=== PATIENT | male | born 1950 | race Caucasian/White ===

== ENCOUNTER 2016-12-04 15:22 | Inpatient (IN) ==
[2016-12-04] MEDS ORDERED: *HR* Dextrose 50 % in Water (Syg) 50 ML SYRINGE IVP PRN (17:53)
[2016-12-04] MEDS ORDERED: Dextrose Gel 15 GM PO PRN ×2 (17:53)
[2016-12-04] MEDS ORDERED: D5% in Water 1,000 ML IVC PRN (17:53)
[2016-12-04] MEDS ORDERED: *HR* Morphine 2 MG/ML SYRINGE IVP PRN (18:00)
[2016-12-04] MEDS ORDERED: Ondansetron 4 MG/2 ML VIAL IVP PRN (18:00)
[2016-12-04] MEDS ORDERED: Naloxone 0.4 MG/ML INJ IVP PRN ×2 (18:00→18:09)
--- NOTE | 2016-12-04 18:10 | Internal Med History&Physical ---
Date of Encounter: 12/04/16 Time of Encounter: 17:40 Assessment and Plan (1) Dysphagia Current visit: Yes Status: Acute Mr. Dillard was admitted to the [facility] with new findings of dysphagia, underwent speech evaluation determined to be nothing by mouth with NG tube placement. -Neurologic exam and CT of the brain without contrast did not demonstrate any acute findings or stroke. Plan: - Continue NG tube placement confirmed by KUB - Tube feedings per dietary - May need to be reassessed by speech. Qualifiers: Dysphagia type: unspecified Qualified Code(s): R13.10 - Dysphagia, unspecified (2) Acute on chronic kidney failure Current visit: Yes Status: Acute Mr. Dillard was transferred from the [facility] with a creatinine according to their documentation of 4.28 and GFR of 14.8 with a sodium of 147 and that BUN of 149. According to their records the patient was admitted with a creatinine of 2.0 and a GFR of 35.6 and according to lab results from 11/07/2016 he had a creatinine 2.43 and a GFR of 27. - Laboratory results demonstrate creatinine of 4.34 and GFR 14, BUN 137 - Clinical examination patient appears euvolemic, has dark brown urine in his Gomez bag Plan: - Dr. José with nephrology has been consult regarding this patient's arrival and would appreciate his involvements and treatment of his acute kidney injury. - Patient started on normal saline at 150 ML's per hour - Gomez catheter in place - Retroperitoneal ultrasound for renal evaluation - Avoid nephrotoxic medications and renally dose antibiotics - Repeat CMP in a.m. Qualifiers: Chronic kidney disease stage: stage 4 (severe) Qualified Code(s): N17.9 - Acute kidney failure, unspecified; N18.4 - Chronic kidney disease, stage 4 ( severe) (3) Type 2 diabetes mellitus Current visit: Yes Status: Acute Known type II diabetic with chronic kidney disease. Insulin-dependent, glucose upon admission was 102 Plan: -Before meals at bedtime glucose checks -Low-dose inpatient sliding scale Qualifiers: Qualified Code(s): E11.9 - Type 2 diabetes mellitus without complications (4) COPD (chronic obstructive pulmonary disease) Current visit: Yes Status: Acute Patient was treated for COPD exacerbation with admission at [facility] currently maintaining oxygen saturations greater than 90% on 3 L nasal cannula - Lungs clear to auscultation bilaterally - Continue to monitor and wean oxygen as tolerated - [place] when necessary - Albuterol nebulizer every 2 hours when necessary Qualifiers: Qualified Code(s): J44.9 - Chronic obstructive pulmonary disease, unspecified (5) Hyperkalemia Current visit: Yes Status: Acute Patient presents with hyperkalemia with a potassium 5.0 in the setting of acute on chronic kidney disease. Likely secondary to poor renal output and dehydration. - Nephrology has been consulted Plan: - Rehydration with normal saline - Kayexalate rectally - Repeat potassium at midnight - Notify nephrology of potassium continues to rise (6) Hypothyroidism Current visit: Yes Status: Acute TSH documented on 12/02/2016 at the [facility] of 20.20 TSH 10.38 - This is in the setting of acute illness if symptoms persist he may require levothyroxin. Patient with antipsychotic use. Plan: - Patient may require levothyroxin. Symptomatic after correction of underlying disease. Qualifiers: Hypothyroidism type: unspecified Qualified Code(s): E03.9 - Hypothyroidism , unspecified (7) Schizophrenia Current visit: Yes Status: Acute Patient has known history of schizophrenia and has documented Aripiprazole, benztropine haloperidol and trazodone for which he was not taking due to NG tube placement. At the [facility] he was evaluated by psychiatry for which he was on valproic acid and tapered to 250 mg a.m. and 750 mg p.m. for mood stabilization prior to DC - This was not provided on his list of medications for discharge. Qualifiers: Schizophrenia type: unspecified Qualified Code(s): F20.9 - Schizophrenia, unspecified (8) Anemia Current visit: Yes Status: Acute Patient has a history of chronic anemia with a hemoglobin of 10.4 in March of this year. When he was admitted to the [facility] he had a hemoglobin of 6.6 and received 2 units of PRBCs and has maintained a hemoglobin of around 9 since admission. This also may be concentrated as he is dehydrated and after rehydration may be requiring more PRBC transfusion. Plan: - Monitor with daily CBC - Transfuse PRBC if hemoglobin below 7.0 Qualifiers: Chronic kidney disease stage: stage 4 (severe) Qualified Code(s): N18.4 - Chronic kidney disease, stage 4 (severe); D63.1 - Anemia in chronic kidney disease (9) Encounter for nasogastric (NG) tube placement Current visit: Yes Status: Acute Patient transferred with an NG tube in place, KUB was performed to confirm placement demonstrating tip of the NG tube in the gastric cavity. The NG tube was placed due to dysphagia and speech evaluation was performed at the [facility] with recommendations for nothing by mouth. - Dietary consult placed patient will require NG tube feedings until further evaluation (10) Urinary tract infection Current visit: Yes Status: Acute 66-year-old male transferred from the [facility] with acute kidney injury on chronic kidney disease. Urinalysis demonstrates large leukocyte esterase, urinary blood and greater than 300 protein. This is associated with a WBC 15.9 Plan: - Patient has an allergy to penicillins, we will give 500 Levaquin every 48 hours Qualifiers: Qualified Code(s): N39.0 - Urinary tract infection, site not specified; R31.9 - Hematuria, unspecified (11) Right bundle branch block Current visit: Yes Status: Acute Repeat EKG upon admission demonstrates normal sinus rhythm and rate with left axis deviation and right bundle branch block which is consistent with EKGs sent over from the [facility]. - Prior rhythm and cardiac history unknown at this time. (12) DVT prophylaxis Current visit: Yes Status: Acute SCD, patient has a documented allergy to heparin [facility]. Unsure what this allergy is and will need further clarification. Internal Medicine - H&P: HPI Chief complaint: dayne History of present illness: Mr. Dillard is a 66 year old male with history of diabetes, chronic kidney disease COPD, anemia presented C the [facility] on 11/26/2016 with new findings of dysphagia. Mr. Dillard has an NG tube in place from the [facility] and does not respond to questions appropriately. However he is alert awake and interactive his responses are not appropriate. While at the [facility] he received 2 units of PRBCs for hemoglobin below 7 and was seen by speech pathology failing a swallow evaluation. Upon admission at the [facility] and his creatinine was 2.0 and GFR 35.6 the following days his renal function progressively worsened. According to hospital notes he received some IV fluids consisting of dextrose and water. During his inpatient stay he was found to be hyperkalemic which progressively worsened requiring Kayexalate. We will also documented that a psychiatry consultation was recommended given the patient's mental status change and increased tongue thrusting. Laboratory results of significance from the [facility]: Hemoglobin 9.4 hematocrit 3.0, platelet count of 59, sodium 147, potassium 4.9 after Kayexalate, chloride 110, CO2 25, glucose 92, B1 149, creatinine 4.2 weight, GFR 14.8, calcium 7.9. On December 02 patient had a TSH of 20.2 and a free T4 of 0.89. Mr. Dillard was transferred from the [facility] to our inpatient facility for worsening acute kidney injury, hyperkalemia not responding to therapy and nephrology evaluation. Upon evaluation Mr. Dillard he was laying comfortably in the hospital bed with an NG tube in place. Upon asking questions his answers are not appropriate and when asked if he is having any pain he pointed to his head. He was unable to answer any further questions appropriately. Patient was transferred with DNR CCA forms and legal guardian is Prery Taveras Past Med Surg Social Fam HX - Past Medical History Medical history: cancer, CHF, COPD, diabetes, hypertension, renal disease Psychiatric history: anxiety, depression, schizophrenia - Social History Smoking Status: Unknown if ever smoked Smokeless Tobacco Status: No Alcohol use: unknown Drug use: unknown Internal Medicine - H&P: Meds 3 Allergy/AdvReac Type Severity Reaction Status Date / Time Penicillins Allergy See Verified 03/21/16 08:24 Comments Sulfa (Sulfonamide Allergy See Verified 03/21/16 08:24 Antibiotics) Comments TB test Allergy See Uncoded 03/21/16 08:24 Comments ROS unobtainable: due to mental status All Systems PM: A 10-system review of systems was performed and is negative for pertinent findings except as documented above in the HPI. - Constitutional Vitals: Temp Pulse Resp BP Pulse Ox 98.3 F 85 20 119/61 92 12/04/16 17:06 12/04/16 17:06 12/04/16 17:06 12/04/16 17:06 12/04/16 17:06 Exam: General: Patient alert, awake, oriented to self, in no acute distress HEENT: Normocephalic, atraumatic, pupils are symmetric but pinpoint, nasal cavity patent and open septum median position with NG tube in place, oral mucosa moist, tongue thrusting present,, neck supple trachea midline no palpable lymphadenopathy, no thyromegaly. Chest: Symmetric bilateral correlating with respiratory effort, effort nonlabored. Cardiac: Regular rate and rhythm, positive S1 and S2. no bruits appreciated bilateral carotids, Radial pulses 2+ bilateral, posterior tibial and dorsal pedal pulses 2+ bilateral. Respiratory: Clear to auscultation all lung terrell Abdomen: Soft, nontender, positive bowel sounds, no palpable masses appreciated on examination Extremities: Symmetric bilateral, bilateral lower extremities trace edema without signs of erythema Neurologic: No focal deficits appreciated on examination. Face symmetric, muscle strength symmetric bilateral upper and lower extremities.
[2016-12-04 18:24] LABS: Bilirubin,Urine Negative (Negative); Blood,Urine Large (Negative); Clarity,Urine Cloudy (Clear); Color,Urine Dark Yellow (Yellow); Glucose,Urine (UA) Normal (Normal); Ketones,Urine Negative (Negative); Protein,Urine >=300 mg/dL (Neg-Trace); Specific Gravity,Urine 1.016 (1.010-1.025); Urobilinogen,Urine Normal (Normal)
[2016-12-04 18:25] LABS: Leukocyte Esterase,Urine Large (Negative); Nitrite,Urine Negative (Negative)
[2016-12-04 18:29] LABS: Magnesium 2.5 mg/dL (1.6-2.6); Phosphorous 6.9 mg/dL (2.3-4.7)
[2016-12-04 18:38] LABS: Albumin 2.6 g/dL (3.5-5.0); Albumin/Globulin Ratio 0.6 (1.1-2.2); Bilirubin,Total 0.6 mg/dL (0.2-1.2); Calcium 8.5 mg/dL (8.6-10.8); Globulin 4.3 g/dL (2.4-3.5); Total Protein 6.9 g/dL (6.0-8.3)
[2016-12-04 18:39] LABS: Basophils % 0.1 %; Eosinophils # 0.2 K/mcL (0.0-0.6); Eosinophils % 1.4 %; Hematocrit 29.9 % (37.5-50.1); Hemoglobin 9.1 g/dL (12.9-16.9); Immature Platelets 9.1 % (1.1-6.1); Lymphocytes # 0.7 K/mcL (0.6-4.6); Lymphocytes % 4.5 %; Mean Corpuscular HGB Conc 30.4 g/dL (31.6-35.5); Mean Corpuscular Hemoglobin 29.9 pg (28.0-33.3); Mean Corpuscular Volume 98.4 fL (83.0-100.0); Mean Platelet Volume 12.7 fL (9.4-12.4); Monocytes # 0.7 K/mcL (0.0-1.3); Monocytes % 4.2 %; Nucleated Red Blood Cells 0.3 /100 WBC (0); Red Blood Count 3.04 M/mcL (4.19-5.50); Segmented Neutrophils % 87.8 %
[2016-12-04] MEDS ORDERED: 0.9 % Sodium Chloride 1,000 ML IVC ONE (18:54)
[2016-12-04] MEDS ORDERED: Levofloxacin 500 MG/100 ML 500 MG/100 ML BAG IVPB SCH (19:00)
--- NOTE | 2016-12-04 19:06 | Event Note ---
Date of Encounter: 12/04/16 Time of Encounter: 19:00 I personally interviewed and examined this patient. I reviewed all labs and studies. I agree with the findings, assessment and plan of medical student Marino Carver. Patient will be seen by nephrology for acute worsening of chronic kidney disease. He does not need acute dialysis but will likely need this very soon. Patient is a very poor historian but does have a nonfocal exam. He does have dysphagia for which he has an NG tube. I am unclear why he has dysphasia and we will perform a CAT scan looking for evidence of stroke. We will continue NG feedings for now and also have a swallow evaluation as well as nutrition consult. Family is not available and we will continue to try to reach them to discuss her goals of care. Understanding is he is a DO NOT RESUSCITATE but they are interested in dialysis.
[2016-12-04 19:11] LABS: Platelet Count 56 K/mcL (140-400)
[2016-12-04 19:12] LABS: Anisocytosis 2+ (Not Present); Basophilic Stippling 1+ (Not Present); Macrocytosis Present (Not Present); Platelet Estimate Decreased (Normal); Polychromasia 1+ (Not Present)
[2016-12-04] MEDS: Pantoprazole 40 MG VIAL IVP SCH (19:20)
[2016-12-04] MEDS: Insulin LISPRO 300 UNITS/3 ML VIAL SQ SCH (19:20)
[2016-12-04] MEDS ORDERED: Albuterol 2.5 MG/3 ML NEBULIZER IH PRN (19:36)
[2016-12-04] MEDS: 0.9 % Sodium Chloride 1,000 ML IVC SCH (19:55)
[2016-12-04] MEDS: Ipratropium/Albuterol Neb 3 ML IH PRN (23:40)
[2016-12-05] MEDS: 0.9 % Sodium Chloride 1,000 ML IVC SCH ×2 (00:05→02:54)
[2016-12-05] MEDS: Insulin LISPRO 300 UNITS/3 ML VIAL SQ SCH ×5 (00:05→23:12)
[2016-12-05] MEDS: D5% in 0.9% NACL 1,000 ML IVC SCH ×4 (04:14→23:11)
[2016-12-05 04:48] LABS: Basophils % 0.1 %; Eosinophils # 0.2 K/mcL (0.0-0.6); Eosinophils % 1.6 %; Hematocrit 28.2 % (37.5-50.1); Hemoglobin 8.7 g/dL (12.9-16.9); Immature Granulocytes % 2.7 % (0-4); Immature Platelets 9.9 % (1.1-6.1); Lymphocytes # 0.9 K/mcL (0.6-4.6); Lymphocytes % 6.3 %; Mean Corpuscular HGB Conc 30.9 g/dL (31.6-35.5); Mean Corpuscular Hemoglobin 30.6 pg (28.0-33.3); Mean Corpuscular Volume 99.3 fL (83.0-100.0); Monocytes # 0.5 K/mcL (0.0-1.3); Monocytes % 3.5 %; Neutrophils # 11.6 K/mcL (1.6-8.9); Nucleated Red Blood Cells 0.1 /100 WBC (0); Red Blood Count 2.84 M/mcL (4.19-5.50); Segmented Neutrophils % 85.8 %
[2016-12-05 04:59] LABS: Albumin 2.3 g/dL (3.5-5.0); Albumin/Globulin Ratio 0.5 (1.1-2.2); Bilirubin,Total 0.7 mg/dL (0.2-1.2); Globulin 4.5 g/dL (2.4-3.5); Total Protein 6.8 g/dL (6.0-8.3)
[2016-12-05 05:02] LABS: Potassium 4.8 mEq/L (3.5-4.5)
[2016-12-05 05:19] LABS: Platelet Count 50 K/mcL (140-400)
[2016-12-05 05:20] LABS: Anisocytosis 2+ (Not Present); Basophilic Stippling 1+ (Not Present); Macrocytosis Present (Not Present); Platelet Estimate Decreased (Normal); Polychromasia 1+ (Not Present)
--- NOTE | 2016-12-05 07:21 | Internal Med Progress Note ---
<Marino Carver Mohit - Last Filed: 12/05/16 14:24> Date of Encounter: 12/05/16 Time of Encounter: 07:19 - Assessment and plan (1) Dysphagia Current Visit: Yes Status: Acute Assessment and plan: Mr. Dillard was admitted to the [facility] with new findings of dysphagia, underwent speech evaluation determined to be nothing by mouth with NG tube placement. -Neurologic exam and CT of the brain without contrast did not demonstrate any acute findings or stroke. -Patient pulled NG tube outline a evening, speech therapy was consulted and at this time recommend NG tube with tube feedings. Plan for dietary's input for NG tube feedings. Plan: - NG tube placement tomorrow - Tube feedings per dietary - We will need to contact power of litigation attorney associate to discuss current situation and possible PEG tube placement Qualifiers: Dysphagia type: unspecified Qualified Code(s): R13.10 - Dysphagia, unspecified (2) Acute on chronic kidney failure Current Visit: Yes Status: Acute Assessment and plan: Mr. Dillard was transferred from the [facility] with a creatinine according to their documentation of 4.28 and GFR of 14.8 with a sodium of 147 and that BUN of 149. According to their records the patient was admitted with a creatinine of 2.0 and a GFR of 35.6 and according to lab results from 11/07/2016 he had a creatinine 2.43 and a GFR of 27. - Laboratory results demonstrate creatinine of 4.34 and GFR 14, BUN 137 - Clinical examination patient appears euvolemic, has dark brown urine in his Gomez bag Plan: - Patient started on dextrose and normal saline at 150 ML's per hour - Gomez catheter in place - Retroperitoneal ultrasound for renal evaluation - Avoid nephrotoxic medications and renally dose antibiotics - Repeat CMP in a.m. Qualifiers: Chronic kidney disease stage: stage 4 (severe) Qualified Code(s): N17.9 - Acute kidney failure, unspecified; N18.4 - Chronic kidney disease, stage 4 ( severe) (3) Type 2 diabetes mellitus Current Visit: Yes Status: Acute Assessment and plan: Known type II diabetic with chronic kidney disease. Insulin-dependent, glucose upon admission was 102 Plan: -Before meals at bedtime glucose checks -Low-dose inpatient sliding scale Qualifiers: Qualified Code(s): E11.9 - Type 2 diabetes mellitus without complications (4) COPD (chronic obstructive pulmonary disease) Current Visit: Yes Status: Acute Assessment and plan: Patient was treated for COPD exacerbation with admission at [facility], currently maintaining oxygen saturations greater than 90% on 3 L nasal cannula - Lungs clear to auscultation bilaterally - Continue to monitor and wean oxygen as tolerated - DuoNeb when necessary - Albuterol nebulizer every 2 hours when necessary Qualifiers: Qualified Code(s): J44.9 - Chronic obstructive pulmonary disease, unspecified (5) Hyperkalemia Current Visit: Yes Status: Acute Assessment and plan: Patient presents with hyperkalemia with a potassium 5.0 in the setting of acute on chronic kidney disease. Likely secondary to poor renal output and dehydration. - Received rectal Kayexalate last evening with slight improvement in his potassium to 4.8 Plan: - Rehydration with normal saline - Kayexalate rectally - Repeat potassium with a.m. labs (6) Hypothyroidism Current Visit: Yes Status: Acute Assessment and plan: TSH documented on 12/02/2016 at the [facility] of 20.20 TSH 10.38 - This is in the setting of acute illness if symptoms persist he may require levothyroxin. Patient with antipsychotic use. Plan: - Patient may require levothyroxin. Symptomatic after correction of underlying disease. Qualifiers: Hypothyroidism type: unspecified Qualified Code(s): E03.9 - Hypothyroidism , unspecified (7) Schizophrenia Current Visit: Yes Status: Acute Assessment and plan: Patient has known history of schizophrenia and has documented Aripiprazole, benztropine haloperidol and trazodone for which he was not taking due to NG tube placement. At the [facility] he was evaluated by psychiatry for which he was on valproic acid and tapered to 250 mg a.m. and 750 mg p.m. for mood stabilization prior to DC - This was not provided on his list of medications for discharge. Qualifiers: Schizophrenia type: unspecified Qualified Code(s): F20.9 - Schizophrenia, unspecified (8) Anemia Current Visit: Yes Status: Acute Assessment and plan: Patient has a history of chronic anemia with a hemoglobin of 10.4 in March of this year. When he was admitted to the [facility] he had a hemoglobin of 6.6 and received 2 units of PRBCs and has maintained a hemoglobin of around 9 since admission. This also may be concentrated as he is dehydrated and after rehydration may be requiring more PRBC transfusion. Plan: - Monitor with daily CBC - Transfuse PRBC if hemoglobin below 7.0 Qualifiers: Chronic kidney disease stage: stage 4 (severe) Qualified Code(s): N18.4 - Chronic kidney disease, stage 4 (severe); D63.1 - Anemia in chronic kidney disease (9) Encounter for nasogastric (NG) tube placement Current Visit: Yes Status: Acute Assessment and plan: Patient transferred with an NG tube in place, KUB was performed to confirm placement demonstrating tip of the NG tube in the gastric cavity. The NG tube was placed due to dysphagia and speech evaluation was performed at the [facility] with recommendations for nothing by mouth. - We will require replacement of NG tube tomorrow as patient has pulled it out. - Dietary consult placed patient will require NG tube feedings until further evaluation (10) Urinary tract infection Current Visit: Yes Status: Acute Assessment and plan: 66-year-old male transferred from the [facility] with acute kidney injury on chronic kidney disease. Urinalysis demonstrates large leukocyte esterase, urinary blood and greater than 300 protein. This is associated with a WBC 15.9 12/05: Urine culture demonstrating 2 separate organisms both gram negatives rods , WBC 13.5 down from 15.9 yesterday - Continue IV Levaquin Qualifiers: Qualified Code(s): N39.0 - Urinary tract infection, site not specified; R31.9 - Hematuria, unspecified (11) Right bundle branch block Current Visit: Yes Status: Acute Assessment and plan: Repeat EKG upon admission demonstrates normal sinus rhythm and rate with left axis deviation and right bundle branch block which is consistent [facility] - Prior rhythm and cardiac history unknown at this time. (12) DVT prophylaxis Current Visit: Yes Status: Acute Assessment and plan: SCD, patient has a documented allergy to heparin [facility]. Unsure what this allergy is and will need further clarification. - Subjective Interval history: Mr. Dillard 66-year-old male pulled his NG tube out last evening, continues to be incoherent with speech. No significant changes overnight. - Constitutional Vitals: Temp Pulse Resp BP Pulse Ox 97.4 F L 90 20 124/62 94 12/05/16 04:00 12/05/16 06:00 12/05/16 06:00 12/05/16 06:00 12/05/16 06:00 Exam: General: Patient alert, awake, oriented to self, in no acute distress HEENT: Normocephalic, atraumatic, pupils are symmetric but pinpoint, nasal cavity patent and open septum median position, oral mucosa moist, tongue thrusting present,, neck supple trachea midline no palpable lymphadenopathy, no thyromegaly. Chest: Symmetric bilateral correlating with respiratory effort, effort nonlabored. Cardiac: Regular rate and rhythm, positive S1 and S2. no bruits appreciated bilateral carotids, Radial pulses 2+ bilateral, posterior tibial and dorsal pedal pulses 2+ bilateral. Respiratory: Clear to auscultation all lung terrell Abdomen: Soft, nontender, positive bowel sounds, no palpable masses appreciated on examination Extremities: Symmetric bilateral, bilateral lower extremities trace edema without signs of erythema Neurologic: No focal deficits appreciated on examination. Face symmetric, muscle strength symmetric bilateral upper and lower extremities. Internal Medicine: Result - Labs CBC & Chem 7: 12/05/16 04:15 12/05/16 04:15 Labs: Short CBC 12/04/16 12/05/16 Range/Units 18:30 04:15 WBC 15.9 H 13.5 H (4.3-11.1) K/mcL Hgb 9.1 L 8.7 L (12.9-16.9) g/dL Hct 29.9 L 28.2 L (37.5-50.1) % Plt Count 56 L 50 L (140-400) K/mcL Neutrophils # 14.0 H 11.6 H (1.6-8.9) K/mcL BMP 12/04/16 12/05/16 12/05/16 18:08 00:16 04:15 Sodium 143 146 H Potassium 5.0 H 5.0 H 4.8 H Chloride 110 H 114 H Carbon Dioxide 23 21 BUN 137 H 129 H Creatinine 4.34 H 4.14 H Glucose 95 65 L Calcium 8.5 L 8.0 L Liver Function 12/04/16 12/05/16 Range/Units 18:08 04:15 Total Bilirubin 0.6 0.7 (0.2-1.2) mg/dL AST 12 15 (5-34) Units/L ALT 20 19 (0-55) Units/L Alkaline Phosphatase 250 H 228 H (38-126) Units/L Albumin 2.6 L 2.3 L (3.5-5.0) g/dL Urine 12/04/16 Range/Units 18:05 Urine Color Dark Yellow (Yellow) Urine Clarity Cloudy A (Clear) Urine pH 6.0 (5.0-8.0) pH Units Ur Specific [place] 1.016 (1.010-1.025) Urine Protein >=300 H (Neg-Trace) mg/dL Urine Glucose (UA) Normal (Normal) mg/dL - Impressions Impressions Head CT 12/04/16 17:54 IMPRESSION: No acute intracranial abnormality. D/ / Sloan Sinha MD / Sloan Sinha MD Interpreting Provider: Sloan Sinha MD X-Ray 12/04/16 18:11 IMPRESSION: 1. Enteric tube projects over the gastric body. 2. Small to moderate right pleural effusion. Right basilar airspace opacity, compatible with pneumonia versus atelectasis. 3. Left basilar airspace opacity, favored to represent atelectasis. 4. Pulmonary vascular congestion. Follow-up short-term chest radiography is recommended to evaluate these findings. D/ / 12/04/2016 18:44:11 Tahir Roberson MD / laura Interpreting Provider: Tahir Roberson MD Consult Discharge Plan - Plan [facility]errals: [facility] [Primary Care Provider[facility] - <Perry Dixon - Last Filed: 12/05/16 18:39> Date of Encounter: 12/05/16 - Constitutional Vitals: Temp Pulse Resp BP Pulse Ox 97.8 F 70 20 126/60 93 12/05/16 15:37 12/05/16 18:00 12/05/16 18:00 12/05/16 18:00 12/05/16 18:00 Internal Medicine: Result - Labs CBC & Chem 7: 12/05/16 04:15 12/05/16 04:15 Labs: Short CBC 12/04/16 12/05/16 Range/Units 18:30 04:15 WBC 15.9 H 13.5 H (4.3-11.1) K/mcL Hgb 9.1 L 8.7 L (12.9-16.9) g/dL Hct 29.9 L 28.2 L (37.5-50.1) % Plt Count 56 L 50 L (140-400) K/mcL Neutrophils # 14.0 H 11.6 H (1.6-8.9) K/mcL BMP 12/04/16 12/05/16 12/05/16 18:08 00:16 04:15 Sodium 143 146 H Potassium 5.0 H 5.0 H 4.8 H Chloride 110 H 114 H Carbon Dioxide 23 21 BUN 137 H 129 H Creatinine 4.34 H 4.14 H Glucose 95 65 L Calcium 8.5 L 8.0 L Liver Function 12/04/16 12/05/16 Range/Units 18:08 04:15 Total Bilirubin 0.6 0.7 (0.2-1.2) mg/dL AST 12 15 (5-34) Units/L ALT 20 19 (0-55) Units/L Alkaline Phosphatase 250 H 228 H (38-126) Units/L Albumin 2.6 L 2.3 L (3.5-5.0) g/dL - Impressions Impressions Head CT 12/04/16 17:54 IMPRESSION: No acute intracranial abnormality. D/ / Sloan Sinha MD / Sloan Sinha MD Interpreting Provider: Sloan Sinha MD X-Ray 12/04/16 18:11 IMPRESSION: 1. Enteric tube projects over the gastric body. 2. Small to moderate right pleural effusion. Right basilar airspace opacity, compatible with pneumonia versus atelectasis. 3. Left basilar airspace opacity, favored to represent atelectasis. 4. Pulmonary vascular congestion. Follow-up short-term chest radiography is recommended to evaluate these findings. D/ / 12/04/2016 18:44:11 Tahir Roberson MD / laura Interpreting Provider: Tahir Roberson MD - Attending Attestation See my event note. <Randy Bright - Last Filed: 12/05/16 19:56> Date of Encounter: 12/05/16 - Assessment and plan (1) Acute on chronic kidney failure Current Visit: Yes Status: Acute Qualifiers: Acute renal failure type: with acute tubular necrosis Chronic kidney disease stage: stage 4 (severe) Qualified Code(s): N17.0 - Acute kidney failure with tubular necrosis; N18.4 - Chronic kidney disease, stage 4 (severe) (2) COPD (chronic obstructive pulmonary disease) Current Visit: Yes Status: Acute Qualifiers: Qualified Code(s): J44.9 - Chronic obstructive pulmonary disease, unspecified (3) Anemia Current Visit: Yes Status: Acute Qualifiers: Anemia type: due to chronic kidney disease Chronic kidney disease stage: stage 4 (severe) Qualified Code(s): N18.4 - Chronic kidney disease, stage 4 ( severe); D63.1 - Anemia in chronic kidney disease (4) Dysphagia Current Visit: Yes Status: Acute Qualifiers: Dysphagia type: unspecified Qualified Code(s): R13.10 - Dysphagia, unspecified (5) Hypothyroidism Current Visit: Yes Status: Acute Qualifiers: Hypothyroidism type: unspecified Qualified Code(s): E03.9 - Hypothyroidism , unspecified - Constitutional Vitals: Temp Pulse Resp BP Pulse Ox 97.8 F 70 20 126/60 93 12/05/16 15:37 12/05/16 18:00 12/05/16 18:00 12/05/16 18:00 12/05/16 18:00 Internal Medicine: Result - Labs CBC & Chem 7: 12/05/16 04:15 12/05/16 04:15 Labs: Short CBC 12/05/16 Range/Units 04:15 WBC 13.5 H (4.3-11.1) K/mcL Hgb 8.7 L (12.9-16.9) g/dL Hct 28.2 L (37.5-50.1) % Plt Count 50 L (140-400) K/mcL Neutrophils # 11.6 H (1.6-8.9) K/mcL BMP 12/05/16 12/05/16 00:16 04:15 Sodium 146 H Potassium 5.0 H 4.8 H Chloride 114 H Carbon Dioxide 21 BUN 129 H Creatinine 4.14 H Glucose 65 L Calcium 8.0 L Liver Function 12/05/16 Range/Units 04:15 Total Bilirubin 0.7 (0.2-1.2) mg/dL AST 15 (5-34) Units/L ALT 19 (0-55) Units/L Alkaline Phosphatase 228 H (38-126) Units/L Albumin 2.3 L (3.5-5.0) g/dL - Attending Attestation I examined this patient and my medical decision-making was reviewed with the Resident Physician on 12/05/16. I agree with the documented findings, disposition and treatment plan as described except to the extent set forth below. Mr. Dillard is currently admitted for acute renal failure and dysphagia. He remains moderate to high risk due to potential for worsening respiratory and renal status. Mr. Dillard is alert but confused. No fever. Maintaining oxygen. Exam Alert. Comfortable Heart reg Scant end exp wheeze Abd soft I/P 1. Hypoxia 2. Dysphagia Further diagnoses and plan as above.
[2016-12-05] MEDS: Ipratropium/Albuterol Neb 3 ML IH PRN ×2 (07:57→20:18)
[2016-12-05] MEDS: Pantoprazole 40 MG VIAL IVP SCH (08:05)
--- NOTE | 2016-12-05 12:35 | Nephrology Consult Note ---
Date of Encounter: 12/05/16 Time of Encounter: 12:31 Assessment and Plan (1) Acute on chronic kidney failure Current Visit: Yes Status: Acute The patient has acute on chronic kidney injury of unclear etiology. But clinically it is likely prerenal azotemia. Patient is borderline oliguric, but his creatinine seems to be trending towards baseline. We will order workup for both acute kidney injury along with chronic kidney disease. Await results of renal ultrasound. I suspect his chronic kidney disease secondary to diabetes. Avoid nephrotoxic agents. Adjust medications for renal function. No acute need for renal replacement therapy. We will follow with you. Qualifiers: Chronic kidney disease stage: stage 4 (severe) Qualified Code(s): N17.9 - Acute kidney failure, unspecified; N18.4 - Chronic kidney disease, stage 4 ( severe) (2) Anemia Current Visit: Yes Status: Acute We will order iron saturation, vitamin B12, and folate. Monitor for bleeding. The patient may require EPO. Qualifiers: Chronic kidney disease stage: stage 4 (severe) Qualified Code(s): N18.4 - Chronic kidney disease, stage 4 (severe); D63.1 - Anemia in chronic kidney disease (3) Hyperkalemia Current Visit: Yes Status: Acute Medical management. (4) Hypothyroidism Current Visit: Yes Status: Acute Per primary team. Qualifiers: Hypothyroidism type: unspecified Qualified Code(s): E03.9 - Hypothyroidism , unspecified (5) Schizophrenia Current Visit: Yes Status: Acute Per primary team. Patient may have underlying dementia as well. Qualifiers: Schizophrenia type: unspecified Qualified Code(s): F20.9 - Schizophrenia, unspecified (6) Type 2 diabetes mellitus Current Visit: Yes Status: Acute Goal hemoglobin A1c is less than 7.0. Management per primary team. Qualifiers: Qualified Code(s): E11.9 - Type 2 diabetes mellitus without complications (7) Urinary tract infection Current Visit: Yes Status: Acute Await culture data. Qualifiers: Qualified Code(s): N39.0 - Urinary tract infection, site not specified; R31.9 - Hematuria, unspecified History of Present Illness - Reason for Consult Consult date: 12/05/16 Acute Kidney Injury, Chronic Kidney Disease - Chief Complaint BEBETO/CKD - History of Present Illness Mr. Dillard is a 66 yo man with a history of diabetes and CKD who presents with BEBETO and concern for dysphagia. History is from review of the medical record, conversation with the admitting physician and covering nurse. The patient is a poor historian with a history of schizophrenia and possibly dementia and is unable to provide an accurate history. Past Med Surg Social Fam HX - Past Medical History Medical history: cancer, CHF, COPD, diabetes, hypertension, renal disease Psychiatric history: anxiety, depression, schizophrenia - Social History Smoking Status: Unknown if ever smoked Smokeless Tobacco Status: No Alcohol use: unknown Drug use: unknown Medications and Allergies Acetaminophen [Tylenol] 650 mg PO Q6HR PRN 12/05/16 [History] Aripiprazole [Abilify Maintena] 400 mg IM QMONTH 12/05/16 [History] Benztropine [Cogentin] 0.5 mg PO HS 12/05/16 [History] Chlorhexidine Gluconate [Hibiclens] 15 ml PO DAILY 12/05/16 [History] Clotrimazole [Itch Relief] 1 appl TP BID PRN 12/05/16 [History] Epoetin Dandy [Procrit] 5,000 unit SQ MOWEFR 12/05/16 [History] Haloperidol 2 mg PO HS 12/05/16 [History] Insulin Regular Human [HumuLIN R] 3 - 8 unit SQ ACHS 12/05/16 [History] Ipratropium/Albuterol Neb [Duoneb] 3 ml IH Q6HR PRN 12/05/16 [History] Levothyroxine [Synthroid] 25 mcg PO DAILY 12/05/16 [History] Lidocaine 4% CRM (LMX) [Lmx 4] 1 appl TP TID PRN 12/05/16 [History] Magnesium Oxide [Magnesium] 400 mg PO BID 12/05/16 [History] Melatonin/Pyridoxine HCl (B6) [Melatonin 3 mg Tablet] 6 mg PO HS PRN 12/05/16 [ History] Nitroglycerin [Nitrostat] 0.4 mg SL AD PRN 12/05/16 [History] Ondansetron [Zofran] 4 mg PO TID PRN 12/05/16 [History] Xenaderm 1 appl TP Q4H PRN 12/05/16 [History] traZODone [TraZODone] 50 mg PO HS 12/05/16 [History] 3 Allergy/AdvReac Type Severity Reaction Status Date / Time heparin Allergy Unknown Rash Verified 12/04/16 21:55 Penicillins Allergy See Verified 03/21/16 08:24 Comments Sulfa (Sulfonamide Allergy See Verified 03/21/16 08:24 Antibiotics) Comments TB test Allergy See Uncoded 12/04/16 21:55 Comments Review of Systems ROS unobtainable: due to mental status Exam - Vital Signs Vital signs: Initial Vital Signs Temp Pulse Resp BP Pulse Ox 98.3 F 85 20 119/61 92 12/04/16 17:06 12/04/16 17:06 12/04/16 17:06 12/04/16 17:06 12/04/16 17:06 Vital Signs - Last 8 Hours Temp Pulse Resp BP Pulse Ox 12/05/16 11:56 96 12/05/16 11:06 89 15 120/68 94 12/05/16 10:00 94 18 123/67 95 12/05/16 09:00 97 17 123/67 96 12/05/16 08:34 98.1 F 12/05/16 08:08 104 14 128/66 92 12/05/16 07:57 18 128/66 93 12/05/16 07:15 92 13 119/65 93 12/05/16 06:00 90 20 124/62 94 12/05/16 05:00 87 20 125/63 95 Intake and Output 12/04/16 12/05/16 12/05/16 23:59 07:59 15:59 Intake Total 1100 / 1100 1000 / 1000 1000 / 1000 Output Total 400 / 400 Balance 700 / 700 1000 / 1000 1000 / 1000 Intake: IV Fluids 1100 / 1100 1000 / 1000 1000 / 1000 0.9 % Sodium Chloride 1, 1000 / 1000 1000 / 1000 000 ML @ 150 mls/hr IVC . Q6H40M [facility] Rx#:[id number] D5% And 0.9% Nacl 1000 Ml 1000 / 1000 1,000 ML @ 150 mls/hr IVC .Q6H40M RACHNA Rx#: [id number] Levaquin Premix 500mg/ 100 / 100 100mL 500 mg In 100 ml @ 100 mls/hr IVPB Q48H [facility] Rx#:[id number] Oral 0 / 0 Output: Catheter 400 / 400 Other: Stool Size Moderate Large Smear Stool Consistency liquid loose Stool Characteristics Normal for Patient Stool Color Brown Brown Brown Yellow Yellow # Bowel Movements 2 1 Weight 81.5 kg Blood Glucose* 102 100 106 - General Appearance General appearance: well-developed, well-nourished, chronically ill EENT: ATNC Neck: supple Respiratory: clear Cardiology: no edema, regular rate, regular rhythm Gastrointestinal: no tenderness Integumentary: warm and dry Additional Comments: Alert, but not oriented. Musculoskeletal: no cyanosis Psychiatric: mood/affect appropriate, cooperative Results - Lab Results 12/05/16 04:15 12/05/16 04:15 Most recent lab results Calcium 8.0 mg/dL (8.6-10.8) L 12/05/16 04:15 Phosphorus 6.9 mg/dL (2.3-4.7) H 12/04/16 08:08 Magnesium 2.5 mg/dL (1.6-2.6) 12/04/16 08:08 Consult Discharge Plan - Plan [facility]errals: [facility] [Primary Care Provider[facility] -
[2016-12-06] MEDS: Ipratropium/Albuterol Neb 3 ML IH PRN ×3 (04:10→16:31)
[2016-12-06 05:32] LABS: Bilirubin,Urine Negative (Negative); Blood,Urine Large (Negative); Clarity,Urine Turbid (Clear); Color,Urine Yellow (Yellow); Glucose,Urine (UA) Normal (Normal); Ketones,Urine Negative (Negative); Leukocyte Esterase,Urine Large (Negative); Nitrite,Urine Negative (Negative); PH,Urine 6.5 pH Units (5.0-8.0); Protein,Urine >=300 mg/dL (Neg-Trace); Specific Gravity,Urine 1.012 (1.010-1.025); Urobilinogen,Urine Normal (Normal)
[2016-12-06 05:34] LABS: Bacteria,Urine Moderate per hpf (None-Few); Squamous Epithelial Cell,Urine Many per lpf (None-Few); WBC,Urine TNTC per hpf (0-3)
[2016-12-06 05:36] LABS: Basophils % 0.1 %; Eosinophils # 0.2 K/mcL (0.0-0.6); Eosinophils % 2.6 %; Hematocrit 27.4 % (37.5-50.1); Hemoglobin 8.2 g/dL (12.9-16.9); Immature Granulocytes % 4.7 % (0-4); Lymphocytes # 0.7 K/mcL (0.6-4.6); Lymphocytes % 8.2 %; Mean Corpuscular HGB Conc 29.9 g/dL (31.6-35.5); Mean Corpuscular Hemoglobin 30.3 pg (28.0-33.3); Mean Corpuscular Volume 101.1 fL (83.0-100.0); Mean Platelet Volume 12.8 fL (9.4-12.4); Monocytes # 0.5 K/mcL (0.0-1.3); Monocytes % 6.8 %; Neutrophils # 6.2 K/mcL (1.6-8.9); Nucleated Red Blood Cells 0.4 /100 WBC (0); Red Blood Count 2.71 M/mcL (4.19-5.50); Red Cell Distribution Width 20.5 % (11.5-14.5); Segmented Neutrophils % 77.6 %
[2016-12-06 05:37] LABS: Platelet Count 57 K/mcL (140-400)
[2016-12-06 05:43] LABS: RBC,Urine TNTC per hpf (0-3)
[2016-12-06 05:47] LABS: Albumin 2.2 g/dL (3.5-5.0); Albumin/Globulin Ratio 0.5 (1.1-2.2); Bilirubin,Total 0.5 mg/dL (0.2-1.2); Globulin 4.2 g/dL (2.4-3.5); Phosphorous 6.5 mg/dL (2.3-4.7); Potassium 4.6 mEq/L (3.5-4.5); Total Protein 6.4 g/dL (6.0-8.3); Uric Acid 8.8 mg/dL (3.5-7.2)
[2016-12-06 05:50] LABS: Rheumatoid Factor < 15 IU/mL (0-29)
[2016-12-06] MEDS: D5% in 0.9% NACL 1,000 ML IVC SCH (06:01)
[2016-12-06] MEDS: Insulin LISPRO 300 UNITS/3 ML VIAL SQ SCH ×3 (06:06→17:46)
[2016-12-06 06:18] LABS: Vitamin B12 1517 pg/mL (213-816)
[2016-12-06 06:55] LABS: Protein/Creatinine Ratio,Urine 3.84 mg/mg (0-0.20)
[2016-12-06] MEDS: Pantoprazole 40 MG VIAL IVP SCH (09:22)
--- NOTE | 2016-12-06 10:02 | Nephrology Progress Note ---
Date of Encounter: 12/06/16 Time of Encounter: 09:51 - Assessment and Plan (1) Acute on chronic kidney failure Current Visit: Yes Status: Acute Urine output is increasing, but unfortunately so is his creatinine. Will continue with intravenous hydration, but will have to change from D5 0.9 to D5 secondary to the hypernatremia. Etiology of the BEBETO still is not clear. There is the possibility of prerenal azotemia/ATN vs. an underlying intrinsic cause especially given the P/C ratio of 3. Awaiting the remainder of his BEBETO work-up. No immediate need for dialysis, but if his renal function does not improve in the next 1-2 days he may need to start dialysis. Qualifiers: Acute renal failure type: with acute tubular necrosis Chronic kidney disease stage: stage 4 (severe) Qualified Code(s): N17.0 - Acute kidney failure with tubular necrosis; N18.4 - Chronic kidney disease, stage 4 (severe) (2) Anemia Current Visit: Yes Status: Acute Oral iron started for iron deficiency. Qualifiers: Anemia type: due to chronic kidney disease Chronic kidney disease stage: stage 4 (severe) Qualified Code(s): N18.4 - Chronic kidney disease, stage 4 ( severe); D63.1 - Anemia in chronic kidney disease (3) Hyperkalemia Current Visit: Yes Status: Acute Medical management. Improving. (4) Hypothyroidism Current Visit: Yes Status: Acute Per primary team. Qualifiers: Hypothyroidism type: unspecified Qualified Code(s): E03.9 - Hypothyroidism , unspecified (5) Schizophrenia Current Visit: Yes Status: Acute Per primary team. Qualifiers: Schizophrenia type: unspecified Qualified Code(s): F20.9 - Schizophrenia, unspecified (6) Type 2 diabetes mellitus Current Visit: Yes Status: Acute Check Hgb A1C. Qualifiers: Qualified Code(s): E11.9 - Type 2 diabetes mellitus without complications (7) Urinary tract infection Current Visit: Yes Status: Acute Per primary team. On levofloxacin. Qualifiers: Qualified Code(s): N39.0 - Urinary tract infection, site not specified; R31.9 - Hematuria, unspecified (8) Hypernatremia Current Visit: Yes Status: Acute Unclear etiology. Change MIV to hypotonic solution and monitor sodium. Change MIV to 0.45 when sodium level normal. (9) Hyperparathyroidism Current Visit: Yes Status: Acute Await vitamin d level. (10) Hyperphosphatemia Current Visit: Yes Status: Acute phosphorus binder started. Subjective Principal diagnosis: BEBETO/CKD Interval history: Patient seen and evaluated. ROS unobtainable secondary to underlying psychological/mental condition. Objective - Vital Signs Vital signs: Vital Signs Temp Pulse Resp BP Pulse Ox 12/06/16 07:48 16 97 12/06/16 07:36 98.0 F 12/06/16 06:00 80 18 133/67 90 12/06/16 04:13 20 97 12/06/16 04:00 98.0 F 84 16 129/63 97 12/06/16 02:00 80 14 128/75 97 12/06/16 00:00 97.4 F L 75 14 135/70 98 12/05/16 22:00 79 20 122/64 96 12/05/16 20:20 16 97 12/05/16 20:00 94.5 F L 91 18 139/88 96 12/05/16 18:00 70 20 126/60 93 12/05/16 17:27 79 18 135/77 92 12/05/16 15:37 97.8 F 82 20 126/70 12/05/16 14:00 86 18 131/67 96 12/05/16 13:00 94 20 126/68 92 12/05/16 12:31 97.6 F 12/05/16 12:00 92 18 130/67 95 12/05/16 11:56 96 12/05/16 11:06 89 15 120/68 94 12/05/16 10:00 94 18 123/67 95 Intake and Output 12/05/16 12/06/16 12/06/16 23:59 07:59 15:59 Intake Total 1999 1000 / 1000 Output Total 200 / 200 550 / 550 Balance 1800 / 1800 450 / 450 Intake: IV Fluids 1999 / 1999 1000 / 1000 D5% And 0.9% Nacl 1000 Ml 1999 1000 / 1000 1,000 ML @ 150 mls/hr IVC .Q6H40M [facility] Rx#: [id number] Output: Catheter 200 / 200 550 / 550 Other: Weight 84.3 kg Blood Glucose* 146 98 Patient Weight 12/06/16 23:59 Weight 84.3 kg - General Appearance General appearance: Present: well-developed, well-nourished, chronically ill EENT: Present: ATNC Neck: Present: supple Respiratory: Present: course breath sounds Cardiology: Present: edema (trace edema. ), regular rate, regular rhythm Gastrointestinal: Present: no tenderness Integumentary: Present: warm and dry Additional Comments: Alert. Not oriented. - Lab 12/06/16 05:14 12/06/16 05:14 Most recent lab results Calcium 8.0 mg/dL (8.6-10.8) L 12/06/16 05:14 Phosphorus 6.5 mg/dL (2.3-4.7) H 12/06/16 05:14 Magnesium 2.5 mg/dL (1.6-2.6) 12/04/16 08:08 Urine Creatinine 62 mg/dL 12/06/16 06:15 Urine Sodium 37.0 mEq/L 12/06/16 06:15 Urine Total Protein 238 mg/dL (1-14) H 12/06/16 06:15 Consult Discharge Plan - Plan [facility]: [facility] [Primary Care Provider[facility] -
[2016-12-06] MEDS: D5% in Water 1,000 ML IVC SCH ×2 (11:17→21:38)
[2016-12-06] MEDS: Calcium Acetate 667 MG CAPSULE PO SCH ×2 (11:57→17:07)
--- NOTE | 2016-12-06 15:25 | Internal Med Progress Note ---
<Marino Carver Mohit - Last Filed: 12/06/16 15:20> Date of Encounter: 12/06/16 Time of Encounter: 10:00 - Assessment and plan (1) Dysphagia Current Visit: Yes Status: Acute Assessment and plan: Mr. Dillard was admitted to the [place] with new findings of dysphagia, underwent speech evaluation determined to be nothing by mouth with NG tube placement. -Neurologic exam and CT of the brain without contrast did not demonstrate any acute findings or stroke. -Patient pulled NG tube, speech therapy was consulted and at this time recommend NG tube with tube feedings. Plan for dietary's input for NG tube feedings. Plan: - NG tube placement - Tube feedings per dietary - Spoke with power of traffic law attorney, will need further discussions regarding PEG tube Qualifiers: Dysphagia type: unspecified Qualified Code(s): R13.10 - Dysphagia, unspecified (2) Acute on chronic kidney failure Current Visit: Yes Status: Acute Assessment and plan: Mr. Dillard was transferred from the [place] [facility] with a creatinine according to their documentation of 4.28 and GFR of 14.8 with a sodium of 147 and that BUN of 149. According to their records the patient was admitted with a creatinine of 2.0 and a GFR of 35.6 and according to lab results from 11/07/2016 he had a creatinine 2.43 and a GFR of 27. - Laboratory results demonstrate creatinine of 4.34 and GFR 14, BUN 137 - Clinical examination patient appears euvolemic, has dark brown urine in his Gomez bag 12/06: - Renal function and electrolyte status worsening despite IV fluids, nephrology adjusting fluids. - May require dialysis in the next 1-2 days Plan: - Patient started on dextrose and normal saline at 150 ML's per hour - Gomez catheter in place - Retroperitoneal ultrasound for renal evaluation - Avoid nephrotoxic medications and renally dose antibiotics - Repeat CMP in a.m. Qualifiers: Acute renal failure type: with acute tubular necrosis Chronic kidney disease stage: stage 4 (severe) Qualified Code(s): N17.0 - Acute kidney failure with tubular necrosis; N18.4 - Chronic kidney disease, stage 4 (severe) (3) Type 2 diabetes mellitus Current Visit: Yes Status: Acute Assessment and plan: Known type II diabetic with chronic kidney disease. Insulin-dependent, glucose upon admission was 102 - Glucose remains appropriate continue current plan Plan: -Before meals at bedtime glucose checks -Low-dose inpatient sliding scale Qualifiers: Qualified Code(s): E11.9 - Type 2 diabetes mellitus without complications (4) COPD (chronic obstructive pulmonary disease) Current Visit: Yes Status: Acute Assessment and plan: Patient was treated for COPD exacerbation with admission at [facility], currently maintaining oxygen saturations greater than 90% on 3 L nasal cannula - Lungs clear to auscultation bilaterally - Continue to monitor and wean oxygen as tolerated - DuoNeb when necessary - Albuterol nebulizer every 2 hours when necessary Qualifiers: Qualified Code(s): J44.9 - Chronic obstructive pulmonary disease, unspecified (5) Hyperkalemia Current Visit: Yes Status: Acute Assessment and plan: Patient presents with hyperkalemia with a potassium 5.0 in the setting of acute on chronic kidney disease. Likely secondary to poor renal output and dehydration. - Received rectal Kayexalate last evening with slight improvement in his potassium to 4.8 12/06: Patient remains hyperkalemic in the setting of stage V kidney disease likely secondary to acute on chronic. Patient should receive Kayexalate if potassium is greater than 5.0. Plan: - Rehydration with normal saline - Kayexalate rectally with potassium greater than 5.0 - Repeat potassium with a.m. labs (6) Hypothyroidism Current Visit: Yes Status: Acute Assessment and plan: TSH documented on 12/02/2016 at the [facility] of 20.20 TSH 10.38 - This is in the setting of acute illness if symptoms persist he may require levothyroxin. Patient with antipsychotic use. Plan: - Patient may require levothyroxin. Symptomatic after correction of underlying disease. Qualifiers: Hypothyroidism type: unspecified Qualified Code(s): E03.9 - Hypothyroidism , unspecified (7) Schizophrenia Current Visit: Yes Status: Acute Assessment and plan: Patient has known history of schizophrenia and has documented Aripiprazole, benztropine haloperidol and trazodone for which he was not taking due to NG tube placement. At the [facility] he was evaluated by psychiatry for which he was on valproic acid and tapered to 250 mg a.m. and 750 mg p.m. for mood stabilization prior to DC - This was not provided on his list of medications for discharge. Qualifiers: Schizophrenia type: unspecified Qualified Code(s): F20.9 - Schizophrenia, unspecified (8) Anemia Current Visit: Yes Status: Acute Assessment and plan: Patient has a history of chronic anemia with a hemoglobin of 10.4 in March of this year. When he was admitted to the [place] [facility] he had a hemoglobin of 6.6 and received 2 units of PRBCs and has maintained a hemoglobin of around 9 since admission. This also may be concentrated as he is dehydrated and after rehydration may be requiring more PRBC transfusion. 12/06: Hemoglobin 8.2 likely secondary to dilutional effect. Patient likely has chronic macrocytic anemia the setting of end-stage renal disease. Plan: - Monitor with daily CBC - Transfuse PRBC if hemoglobin below 7.0 Qualifiers: Anemia type: due to chronic kidney disease Chronic kidney disease stage: stage 4 (severe) Qualified Code(s): N18.4 - Chronic kidney disease, stage 4 ( severe); D63.1 - Anemia in chronic kidney disease (9) Encounter for nasogastric (NG) tube placement Current Visit: Yes Status: Acute Assessment and plan: Patient transferred with an NG tube in place, KUB was performed to confirm placement demonstrating tip of the NG tube in the gastric cavity. The NG tube was placed due to dysphagia and speech evaluation was performed at the [place] [facility] with recommendations for nothing by mouth. - Speech therapy has evaluated the patient recommending NG tube placement and nothing by mouth - We will require NG tube replacement and tube feedings. (10) Urinary tract infection Current Visit: Yes Status: Acute Assessment and plan: 66-year-old male transferred from the [place] with acute kidney injury on chronic kidney disease. Urinalysis demonstrates large leukocyte esterase, urinary blood and greater than 300 protein. This is associated with a WBC 15.9 12/05: Urine culture demonstrating 2 separate organisms both gram negatives rods , WBC 13.5 down from 15.9 yesterday 12/06: Urinalysis with susceptibility is resulted, switch antibiotics to cefepime given her allergy list. Discontinue levofloxacin Qualifiers: Qualified Code(s): N39.0 - Urinary tract infection, site not specified; R31.9 - Hematuria, unspecified (11) Right bundle branch block Current Visit: Yes Status: Acute Assessment and plan: Repeat EKG upon admission demonstrates normal sinus rhythm and rate with left axis deviation and right bundle branch block which is consistent [facility] - Prior rhythm and cardiac history unknown at this time. (12) DVT prophylaxis Current Visit: Yes Status: Acute Assessment and plan: SCD, patient has a documented allergy to heparin [facility]. Unsure what this allergy is and will need further clarification. - Subjective Interval history: Mr. Dillard 66-year-old male seen and evaluated patient bedside this morning. He has awake alert but not responding appropriately. He knows the month is November, responded that the president is Roberson, and he is unsure of his location. He denies any pain or any other concerns. He does not respond appropriately to the rest of questioning. Though when asked if he was okay with placing an NG tube he repetitively said no, he also said no to dialysis. I spoke with his legal guardian is Perry Taveras and discussed his current situation and recent interactions. He informed me that Mr. Dillard had a stents of inpatient stay at [facility] for greater than 90 days at which time he had an NG tube in place and at that time they are recommending PEG tube placement. The patient was transferred to a long-term facility with the NG tube in place and may have graduated from the NG tube. [facility] tube after evaluation from speech for his dysphagia. At this time Mr. Taveras said that if he needed dialysis we should go ahead and do it when deemed medically necessary, and if he needs an NG tube he would want that placed. Mr. Taveras would like to comment and speak with the patient himself before making any other further decisions. - Constitutional Vitals: Temp Pulse Resp BP Pulse Ox 98.5 F 94 22 130/66 93 12/06/16 11:46 12/06/16 14:00 12/06/16 14:00 12/06/16 14:00 12/06/16 14:00 Exam: General: Patient alert, awake, oriented to self, in no acute distress HEENT: Normocephalic, atraumatic, pupils are symmetric but pinpoint, nasal cavity patent and open septum median position, oral mucosa moist, tongue thrusting present,, neck supple trachea midline no palpable lymphadenopathy, no thyromegaly. Chest: Symmetric bilateral correlating with respiratory effort, effort nonlabored. Cardiac: Regular rate and rhythm, positive S1 and S2. no bruits appreciated bilateral carotids, Radial pulses 2+ bilateral, posterior tibial and dorsal pedal pulses 2+ bilateral. Respiratory: Clear to auscultation all lung terrell Abdomen: Soft, nontender, positive bowel sounds, no palpable masses appreciated on examination Extremities: Symmetric bilateral, bilateral lower extremities trace edema without signs of erythema Neurologic: No focal deficits appreciated on examination. Face symmetric, muscle strength symmetric bilateral upper and lower extremities. Internal Medicine: Result - Labs CBC & Chem 7: 12/06/16 05:14 12/06/16 09:32 Labs: Short CBC 12/06/16 Range/Units 05:14 WBC 8.0 (4.3-11.1) K/mcL Hgb 8.2 L (12.9-16.9) g/dL Hct 27.4 L (37.5-50.1) % Plt Count 57 L (140-400) K/mcL Neutrophils # 6.2 (1.6-8.9) K/mcL BMP 12/06/16 12/06/16 05:14 09:32 Sodium 150 H 151 H Potassium 4.6 H Chloride 121 H Carbon Dioxide 19 BUN 121 H Creatinine 4.46 H Glucose 91 Calcium 8.0 L Liver Function 12/06/16 Range/Units 05:14 Total Bilirubin 0.5 (0.2-1.2) mg/dL AST 8 (5-34) Units/L ALT 14 (0-55) Units/L Alkaline Phosphatase 207 H (38-126) Units/L Albumin 2.2 L (3.5-5.0) g/dL Urine 12/06/16 Range/Units 04:52 Urine Color Yellow (Yellow) Urine Clarity Turbid A (Clear) Urine pH 6.5 (5.0-8.0) pH Units Ur Specific [place] 1.012 (1.010-1.025) Urine Protein >=300 H (Neg-Trace) mg/dL Urine Glucose (UA) Normal (Normal) mg/dL Consult Discharge Plan - Plan [facility]errals: [facility] [Primary Care Provider] - <Randy Bright - Last Filed: 12/06/16 20:00> Date of Encounter: 12/06/16 - Assessment and plan (1) Acute on chronic kidney failure Current Visit: Yes Status: Acute Qualifiers: Acute renal failure type: with acute tubular necrosis Chronic kidney disease stage: stage 4 (severe) Qualified Code(s): N17.0 - Acute kidney failure with tubular necrosis; N18.4 - Chronic kidney disease, stage 4 (severe) (2) COPD (chronic obstructive pulmonary disease) Current Visit: Yes Status: Acute Qualifiers: Qualified Code(s): J44.9 - Chronic obstructive pulmonary disease, unspecified (3) Anemia Current Visit: Yes Status: Acute Qualifiers: Anemia type: due to chronic kidney disease Chronic kidney disease stage: stage 4 (severe) Qualified Code(s): N18.4 - Chronic kidney disease, stage 4 ( severe); D63.1 - Anemia in chronic kidney disease (4) Dysphagia Current Visit: Yes Status: Acute Qualifiers: Dysphagia type: unspecified Qualified Code(s): R13.10 - Dysphagia, unspecified (5) Hypothyroidism Current Visit: Yes Status: Acute Qualifiers: Hypothyroidism type: unspecified Qualified Code(s): E03.9 - Hypothyroidism , unspecified (6) Hypernatremia Current Visit: Yes Status: Acute (7) Schizophrenia Current Visit: Yes Status: Acute Qualifiers: Schizophrenia type: unspecified Qualified Code(s): F20.9 - Schizophrenia, unspecified - Constitutional Vitals: Temp Pulse Resp BP Pulse Ox 98.1 F 95 16 137/65 90 12/06/16 16:05 12/06/16 16:00 12/06/16 16:32 12/06/16 16:00 12/06/16 16:32 Internal Medicine: Result - Labs CBC & Chem 7: 12/06/16 05:14 12/06/16 17:41 Labs: Short CBC 12/06/16 Range/Units 05:14 WBC 8.0 (4.3-11.1) K/mcL Hgb 8.2 L (12.9-16.9) g/dL Hct 27.4 L (37.5-50.1) % Plt Count 57 L (140-400) K/mcL Neutrophils # 6.2 (1.6-8.9) K/mcL BMP 12/06/16 12/06/16 12/06/16 05:14 09:32 17:41 Sodium 150 H 151 H 150 H Potassium 4.6 H Chloride 121 H Carbon Dioxide 19 BUN 121 H Creatinine 4.46 H Glucose 91 Calcium 8.0 L Liver Function 12/06/16 Range/Units 05:14 Total Bilirubin 0.5 (0.2-1.2) mg/dL AST 8 (5-34) Units/L ALT 14 (0-55) Units/L Alkaline Phosphatase 207 H (38-126) Units/L Albumin 2.2 L (3.5-5.0) g/dL Urine 12/06/16 Range/Units 04:52 Urine Color Yellow (Yellow) Urine Clarity Turbid A (Clear) Urine pH 6.5 (5.0-8.0) pH Units Ur Specific [place] 1.012 (1.010-1.025) Urine Protein >=300 H (Neg-Trace) mg/dL Urine Glucose (UA) Normal (Normal) mg/dL - Impressions Impressions Retroperitoneum Ultrasound 12/06/16 18:00 IMPRESSION: Markedly suboptimal study and evaluation of left kidney due to difficulty in patient positioning. There is no evidence of significant hydronephrosis in either kidney. D/ / 12/06/2016 18:47:09 Tahir Roberson MD / [facility] Interpreting Provider: Tahir Roberson MD - Attending Attestation I examined this patient and my medical decision-making was reviewed with the Resident Physician on 12/06/16. I agree with the documented findings, disposition and treatment plan as described except to the extent set forth below. Mr Dillard is currently admitted for BEBETO and hypernatremia related to poor PO intake due to dysphagia. He remains moderate to high risk due to aspiration risk and potential for worsening renal and respiratory status. Mr. Dillard is intermittently alert. Denies pain. Said he does not want NG. Multiple discussions with guardian today. Exam Alert. Comfortable Heart reg Scattered rhonchi. Abd soft I/P 1. BEBETO 2. Dysphagia. Further diagnoses and plan as above.
[2016-12-06] MEDS: Cefepime HCl 1,000 MG in D5% in Water (Mini-Bag+) 100 ML IVPB SCH (17:45)
--- NOTE | 2016-12-06 21:49 | Electrocardiograph Report ---
[address] [address] Test Date: 2016-12-04 Pat Name: Hipolito Dillard Department: 109 Room: [facility] Gender: M [employer]: CURTIS : 1950 Requested By: Marino Carver Order Number: [id number] Reading MD: Suleman Bai MD Measurements Intervals Welch Rate: 80 P: 60 MO: 230 QRS: -73 QRSD: 164 T: 59 QT: 411 QTc: 447 Interpretive Statements SINUS RHYTHM WITH FIRST DEGREE AV BLOCK RIGHT BUNDLE BRANCH BLOCK LEFT ANTERIOR FASCICULAR BLOCK Poor R wave progression Electronically Signed On 12-06-2016 21:47:35 EDT by Suleman Bai MD
[2016-12-06 22:10] LABS: ABG Base Excess -4.3 mEq/L (-2.0 to 3.0); ABG HCO3 23 mEq/L (21-27); ABG Oxygen Saturation 94 % (95-98); ABG PCO2 49 mmHg (35-45); ABG PH 7.27 pH Units (7.32-7.45); ABG PO2 82 mmHg (85-104)
[2016-12-06 22:13] LABS: Blood Gas FiO2 32 %; Blood Gas Modality NC
[2016-12-06] MEDS: Ipratropium/Albuterol Neb 3 ML IH SCH (22:51)
[2016-12-07] MEDS: Ipratropium/Albuterol Neb 3 ML IH SCH ×4 (04:08→22:35)
[2016-12-07 05:03] LABS: Eosinophils # 0.2 K/mcL (0.0-0.6); Eosinophils % 2.8 %; Hematocrit 28.2 % (37.5-50.1); Hemoglobin 8.3 g/dL (12.9-16.9); Immature Granulocytes % 3.1 % (0-4); Lymphocytes # 0.9 K/mcL (0.6-4.6); Lymphocytes % 15.1 %; Mean Corpuscular HGB Conc 29.4 g/dL (31.6-35.5); Mean Corpuscular Hemoglobin 30.3 pg (28.0-33.3); Mean Corpuscular Volume 102.9 fL (83.0-100.0); Mean Platelet Volume 11.8 fL (9.4-12.4); Monocytes # 0.5 K/mcL (0.0-1.3); Monocytes % 8.5 %; Neutrophils # 4.1 K/mcL (1.6-8.9); Red Blood Count 2.74 M/mcL (4.19-5.50); Segmented Neutrophils % 70.5 %
[2016-12-07 05:06] LABS: Platelet Count 63 K/mcL (140-400)
[2016-12-07 05:14] LABS: Hemoglobin A1C 5.4 %
[2016-12-07 05:15] LABS: Albumin 2.3 g/dL (3.5-5.0); Albumin/Globulin Ratio 0.5 (1.1-2.2); Bilirubin,Total 0.5 mg/dL (0.2-1.2); Calcium 8.3 mg/dL (8.6-10.8); Globulin 4.2 g/dL (2.4-3.5); Phosphorous 6.2 mg/dL (2.3-4.7); Potassium 4.2 mEq/L (3.5-4.5); Total Protein 6.5 g/dL (6.0-8.3)
[2016-12-07] MEDS: D5% in Water 1,000 ML IVC SCH ×2 (07:49→19:28)
[2016-12-07] MEDS: Cefepime HCl 1,000 MG in D5% in Water (Mini-Bag+) 100 ML IVPB SCH ×2 (07:51→18:11)
--- NOTE | 2016-12-07 08:52 | Internal Med Progress Note ---
Date of Encounter: 12/07/16 Time of Encounter: 08:51 - Assessment and plan (1) Dysphagia Current Visit: Yes Status: Acute Assessment and plan: Mr. Dillard was [facility] to the [facility] with new findings of dysphagia, underwent speech evaluation determined to be nothing by mouth with NG tube placement. -Neurologic exam and CT of the brain without contrast did not demonstrate any acute findings or stroke. -Patient pulled NG tube, speech therapy was consulted and at this time recommend NG tube with tube feedings. Plan for dietary's input for NG tube feedings. Plan: - NG tube placement - Tube feedings per dietary - Spoke with power of admitted attorneys, will need further discussions regarding PEG tube Qualifiers: Dysphagia type: unspecified Qualified Code(s): R13.10 - Dysphagia, unspecified (2) Acute on chronic kidney failure Current Visit: Yes Status: Acute Assessment and plan: Mr[facility] with a creatinine according to their documentation of 4.28 and GFR of 14.8 with a sodium of 147 and that BUN of 149. According to their records the patient was admitted with a creatinine of 2.0 and a GFR of 35.6 and according to lab results from 11/07/2016 he had a creatinine 2.43 and a GFR of 27. - Laboratory results demonstrate creatinine of 4.34 and GFR 14, BUN 137 - Clinical examination patient appears euvolemic, has dark brown urine in his Gomez bag 12/06: - Renal function and electrolyte status worsening despite IV fluids, nephrology adjusting fluids. - May require dialysis in the next 1-2 days Plan: - Patient started on dextrose and normal saline at 150 ML's per hour - Gomez catheter in place - Retroperitoneal ultrasound for renal evaluation - Avoid nephrotoxic medications and renally dose antibiotics - Repeat CMP in a.m. Qualifiers: Acute renal failure type: with acute tubular necrosis Chronic kidney disease stage: stage 4 (severe) Qualified Code(s): N17.0 - Acute kidney failure with tubular necrosis; N18.4 - Chronic kidney disease, stage 4 (severe) (3) Type 2 diabetes mellitus Current Visit: Yes Status: Acute Assessment and plan: Known type II diabetic with chronic kidney disease. Insulin-dependent, glucose upon admission was 102 - Glucose remains appropriate continue current plan Plan: -Before meals at bedtime glucose checks -Low-dose inpatient sliding scale Qualifiers: Qualified Code(s): E11.9 - Type 2 diabetes mellitus without complications (4) COPD (chronic obstructive pulmonary disease) Current Visit: Yes Status: Acute Assessment and plan: Patient was treated for COPD exacerbation with admission at [facility], currently maintaining oxygen saturations greater than 90% on 3 L nasal cannula - Lungs clear to auscultation bilaterally - Continue to monitor and wean oxygen as tolerated - DuoNeb when necessary - Albuterol nebulizer every 2 hours when necessary Qualifiers: Qualified Code(s): J44.9 - Chronic obstructive pulmonary disease, unspecified (5) Hyperkalemia Current Visit: Yes Status: Acute Assessment and plan: Patient presents with hyperkalemia with a potassium 5.0 in the setting of acute on chronic kidney disease. Likely secondary to poor renal output and dehydration. - Received rectal Kayexalate last evening with slight improvement in his potassium to 4.8 12/06: Patient remains hyperkalemic in the setting of stage V kidney disease likely secondary to acute on chronic. Patient should receive Kayexalate if potassium is greater than 5.0. Plan: - Rehydration with normal saline - Kayexalate rectally with potassium greater than 5.0 - Repeat potassium with a.m. labs (6) Hypothyroidism Current Visit: Yes Status: Acute Assessment and plan: TSH documented on 12/02/2016 at the [facility] of 20.20 TSH 10.38 - This is in the setting of acute illness if symptoms persist he may require levothyroxin. Patient with antipsychotic use. Plan: - Patient may require levothyroxin. Symptomatic after correction of underlying disease. Qualifiers: Hypothyroidism type: unspecified Qualified Code(s): E03.9 - Hypothyroidism , unspecified (7) Schizophrenia Current Visit: Yes Status: Acute Assessment and plan: Patient has known history of schizophrenia and has documented Aripiprazole, benztropine haloperidol and trazodone for which he was not taking due to NG tube placement. At the [facility] he was evaluated by psychiatry for which he was on valproic acid and tapered to 250 mg a.m. and 750 mg p.m. for mood stabilization prior to DC - This was not provided on his list of medications for discharge. Qualifiers: Schizophrenia type: unspecified Qualified Code(s): F20.9 - Schizophrenia, unspecified (8) Anemia Current Visit: Yes Status: Acute Assessment and plan: Patient has a history of chronic anemia with a hemoglobin of 10.4 in March of this year. When [facility] he had a hemoglobin of 6.6 and received 2 units of PRBCs and has maintained a hemoglobin of around 9 since admission. This also may be concentrated as he is dehydrated and after rehydration may be requiring more PRBC transfusion. 12/06: Hemoglobin 8.2 likely secondary to dilutional effect. Patient likely has chronic macrocytic anemia the setting of end-stage renal disease. Plan: - Monitor with daily CBC - Transfuse PRBC if hemoglobin below 7.0 Qualifiers: Anemia type: due to chronic kidney disease Chronic kidney disease stage: stage 4 (severe) Qualified Code(s): N18.4 - Chronic kidney disease, stage 4 ( severe); D63.1 - Anemia in chronic kidney disease (9) Encounter for nasogastric (NG) tube placement Current Visit: Yes Status: Acute Assessment and plan: Patient transferred with an NG tube in place, KUB was performed to confirm placement demonstrating tip of the NG tube in the gastric cavity. The NG tube was placed due to dysphagia and speech evaluation was performed [facility] with recommendations for nothing by mouth. - Speech therapy has evaluated the patient recommending NG tube placement and nothing by mouth - We will require NG tube replacement and tube feedings. (10) Urinary tract infection Current Visit: Yes Status: Acute Assessment and plan: 66-year-old male transferred from the [facility] with acute kidney injury on chronic kidney disease. Urinalysis demonstrates large leukocyte esterase, urinary blood and greater than 300 protein. This is associated with a WBC 15.9 12/05: Urine culture demonstrating 2 separate organisms both gram negatives rods , WBC 13.5 down from 15.9 yesterday 12/06: Urinalysis with susceptibility is resulted, switch antibiotics to cefepime given her allergy list. Discontinue levofloxacin Qualifiers: Qualified Code(s): N39.0 - Urinary tract infection, site not specified; R31.9 - Hematuria, unspecified (11) Right bundle branch block Current Visit: Yes Status: Acute Assessment and plan: Repeat EKG upon admission demonstrates normal sinus rhythm and rate with left axis deviation and right bundle branch block which is consistent [facility] - Prior rhythm and cardiac history unknown at this time. (12) DVT prophylaxis Current Visit: Yes Status: Acute Assessment and plan: SCD, patient has a documented allergy to heparin [facility]. Unsure what this allergy is and will need further clarification. - Subjective Interval history: Mr. Dillard 66-year-old male seen and evaluated patient bedside this morning. He has awake alert but not responding appropriately. He knows the month is November, responded that the president is Roberson, and he is unsure of his location. He denies any pain or any other concerns. He does not respond appropriately to the rest of questioning. Though when asked if he was okay with placing an NG tube he repetitively said no, he also said no to dialysis. I spoke with his legal guardian is Perry Taveras and discussed his current situation and recent interactions. He informed me that Mr. Dillard had a stents of inpatient stay at [facility] for greater than 90 days at which time he had an NG tube in place and at that time they are recommending PEG tube placement. The patient was transferred to a long-term facility with the NG tube in place and may have graduated from the NG tube. [facility] tube after evaluation from speech for his dysphagia. At this time Mr. Taveras said that if he needed dialysis we should go ahead and do it when deemed medically necessary, and if he needs an NG tube he would want that placed. Mr. Taveras would like to comment and speak with the patient himself before making any other further decisions. - Constitutional Vitals: Temp Pulse Resp BP Pulse Ox 96.4 F L 69 19 124/66 95 12/07/16 08:00 12/07/16 08:00 12/07/16 08:00 12/07/16 08:00 12/07/16 08:00 Internal Medicine: Result - Labs CBC & Chem 7: 12/07/16 04:45 12/07/16 04:45 Labs: Short CBC 12/07/16 Range/Units 04:45 WBC 5.8 (4.3-11.1) K/mcL Hgb 8.3 L (12.9-16.9) g/dL Hct 28.2 L (37.5-50.1) % Plt Count 63 L (140-400) K/mcL Neutrophils # 4.1 (1.6-8.9) K/mcL BMP 12/06/16 12/06/16 12/07/16 09:32 17:41 04:45 Sodium 151 H 150 H 148 H Potassium 4.2 Chloride 119 H Carbon Dioxide 19 BUN 116 H Creatinine 5.26 H Glucose 126 H Calcium 8.3 L Liver Function 12/07/16 Range/Units 04:45 Total Bilirubin 0.5 (0.2-1.2) mg/dL AST 8 (5-34) Units/L ALT 12 (0-55) Units/L Alkaline Phosphatase 210 H (38-126) Units/L Albumin 2.3 L (3.5-5.0) g/dL - ABG Interpretation ABG results: ABG ABG pH 7.27 pH Units (7.32-7.45) L 12/06/16 21:55 ABG pCO2 49 mmHg (35-45) H 12/06/16 21:55 ABG pO2 82 mmHg (85-104) L 12/06/16 21:55 ABG O2 Saturation 94 % (95-98) L 12/06/16 21:55 - Impressions Impressions Retroperitoneum Ultrasound 12/06/16 18:00 IMPRESSION: Markedly suboptimal study and evaluation of left kidney due to difficulty in patient positioning. There is no evidence of significant hydronephrosis in either kidney. D/ / 12/06/2016 18:47:09 Tahir Roberson MD / [facility] Interpreting Provider: Tahir Roberson MD Chest X-Ray 12/06/16 20:09 IMPRESSION: Pleural and parenchymal changes at the right lung base compatible with a large pleural effusion and associated dependent opacity. Recommend continued follow-up D/ / 12/06/2016 21:24:03 Blaise Wells MD / [facility] Interpreting Provider: Blaise Wells MD Head CT 12/06/16 21:22 IMPRESSION: No acute intracranial abnormality. D/ / Jose Manuel Acosta MD / Jose Manuel Acosta MD Interpreting Provider: Jose Manuel Acosta MD Consult Discharge Plan - Plan [facility]errals: [facility] [Primary Care Provider] -
--- NOTE | 2016-12-07 10:20 | Nephrology Progress Note ---
Date of Encounter: 12/07/16 Time of Encounter: 10:18 - Assessment and Plan (1) Acute on chronic kidney failure Current Visit: Yes Status: Acute Urine output is increasing, but unfortunately so is his creatinine. Will continue with intravenous hydration, but will have to change from D5 0.9 to D5 secondary to the hypernatremia. Etiology of the BEBETO still is not clear. There is the possibility of prerenal azotemia/ATN vs. an underlying intrinsic cause especially given the P/C ratio of 3. Awaiting the remainder of his BEBETO work-up. At this time the patient is refusing dialysis. The primary team will check with his POA. No immediate need for dialysis, but if his renal function does not improve in the next 1-2 days he may need to start dialysis. Qualifiers: Acute renal failure type: with acute tubular necrosis Chronic kidney disease stage: stage 4 (severe) Qualified Code(s): N17.0 - Acute kidney failure with tubular necrosis; N18.4 - Chronic kidney disease, stage 4 (severe) (2) Anemia Current Visit: Yes Status: Acute Oral iron started for iron deficiency. Qualifiers: Anemia type: due to chronic kidney disease Chronic kidney disease stage: stage 4 (severe) Qualified Code(s): N18.4 - Chronic kidney disease, stage 4 ( severe); D63.1 - Anemia in chronic kidney disease (3) Hyperkalemia Current Visit: Yes Status: Acute Medical management. Improving. (4) Hypothyroidism Current Visit: Yes Status: Acute Per primary team. Qualifiers: Hypothyroidism type: unspecified Qualified Code(s): E03.9 - Hypothyroidism , unspecified (5) Schizophrenia Current Visit: Yes Status: Acute Per primary team. Patient much more appropriate today. It is possible that he had mind altering medications (opiate, benzos, etc.) that is clearing. Qualifiers: Schizophrenia type: unspecified Qualified Code(s): F20.9 - Schizophrenia, unspecified (6) Type 2 diabetes mellitus Current Visit: Yes Status: Acute Hgb A1C 5.4. Qualifiers: Qualified Code(s): E11.9 - Type 2 diabetes mellitus without complications (7) Urinary tract infection Current Visit: Yes Status: Acute Per primary team. On levofloxacin. Qualifiers: Qualified Code(s): N39.0 - Urinary tract infection, site not specified; R31.9 - Hematuria, unspecified (8) Hypernatremia Current Visit: Yes Status: Acute Unclear etiology. Change MIV to hypotonic solution and monitor sodium. Change MIV to 0.45 when sodium level normal. (9) Hyperparathyroidism Current Visit: Yes Status: Acute Added calcitriol 12/07/16. (10) Hyperphosphatemia Current Visit: Yes Status: Acute phosphorus binder started. Subjective Principal diagnosis: BEBETO/CKD Interval history: Patient seen and evaluated. Patient seems more alert this morning. He denies pain. Objective - Vital Signs Vital signs: Vital Signs Temp Pulse Resp BP Pulse Ox 12/07/16 08:00 96.4 F L 69 19 124/66 95 12/07/16 06:00 60 18 113/87 93 12/07/16 04:08 18 130/68 98 12/07/16 04:00 97.6 F 83 16 130/68 99 12/07/16 02:00 82 20 120/64 98 12/07/16 00:36 98 F 12/07/16 00:00 80 24 137/69 90 12/06/16 22:51 18 114/58 94 12/06/16 22:00 85 18 114/58 91 12/06/16 20:27 98.9 F 12/06/16 20:16 20 96 12/06/16 20:00 83 20 130/88 96 12/06/16 16:32 16 90 12/06/16 16:05 98.1 F 12/06/16 16:00 95 22 137/65 90 12/06/16 14:00 94 22 130/66 93 12/06/16 12:00 82 16 123/75 97 12/06/16 11:46 98.5 F Intake and Output 12/06/16 12/07/16 12/07/16 23:59 07:59 15:59 Intake Total 1100 / 1100 1000 / 1000 Output Total 400 / 400 200 / 200 200 / 200 Balance 700 / 700 800 / 800 -200 / -200 Intake: IV Fluids 1100 / 1100 1000 / 1000 Dextrose 5% 1,000 ML @ 1000 / 1000 1000 / 1000 100 mls/hr IVC .Q10H RACHNA Rx#:[id number] Maxipime 1,000 MG In 100 / 100 Dextrose 5% (Minibag+) 100 ML 100 ML @ 200 mls/ hr IVPB Q12HR RACHNA Rx#: [id number] Oral 0 / 0 Output: Catheter 400 / 400 200 / 200 200 / 200 Other: Weight 85.7 kg Blood Glucose* 101 117 Patient Weight 12/07/16 23:59 Weight 85.7 kg - General Appearance General appearance: Present: well-developed, well-nourished EENT: Present: ATNC Neck: Present: supple Respiratory: Present: course breath sounds Cardiology: Present: edema, regular rate, regular rhythm Gastrointestinal: Present: no tenderness Integumentary: Present: warm and dry Additional Comments: Alert. More appropriate when compared to yesterday's mental status. Musculoskeletal: Present: no cyanosis - Lab 12/07/16 04:45 12/07/16 09:59 Most recent lab results ABG pH 7.27 pH Units (7.32-7.45) L 12/06/16 21:55 ABG pCO2 49 mmHg (35-45) H 12/06/16 21:55 ABG pO2 82 mmHg (85-104) L 12/06/16 21:55 ABG HCO3 23 mEq/L (21-27) 12/06/16 21:55 ABG O2 Saturation 94 % (95-98) L 12/06/16 21:55 Calcium 8.3 mg/dL (8.6-10.8) L 12/07/16 04:45 Phosphorus 6.2 mg/dL (2.3-4.7) H 12/07/16 04:45 Magnesium 2.0 mg/dL (1.6-2.6) 12/07/16 04:45 Urine Creatinine 62 mg/dL 12/06/16 06:15 Urine Sodium 37.0 mEq/L 12/06/16 06:15 Urine Total Protein 238 mg/dL (1-14) H 12/06/16 06:15 Consult Discharge Plan - Plan [facility]errals: [facility] [Primary Care Provider] -
[2016-12-07] MEDS: Calcium Acetate 667 MG CAPSULE PO SCH ×3 (10:38→16:49)
[2016-12-07] MEDS: Pantoprazole 40 MG VIAL IVP SCH (10:43)
[2016-12-07] MEDS: Insulin LISPRO 300 UNITS/3 ML VIAL SQ SCH ×4 (10:44→18:16)
--- NOTE | 2016-12-07 12:38 | Consult Note ---
Date of Encounter: 12/07/16 Time of Encounter: 11:30 Assessment & Recommendation (1) Schizophrenia Current visit: Yes Status: Acute Qualifiers: Schizophrenia type: unspecified Qualified Code(s): F20.9 - Schizophrenia, unspecified (2) Cognitive change Current visit: Yes Status: Acute History of Present Illness Requesting Physician: Shin Mendez MD Reason for consult: schizophrenia,off meds,ams and decision making. History of present illness: Mr. Dillard is a 66 year old male consulted today ,patient has h/o Schizophrenia. patient is admitted to ICU transferred from [place] secondary to BEBETO. He was consulted as he has been off meds as was on NG tube and refusing dialysis and is unable to make decision. Mr. Dillard is unable to give any history , he has speech which is rambling at times and unable to understand. he is alert but not oriented , thinks its january , unable to give date and day , he was unable to give hid only year and with prompting month. he kept saying state said i am crazy. he does not know why he is here and when asked about his medical illness he mumbled but not able to give answer . He is not agitated , denies any hallucinations, he denied refusing treatment, he is poor historian and is confused , distracted, unable to assess memory and unable to get any info. from the patient . at present patient is not able to make his medical decision as he is unaware of it and does not understand it. a/p h/o schizophrenia BEBETO , speech disorder and multiple other medical illness 1. Need to get info/collateral from power of patent attorney , if he has or family member. At present patient is not able to make decision for himself and his treatment. will continue low dose of haldol 2mg po pm he is also on injectable abilify and will wait for his medical condition improve to give him , due date as per chart is 01/04/17. Thank you for the consult. CC: Shin Mendez MD Past Med Surg Social Fam HX - Past Medical History Medical history: cancer, CHF, COPD, diabetes, hypertension, renal disease - Past Psychiatric History Psychiatric history: Reports: schizophrenia Family psychiatric history: Unknown Family History of Suicide: Unknown - Social History Smoking Status: Unknown if ever smoked Smokeless Tobacco Status: No Alcohol use: unknown Drug use: unknown Medications & Allergies Acetaminophen [Tylenol] 650 mg PO Q6HR PRN 12/05/16 [History] Aripiprazole [Abilify Maintena] 400 mg IM QMONTH 12/05/16 [History] Benztropine [Cogentin] 0.5 mg PO HS 12/05/16 [History] Chlorhexidine Gluconate [Hibiclens] 15 ml PO DAILY 12/05/16 [History] Clotrimazole [Itch Relief] 1 appl TP BID PRN 12/05/16 [History] Epoetin Dandy [Procrit] 5,000 unit SQ MOWEFR 12/05/16 [History] Haloperidol 2 mg PO HS 12/05/16 [History] Insulin Regular Human [HumuLIN R] 3 - 8 unit SQ ACHS 12/05/16 [History] Ipratropium/Albuterol Neb [Duoneb] 3 ml IH Q6HR PRN 12/05/16 [History] Levothyroxine [Synthroid] 25 mcg PO DAILY 12/05/16 [History] Lidocaine 4% CRM (LMX) [Lmx 4] 1 appl TP TID PRN 12/05/16 [History] Magnesium Oxide [Magnesium] 400 mg PO BID 12/05/16 [History] Melatonin/Pyridoxine HCl (B6) [Melatonin 3 mg Tablet] 6 mg PO HS PRN 12/05/16 [ History] Nitroglycerin [Nitrostat] 0.4 mg SL AD PRN 12/05/16 [History] Ondansetron [Zofran] 4 mg PO TID PRN 12/05/16 [History] Xenaderm 1 appl TP Q4H PRN 12/05/16 [History] traZODone [TraZODone] 50 mg PO HS 12/05/16 [History] 3 Allergy/AdvReac Type Severity Reaction Status Date / Time heparin Allergy Unknown Rash Verified 12/04/16 21:55 Penicillins Allergy See Verified 03/21/16 08:24 Comments Sulfa (Sulfonamide Allergy See Verified 03/21/16 08:24 Antibiotics) Comments TB test Allergy See Uncoded 12/04/16 21:55 Comments Review of Systems Psychiatric: Reports: difficulty concentrating Results - Vital Signs Vital signs: Temp Pulse Resp BP Pulse Ox 96.4 F L 69 19 124/66 95 12/07/16 08:00 12/07/16 08:00 12/07/16 11:05 12/07/16 08:00 12/07/16 11:05 - Labs Labs: Laboratory Last Values WBC 5.8 K/mcL (4.3-11.1) 12/07/16 04:45 RBC 2.74 M/mcL (4.19-5.50) L 12/07/16 04:45 Hgb 8.3 g/dL (12.9-16.9) L 12/07/16 04:45 Hct 28.2 % (37.5-50.1) L 12/07/16 04:45 MCV 102.9 fL (83.0-100.0) H 12/07/16 04:45 MCH 30.3 pg (28.0-33.3) 12/07/16 04:45 MCHC 29.4 g/dL (31.6-35.5) L 12/07/16 04:45 RDW 21.0 % (11.5-14.5) H 12/07/16 04:45 Plt Count 63 K/mcL (140-400) L 12/07/16 04:45 MPV 11.8 fL (9.4-12.4) 12/07/16 04:45 Immature Gran % 3.1 % (0-4) 12/07/16 04:45 Seg Neutrophils % 70.5 % 12/07/16 04:45 Lymphocytes % 15.1 % 12/07/16 04:45 Monocytes % 8.5 % 12/07/16 04:45 Eosinophils % 2.8 % 12/07/16 04:45 Basophils % 0.0 % 12/07/16 04:45 Neutrophils # 4.1 K/mcL (1.6-8.9) 12/07/16 04:45 Lymphocytes # 0.9 K/mcL (0.6-4.6) 12/07/16 04:45 Monocytes # 0.5 K/mcL (0.0-1.3) 12/07/16 04:45 Eosinophils # 0.2 K/mcL (0.0-0.6) 12/07/16 04:45 Basophils # 0.0 K/mcL (0.0-0.2) 12/07/16 04:45 Nucleated RBCs/100 WBC 0.4 /100 WBC (0) H 12/06/16 05:14 Platelet Estimate Decreased (Normal) L 12/05/16 04:15 Immature Plt Fraction 5.0 % (1.1-6.1) 12/07/16 04:45 Polychromasia 1+ (Not Present) A 12/05/16 04:15 Basophilic Stippling 1+ (Not Present) A 12/05/16 04:15 Anisocytosis 2+ (Not Present) A 12/05/16 04:15 Macrocytosis Present (Not Present) A 12/05/16 04:15 ABG pH 7.27 pH Units (7.32-7.45) L 12/06/16 21:55 ABG pCO2 49 mmHg (35-45) H 12/06/16 21:55 ABG pO2 82 mmHg (85-104) L 12/06/16 21:55 ABG HCO3 23 mEq/L (21-27) 12/06/16 21:55 ABG Total CO2 24.0 mEq/L (20-26) 12/06/16 21:55 ABG O2 Saturation 94 % (95-98) L 12/06/16 21:55 ABG Base Excess -4.3 mEq/L (-2.0 to 3.0) L 12/06/16 21:55 Blood Gas Modality NC 12/06/16 21:55 Inspired O2 32 % 12/06/16 21:55 Sodium 146 mEq/L (136-145) H 12/07/16 09:59 Potassium 4.2 mEq/L (3.5-4.5) 12/07/16 04:45 Chloride 119 mEq/L (98-109) H 12/07/16 04:45 Carbon Dioxide 19 mEq/L (19-29) 12/07/16 04:45 BUN 116 mg/dL (8-26) H 12/07/16 04:45 Creatinine 5.26 mg/dL (0.72-1.25) H 12/07/16 04:45 Est GFR ( Amer) 13 (> 60) L 12/07/16 04:45 Est GFR (Non-Af Amer) 11 (> 60) L 12/07/16 04:45 BUN/Creatinine Ratio 22 (6-26) 12/07/16 04:45 Glucose 126 mg/dL (70-99) H 12/07/16 04:45 POC Glucose 129 (58-89) H 12/07/16 11:28 Est Mean Plasma Glucose 108 mg/dl 12/07/16 04:45 Hemoglobin A1c 5.4 % (-5.6) 12/07/16 04:45 Calculated Osmolality 344 (280-300) H 12/07/16 04:45 Uric Acid 8.8 mg/dL (3.5-7.2) H 12/06/16 05:14 Calcium 8.3 mg/dL (8.6-10.8) L 12/07/16 04:45 Phosphorus 6.2 mg/dL (2.3-4.7) H 12/07/16 04:45 Magnesium 2.0 mg/dL (1.6-2.6) 12/07/16 04:45 Iron 28 mcg/dL (65-175) L 12/06/16 05:14 % Saturation 14 % (20-55) L 12/06/16 05:14 Transferrin 144 mg/dL (174-364) L 12/06/16 05:14 Ferritin 417 ng/ml (22-275) H 12/06/16 05:14 Total Bilirubin 0.5 mg/dL (0.2-1.2) 12/07/16 04:45 AST 8 Units/L (5-34) 12/07/16 04:45 ALT 12 Units/L (0-55) 12/07/16 04:45 Alkaline Phosphatase 210 Units/L (38-126) H 12/07/16 04:45 B-Natriuretic Peptide 162 pg/mL (0-100) H 12/04/16 08:08 Serum Total Protein 6.5 g/dL (6.0-8.3) 12/07/16 04:45 Albumin 2.3 g/dL (3.5-5.0) L 12/07/16 04:45 Globulin 4.2 g/dL (2.4-3.5) H 12/07/16 04:45 Albumin/Globulin Ratio 0.5 (1.1-2.2) L 12/07/16 04:45 Vitamin B12 1517 pg/mL (213-816) H 12/06/16 05:14 25-OH Vitamin D Total 42 ng/mL (30-80) 12/06/16 05:14 Folate 15.0 ng/mL (7.0-31.4) 12/06/16 05:14 TSH 10.384 mcIU/mL (0.350-4.840) H 12/04/16 18:30 PTH Intact 148.0 pg/ml (8.5-72.5) H 12/06/16 05:14 Ur Specimen Adequacy See below A 12/04/16 18:05 Urine Color Yellow (Yellow) 12/06/16 04:52 Urine Clarity Turbid (Clear) A 12/06/16 04:52 Urine pH 6.5 pH Units (5.0-8.0) 12/06/16 04:52 Ur Specific [place] 1.012 (1.010-1.025) 12/06/16 04:52 Urine Protein >=300 mg/dL (Neg-Trace) H 12/06/16 04:52 Urine Glucose (UA) Normal mg/dL (Normal) 12/06/16 04:52 Urine Ketones Negative mg/dL (Negative) 12/06/16 04:52 Urine Blood Large (Negative) H 12/06/16 04:52 Urine Nitrite Negative (Negative) 12/06/16 04:52 Urine Bilirubin Negative (Negative) 12/06/16 04:52 Urine Urobilinogen Normal mg/dL (Normal) 12/06/16 04:52 Ur Leukocyte Esterase Large (Negative) H 12/06/16 04:52 Urine Microscopic RBC TNTC per hpf (0-3) H 12/06/16 04:52 Urine Microscopic WBC TNTC per hpf (0-3) H 12/06/16 04:52 Ur Squamous Epith Cells Many per lpf (None-Few) H 12/06/16 04:52 Urine Bacteria Moderate per hpf (None-Few) H 12/06/16 04:52 Ur Culture Indicated? YES (NO) A 12/06/16 04:52 Urine Creatinine 62 mg/dL 12/06/16 06:15 Protein/Creatinin Ratio 3.84 mg/mg (0-0.20) H 12/06/16 06:15 Urine Sodium 37.0 mEq/L 12/06/16 06:15 Urine Total Protein 238 mg/dL (1-14) H 12/06/16 06:15 Rheumatoid Factor < 15 IU/mL (0-29) 12/06/16 05:14 Specimen Rejected MCV Delta 12/04/16 18:08 - Impressions Impressions Retroperitoneum Ultrasound 12/06/16 18:00 IMPRESSION: Markedly suboptimal study and evaluation of left kidney due to difficulty in patient positioning. There is no evidence of significant hydronephrosis in either kidney. D/ / 12/06/2016 18:47:09 Tahir Roberson MD / [facility] Interpreting Provider: Tahir Roberson MD Chest X-Ray 12/06/16 20:09 IMPRESSION: Pleural and parenchymal changes at the right lung base compatible with a large pleural effusion and associated dependent opacity. Recommend continued follow-up D/ / 12/06/2016 21:24:03 Blaise Wells MD / [facility] Interpreting Provider: Blaise Wells MD Head CT 12/06/16 21:22 IMPRESSION: No acute intracranial abnormality. D/ / Jose Manuel Acosta MD / Jose Manuel Acosta MD Interpreting Provider: Jose Manuel Acosta MD Consult Discharge Plan - Plan [facility]errals: [facility] [Primary Care Provider] -
--- NOTE | 2016-12-07 15:29 | Internal Med Progress Note ---
<Marino Carver Mohit - Last Filed: 12/07/16 15:25> Date of Encounter: 12/07/16 Time of Encounter: 15:25 - Assessment and plan (1) Dysphagia Current Visit: Yes Status: Acute Assessment and plan: Mr. Dillard was admitted to [facility] with new findings of dysphagia, underwent speech evaluation determined to be nothing by mouth with NG tube placement. -Neurologic exam and CT of the brain without contrast did not demonstrate any acute findings or stroke. -Patient pulled NG tube, speech therapy was consulted and at this time recommend NG tube with tube feedings. Plan for dietary's input for NG tube feedings. 12/07: Patient passed swallow evaluation with recommendations for puree and thickened liquids. Patient tolerated lunch without difficulty. No NG tube placement at this time. Plan: - Continue dietary's recommendations. Qualifiers: Dysphagia type: unspecified Qualified Code(s): R13.10 - Dysphagia, unspecified (2) Acute on chronic kidney failure Current Visit: Yes Status: Acute Assessment and plan: Mr. Dillard was transferred from the [facility] with a creatinine according to their documentation of 4.28 and GFR of 14.8 with a sodium of 147 and that BUN of 149. According to their records the patient was admitted with a creatinine of 2.0 and a GFR of 35.6 and according to lab results from 11/07/2016 he had a creatinine 2.43 and a GFR of 27. - Laboratory results demonstrate creatinine of 4.34 and GFR 14, BUN 137 - Clinical examination patient appears euvolemic, has dark brown urine in his Gomez bag 12/06: - Renal function and electrolyte status worsening despite IV fluids, nephrology adjusting fluids. - May require dialysis in the next 1-2 days 12/07: Renal function is worse today despite IV fluid rehydration. Nephrology recommending dialysis. I have obtained consent for hemodialysis catheter placement and hemodialysis for temporary hemodialysis measures from the patient' s legal guardian Mr. Taveras. Consult to interventional radiology for hemodialysis catheter placement placed. Nephrology informed. -Retroperitoneal ultrasound was found to be markedly suboptimal study and outpatient left kidney due to difficulty and patient position there is no evidence of significant hydronephrosis in either kidney. Plan: - Patient started on dextrose and normal saline at 150 ML's per hour - Gomez catheter in place - Avoid nephrotoxic medications and renally dose antibiotics - Repeat CMP in a.m. Qualifiers: Acute renal failure type: with acute tubular necrosis Chronic kidney disease stage: stage 4 (severe) Qualified Code(s): N17.0 - Acute kidney failure with tubular necrosis; N18.4 - Chronic kidney disease, stage 4 (severe) (3) Type 2 diabetes mellitus Current Visit: Yes Status: Acute Assessment and plan: Known type II diabetic with chronic kidney disease. Insulin-dependent, glucose upon admission was 102 - Glucose remains appropriate continue current plan Plan: -Before meals at bedtime glucose checks -Low-dose inpatient sliding scale Qualifiers: Qualified Code(s): E11.9 - Type 2 diabetes mellitus without complications (4) COPD (chronic obstructive pulmonary disease) Current Visit: Yes Status: Acute Assessment and plan: Patient was treated for COPD exacerbation with admission at [facility], currently maintaining oxygen saturations greater than 90% on 3 L nasal cannula - Lungs clear to auscultation bilaterally - Continue to monitor and wean oxygen as tolerated - DuoNeb when necessary - Albuterol nebulizer every 2 hours when necessary Qualifiers: Qualified Code(s): J44.9 - Chronic obstructive pulmonary disease, unspecified (5) Hyperkalemia Current Visit: Yes Status: Acute Assessment and plan: Patient presents with hyperkalemia with a potassium 5.0 in the setting of acute on chronic kidney disease. Likely secondary to poor renal output and dehydration. - Received rectal Kayexalate last evening with slight improvement in his potassium to 4.8 12/06: Patient remains hyperkalemic in the setting of stage V kidney disease likely secondary to acute on chronic. Patient should receive Kayexalate if potassium is greater than 5.0. 0919: Potassium 4.2, renal function worsening we will continue to monitor. Patient will likely need dialysis. Plan: - Continue rehydration - Kayexalate rectally with potassium greater than 5.0 - Repeat potassium with a.m. labs (6) Hypothyroidism Current Visit: Yes Status: Acute Assessment and plan: TSH documented on 12/02/2016 at the [facility] of 20.20 TSH 10.38 - This is in the setting of acute illness if symptoms persist he may require levothyroxin. Patient with antipsychotic use. Plan: - Patient may require levothyroxin. Symptomatic after correction of underlying disease. Qualifiers: Hypothyroidism type: unspecified Qualified Code(s): E03.9 - Hypothyroidism , unspecified (7) Schizophrenia Current Visit: Yes Status: Acute Assessment and plan: Patient has known history of schizophrenia and has documented Aripiprazole, benztropine haloperidol and trazodone for which he was not taking due to NG tube placement. At the [facility] he was evaluated by psychiatry for which he was on valproic acid and tapered to 250 mg a.m. and 750 mg p.m. for mood stabilization prior to DC - This was not provided on his list of medications for discharge. appreciate recommendations per psychiatry. Qualifiers: Schizophrenia type: unspecified Qualified Code(s): F20.9 - Schizophrenia, unspecified (8) Anemia Current Visit: Yes Status: Acute Assessment and plan: Patient has a history of chronic anemia with a hemoglobin of 10.4 in March of this year. When he was admitted to the [facility] he had a hemoglobin of 6.6 and received 2 units of PRBCs and has maintained a hemoglobin of around 9 since admission. This also may be concentrated as he is dehydrated and after rehydration may be requiring more PRBC transfusion. 12/06: Hemoglobin 8.2 likely secondary to dilutional effect. Patient likely has chronic macrocytic anemia the setting of end-stage renal disease. Plan: - Monitor with daily CBC - Transfuse PRBC if hemoglobin below 7.0 Qualifiers: Anemia type: due to chronic kidney disease Chronic kidney disease stage: stage 4 (severe) Qualified Code(s): N18.4 - Chronic kidney disease, stage 4 ( severe); D63.1 - Anemia in chronic kidney disease (9) Encounter for nasogastric (NG) tube placement Current Visit: Yes Status: Acute Assessment and plan: Patient transferred with an NG tube in place, KUB was performed to confirm placement demonstrating tip of the NG tube in the gastric cavity. The NG tube was placed due to dysphagia and speech evaluation was performed at the [facility] with recommendations for nothing by mouth. - Speech therapy has evaluated the patient recommending NG tube placement and nothing by mouth - We will require NG tube replacement and tube feedings. 12/07: Patient passed swallow test for puree and think and liquids, tolerating with lunch. (10) Urinary tract infection Current Visit: Yes Status: Acute Assessment and plan: 66-year-old male transferred from the [facility] with acute kidney injury on chronic kidney disease. Urinalysis demonstrates large leukocyte esterase, urinary blood and greater than 300 protein. This is associated with a WBC 15.9 12/05: Urine culture demonstrating 2 separate organisms both gram negatives rods , WBC 13.5 down from 15.9 yesterday 12/06: Urinalysis with susceptibility is resulted, switch antibiotics to cefepime given her allergy list. Discontinue levofloxacin 12/07: continue with current antibiotics Qualifiers: Qualified Code(s): N39.0 - Urinary tract infection, site not specified; R31.9 - Hematuria, unspecified (11) Right bundle branch block Current Visit: Yes Status: Acute Assessment and plan: Repeat EKG upon admission demonstrates normal sinus rhythm and rate with left axis deviation and right bundle branch block which is consistent [facility] - Prior rhythm and cardiac history unknown at this time. (12) DVT prophylaxis Current Visit: Yes Status: Acute Assessment and plan: SCD, patient has a documented allergy to [facility]. Unsure what this allergy is and will need further clarification. - Subjective Interval history: Mr. Dillard 66-year-old male seen and evaluated patient bedside this morning. He has awake alert but not responding appropriately. When asked about hemodialysis he continually says no he does not want at, he even denies wanting dialysis even for temporary measures. He denies any pain, discomforts or any other concerns. I spoke with his legal guardian Mr. Taveras over the phone and he came in to see Mr. Dillard at bedside. After discussion with Mr. Dillard and Mr. Taveras regarding his current state of health, the use of temporary dialysis and the possibility that this means long-term dialysis was agreed to at least do temporary dialysis. The risks and benefits of these procedures were discussed and Mr. Taveras signed consent forms for hemodialysis catheter placement and hemodialysis. At this time we will move forward with temporary dialysis with further recommendations from nephrology. - Constitutional Vitals: Temp Pulse Resp BP Pulse Ox 94.4 F L 68 20 141/81 98 12/07/16 12:12/07/16 12:12/07/16 12:12/07/16 12:12/07/16 12:00 Exam: General: Patient alert, awake, oriented to self, in no acute distress HEENT: Normocephalic, atraumatic, pupils are symmetric but pinpoint, nasal cavity patent and open septum median position, oral mucosa moist, tongue thrusting present,, neck supple trachea midline no palpable lymphadenopathy, no thyromegaly. Chest: Symmetric bilateral correlating with respiratory effort, effort nonlabored. Cardiac: Regular rate and rhythm, positive S1 and S2. no bruits appreciated bilateral carotids, Radial pulses 2+ bilateral, posterior tibial and dorsal pedal pulses 2+ bilateral. Respiratory: Clear to auscultation all lung terrell Abdomen: Soft, nontender, positive bowel sounds, no palpable masses appreciated on examination Extremities: Symmetric bilateral, bilateral lower extremities trace edema without signs of erythema Neurologic: No focal deficits appreciated on examination. Face symmetric, muscle strength symmetric bilateral upper and lower extremities. Internal Medicine: Result - Labs CBC & Chem 7: 12/07/16 04:45 12/07/16 09:59 Labs: Short CBC 12/07/16 Range/Units 04:45 WBC 5.8 (4.3-11.1) K/mcL Hgb 8.3 L (12.9-16.9) g/dL Hct 28.2 L (37.5-50.1) % Plt Count 63 L (140-400) K/mcL Neutrophils # 4.1 (1.6-8.9) K/mcL BMP 12/06/16 12/07/16 12/07/16 17:41 04:45 09:59 Sodium 150 H 148 H 146 H Potassium 4.2 Chloride 119 H Carbon Dioxide 19 BUN 116 H Creatinine 5.26 H Glucose 126 H Calcium 8.3 L Liver Function 12/07/16 Range/Units 04:45 Total Bilirubin 0.5 (0.2-1.2) mg/dL AST 8 (5-34) Units/L ALT 12 (0-55) Units/L Alkaline Phosphatase 210 H (38-126) Units/L Albumin 2.3 L (3.5-5.0) g/dL - ABG Interpretation ABG results: ABG ABG pH 7.27 pH Units (7.32-7.45) L 12/06/16 21:55 ABG pCO2 49 mmHg (35-45) H 12/06/16 21:55 ABG pO2 82 mmHg (85-104) L 12/06/16 21:55 ABG O2 Saturation 94 % (95-98) L 12/06/16 21:55 - Impressions Impressions Retroperitoneum Ultrasound 12/06/16 18:00 IMPRESSION: Markedly suboptimal study and evaluation of left kidney due to difficulty in patient positioning. There is no evidence of significant hydronephrosis in either kidney. D/ / 12/06/2016 18:47:09 Tahir Roberson MD / dev Interpreting Provider: Tahir Roberson MD Chest X-Ray 12/06/16 20:09 IMPRESSION: Pleural and parenchymal changes at the right lung base compatible with a large pleural effusion and associated dependent opacity. Recommend continued follow-up D/ / 12/06/2016 21:24:03 Blaise Wells MD / [facility] Interpreting Provider: Blaise Wells MD Head CT 12/06/16 21:22 IMPRESSION: No acute intracranial abnormality. D/ / Jose Manuel Acosta MD / Jose Manuel Acosta MD Interpreting Provider: Jose Manuel Acosta MD Consult Discharge Plan - Plan [facility]errals: [facility] [Primary Care Provider[facility] - <Shin Mendez - Last Filed: 12/07/16 19:44> Date of Encounter: 12/07/16 - Constitutional Vitals: Temp Pulse Resp BP Pulse Ox 97.0 F L 85 18 136/87 97 12/07/16 16:00 12/07/16 16:00 12/07/16 16:00 12/07/16 16:00 12/07/16 16:00 Internal Medicine: Result - Labs CBC & Chem 7: 12/07/16 04:45 12/07/16 09:59 Labs: Short CBC 12/07/16 Range/Units 04:45 WBC 5.8 (4.3-11.1) K/mcL Hgb 8.3 L (12.9-16.9) g/dL Hct 28.2 L (37.5-50.1) % Plt Count 63 L (140-400) K/mcL Neutrophils # 4.1 (1.6-8.9) K/mcL BMP 12/07/16 12/07/16 04:45 09:59 Sodium 148 H 146 H Potassium 4.2 Chloride 119 H Carbon Dioxide 19 BUN 116 H Creatinine 5.26 H Glucose 126 H Calcium 8.3 L Liver Function 12/07/16 Range/Units 04:45 Total Bilirubin 0.5 (0.2-1.2) mg/dL AST 8 (5-34) Units/L ALT 12 (0-55) Units/L Alkaline Phosphatase 210 H (38-126) Units/L Albumin 2.3 L (3.5-5.0) g/dL - ABG Interpretation ABG results: ABG ABG pH 7.27 pH Units (7.32-7.45) L 12/06/16 21:55 ABG pCO2 49 mmHg (35-45) H 12/06/16 21:55 ABG pO2 82 mmHg (85-104) L 12/06/16 21:55 ABG O2 Saturation 94 % (95-98) L 12/06/16 21:55 - Impressions Impressions Chest X-Ray 12/06/16 20:09 IMPRESSION: Pleural and parenchymal changes at the right lung base compatible with a large pleural effusion and associated dependent opacity. Recommend continued follow-up D/ / 12/06/2016 21:24:03 Blaise Wells MD / [facility] Interpreting Provider: Blaise Wells MD Head CT 12/06/16 21:22 IMPRESSION: No acute intracranial abnormality. D/ / Jose Manuel Acosta MD / Jose Manuel Acosta MD Interpreting Provider: Jose Manuel Acosta MD - Attending Attestation I examined this patient and my medical decision-making was reviewed with the Resident Physician. I agree with the documented findings, disposition and treatment plan as described except to the extent set forth below. Patient is AAO 1. He cannot provide reliable history. Plan: Hemodialysis catheter tomorrow. Follow-up BUN and creatinine. Likely he will have hemodialysis initiated tomorrow. It is my first day taking care of this patient. All problems are new to me today.
[2016-12-07] MEDS ORDERED: 0.9 % Sodium Chloride 1,000 ML IVC SCH (16:30)
[2016-12-07] MEDS: Albuterol 2.5 MG/3 ML NEBULIZER IH PRN (18:30)
[2016-12-07 19:35] LABS: Hepatitis B Surface Antigen Nonreactive (Nonreactive)
[2016-12-08] MEDS: Insulin LISPRO 300 UNITS/3 ML VIAL SQ SCH ×4 (01:13→16:52)
[2016-12-08] MEDS: Ipratropium/Albuterol Neb 3 ML IH SCH ×4 (04:20→22:22)
[2016-12-08] MEDS: D5% in Water 1,000 ML IVC SCH ×4 (06:26→18:58)
[2016-12-08] MEDS ORDERED: *HR* Heparin 10,000 UNIT/10 ML VIAL IV PRN (08:09)
[2016-12-08] MEDS ORDERED: 0.9 % Sodium Chloride 250 ML IVC PRN (08:09)
[2016-12-08 08:12] LABS: Complement Component 4 30 mg/dL (10-40)
[2016-12-08 08:13] LABS: Complement Component 3 97 mg/dL (88-201)
[2016-12-08] MEDS ORDERED: 0.9 % Sodium Chloride 1,000 ML PRIME SCH (08:15)
[2016-12-08 08:17] LABS: Myeloperoxidase Ab 0 AU/mL (0-19); Serine Protease-3 Antibody 0 AU/mL (0-19)
[2016-12-08 08:25] LABS: Albumin 2.3 g/dL (3.5-5.0); Albumin/Globulin Ratio 0.6 (1.1-2.2); Bilirubin,Total 0.5 mg/dL (0.2-1.2); Calcium 8.5 mg/dL (8.6-10.8); Globulin 4.1 g/dL (2.4-3.5); Magnesium 1.9 mg/dL (1.6-2.6); Potassium 4.4 mEq/L (3.5-4.5); Total Protein 6.4 g/dL (6.0-8.3)
[2016-12-08] MEDS: Calcium Acetate 667 MG CAPSULE PO SCH ×3 (08:54→18:12)
[2016-12-08] MEDS ORDERED: 0.9 % Sodium Chloride 2,000 ML ONE (08:55)
[2016-12-08] MEDS: Pantoprazole 40 MG VIAL IVP SCH (08:57)
[2016-12-08 09:18] LABS: Basophils % 0.1 %; Eosinophils # 0.2 K/mcL (0.0-0.6); Hematocrit 27.3 % (37.5-50.1); Immature Granulocytes % 1.9 % (0-4); Immature Platelets 5.7 % (1.1-6.1); Lymphocytes # 0.9 K/mcL (0.6-4.6); Lymphocytes % 12.7 %; Mean Corpuscular HGB Conc 29.3 g/dL (31.6-35.5); Mean Corpuscular Volume 102.2 fL (83.0-100.0); Mean Platelet Volume 11.7 fL (9.4-12.4); Monocytes # 0.5 K/mcL (0.0-1.3); Monocytes % 7.3 %; Red Blood Count 2.67 M/mcL (4.19-5.50); Red Cell Distribution Width 20.3 % (11.5-14.5)
[2016-12-08 09:35] LABS: Platelet Count 79 K/mcL (140-400)
[2016-12-08 11:17] LABS: Hepatitis B Surface Antibody 0.49 mIU/mL
--- NOTE | 2016-12-08 14:38 | IR Procedure Note ---
Date of procedure: 12/08/16 Consent Obtained: Verbal consent Timeout: Correct patient and procedure verified, Correct site verified, Time out performed, Skin prep completed Indications: renal failure Procedure Performed: temp HDC Site/Technique: rt IJ Results/Findings: adequate placement Estimated blood loss (cc): 0 Complications: None; Tolerated procedure well Post Procedure Treatment Plan: CXR
--- NOTE | 2016-12-08 16:37 | Nephrology Progress Note ---
Date of Encounter: 12/08/16 Time of Encounter: 16:35 - Assessment and Plan (1) Acute on chronic kidney failure Current Visit: Yes Status: Acute Patient is non-oliguric, but his creatinine continues to rise. Will continue with intravenous hydration, but will have to change from D5 0.9 to D5 secondary to the hypernatremia. Etiology of the BEBETO still is not clear. There is the possibility of prerenal azotemia/ATN vs. an underlying intrinsic cause especially given the P/C ratio of 3. Awaiting the remainder of his BEBETO work-up. Patient unable to make decisions for himself. POA consented to dialysis. Patient's may need outpatient dialysis. Qualifiers: Acute renal failure type: with acute tubular necrosis Chronic kidney disease stage: stage 4 (severe) Qualified Code(s): N17.0 - Acute kidney failure with tubular necrosis; N18.4 - Chronic kidney disease, stage 4 (severe) (2) Anemia Current Visit: Yes Status: Acute Oral iron started for iron deficiency. Qualifiers: Anemia type: due to chronic kidney disease Chronic kidney disease stage: stage 4 (severe) Qualified Code(s): N18.4 - Chronic kidney disease, stage 4 ( severe); D63.1 - Anemia in chronic kidney disease (3) Hyperkalemia Current Visit: Yes Status: Acute Medical management. Improving. (4) Hypothyroidism Current Visit: Yes Status: Acute Per primary team. Qualifiers: Hypothyroidism type: unspecified Qualified Code(s): E03.9 - Hypothyroidism , unspecified (5) Schizophrenia Current Visit: Yes Status: Acute Per primary team. Psychiatry evaluated. Qualifiers: Schizophrenia type: unspecified Qualified Code(s): F20.9 - Schizophrenia, unspecified (6) Type 2 diabetes mellitus Current Visit: Yes Status: Acute Hgb A1C 5.4. Qualifiers: Qualified Code(s): E11.9 - Type 2 diabetes mellitus without complications (7) Urinary tract infection Current Visit: Yes Status: Acute Per primary team. On levofloxacin. Qualifiers: Qualified Code(s): N39.0 - Urinary tract infection, site not specified; R31.9 - Hematuria, unspecified (8) Hypernatremia Current Visit: Yes Status: Acute Unclear etiology. Changed MIV to hypotonic solution. Change MIV to 0.45 when sodium level normal. (9) Hyperparathyroidism Current Visit: Yes Status: Acute Added calcitriol 12/07/16. (10) Hyperphosphatemia Current Visit: Yes Status: Acute phosphorus binder started. Subjective Principal diagnosis: BEBETO/CKD Interval history: Patient seen and evaluated on dialysis. Guardian gave permission for dialysis per primary team. Patient without new complaint, but review of systems is unreliable. Objective - Vital Signs Vital signs: Vital Signs Temp Pulse Resp BP Pulse Ox 12/08/16 16:34 97.3 F L 12/08/16 15:23 82 20 130/71 98 12/08/16 14:23 97.4 F L 12/08/16 12:35 94.9 F L 12/08/16 11:47 74 20 120/65 99 12/08/16 11:08 18 96 12/08/16 09:00 96 12/08/16 07:44 97.5 F L 80 18 127/70 96 12/08/16 04:24 18 92 12/07/16 23:19 99.2 F 107 20 147/67 90 12/07/16 22:35 20 98 12/07/16 20:29 98.1 F 92 20 124/62 91 12/07/16 19:30 97.9 F 97 24 132/65 96 Intake and Output 12/08/16 12/08/16 12/08/16 07:59 15:59 23:59 Intake Total 1999 0 / 0 Output Total 0 / 0 Balance 1999 0 / 0 Intake: IV Fluids 1999 Dextrose 5% 1,000 ML @ 100 mls/ 1999 hr IVC .Q10H RACHNA Rx#:[id number] Oral 0 / 0 Output: Urine 0 / 0 Other: Meal Lunch Percent of Meal Consumed 0% Blood Glucose* 113 106 - General Appearance General appearance: Present: well-developed, well-nourished EENT: Present: ATNC Neck: Present: supple Respiratory: Present: course breath sounds Cardiology: Present: edema, regular rate Integumentary: Present: warm and dry Additional Comments: Alert - Lab 12/08/16 07:59 12/08/16 07:59 Most recent lab results ABG pH 7.27 pH Units (7.32-7.45) L 12/06/16 21:55 ABG pCO2 49 mmHg (35-45) H 12/06/16 21:55 ABG pO2 82 mmHg (85-104) L 12/06/16 21:55 ABG HCO3 23 mEq/L (21-27) 12/06/16 21:55 ABG O2 Saturation 94 % (95-98) L 12/06/16 21:55 Calcium 8.5 mg/dL (8.6-10.8) L 12/08/16 07:59 Phosphorus 6.2 mg/dL (2.3-4.7) H 12/07/16 04:45 Magnesium 1.9 mg/dL (1.6-2.6) 12/08/16 07:59 Urine Creatinine 62 mg/dL 12/06/16 06:15 Urine Sodium 37.0 mEq/L 12/06/16 06:15 Urine Total Protein 238 mg/dL (1-14) H 12/06/16 06:15 - VTE Documentation of Mechanical Device: Intermittent pneumatic compression device Consult Discharge Plan - Plan [facility]: [facility] [Primary Care Provider] -
--- NOTE | 2016-12-08 17:44 | Internal Med Progress Note ---
Date of Encounter: 12/08/16 Time of Encounter: 14:00 - Assessment and plan (1) Acute on chronic kidney failure Current Visit: Yes Status: Acute Assessment and plan: Start hemodialysis today per nephrology. Qualifiers: Acute renal failure type: with acute tubular necrosis Chronic kidney disease stage: stage 4 (severe) Qualified Code(s): N17.0 - Acute kidney failure with tubular necrosis; N18.4 - Chronic kidney disease, stage 4 (severe) (2) Type 2 diabetes mellitus Current Visit: Yes Status: Acute Assessment and plan: Continue with insulin sliding scale. Diabetic diet. Qualifiers: Diabetes mellitus complication status: without complication Diabetes mellitus buttermaker insulin use: with buttermaker use Qualified Code(s): E11.9 - Type 2 diabetes mellitus without complications; Z79.4 - prison (current) use of insulin (3) COPD (chronic obstructive pulmonary disease) Current Visit: Yes Status: Acute Assessment and plan: No evidence of exacerbation. We will continue with inhaled bronchodilators. Qualifiers: COPD type: chronic bronchitis Chronic bronchitis type: simple Qualified Code(s): J41.0 - Simple chronic bronchitis (4) Metabolic encephalopathy Current Visit: Yes Status: Acute Assessment and plan: Patient lacks decision capacity and consent for temporary hemodialysis was given by his POA and civil attorney. We will monitor for improvement in mental status correction of uremia. - Subjective Interval history: Patient cannot provide history due to altered mental status secondary to encephalopathy, schizophrenia and dementia. - Constitutional Vitals: Temp Pulse Resp BP Pulse Ox 97.3 F L 82 18 114/53 98 12/08/16 16:34 12/08/16 15:23 12/08/16 15:30 12/08/16 17:15 12/08/16 15:23 General appearance: Present: A&O X 0, no acute distress - Eye Eye exam: Present: PERRL, conjuntiva pink, sclera anicteric Pupils: Present: PERRL - Respiratory Respiratory exam: Present: CTAB. Absent: accessory muscle use, rales, rhonchi, wheezes - Cardiovascular Cardiovascular exam: Present: RRR, +S1, +S2. Absent: diastolic murmur, gallop, rubs, systolic murmur - GI/Abdominal GI/Abdominal exam: Present: normal bowel sounds, soft, no peritoneal signs. Absent: distended, tenderness - Skin Skin exam: Present: dry, intact Internal Medicine: Result - Labs CBC & Chem 7: 12/08/16 07:59 12/08/16 07:59 Labs: Short CBC 12/08/16 Range/Units 07:59 WBC 6.7 (4.3-11.1) K/mcL Hgb 8.0 L (12.9-16.9) g/dL Hct 27.3 L (37.5-50.1) % Plt Count 79 L (140-400) K/mcL Neutrophils # 5.0 (1.6-8.9) K/mcL BMP 12/08/16 07:59 Sodium 146 H Potassium 4.4 Chloride 116 H Carbon Dioxide 19 BUN 107 H Creatinine 5.41 H Glucose 114 H Calcium 8.5 L Liver Function 12/08/16 Range/Units 07:59 Total Bilirubin 0.5 (0.2-1.2) mg/dL AST 7 (5-34) Units/L ALT 14 (0-55) Units/L Alkaline Phosphatase 213 H (38-126) Units/L Albumin 2.3 L (3.5-5.0) g/dL - ABG Interpretation ABG results: ABG ABG pH 7.27 pH Units (7.32-7.45) L 12/06/16 21:55 ABG pCO2 49 mmHg (35-45) H 12/06/16 21:55 ABG pO2 82 mmHg (85-104) L 12/06/16 21:55 ABG O2 Saturation 94 % (95-98) L 12/06/16 21:55 - Impressions Impressions Retroperitoneum Ultrasound 12/06/16 18:00 IMPRESSION: Markedly suboptimal study and evaluation of left kidney due to difficulty in patient positioning. There is no evidence of significant hydronephrosis in either kidney. D/ / 12/06/2016 18:47:09 Tahir Roberson MD / [facility] Interpreting Provider: Tahir Roberson MD Guidance Needle Placement Ultrasound 12/08/16 00:00 IMPRESSION: Successful ultrasound guided non-tunneled temporary hemodialysis catheter placement. D/ / 12/08/2016 15:35:33 Yana Garcia MD / [facility] Interpreting Provider: Yana Garcia MD Insertion Non-Tunneled Catheter 12/08/16 00:00 IMPRESSION: Successful ultrasound guided non-tunneled temporary hemodialysis catheter placement. D/ / 12/08/2016 15:35:33 Yana Garcia MD / [facility] Interpreting Provider: Yana Garcia MD Videofluoroscopic Swallow 12/08/16 08:18 IMPRESSION: Swallowing mechanism grossly within normal limits without evidence of aspiration. Please see separate speech pathology report for full discussion of findings and recommendations. D/ / 12/08/2016 10:47:27 Danny Glover MD / [facility] Interpreting Provider: Danny Glover MD Chest X-Ray 12/08/16 13:53 IMPRESSION: Right IJ dialysis catheter tip in the SVC with no pneumothorax. Stable perihilar congestive changes with right basilar volume loss and effusion. D/ / Victor M Jacobson MD / Victor M Jacobson MD Interpreting Provider: Victor M Jacobson MD - VTE Documentation of Mechanical Device: Intermittent pneumatic compression device Consult Discharge Plan - Plan [facility]errals: [facility] [Primary Care Provider] -
[2016-12-08] MEDS: Cefepime HCl 1,000 MG in D5% in Water (Mini-Bag+) 100 ML IVPB SCH (18:11)
[2016-12-08] MEDS ORDERED: Ipratropium/Albuterol Neb 3 ML IH ONE (20:11)
[2016-12-08 21:23] LABS: ABG Base Excess -3.6 mEq/L (-2.0 to 3.0); ABG HCO3 26 mEq/L (21-27); ABG Oxygen Saturation 89 % (95-98); ABG PCO2 69 mmHg (35-45); ABG PO2 71 mmHg (85-104); ABG TCO2 27.9 mEq/L (20-26); Blood Gas Modality NC
[2016-12-08 21:24] LABS: Blood Gas FiO2 32 %
[2016-12-08 21:25] LABS: ABG PH 7.18 pH Units (7.32-7.45)
[2016-12-08] MEDS ORDERED: Furosemide 40 MG/4 ML VIAL IVP ONE (22:04)
--- NOTE | 2016-12-08 22:09 | Event Note ---
Date of Encounter: 12/08/16 Time of Encounter: 08:00 I was patient patient room earlier this evening due to our concerns of patient follow-up with tachycardia and increased work of breathing. I evaluated the patient shortly thereafter he had an elevated heart rate, appeared to be tachypneic and using accessory muscles for respiration. I initially stopped his supplemental fluids and gave him a breathing treatment. I reevaluated him about 45 minutes later and found there has not been no significant change in his heart rate or breathing status. At this point I obtained an ABG and chest x-ray. The ABG showed patient was acidotic at 7.18 which appeared primarily respiratory driven given that his bicarbonate has remained the same from his ABG 2 days prior but he had an increase of his PCO2. Chest x-ray also revealed continuation of his right-sided pleural effusion with some, likely positional, changes in the fluid level. Patient appears to have acute on chronic respiratory failure BiPAP was ordered Single dose of 40 mg IV Lasix We will recheck ABG following placement of BiPAP
[2016-12-08 23:05] LABS: ABG Base Excess -2.6 mEq/L (-2.0 to 3.0); ABG HCO3 26 mEq/L (21-27); ABG Oxygen Saturation 92 % (95-98); ABG PCO2 69 mmHg (35-45); ABG PO2 78 mmHg (85-104); ABG TCO2 28.5 mEq/L (20-26); Blood Gas FiO2 35 %; Blood Gas Modality BIPAP
[2016-12-08 23:06] LABS: ABG PH 7.19 pH Units (7.32-7.45)
[2016-12-09] MEDS ORDERED: Lacri-Lube 3.5 GM TUBE BOTH EYES PRN (00:02)
[2016-12-09 00:09] LABS: Alpha 2 Globulin (PEP) 0.73 g/dL (0.48-1.05); Beta Globulin (PEP) 0.85 g/dL (0.48-1.10)
--- NOTE | 2016-12-09 00:12 | Event Note ---
Date of Encounter: 12/09/16 Time of Encounter: 00:05 Patient is a 66/o male with PMH of DM, CKD, COPD, anemia who is admitted for acute on chronic renal failure and metabolic encephalopathy. Patient has been followed by nephrology and was started on hemodialysis on 12/08/16. Overnight patient's mental status worsened along with worsening respiratory status. On repeat CXR, patient is noted to have worsening pulmonary edema. Patient's clinical status worsened despite bipap support. Decision to intubate the patient was made given acute respiratory failure secondary to volume overload and depressed mental status. Patient is transferred to ICU shortly after intubation. Patient is oliguric and will need BLOCK PAVER in am for volume overload Given current CXR findings, patient will benefit from thoracentesis Patient noted to have Vtach prior to intubation which converted to sinus tach shortly after intubation. Will continue mechanical ventilation support. BLOCK PAVER as per nephro Closely monitor him in the ICU
[2016-12-09] MEDS: Insulin LISPRO 300 UNITS/3 ML VIAL SQ SCH ×4 (00:54→18:15)
[2016-12-09 01:17] LABS: ABG Base Excess -2.3 mEq/L (-2.0 to 3.0); ABG HCO3 25 mEq/L (21-27); ABG Oxygen Saturation 81 % (95-98); ABG PCO2 51 mmHg (35-45); ABG PH 7.29 pH Units (7.32-7.45); ABG PO2 51 mmHg (85-104); ABG TCO2 26.1 mEq/L (20-26)
[2016-12-09 01:18] LABS: Blood Gas FiO2 35 %; Blood Gas Modality VC
[2016-12-09] MEDS: FentaNYL (PF) 1,000 MCG in 0.9 % Sodium Chloride 80 ML IVC SCH ×2 (02:26→21:33)
[2016-12-09] MEDS: Ipratropium/Albuterol Neb 3 ML IH SCH ×4 (03:55→22:45)
[2016-12-09 05:05] LABS: ABG Base Excess -0.8 mEq/L (-2.0 to 3.0); ABG HCO3 23 mEq/L (21-27); ABG Oxygen Saturation 92 % (95-98); ABG PCO2 34 mmHg (35-45); ABG PH 7.44 pH Units (7.32-7.45); ABG PO2 61 mmHg (85-104); ABG TCO2 24.1 mEq/L (20-26); Blood Gas FiO2 35 %; Blood Gas Modality VC
[2016-12-09] MEDS: Lacri-Lube 3.5 GM TUBE BOTH EYES SCH ×5 (06:00→21:29)
[2016-12-09 06:46] LABS: Hemoglobin 8.2 g/dL (12.9-16.9); Immature Platelets 4.9 % (1.1-6.1); Mean Corpuscular HGB Conc 30.4 g/dL (31.6-35.5); Mean Corpuscular Hemoglobin 30.1 pg (28.0-33.3); Mean Corpuscular Volume 99.3 fL (83.0-100.0); Mean Platelet Volume 10.8 fL (9.4-12.4); Red Blood Count 2.72 M/mcL (4.19-5.50); Red Cell Distribution Width 20.1 % (11.5-14.5)
[2016-12-09 06:52] LABS: Platelet Count 92 K/mcL (140-400)
[2016-12-09 06:57] LABS: Calcium 8.7 mg/dL (8.6-10.8); Potassium 4.4 mEq/L (3.5-4.5)
[2016-12-09] MEDS ORDERED: Calcium Gluconate 1,000 MG in D5% in Water 100 ML IVPB PRN (07:27)
[2016-12-09] MEDS ORDERED: Potassium Phosphate 44 MEQ in 0.9 % Sodium Chloride 250 ML IVPB PRN (07:27)
[2016-12-09 07:37] LABS: ANA IgG by ELISA DETECTED (None Detected)
[2016-12-09 07:43] LABS: IFE Reflexed NOT DONE
[2016-12-09 07:44] LABS: ANA IgG IFA Titer 1:40 (<1:40)
[2016-12-09 07:54] LABS: Basophils % 0.1 %; Eosinophils % 0.2 %; Immature Granulocytes % 0.5 % (0-4); Lymphocytes # 0.4 K/mcL (0.6-4.6); Lymphocytes % 2.4 %; Monocytes # 0.4 K/mcL (0.0-1.3); Monocytes % 2.7 %; Neutrophils # 13.8 K/mcL (1.6-8.9); Segmented Neutrophils % 94.1 %
--- NOTE | 2016-12-09 07:58 | Pulmonology Consult Note ---
<Karlie Noel - Last Filed: 12/09/16 11:22> Date of Encounter: 12/09/16 Time of Encounter: 08:00 Assessment and Plan (1) Acute respiratory failure with hypoxia and hypercapnia Current Visit: Yes Status: Acute Patient became acutely acidotic and hypercapnic last night. Decision was made to intubate the patient. Patient currently on vent with settings of respiratory rate 18, tidal volume 550, PEEP of 5 and FiO2 of 40%. Most recent ABG shows pH of 7.29, PCO2 of 51, PO2 of 51. FiO2 was increased on the ventilator with these results. Respiratory failure secondary most likely due to pulmonary edema and possible aspiration pneumonia. We are treating with antibiotics at this time and will perform ultrafiltration dialysis today to try to remove some of the excess fluid. (2) Metabolic encephalopathy Current Visit: Yes Status: Acute (3) Sepsis Current Visit: Yes Status: Acute Most likely due to aspiration pneumonia. Currently being treated with Flagyl, vanc, aztreonam. Patient's white blood cell count significantly increased from 6.7 to 14.8. Sputum and blood cultures are currently pending. Urine culture completed is sensitive to aztreonam. Lactic level 1.1. We will continue antibiotic treatment until cultures come back and sensitivities are resulted. Qualifiers: Sepsis type: sepsis due to unspecified organism Qualified Code(s): A41.9 - Sepsis, unspecified organism (4) Aspiration pneumonia Current Visit: Yes Status: Acute Patient with a history of dysphagia. Started soft. Diet yesterday. After diet was started patient had a significant change in baseline including an increased in White blood cell count to 14.8 from 6.7. Chest x-ray completed shows diffuse pulmonary edema. The at this time is not possible to rule in or out aspiration pneumonia. Clinically seems likely. Started Flagyl and vancomycin. Change cefepime 2 to aztreonam. We will continue to trend white blood cell count. We will complete dialysis today with ultrafiltration per nephrology to try to remove some of the fluid causing the pulmonary edema. Qualifiers: Aspiration pneumonia type: unspecified Laterality: unspecified laterality Lung location: unspecified part of lung Qualified Code(s): J69.0 - Pneumonitis due to inhalation of food and vomit (5) Thrombocytopenia Current Visit: Yes Status: Acute Platelets 92 today. Significantly increased since original admission. [facility], patient has been thrombocytopenic her at least one week. No other history can be obtained at this time. We will continue to trend and treat symptomatically at this time. (6) Anemia Current Visit: Yes Status: Acute Chronic condition. Hemoglobin of 8.2 today. Iron was given per nephrology. Consult to nephrology. Qualifiers: Anemia type: due to chronic kidney disease Chronic kidney disease stage: stage 4 (severe) Qualified Code(s): N18.4 - Chronic kidney disease, stage 4 ( severe); D63.1 - Anemia in chronic kidney disease (7) DVT prophylaxis Current Visit: Yes Status: Acute SCDs at this time due to allergy to heparin History of Present Illness Consult date: 12/09/16 Reason for consult: other (Ventilator Support and Cre) Chief complaint: Acute Respiratory Failure History of present illness: 66-year-old male with past medical history of diabetes, chronic kidney disease, COPD, anemia presenting to the ICU from the floor after having acute respiratory failure overnight and needing to be intubated. Patient was originally admitted as a transfer from the [place] for worsening acute kidney injury , hyperkalemia and nitroglycerin evaluation. Patient has a history of dysphagia with an NG tube that he has pulled out himself 2 times. Upon presentation he was altered and was not able to give any history. Majority of the history obtained by the inpatient hospitalist and myself have been through charts. During his stay at [place], patient was given fluid resuscitation due to the acute kidney injury and worsening creatinine and BUN. While on the floor, patient became acutely hypoxic with an ABG pH showing 7.19. Chest x-ray showed right pleural effusion. Patient was intubated and sent to the ICU for further management. Patient also has long-standing history of dysphagia and was nothing by mouth until approximately 2 days ago. Patient started on a soft pureed diet yesterday. Concern for aspiration at this time. This time patient is sedated and intubated. [facility] Unable to obtain any further records at this time. We will speak with the POEhsan who is a court appointed terrestrial ecologist. Past Med Surg Social Fam HX - Past Medical History Medical history: cancer, CHF, COPD, diabetes, hypertension, renal disease Psychiatric history: schizophrenia - Social History Smoking Status: Unknown if ever smoked Smokeless Tobacco Status: No Alcohol use: unknown Drug use: unknown Medications and Allergies Acetaminophen [Tylenol] 650 mg PO Q6HR PRN 12/05/16 [History] Aripiprazole [Abilify Maintena] 400 mg IM QMONTH 12/05/16 [History] Benztropine [Cogentin] 0.5 mg PO HS 12/05/16 [History] Chlorhexidine Gluconate [Hibiclens] 15 ml PO DAILY 12/05/16 [History] Clotrimazole [Itch Relief] 1 appl TP BID PRN 12/05/16 [History] Epoetin Dandy [Procrit] 5,000 unit SQ MOWEFR 12/05/16 [History] Haloperidol 2 mg PO HS 12/05/16 [History] Insulin Regular Human [HumuLIN R] 3 - 8 unit SQ ACHS 12/05/16 [History] Ipratropium/Albuterol Neb [Duoneb] 3 ml IH Q6HR PRN 12/05/16 [History] Levothyroxine [Synthroid] 25 mcg PO DAILY 12/05/16 [History] Lidocaine 4% CRM (LMX) [Lmx 4] 1 appl TP TID PRN 12/05/16 [History] Magnesium Oxide [Magnesium] 400 mg PO BID 12/05/16 [History] Melatonin/Pyridoxine HCl (B6) [Melatonin 3 mg Tablet] 6 mg PO HS PRN 12/05/16 [ History] Nitroglycerin [Nitrostat] 0.4 mg SL AD PRN 12/05/16 [History] Ondansetron [Zofran] 4 mg PO TID PRN 12/05/16 [History] Xenaderm 1 appl TP Q4H PRN 12/05/16 [History] traZODone [TraZODone] 50 mg PO HS 12/05/16 [History] 3 Allergy/AdvReac Type Severity Reaction Status Date / Time heparin Allergy Unknown Rash Verified 12/04/16 21:55 Penicillins Allergy See Verified 03/21/16 08:24 Comments Sulfa (Sulfonamide Allergy See Verified 03/21/16 08:24 Antibiotics) Comments TB test Allergy See Uncoded 12/04/16 21:55 Comments ROS unobtainable: due to endotracheal tube All Systems: A 10-system review of systems was performed and is negative for pertinent findings except as documented above in the HPI. Physical Examination Vital Signs: Vital Signs, Last 4 Hours Temp Pulse Resp BP Pulse Ox 12/09/16 07:52 18 98 12/09/16 07:33 97.9 F 12/09/16 06:26 18 120/63 97 12/09/16 06:00 80 18 120/63 100 12/09/16 05:00 96.3 F L 80 18 112/63 97 12/09/16 04:00 97.1 F L 82 18 96/59 96 General appearance: comatose Eyes: nonicteric ENT: oropharynx moist Neck: supple Effort: normal Inspection: normal Auscultation: bilateral: diminished breath sounds, rhonchi Cardiovascular: regular rate and rhythm Gastrointestinal: normoactive bowel sounds, soft, non-distended Integumentary: normal Extremities: no cyanosis, edema Musculoskeletal: no deformities unable to assess due to mental status Ventilator Settings Ventilator Settings: Ventilator Settings, Last 8 Hours Ventilator Mode VC+ Ventilator Mode VC+ Ventilator Mode VC+ Ventilator Mode A/C Ventilator Mode VC+ Ventilator Mode VC+ Ventilator Mode VC+ Ventilator Mode VC+ Ventilator Mode A/C Ventilator Tidal Volume 550 Setting Ventilator Tidal Volume 550 Setting Ventilator Tidal Volume 550 Setting Ventilator Tidal Volume 550 Setting Ventilator Tidal Volume 550 Setting Ventilator Tidal Volume 550 Setting Ventilator Tidal Volume 550 Setting Ventilator Tidal Volume 550 Setting Ventilator Tidal Volume 550 Setting Ventilator Respiratory Rate 18 Setting Ventilator Respiratory Rate 18 Setting Ventilator Respiratory Rate 18 Setting Ventilator Respiratory Rate 18 Setting Ventilator Respiratory Rate 18 Setting Ventilator Respiratory Rate 18 Setting Ventilator Respiratory Rate 18 Setting Ventilator Respiratory Rate 18 Setting Ventilator Respiratory Rate 18 Setting Actual Respiratory Rate 18 Actual Respiratory Rate 18 Actual Respiratory Rate 18 Actual Respiratory Rate 18 Actual Respiratory Rate 18 Actual Respiratory Rate 18 Actual Respiratory Rate 18 Positive End Expiratory 5 Pressure Positive End Expiratory 5 Pressure Positive End Expiratory 5 Pressure Positive End Expiratory 5 Pressure Positive End Expiratory 5 Pressure Positive End Expiratory 5 Pressure Positive End Expiratory 5 Pressure Positive End Expiratory 5 Pressure Positive End Expiratory 5 Pressure Peak Inspiratory Airway 47 Pressure Peak Inspiratory Airway 37 Pressure Peak Inspiratory Airway 33 Pressure Peak Inspiratory Airway 39 Pressure Peak Inspiratory Airway 42 Pressure Peak Inspiratory Airway 41 Pressure Peak Inspiratory Airway 41 Pressure Results - Laboratory Findings CBC and BMP: 12/09/16 06:38 12/09/16 06:38 ABG ABG pH 7.44 pH Units (7.32-7.45) D 12/09/16 04:55 ABG pCO2 34 mmHg (35-45) L 12/09/16 04:55 ABG pO2 61 mmHg (85-104) L 12/09/16 04:55 ABG O2 Saturation 92 % (95-98) L 12/09/16 04:55 Abnormal lab findings: Abnormal lab results WBC 14.8 K/mcL (4.3-11.1) H D 12/09/16 06:38 RBC 2.72 M/mcL (4.19-5.50) L 12/09/16 06:38 Hgb 8.2 g/dL (12.9-16.9) L 12/09/16 06:38 Hct 27.0 % (37.5-50.1) L 12/09/16 06:38 MCHC 30.4 g/dL (31.6-35.5) L 12/09/16 06:38 RDW 20.1 % (11.5-14.5) H 12/09/16 06:38 Plt Count 92 K/mcL (140-400) L 12/09/16 06:38 Nucleated RBCs/100 WBC 0.4 /100 WBC (0) H 12/06/16 05:14 Platelet Estimate Decreased (Normal) L 12/05/16 04:15 Polychromasia 1+ (Not Present) A 12/05/16 04:15 Basophilic Stippling 1+ (Not Present) A 12/05/16 04:15 Anisocytosis 2+ (Not Present) A 12/05/16 04:15 Macrocytosis Present (Not Present) A 12/05/16 04:15 ABG pCO2 34 mmHg (35-45) L 12/09/16 04:55 ABG pO2 61 mmHg (85-104) L 12/09/16 04:55 ABG O2 Saturation 92 % (95-98) L 12/09/16 04:55 BUN 74 mg/dL (8-26) H D 12/09/16 06:38 Creatinine 4.36 mg/dL (0.72-1.25) H 12/09/16 06:38 Est GFR ( Amer) 17 (> 60) L 12/09/16 06:38 Est GFR (Non-Af Amer) 14 (> 60) L 12/09/16 06:38 Serum Osmolality 332 mOsm/kg (280-300) H 12/08/16 07:59 Calculated Osmolality 314 (280-300) H 12/09/16 06:38 Uric Acid 8.8 mg/dL (3.5-7.2) H 12/06/16 05:14 Phosphorus 6.2 mg/dL (2.3-4.7) H 12/07/16 04:45 Iron 28 mcg/dL (65-175) L 12/06/16 05:14 % Saturation 14 % (20-55) L 12/06/16 05:14 Transferrin 144 mg/dL (174-364) L 12/06/16 05:14 Ferritin 417 ng/ml (22-275) H 12/06/16 05:14 Alkaline Phosphatase 213 Units/L (38-126) H 12/08/16 07:59 B-Natriuretic Peptide 162 pg/mL (0-100) H 12/04/16 08:08 Albumin 2.3 g/dL (3.5-5.0) L 12/08/16 07:59 Albumin (PEP) 2.75 g/dL (3.75-5.01) L 12/06/16 05:14 Globulin 4.1 g/dL (2.4-3.5) H 12/08/16 07:59 Albumin/Globulin Ratio 0.6 (1.1-2.2) L 12/08/16 07:59 Gamma Globulins 1.56 g/dL (0.62-1.51) H 12/06/16 05:14 Vitamin B12 1517 pg/mL (213-816) H 12/06/16 05:14 TSH 10.384 mcIU/mL (0.350-4.840) H 12/04/16 18:30 PTH Intact 148.0 pg/ml (8.5-72.5) H 12/06/16 05:14 Ur Specimen Adequacy See below A 12/04/16 18:05 Urine Clarity Turbid (Clear) A 12/06/16 04:52 Urine Protein >=300 mg/dL (Neg-Trace) H 12/06/16 04:52 Urine Blood Large (Negative) H 12/06/16 04:52 Ur Leukocyte Esterase Large (Negative) H 12/06/16 04:52 Urine Microscopic RBC TNTC per hpf (0-3) H 12/06/16 04:52 Urine Microscopic WBC TNTC per hpf (0-3) H 12/06/16 04:52 Ur Squamous Epith Cells Many per lpf (None-Few) H 12/06/16 04:52 Urine Bacteria Moderate per hpf (None-Few) H 12/06/16 04:52 Ur Culture Indicated? YES (NO) A 12/06/16 04:52 Protein/Creatinin Ratio 3.84 mg/mg (0-0.20) H 12/06/16 06:15 Urine Total Protein 238 mg/dL (1-14) H 12/06/16 06:15 ALINA Screen DETECTED (None Detected) A 12/06/16 05:14 ALINA Titer 1:40 (<1:40) H 12/06/16 05:14 - Microbiology Findings Microbiology Findings: Microbiology, Last 48 Hours 12/06/16 04:52 Urine Culture - Final Urine,Clean Catch Proteus mirabilis - Diagnostic Findings Chest x-ray: report reviewed, image reviewed - Clinical Findings Intake & Output: Intake & Output 12/08/16 12/08/16 12/09/16 15:59 23:59 07:59 Intake Total 600 / 600 1000 / 1000 74 / 74 Output Total 0 / 0 1600 / 1600 490 / 490 Balance 600 / 600 -600 / -600 -416 / -416 Weight 87.9 kg Consult Discharge Plan - Plan [facility] Provider[facility] - <Deep Gutierrez - Last Filed: 12/09/16 13:37> Date of Encounter: 12/09/16 All Systems: A 10-system review of systems was performed and is negative for pertinent findings except as documented above in the HPI. Physical Examination Vital Signs: Vital Signs, Last 4 Hours Temp Pulse Resp BP Pulse Ox 12/09/16 07:52 18 98 12/09/16 07:33 97.9 F 12/09/16 06:26 18 120/63 97 12/09/16 06:00 80 18 120/63 100 12/09/16 05:00 96.3 F L 80 18 112/63 97 Ventilator Settings Ventilator Settings: Ventilator Settings, Last 8 Hours Ventilator Mode VC+ Ventilator Mode VC+ Ventilator Mode VC+ Ventilator Mode A/C Ventilator Mode VC+ Ventilator Mode VC+ Ventilator Mode VC+ Ventilator Tidal Volume 550 Setting Ventilator Tidal Volume 550 Setting Ventilator Tidal Volume 550 Setting Ventilator Tidal Volume 550 Setting Ventilator Tidal Volume 550 Setting Ventilator Tidal Volume 550 Setting Ventilator Tidal Volume 550 Setting Ventilator Respiratory Rate 18 Setting Ventilator Respiratory Rate 18 Setting Ventilator Respiratory Rate 18 Setting Ventilator Respiratory Rate 18 Setting Ventilator Respiratory Rate 18 Setting Ventilator Respiratory Rate 18 Setting Ventilator Respiratory Rate 18 Setting Actual Respiratory Rate 18 Actual Respiratory Rate 18 Actual Respiratory Rate 18 Actual Respiratory Rate 18 Actual Respiratory Rate 18 Positive End Expiratory 5 Pressure Positive End Expiratory 5 Pressure Positive End Expiratory 5 Pressure Positive End Expiratory 5 Pressure Positive End Expiratory 5 Pressure Positive End Expiratory 5 Pressure Positive End Expiratory 5 Pressure Peak Inspiratory Airway 47 Pressure Peak Inspiratory Airway 37 Pressure Peak Inspiratory Airway 33 Pressure Peak Inspiratory Airway 39 Pressure Peak Inspiratory Airway 42 Pressure Results - Laboratory Findings CBC and BMP: 12/09/16 06:38 12/09/16 06:38 ABG ABG pH 7.44 pH Units (7.32-7.45) D 12/09/16 04:55 ABG pCO2 34 mmHg (35-45) L 12/09/16 04:55 ABG pO2 61 mmHg (85-104) L 12/09/16 04:55 ABG O2 Saturation 92 % (95-98) L 12/09/16 04:55 Abnormal lab findings: Abnormal lab results WBC 14.8 K/mcL (4.3-11.1) H D 12/09/16 06:38 RBC 2.72 M/mcL (4.19-5.50) L 12/09/16 06:38 Hgb 8.2 g/dL (12.9-16.9) L 12/09/16 06:38 Hct 27.0 % (37.5-50.1) L 12/09/16 06:38 MCHC 30.4 g/dL (31.6-35.5) L 12/09/16 06:38 RDW 20.1 % (11.5-14.5) H 12/09/16 06:38 Plt Count 92 K/mcL (140-400) L 12/09/16 06:38 Neutrophils # 13.8 K/mcL (1.6-8.9) H 12/09/16 06:38 Lymphocytes # 0.4 K/mcL (0.6-4.6) L 12/09/16 06:38 Nucleated RBCs/100 WBC 0.4 /100 WBC (0) H 12/06/16 05:14 Platelet Estimate Decreased (Normal) L 12/05/16 04:15 Polychromasia 1+ (Not Present) A 12/05/16 04:15 Basophilic Stippling 1+ (Not Present) A 12/05/16 04:15 Anisocytosis 2+ (Not Present) A 12/05/16 04:15 Macrocytosis Present (Not Present) A 12/05/16 04:15 ABG pCO2 34 mmHg (35-45) L 12/09/16 04:55 ABG pO2 61 mmHg (85-104) L 12/09/16 04:55 ABG O2 Saturation 92 % (95-98) L 12/09/16 04:55 BUN 74 mg/dL (8-26) H D 12/09/16 06:38 Creatinine 4.36 mg/dL (0.72-1.25) H 12/09/16 06:38 Est GFR ( Amer) 17 (> 60) L 12/09/16 06:38 Est GFR (Non-Af Amer) 14 (> 60) L 12/09/16 06:38 Serum Osmolality 332 mOsm/kg (280-300) H 12/08/16 07:59 Calculated Osmolality 314 (280-300) H 12/09/16 06:38 Uric Acid 8.8 mg/dL (3.5-7.2) H 12/06/16 05:14 Phosphorus 6.2 mg/dL (2.3-4.7) H 12/07/16 04:45 Iron 28 mcg/dL (65-175) L 12/06/16 05:14 % Saturation 14 % (20-55) L 12/06/16 05:14 Transferrin 144 mg/dL (174-364) L 12/06/16 05:14 Ferritin 417 ng/ml (22-275) H 12/06/16 05:14 Alkaline Phosphatase 213 Units/L (38-126) H 12/08/16 07:59 Troponin I 0.06 ng/mL (0-0.03) H* 12/09/16 06:38 B-Natriuretic Peptide 162 pg/mL (0-100) H 12/04/16 08:08 Albumin 2.3 g/dL (3.5-5.0) L 12/08/16 07:59 Albumin (PEP) 2.75 g/dL (3.75-5.01) L 12/06/16 05:14 Globulin 4.1 g/dL (2.4-3.5) H 12/08/16 07:59 Albumin/Globulin Ratio 0.6 (1.1-2.2) L 12/08/16 07:59 Gamma Globulins 1.56 g/dL (0.62-1.51) H 12/06/16 05:14 Vitamin B12 1517 pg/mL (213-816) H 12/06/16 05:14 TSH 10.384 mcIU/mL (0.350-4.840) H 12/04/16 18:30 PTH Intact 148.0 pg/ml (8.5-72.5) H 12/06/16 05:14 Ur Specimen Adequacy See below A 12/04/16 18:05 Urine Clarity Turbid (Clear) A 12/06/16 04:52 Urine Protein >=300 mg/dL (Neg-Trace) H 12/06/16 04:52 Urine Blood Large (Negative) H 12/06/16 04:52 Ur Leukocyte Esterase Large (Negative) H 12/06/16 04:52 Urine Microscopic RBC TNTC per hpf (0-3) H 12/06/16 04:52 Urine Microscopic WBC TNTC per hpf (0-3) H 12/06/16 04:52 Ur Squamous Epith Cells Many per lpf (None-Few) H 12/06/16 04:52 Urine Bacteria Moderate per hpf (None-Few) H 12/06/16 04:52 Ur Culture Indicated? YES (NO) A 12/06/16 04:52 Protein/Creatinin Ratio 3.84 mg/mg (0-0.20) H 12/06/16 06:15 Urine Total Protein 238 mg/dL (1-14) H 12/06/16 06:15 ALINA Screen DETECTED (None Detected) A 12/06/16 05:14 ALINA Titer 1:40 (<1:40) H 12/06/16 05:14 - Microbiology Findings Microbiology Findings: Microbiology, Last 48 Hours 12/06/16 04:52 Urine Culture - Final Urine,Clean Catch Proteus mirabilis - Clinical Findings Intake & Output: Intake & Output 12/08/16 12/09/16 12/09/16 23:59 07:59 15:59 Intake Total 1000 / 1000 74 / 74 Output Total 1600 / 1600 490 / 490 Balance -600 / -600 -416 / -416 Weight 87.9 kg - Attending Attestation I examined this patient and my medical decision-making was reviewed with the Resident Physician. I agree with the documented findings, disposition and treatment plan as described except to the extent set forth below. We independently had [id number] contact with the patient I spent 35min of Critical Care time with this patient. It involved decision making of high complexity to assess, manipulate, and support vital organ system failure and/or to prevent further life threatening deterioration of the patient' s condition. The time involved in the performance of separately reportable procedures was not counted toward critical care time. Patient seen and examined at bedside Labs, radiology, chart personally reviewed. Management was reviewed during multidisciplinary critical care rounds. Neuropsych: Acute encephalopathy which is likely multifactorial including metabolic derangements sepsis and acidosis. Patient noted to have seizure-like activity head CT was performed without acute process EEG has been requested neurology consult if evidence of epileptiform activity. He will receive low- dose sedation with fentanyl and could add benzodiazepines or loaded with antiepileptic medication such as Keppra if seizure activity continues Pulm: Acute on chronic hypoxic hypercarbic respiratory failure I suspect patient aspirated and this prompted his clinical deterioration last night. In addition to this he is clearly volume overloaded with significant pulmonary edema including right-sided pleural effusion encouragingly he is not requiring significant ventilator support and respiratory component of acidosis has generally improved with mechanical ventilation leading to acceptable oxygenation and ventilation. He is not currently a candidate for a spontaneous breathing trial although we will attempt this daily as clinically indicated Cards: Was noted to have ventricular arrhythmia last night around the time of intubation is unclear to me this was actual ventricular arrhythmia versus SVT with aberrancy I favor the latter has been sinus rhythm since his bed in the ICU. Troponin is slightly elevated as morning although ECG without evidence of STEMI and looks essentially unchanged from prior ECGs. I think this is more factor of his renal dysfunction and possible demand ischemia as opposed to true ACS. We will trend troponins and if continues to rise we will obtain an echocardiogram and consult cardiology FEN-GI: We will start trophic enteral nutrition and provide him with PPI prophylaxis Renal: Chronic kidney failure has progressed need for dialysis plan to perform dialysis today with volume removal replace electrolytes per protocol nephrology following ID: Elevated white count overnight with witnessed vomiting by nursing staff yesterday I suspect aspiration pneumonia we have broadened his antimicrobials to cover for this along to cover for Proteus UTI Heme/Onc: Chronic thrombocytopenia stable hemoglobin shows stable chronic anemia were providing the patient with SCDs for DVT prophylaxis given his heparin allergy while we determine what the true nature of this allergy is Endo: Glucose Monitored Integ/MSK: Skin Care per routine ICU Nursing Protocol to prevent ulcers. Lines: All lines examined without evidence of infection Dispo: Remain in ICU for critical care needs CODE: DNAR patient has a legal guardian who we will update..
[2016-12-09] MEDS ORDERED: Vancomycin 1,250 MG in D5% in Water 250 ML IVPB SCH (09:00)
[2016-12-09] MEDS: Calcium Acetate 667 MG CAPSULE PO SCH ×3 (09:10→17:03)
[2016-12-09] MEDS: Chlorhexidine Rinse 15 ML MOUTHWASH MM SCH ×2 (09:24→21:30)
[2016-12-09] MEDS: Pantoprazole 40 MG VIAL IVP SCH (09:24)
[2016-12-09] MEDS ORDERED: 0.9 % Sodium Chloride 250 ML IVC PRN (09:50)
--- NOTE | 2016-12-09 09:59 | Nephrology Progress Note ---
Date of Encounter: 12/09/16 Time of Encounter: 09:57 - Assessment and Plan (1) Acute on chronic kidney failure Current Visit: Yes Status: Acute Patient is non-oliguric. He tolerated dialysis well yesterday. Etiology of the BEBETO still is not clear. There is the possibility of prerenal azotemia/ATN vs. an underlying intrinsic cause especially given the P/C ratio of 3. Awaiting the remainder of his BEBETO work-up. ALINA mildly positive - consider repeating. Patient unable to make decisions for himself. POA consented to dialysis. Plan for second dialysis session today. Qualifiers: Acute renal failure type: with acute tubular necrosis Chronic kidney disease stage: stage 4 (severe) Qualified Code(s): N17.0 - Acute kidney failure with tubular necrosis; N18.4 - Chronic kidney disease, stage 4 (severe) (2) Anemia Current Visit: Yes Status: Acute Oral iron started for iron deficiency. Monitor hemoglobin. Transfuse as needed. Qualifiers: Anemia type: due to chronic kidney disease Chronic kidney disease stage: stage 4 (severe) Qualified Code(s): N18.4 - Chronic kidney disease, stage 4 ( severe); D63.1 - Anemia in chronic kidney disease (3) Hyperkalemia Current Visit: Yes Status: Acute Resolved. (4) Hypothyroidism Current Visit: Yes Status: Acute Per primary team. Qualifiers: Hypothyroidism type: unspecified Qualified Code(s): E03.9 - Hypothyroidism , unspecified (5) Schizophrenia Current Visit: Yes Status: Acute Per primary team. Psychiatry evaluated. Qualifiers: Schizophrenia type: unspecified Qualified Code(s): F20.9 - Schizophrenia, unspecified (6) Type 2 diabetes mellitus Current Visit: Yes Status: Acute Hgb A1C 5.4. Qualifiers: Diabetes mellitus complication status: without complication Diabetes mellitus medical terminologist insulin use: with usp use Qualified Code(s): E11.9 - Type 2 diabetes mellitus without complications; Z79.4 - watermelon inspector (current) use of insulin (7) Hypernatremia Current Visit: Yes Status: Acute Resolved. (8) Hyperparathyroidism Current Visit: Yes Status: Acute Added calcitriol 12/07/16. (9) Hyperphosphatemia Current Visit: Yes Status: Acute phosphorus binder started. Subjective Principal diagnosis: BEBETO/CKD Interval history: Patient seen and evaluated. Overnight events noted. Patient intubated and sedated. Review of systems is unobtainable. Objective - Vital Signs Vital signs: Vital Signs Temp Pulse Resp BP Pulse Ox 12/09/16 07:52 18 98 12/09/16 07:33 97.9 F 12/09/16 06:26 18 120/63 97 12/09/16 06:00 80 18 120/63 100 12/09/16 05:00 96.3 F L 80 18 112/63 97 12/09/16 04:00 97.1 F L 82 18 96/59 96 12/09/16 03:56 18 71/48 92 12/09/16 03:00 88 18 84/54 95 12/09/16 02:34 18 95/63 95 12/09/16 02:00 90 18 95/61 95 12/09/16 01:00 101 18 74/49 93 12/09/16 00:30 103 12/09/16 00:25 196 26 90 12/09/16 00:21 18 97/58 100 12/09/16 00:13 97.7 F 116 18 97/58 92 12/08/16 23:18 25 97 12/08/16 23:03 97.6 F 117 26 132/66 95 12/08/16 22:22 23 94 12/08/16 21:35 23 98 12/08/16 20:40 98 12/08/16 20:29 18 97 12/08/16 19:05 97.3 F L 120 20 148/70 98 12/08/16 17:50 97.3 F L 20 130/64 12/08/16 17:30 113/55 12/08/16 17:15 114/53 12/08/16 17:00 120/58 12/08/16 16:45 116/60 12/08/16 16:34 97.3 F L 12/08/16 16:30 115/56 12/08/16 16:15 128/53 12/08/16 16:00 126/65 12/08/16 15:45 135/67 12/08/16 15:30 96.2 F L 18 133/70 12/08/16 15:23 82 20 130/71 98 12/08/16 14:23 97.4 F L 12/08/16 12:35 94.9 F L 12/08/16 11:47 74 20 120/65 99 12/08/16 11:08 18 96 Intake and Output 12/08/16 12/09/16 12/09/16 23:59 07:59 15:59 Intake Total 1000 / 1000 74 / 74 0 / 0 Output Total 1600 / 1600 490 / 490 100 / 100 Balance -600 / -600 -416 / -416 -100 / -100 Intake: IV Fluids 1000 / 1000 74 / 74 0 / 0 Dextrose 5% 1,000 ML @ 100 mls/ 1000 / 1000 0 / 0 hr IVC .Q10H RACHNA Rx#:[id number] FentaNYL (PF) 1,000 MCG In 0.9 0 / 0 % Sodium Chloride 80 ML @ 50 MCG/HR 5 mls/hr IVC CONT RACHNA Rx #:[id number] Versed 50 MG In 0.9 % Sodium 54 / 54 Chloride 90 ML @ 2 MG/HR 4 mls/ hr IVC CONT RACHNA Rx#:[id number] Diprivan 1,000 mg In 100 ml @ 5 20 / 20 MCG/KG/MIN 2.571 mls/hr IVC . Q24H RACHNA Rx#:[id number] Oral 0 / 0 0 / 0 Output: Urine 0 / 0 Total Dialysis (HD) Output 1600 / 1600 Catheter 300 / 300 Gastric Drainage 190 / 190 100 / 100 Other: Meal Dinner Percent of Meal Consumed 0% Stool Size Smear Stool Consistency loose Stool Characteristics Normal for Patient Stool Color Yellow Green Weight 87.9 kg Blood Glucose* 122 87 Hemodialysis Net Fluid Removed 1000 (mL) Patient Weight 12/09/16 23:59 Weight 87.9 kg - General Appearance General appearance: Present: well-developed, well-nourished, sedated on ventilator, intubated EENT: Present: ATNC Respiratory: Present: course breath sounds, rhonchi Cardiology: Present: edema, regular rate Dialysis Vascular Access: Venous Catheter Gastrointestinal: Present: no tenderness Integumentary: Present: warm and dry Additional Comments: Sedated. Musculoskeletal: Present: no cyanosis - Lab 12/09/16 06:38 12/09/16 06:38 Most recent lab results ABG pH 7.44 pH Units (7.32-7.45) D 12/09/16 04:55 ABG pCO2 34 mmHg (35-45) L 12/09/16 04:55 ABG pO2 61 mmHg (85-104) L 12/09/16 04:55 ABG HCO3 23 mEq/L (21-27) 12/09/16 04:55 ABG O2 Saturation 92 % (95-98) L 12/09/16 04:55 Calcium 8.7 mg/dL (8.6-10.8) 12/09/16 06:38 Phosphorus 6.2 mg/dL (2.3-4.7) H 12/07/16 04:45 Magnesium 1.6 mg/dL (1.6-2.6) 12/09/16 09:15 Urine Creatinine 62 mg/dL 12/06/16 06:15 Urine Sodium 37.0 mEq/L 12/06/16 06:15 Urine Total Protein 238 mg/dL (1-14) H 12/06/16 06:15 - VTE Documentation of Mechanical Device: Intermittent pneumatic compression device Consult Discharge Plan - Plan [facility]: [facility] [Primary Care Provider[facility] -
[2016-12-09] MEDS ORDERED: Vancomycin 1,500 MG in D5% in Water 250 ML IVPB ONE (10:00)
[2016-12-09] MEDS ORDERED: Sennosides 8.6 MG TABLET PO PRN (10:35)
[2016-12-09] MEDS: Aztreonam 500 MG in D5% in Water 100 ML IVPB SCH ×3 (10:56→21:29)
[2016-12-09] MEDS: MetroNIDAZOLE 500 MG/100 ML 500 MG/100 ML BAG IVPB SCH ×2 (12:19→17:30)
[2016-12-09 13:58] LABS: INR 1.2; Prothrombin Time 13.5 Seconds (9.4-12.1)
--- NOTE | 2016-12-09 13:58 | EEG/EMG/Oth Biometrics Report ---
EEG Procedure Report Date of procedure: 12/09/16 EEG Procedure: Routine EEG Procedure Note: Patient unresponsive, was taken off of sedation at beginning of the EEG. TECHNICAL DESCRIPTION: This is a 21 channel digital EEG performed utilizing 10/20 electrode placement system on a patient who is unresponsive, Background rhythm shows poorly organized, low voltage slow delta activity in the anterior regions. No [id number] discharges or any lateralizing abnormalities are seen. photic stimulation did not produce any abnormalities. Stage II sleep was not observed. During this study done a few sharp spikes noted predominantly in the right temporal leads off and on dating to [facility] but seems to be artifactual as there were without any background slowing or any other associated findings. IMPRESSION: Abnormal study, there is a generalized slowing noted throughout the study which is a nonspecific pattern mostly seen in patient with metabolic toxic encephalopathy consistent with diffuse cerebral dysfunction , no clear paroxysmal activities or epileptiform discharges were seen. clinical correlation is suggested
[2016-12-09 15:45] LABS: ABG Base Excess 0.7 mEq/L (-2.0 to 3.0); ABG HCO3 25 mEq/L (21-27); ABG Oxygen Saturation 93 % (95-98); ABG PCO2 40 mmHg (35-45); ABG PH 7.41 pH Units (7.32-7.45); ABG PO2 66 mmHg (85-104); ABG TCO2 27 mEq/L (20-26)
[2016-12-09 15:46] LABS: Blood Gas FiO2 40 %; Blood Gas Modality VCT
[2016-12-09] MEDS ORDERED: 0.9 % Sodium Chloride 2,000 ML ONE (16:30)
[2016-12-09] MEDS: D5% in Water 1,000 ML IVC SCH ×2 (16:59→18:16)
[2016-12-09] MEDS: Magnesium Sulfate 2 GM in D5% in Water 100 ML IVPB PRN (18:12)
[2016-12-09] MEDS ORDERED: Vancomycin 500 MG in D5% in Water (Mini-Bag+) 100 ML IVPB ONE (20:00)
[2016-12-10] MEDS: Insulin LISPRO 300 UNITS/3 ML VIAL SQ SCH ×4 (00:41→18:44)
[2016-12-10] MEDS: MetroNIDAZOLE 500 MG/100 ML 500 MG/100 ML BAG IVPB SCH ×5 (00:49→21:49)
[2016-12-10] MEDS: Lacri-Lube 3.5 GM TUBE BOTH EYES SCH ×6 (00:53→21:49)
[2016-12-10 03:47] LABS: ABG Base Excess -2.2 mEq/L (-2.0 to 3.0); ABG HCO3 24 mEq/L (21-27); ABG Oxygen Saturation 99 % (95-98); ABG PCO2 45 mmHg (35-45); ABG PH 7.33 pH Units (7.32-7.45); ABG PO2 133 mmHg (85-104); ABG TCO2 25 mEq/L (20-26)
[2016-12-10 03:50] LABS: Blood Gas FiO2 40 %; Blood Gas Modality VC
[2016-12-10] MEDS: Ipratropium/Albuterol Neb 3 ML IH SCH ×4 (04:04→21:44)
[2016-12-10 04:48] LABS: Basophils % 0.1 %; Hemoglobin 7.1 g/dL (12.9-16.9)
[2016-12-10 04:50] LABS: Eosinophils # 0.1 K/mcL (0.0-0.6); Eosinophils % 1.3 %; Hematocrit 23.3 % (37.5-50.1); Immature Granulocytes % 0.6 % (0-4); Immature Platelets 4.9 % (1.1-6.1); Lymphocytes # 0.5 K/mcL (0.6-4.6); Mean Corpuscular HGB Conc 30.5 g/dL (31.6-35.5); Mean Corpuscular Hemoglobin 29.8 pg (28.0-33.3); Mean Corpuscular Volume 97.9 fL (83.0-100.0); Mean Platelet Volume 11.7 fL (9.4-12.4); Monocytes # 0.3 K/mcL (0.0-1.3); Monocytes % 2.9 %; Red Blood Count 2.38 M/mcL (4.19-5.50); Red Cell Distribution Width 19.7 % (11.5-14.5); Segmented Neutrophils % 90.1 %
[2016-12-10 04:51] LABS: Neutrophils # 9.6 K/mcL (1.6-8.9); Platelet Count 89 K/mcL (140-400)
[2016-12-10 04:55] LABS: Ionized Calcium 1.16 mmol/L (1.15-1.35)
[2016-12-10 05:02] LABS: Calcium 8.3 mg/dL (8.6-10.8); Potassium 4.3 mEq/L (3.5-4.5)
[2016-12-10] MEDS: Aztreonam 500 MG in D5% in Water 100 ML IVPB SCH ×4 (05:20→21:49)
[2016-12-10 05:22] LABS: Phosphorous 5.4 mg/dL (2.3-4.7)
--- NOTE | 2016-12-10 07:22 | Pulmonology Progress Note ---
<Karlie Noel - Last Filed: 12/10/16 12:49> Date of Encounter: 12/10/16 Time of Encounter: 08:00 Assessment and Plan (1) Acute respiratory failure with hypoxia and hypercapnia Current Visit: Yes Status: Acute Patient became acutely acidotic and hypercapnic while on the floor. Decision was made to intubate the patient. Patient currently on vent. Most recent ABG shows pH of 7.33, PCO2 of 45, PO2 of 133. Respiratory failure secondary most likely due to pulmonary edema and aspiration pneumonia. We are treating with antibiotics at this time and will perform ultrafiltration dialysis today to try to remove some of the excess fluid. (2) Metabolic encephalopathy Current Visit: Yes Status: Acute Patient has been acutely altered since admission. Now sedated and intubated. When sedation was lifted to complete neurological exam patient showed some seizure-like activity. An EEG was completed which showed an abnormal study. Generalized slowing noted throughout the study which is a nonspecific pattern mostly seen in patient with metabolic toxic encephalopathy consistent with diffuse cerebral dysfunction , no clear paroxysmal activities or epileptiform discharges were seen. After dialysis is completed we will consult neurology further if the seizure-like activity continues. (3) Sepsis Current Visit: Yes Status: Acute Most likely due to aspiration pneumonia. Currently being treated with Flagyl, vanc, aztreonam. Patient's white blood cell count significantly increased from 6.7 to 14.8. Now 10.6 Sputum and blood cultures are currently pending. Urine culture completed is sensitive to aztreonam. Lactic level 1.1. We will continue antibiotic treatment until cultures come back and sensitivities are resulted. Qualifiers: Sepsis type: sepsis due to unspecified organism Qualified Code(s): A41.9 - Sepsis, unspecified organism (4) Aspiration pneumonia Current Visit: Yes Status: Acute Patient with a history of dysphagia. Started soft diet on the floor. After diet was started patient had a significant change in baseline including an increased in White blood cell count to 14.8 from 6.7. Chest x-ray completed shows diffuse pulmonary edema. The at this time is not possible to rule in or out aspiration pneumonia. Clinically seems likely. Repeat chest x-ray today showed possible left lower lobe pneumonia. Still diffuse pulmonary edema. Started Flagyl and vancomycin. Change cefepime to aztreonam. We will continue to trend white blood cell count. We will complete dialysis today with ultrafiltration per nephrology to try to remove some of the fluid causing the pulmonary edema. Qualifiers: Aspiration pneumonia type: unspecified Laterality: unspecified laterality Lung location: unspecified part of lung Qualified Code(s): J69.0 - Pneumonitis due to inhalation of food and vomit (5) Thrombocytopenia Current Visit: Yes Status: Acute Platelets 89 today. Significantly increased since original admission. Per [facility] records, patient has been thrombocytopenic her at least one week. No other history can be obtained at this time. We will continue to trend and treat symptomatically at this time. (6) Anemia Current Visit: Yes Status: Acute Chronic condition. Hemoglobin of 7.1 today. Iron was given per nephrology. Consult to nephrology. We will provide the patient with 500 of 5% albumin. A repeat hemoglobin will be completed this afternoon. If hemoglobin is less than 7 we will plan to transfuse packed red blood cells Qualifiers: Anemia type: due to chronic kidney disease Chronic kidney disease stage: stage 4 (severe) Qualified Code(s): N18.4 - Chronic kidney disease, stage 4 ( severe); D63.1 - Anemia in chronic kidney disease (7) DVT prophylaxis Current Visit: Yes Status: Acute Patient has a documented allergy to heparin therefore SCDs are placed on the patient Subjective Principal diagnosis: BEBETO/CKD Interval history: No acute events overnight. Repeat chest x-ray this morning showed left lower lobe pneumonia. Awaiting sputum culture. Continue Flagyl, vanc, aztreonam. Plan for dialysis today. Patient remained intubated and sedated. Objective PUL Vital signs: Last Vital Signs Temp 96.5 F L 12/10/16 04:52 Pulse 91 12/10/16 06:00 Resp 18 12/10/16 06:00 BP 95/48 12/10/16 06:00 Pulse Ox 92 12/10/16 06:00 General appearance: comatose Eyes: nonicteric ENT: oropharynx moist Neck: supple, no JVD Effort: normal Auscultation: bilateral: diminished breath sounds Cardiovascular: regular rate and rhythm Gastrointestinal: hypoactive bowel sounds, soft, non-distended Integumentary: normal Extremities: no cyanosis, edema Musculoskeletal: no deformities unable to assess due to mental status Ventilator Settings Ventilator Settings: Ventilator Settings, Last 8 Hours Ventilator Mode VC+ Ventilator Mode VC+ Ventilator Mode A/C Ventilator Mode VC+ Ventilator Mode VC+ Ventilator Mode VC+ Ventilator Tidal Volume 480 Setting Ventilator Tidal Volume 480 Setting Ventilator Tidal Volume 480 Setting Ventilator Tidal Volume 480 Setting Ventilator Tidal Volume 480 Setting Ventilator Tidal Volume 480 Setting Ventilator Respiratory Rate 18 Setting Ventilator Respiratory Rate 18 Setting Ventilator Respiratory Rate 18 Setting Ventilator Respiratory Rate 18 Setting Ventilator Respiratory Rate 18 Setting Ventilator Respiratory Rate 18 Setting Actual Respiratory Rate 18 Actual Respiratory Rate 18 Actual Respiratory Rate 18 Actual Respiratory Rate 18 Actual Respiratory Rate 18 Positive End Expiratory 8 Pressure Positive End Expiratory 8 Pressure Positive End Expiratory 5 Pressure Positive End Expiratory 8 Pressure Positive End Expiratory 8 Pressure Positive End Expiratory 8 Pressure Peak Inspiratory Airway 28 Pressure Peak Inspiratory Airway 32 Pressure Peak Inspiratory Airway 28 Pressure Peak Inspiratory Airway 30 Pressure Peak Inspiratory Airway 30 Pressure Results - Laboratory Findings CBC and BMP: 12/10/16 04:40 12/10/16 04:40 ABG ABG pH 7.33 pH Units (7.32-7.45) 12/10/16 03:40 ABG pCO2 45 mmHg (35-45) 12/10/16 03:40 ABG pO2 133 mmHg (85-104) H 12/10/16 03:40 ABG O2 Saturation 99 % (95-98) H 12/10/16 03:40 PT/INR, D-dimer PT 13.5 Seconds (9.4-12.1) H 12/09/16 13:35 Abnormal lab findings: Abnormal lab results RBC 2.38 M/mcL (4.19-5.50) L 12/10/16 04:40 Hgb 7.1 g/dL (12.9-16.9) L 12/10/16 04:40 Hct 23.3 % (37.5-50.1) L 12/10/16 04:40 MCHC 30.5 g/dL (31.6-35.5) L 12/10/16 04:40 RDW 19.7 % (11.5-14.5) H 12/10/16 04:40 Plt Count 89 K/mcL (140-400) L 12/10/16 04:40 Neutrophils # 9.6 K/mcL (1.6-8.9) H 12/10/16 04:40 Lymphocytes # 0.5 K/mcL (0.6-4.6) L 12/10/16 04:40 Nucleated RBCs/100 WBC 0.4 /100 WBC (0) H 12/06/16 05:14 Platelet Estimate Decreased (Normal) L 12/05/16 04:15 Polychromasia 1+ (Not Present) A 12/05/16 04:15 Basophilic Stippling 1+ (Not Present) A 12/05/16 04:15 Anisocytosis 2+ (Not Present) A 12/05/16 04:15 Macrocytosis Present (Not Present) A 12/05/16 04:15 PT 13.5 Seconds (9.4-12.1) H 12/09/16 13:35 ABG pO2 133 mmHg (85-104) H 12/10/16 03:40 ABG O2 Saturation 99 % (95-98) H 12/10/16 03:40 ABG Base Excess -2.2 mEq/L (-2.0 to 3.0) L 12/10/16 03:40 BUN 78 mg/dL (8-26) H 12/10/16 04:40 Creatinine 5.05 mg/dL (0.72-1.25) H 12/10/16 04:40 Est GFR ( Amer) 14 (> 60) L 12/10/16 04:40 Est GFR (Non-Af Amer) 12 (> 60) L 12/10/16 04:40 Glucose 134 mg/dL (70-99) H 12/10/16 04:40 POC Glucose 132 (58-89) H 12/10/16 04:38 Serum Osmolality 332 mOsm/kg (280-300) H 12/08/16 07:59 Calculated Osmolality 315 (280-300) H 12/10/16 04:40 Uric Acid 8.8 mg/dL (3.5-7.2) H 12/06/16 05:14 Calcium 8.3 mg/dL (8.6-10.8) L 12/10/16 04:40 Phosphorus 5.4 mg/dL (2.3-4.7) H 12/10/16 04:40 Iron 28 mcg/dL (65-175) L 12/06/16 05:14 % Saturation 14 % (20-55) L 12/06/16 05:14 Transferrin 144 mg/dL (174-364) L 12/06/16 05:14 Ferritin 417 ng/ml (22-275) H 12/06/16 05:14 Alkaline Phosphatase 213 Units/L (38-126) H 12/08/16 07:59 Troponin I 0.04 ng/mL (0-0.03) H* 12/09/16 23:45 B-Natriuretic Peptide 162 pg/mL (0-100) H 12/04/16 08:08 Albumin 2.3 g/dL (3.5-5.0) L 12/08/16 07:59 Albumin (PEP) 2.75 g/dL (3.75-5.01) L 12/06/16 05:14 Globulin 4.1 g/dL (2.4-3.5) H 12/08/16 07:59 Albumin/Globulin Ratio 0.6 (1.1-2.2) L 12/08/16 07:59 Gamma Globulins 1.56 g/dL (0.62-1.51) H 12/06/16 05:14 Vitamin B12 1517 pg/mL (213-816) H 12/06/16 05:14 TSH 10.384 mcIU/mL (0.350-4.840) H 12/04/16 18:30 PTH Intact 148.0 pg/ml (8.5-72.5) H 12/06/16 05:14 Ur Specimen Adequacy See below A 12/04/16 18:05 Urine Clarity Turbid (Clear) A 12/06/16 04:52 Urine Protein >=300 mg/dL (Neg-Trace) H 12/06/16 04:52 Urine Blood Large (Negative) H 12/06/16 04:52 Ur Leukocyte Esterase Large (Negative) H 12/06/16 04:52 Urine Microscopic RBC TNTC per hpf (0-3) H 12/06/16 04:52 Urine Microscopic WBC TNTC per hpf (0-3) H 12/06/16 04:52 Ur Squamous Epith Cells Many per lpf (None-Few) H 12/06/16 04:52 Urine Bacteria Moderate per hpf (None-Few) H 12/06/16 04:52 Ur Culture Indicated? YES (NO) A 12/06/16 04:52 Protein/Creatinin Ratio 3.84 mg/mg (0-0.20) H 12/06/16 06:15 Urine Total Protein 238 mg/dL (1-14) H 12/06/16 06:15 ALINA Screen DETECTED (None Detected) A 12/06/16 05:14 ALINA Titer 1:40 (<1:40) H 12/06/16 05:14 - Microbiology Findings Microbiology Findings: Microbiology, Last 48 Hours 12/09/16 14:00 Sputum Culture - Preliminary Sputum 12/06/16 04:52 Urine Culture - Final Urine,Clean Catch Proteus mirabilis - Diagnostic Findings Chest x-ray: report reviewed, image reviewed - Clinical Findings Intake & Output: Intake & Output 12/09/16 12/09/16 12/10/16 15:59 23:59 07:59 Intake Total 450 / 450 921 / 921 399 / 399 Output Total 350 / 350 240 / 240 75 / 75 Balance 100 / 100 681 / 681 324 / 324 - VTE Documentation of Mechanical Device: Graduated compression elastic hosiery Consult Discharge Plan - Plan Referrals: [facility] [Primary Care Provider] - <Deep Gutierrez - Last Filed: 12/10/16 14:33> Date of Encounter: 12/10/16 Objective PUL Vital signs: Last Vital Signs Temp 99.9 F H 12/10/16 13:09 Pulse 101 12/10/16 11:00 Resp 18 12/10/16 12:11 BP 99/43 12/10/16 12:11 Pulse Ox 90 12/10/16 12:11 Ventilator Settings Ventilator Settings: Ventilator Settings, Last 8 Hours Ventilator Mode VC+ Ventilator Mode VC+ Ventilator Mode VC+ Ventilator Mode VC+ Ventilator Mode VC+ Ventilator Mode VC+ Ventilator Mode VC+ Ventilator Mode VC+ Ventilator Tidal Volume 480 Setting Ventilator Tidal Volume 480 Setting Ventilator Tidal Volume 480 Setting Ventilator Tidal Volume 480 Setting Ventilator Tidal Volume 480 Setting Ventilator Tidal Volume 480 Setting Ventilator Tidal Volume 480 Setting Ventilator Tidal Volume 480 Setting Ventilator Respiratory Rate 18 Setting Ventilator Respiratory Rate 18 Setting Ventilator Respiratory Rate 18 Setting Ventilator Respiratory Rate 18 Setting Ventilator Respiratory Rate 18 Setting Ventilator Respiratory Rate 18 Setting Ventilator Respiratory Rate 18 Setting Ventilator Respiratory Rate 18 Setting Actual Respiratory Rate 18 Actual Respiratory Rate 19 Actual Respiratory Rate 18 Actual Respiratory Rate 18 Actual Respiratory Rate 18 Actual Respiratory Rate 18 Actual Respiratory Rate 18 Actual Respiratory Rate 18 Positive End Expiratory 8 Pressure Positive End Expiratory 8 Pressure Positive End Expiratory 8 Pressure Positive End Expiratory 8 Pressure Positive End Expiratory 8 Pressure Positive End Expiratory 8 Pressure Positive End Expiratory 8 Pressure Positive End Expiratory 8 Pressure Peak Inspiratory Airway 31 Pressure Peak Inspiratory Airway 30 Pressure Peak Inspiratory Airway 28 Pressure Peak Inspiratory Airway 31 Pressure Peak Inspiratory Airway 31 Pressure Peak Inspiratory Airway 31 Pressure Peak Inspiratory Airway 30 Pressure Peak Inspiratory Airway 29 Pressure Results - Laboratory Findings CBC and BMP: 12/10/16 04:40 12/10/16 04:40 ABG ABG pH 7.33 pH Units (7.32-7.45) 12/10/16 03:40 ABG pCO2 45 mmHg (35-45) 12/10/16 03:40 ABG pO2 133 mmHg (85-104) H 12/10/16 03:40 ABG O2 Saturation 99 % (95-98) H 12/10/16 03:40 PT/INR, D-dimer PT 13.5 Seconds (9.4-12.1) H 12/09/16 13:35 Abnormal lab findings: Abnormal lab results RBC 2.38 M/mcL (4.19-5.50) L 12/10/16 04:40 Hgb 7.1 g/dL (12.9-16.9) L 12/10/16 04:40 Hct 23.3 % (37.5-50.1) L 12/10/16 04:40 MCHC 30.5 g/dL (31.6-35.5) L 12/10/16 04:40 RDW 19.7 % (11.5-14.5) H 12/10/16 04:40 Plt Count 89 K/mcL (140-400) L 12/10/16 04:40 Neutrophils # 9.6 K/mcL (1.6-8.9) H 12/10/16 04:40 Lymphocytes # 0.5 K/mcL (0.6-4.6) L 12/10/16 04:40 Nucleated RBCs/100 WBC 0.4 /100 WBC (0) H 12/06/16 05:14 Platelet Estimate Decreased (Normal) L 12/05/16 04:15 Polychromasia 1+ (Not Present) A 12/05/16 04:15 Basophilic Stippling 1+ (Not Present) A 12/05/16 04:15 Anisocytosis 2+ (Not Present) A 12/05/16 04:15 Macrocytosis Present (Not Present) A 12/05/16 04:15 PT 13.5 Seconds (9.4-12.1) H 12/09/16 13:35 ABG pO2 133 mmHg (85-104) H 12/10/16 03:40 ABG O2 Saturation 99 % (95-98) H 12/10/16 03:40 ABG Base Excess -2.2 mEq/L (-2.0 to 3.0) L 12/10/16 03:40 BUN 78 mg/dL (8-26) H 12/10/16 04:40 Creatinine 5.05 mg/dL (0.72-1.25) H 12/10/16 04:40 Est GFR ( Amer) 14 (> 60) L 12/10/16 04:40 Est GFR (Non-Af Amer) 12 (> 60) L 12/10/16 04:40 Glucose 134 mg/dL (70-99) H 12/10/16 04:40 POC Glucose 96 (58-89) H 12/10/16 12:45 Serum Osmolality 332 mOsm/kg (280-300) H 12/08/16 07:59 Calculated Osmolality 315 (280-300) H 12/10/16 04:40 Uric Acid 8.8 mg/dL (3.5-7.2) H 12/06/16 05:14 Calcium 8.3 mg/dL (8.6-10.8) L 12/10/16 04:40 Phosphorus 5.4 mg/dL (2.3-4.7) H 12/10/16 04:40 Iron 28 mcg/dL (65-175) L 12/06/16 05:14 % Saturation 14 % (20-55) L 12/06/16 05:14 Transferrin 144 mg/dL (174-364) L 12/06/16 05:14 Ferritin 417 ng/ml (22-275) H 12/06/16 05:14 Alkaline Phosphatase 213 Units/L (38-126) H 12/08/16 07:59 Troponin I 0.04 ng/mL (0-0.03) H* 12/09/16 23:45 B-Natriuretic Peptide 162 pg/mL (0-100) H 12/04/16 08:08 Albumin 2.3 g/dL (3.5-5.0) L 12/08/16 07:59 Albumin (PEP) 2.75 g/dL (3.75-5.01) L 12/06/16 05:14 Globulin 4.1 g/dL (2.4-3.5) H 12/08/16 07:59 Albumin/Globulin Ratio 0.6 (1.1-2.2) L 12/08/16 07:59 Gamma Globulins 1.56 g/dL (0.62-1.51) H 12/06/16 05:14 Vitamin B12 1517 pg/mL (213-816) H 12/06/16 05:14 TSH 10.384 mcIU/mL (0.350-4.840) H 12/04/16 18:30 PTH Intact 148.0 pg/ml (8.5-72.5) H 12/06/16 05:14 Ur Specimen Adequacy See below A 12/04/16 18:05 Urine Clarity Turbid (Clear) A 12/06/16 04:52 Urine Protein >=300 mg/dL (Neg-Trace) H 12/06/16 04:52 Urine Blood Large (Negative) H 12/06/16 04:52 Ur Leukocyte Esterase Large (Negative) H 12/06/16 04:52 Urine Microscopic RBC TNTC per hpf (0-3) H 12/06/16 04:52 Urine Microscopic WBC TNTC per hpf (0-3) H 12/06/16 04:52 Ur Squamous Epith Cells Many per lpf (None-Few) H 12/06/16 04:52 Urine Bacteria Moderate per hpf (None-Few) H 12/06/16 04:52 Ur Culture Indicated? YES (NO) A 12/06/16 04:52 Protein/Creatinin Ratio 3.84 mg/mg (0-0.20) H 12/06/16 06:15 Urine Total Protein 238 mg/dL (1-14) H 12/06/16 06:15 ALINA Screen DETECTED (None Detected) A 12/06/16 05:14 ALINA Titer 1:40 (<1:40) H 12/06/16 05:14 - Microbiology Findings Microbiology Findings: Microbiology, Last 48 Hours 12/09/16 14:00 Sputum Culture - Preliminary Sputum - Clinical Findings Intake & Output: Intake & Output 12/09/16 12/10/16 12/10/16 23:59 07:59 15:59 Intake Total 921 / 921 441 / 441 513 / 513 Output Total 240 / 240 75 / 75 125 / 125 Balance 681 / 681 366 / 366 388 / 388 - Attending Attestation I examined this patient and my medical decision-making was reviewed with the Resident Physician. I agree with the documented findings, disposition and treatment plan as described except to the extent set forth below. We independently had [id number] contact with the patient Patient seen and examined at bedside Labs, radiology, chart personally reviewed. Management was reviewed during multidisciplinary critical care rounds. Neuropsych: Acute encephalopathy coupled with unintentional tremors which are more consistent with myoclonic jerks likely related to metabolic derangement from kidney which is likely multifactorial including metabolic derangements sepsis and acidosis. Head CT within normal limits ECG without evidence of epileptiform activity. May need a neurological consult unintentional tremors continue. Continue daily sedation holiday Pulm: Acute on chronic hypoxic hypercarbic respiratory failure this is a combination of aspiration pneumonia and pulmonary edema. We are employing a low tidal volume ventilatory strategy was acceptable oxygenation and ventilation. He is currently not a candidate for spontaneous breathing trial. Cards: Borderline hypotension lactate within normal limits urine output on the low side which I suspect is related to decreased intravascular volume although total body volume is overloaded. I will trial bolus of 1 L of 5% albumin and continue to monitor urine output. FEN-GI: Advance enteral nutrition per dietary's appreciated recommendations and continue PPI prophylaxis along with scheduled bowel regimen while on narcotic infusion Renal: Chronic kidney failure has progressed need for dialysis plan to perform dialysis today with volume removal replace electrolytes per protocol nephrology following plan for CVVH today and his electrolytes will be replaced per protocol ID: Continued leukocytosis which is likely related to aspiration pneumonia we are going to cover with appropriate antimicrobials were healthcare associated organisms along with aspiration organisms and known Proteus UTI repeat cultures are thus far pending including sputum Heme/Onc: Chronic thrombocytopenia stable hemoglobin notable for slightly decreased hemoglobin in the last 24 hours although no overt signs of hemorrhage repeat CBC if hemoglobin below 7 and transfused monitor for signs hemorrhage. Continue SCDs for DVT prophylaxis given his heparin allergy Endo: Glucose Monitored and acceptable control Integ/MSK: Skin Care per routine ICU Nursing Protocol to prevent ulcers. Lines: All lines examined without evidence of infection Dispo: Remain in ICU for critical care needs CODE: DNAR..
[2016-12-10] MEDS: D5% in Water 1,000 ML IVC SCH (07:49)
[2016-12-10] MEDS: Chlorhexidine Rinse 15 ML MOUTHWASH MM SCH ×2 (08:02→21:49)
[2016-12-10] MEDS: Pantoprazole 40 MG VIAL IVP SCH (08:02)
[2016-12-10] MEDS: Calcium Acetate 667 MG CAPSULE PO SCH ×3 (08:02→17:29)
[2016-12-10] MEDS ORDERED: Vancomycin 1 EACH in EMPTY BAG 1 EACH IVPB SCH (09:00)
--- NOTE | 2016-12-10 14:30 | Nephrology Progress Note ---
Date of Encounter: 12/10/16 Time of Encounter: 10:15 - Assessment and Plan (1) Acute on chronic kidney failure Current Visit: Yes Status: Acute Will initiate CVVDHF today Goals for clearance and ultimately UF if hemodynamics tolerates UOP not impressive at 640cc in the past 24hrs Avoid nephrotoxins if possible Critical care time spent approx. 40mins in the coordination of care Qualifiers: Acute renal failure type: with acute tubular necrosis Chronic kidney disease stage: stage 4 (severe) Qualified Code(s): N17.0 - Acute kidney failure with tubular necrosis; N18.4 - Chronic kidney disease, stage 4 (severe) (2) Acute respiratory failure with hypoxia and hypercapnia Current Visit: Yes Status: Acute vent settings and taper per primary team (3) Anemia Current Visit: Yes Status: Acute Hgb noted t low at 7.1 transfusion parameters per primary team Qualifiers: Anemia type: due to chronic kidney disease Chronic kidney disease stage: stage 4 (severe) Qualified Code(s): N18.4 - Chronic kidney disease, stage 4 ( severe); D63.1 - Anemia in chronic kidney disease (4) Sepsis Current Visit: Yes Status: Acute Abx per primary team Vanco by level if needed Qualifiers: Sepsis type: sepsis due to unspecified organism Qualified Code(s): A41.9 - Sepsis, unspecified organism Subjective Principal diagnosis: BEBETO/CKD Interval history: Interim events noted s/p HD 2 days ago but became unstable with respiratory failure now intubated and sedated and on albumin with unstable hemodynamics Objective - Vital Signs Vital signs: Vital Signs Temp Pulse Resp BP Pulse Ox 12/10/16 13:09 99.9 F H 12/10/16 12:11 18 99/43 90 12/10/16 11:00 101 19 103/49 90 12/10/16 10:00 95 18 99/50 94 12/10/16 09:44 18 93/48 92 12/10/16 09:00 90 18 92/51 93 12/10/16 08:00 98.8 F 96 18 103/55 93 12/10/16 07:27 18 83/46 92 12/10/16 07:00 87 18 83/46 93 12/10/16 06:00 91 18 95/48 92 12/10/16 05:51 18 117/68 93 12/10/16 05:00 87 18 85/54 94 12/10/16 04:52 96.5 F L 12/10/16 04:04 18 84/53 95 12/10/16 04:00 87 18 84/53 95 12/10/16 03:00 81 18 86/47 94 12/10/16 02:17 18 88/51 94 12/10/16 02:00 82 18 88/51 94 12/10/16 01:00 86 18 88/53 95 12/10/16 00:35 82 12/10/16 00:06 18 87/49 95 12/10/16 00:00 98.4 F 82 18 87/49 96 12/09/16 23:00 83 18 80/49 95 12/09/16 22:45 18 79/46 94 12/09/16 22:00 82 18 85/48 93 12/09/16 21:00 89 18 89/52 95 12/09/16 20:58 80 12/09/16 20:00 98.2 F 88 18 94/52 95 12/09/16 19:44 18 89/51 95 12/09/16 19:00 88 18 91/49 97 12/09/16 18:00 90 18 92/53 97 12/09/16 17:47 18 98 12/09/16 17:00 90 18 93/53 96 12/09/16 16:00 97.1 F L 82 18 94/52 97 12/09/16 15:42 22 96 12/09/16 15:00 84 22 98/51 100 Intake and Output 12/09/16 12/10/16 12/10/16 23:59 07:59 15:59 Intake Total 921 / 921 441 / 441 513 / 513 Output Total 240 / 240 75 / 75 125 / 125 Balance 681 / 681 366 / 366 388 / 388 Intake: IV Fluids 800 / 800 342 / 342 450 / 450 ALBURX 5% 12.5 gm In 250 ml @ 250 / 250 60 mls/hr IVC .Q4H10M [facility] Rx#: [id number] FentaNYL (PF) 1,000 MCG In 0.9 100 / 100 42 / 42 % Sodium Chloride 80 ML @ 50 MCG/HR 5 mls/hr IVC [facility] Rx #:[id number] Versed 50 MG In 0.9 % Sodium 46 / 46 Chloride 90 ML @ 2 MG/HR 4 mls/ hr IVC [facility] Rx#:[id number] ALBURX 5% 12.5 gm In 250 ml @ 250 / 250 60 mls/hr IVPB ONCE ONE Rx#: [id number] Azactam 500 MG In Dextrose 5% 200 / 200 100 / 100 100 / 100 100 ML @ 200 mls/hr IVPB Q6H [facility] Rx#:[id number] Magnesium Sulfate 2 GM In 104 / 104 Dextrose 5% 100 ML @ 50 mls/hr IVPB Q6H [facility] Rx#:[id number] Flagyl Premix 500 MG/100 ML 500 100 / 100 200 / 200 100 / 100 mg In 100 ml @ 100 mls/hr IVPB Q6H [facility] Rx#:[id number] Tube Feeding 121 / 121 99 / 99 63 / 63 Output: Urine 50 / 50 Urethral (Gomez) 50 / 50 Catheter 240 / 240 75 / 75 75 / 75 Other: Blood Glucose* 116 132 96 - General Appearance General appearance: Present: sedated on ventilator, intubated EENT: Present: ATNC, mucous membranes moist Neck: Present: no JVD, supple Respiratory: Present: course breath sounds Cardiology: Present: edema (LE bilat), normal S1, normal S2 Dialysis Vascular Access: Venous Catheter Gastrointestinal: Present: no tenderness, no guarding Integumentary: Present: no rash, warm and dry Additional Comments: sedated but opens eyes to verbal stimuli and tries to move UE as well Musculoskeletal: Present: no deformities Additional Comments: sedated - Lab 12/10/16 04:40 12/10/16 04:40 Most recent lab results ABG pH 7.33 pH Units (7.32-7.45) 12/10/16 03:40 ABG pCO2 45 mmHg (35-45) 12/10/16 03:40 ABG pO2 133 mmHg (85-104) H 12/10/16 03:40 ABG HCO3 24 mEq/L (21-27) 12/10/16 03:40 ABG O2 Saturation 99 % (95-98) H 12/10/16 03:40 Calcium 8.3 mg/dL (8.6-10.8) L 12/10/16 04:40 Phosphorus 5.4 mg/dL (2.3-4.7) H 12/10/16 04:40 Magnesium 2.0 mg/dL (1.6-2.6) 12/10/16 04:40 Urine Creatinine 62 mg/dL 12/06/16 06:15 Urine Sodium 37.0 mEq/L 12/06/16 06:15 Urine Total Protein 238 mg/dL (1-14) H 12/06/16 06:15 - VTE Documentation of Mechanical Device: Graduated compression elastic hosiery Consult Discharge Plan - Plan Referrals: [facility] [Primary Care Provider] -
[2016-12-10] MEDS ORDERED: *HR* Alteplase (Cathflo) 2 MG VIAL IVP PRN (14:33)
[2016-12-10] MEDS ORDERED: *HR* Heparin 5,000 UNIT/ML VIAL IV PRN (14:33)
[2016-12-10] MEDS ORDERED: Calcium Gluconate 2,000 MG in D5% in Water 100 ML IVPB PRN (14:33)
[2016-12-10] MEDS ORDERED: Calcium Gluconate 1,000 MG in D5% in Water 100 ML IVPB PRN (14:33)
[2016-12-10] MEDS: 0.9 % Sodium Chloride 1,000 ML PRIME SCH ×2 (16:20→18:47)
[2016-12-10 16:45] LABS: Ionized Calcium 1.15 mmol/L (1.15-1.35)
[2016-12-10 16:46] LABS: INR 1.4; Prothrombin Time 15.5 Seconds (9.4-12.1)
[2016-12-10 16:49] LABS: Calcium 8.7 mg/dL (8.6-10.8)
[2016-12-10] MEDS ORDERED: 0.9 % Sodium Chloride 250 ML ONE (16:51)
[2016-12-10] MEDS: PrismaSATE BGK 4/2.5 5,000 ML CRRT SCH ×3 (16:58→17:01)
[2016-12-10] MEDS ORDERED: Vancomycin 500 MG in D5% in Water (Mini-Bag+) 100 ML IVPB ONE (17:00)
[2016-12-10] MEDS: Calcium Chloride 4,000 MG in 0.9 % Sodium Chloride 1,000 ML CRRT SCH (18:45)
[2016-12-11] MEDS: Insulin LISPRO 300 UNITS/3 ML VIAL SQ SCH ×5 (01:42→23:36)
[2016-12-11] MEDS: Lacri-Lube 3.5 GM TUBE BOTH EYES SCH ×7 (01:43→23:36)
[2016-12-11] MEDS ORDERED: *HR* Atropine Sulfate 1 MG/10 ML SYRINGE ONE (02:46)
[2016-12-11] MEDS ORDERED: *HR* Atropine Sulfate 1 MG/10 ML SYRINGE IVP ONE (02:50)
[2016-12-11] MEDS: Aztreonam 500 MG in D5% in Water 100 ML IVPB SCH ×4 (03:21→21:25)
[2016-12-11] MEDS: Ipratropium/Albuterol Neb 3 ML IH SCH ×4 (03:54→21:39)
[2016-12-11] MEDS: MetroNIDAZOLE 500 MG/100 ML 500 MG/100 ML BAG IVPB SCH ×4 (04:03→22:13)
[2016-12-11 04:21] LABS: Hemoglobin 7.9 g/dL (12.9-16.9); Mean Corpuscular Volume 95.4 fL (83.0-100.0)
[2016-12-11 04:22] LABS: Eosinophils # 0.2 K/mcL (0.0-0.6); Eosinophils % 3.7 %; Hematocrit 24.9 % (37.5-50.1); Immature Granulocytes % 0.9 % (0-4); Immature Platelets 5.5 % (1.1-6.1); Lymphocytes # 0.6 K/mcL (0.6-4.6); Mean Corpuscular HGB Conc 31.7 g/dL (31.6-35.5); Mean Corpuscular Hemoglobin 30.3 pg (28.0-33.3); Mean Platelet Volume 11.6 fL (9.4-12.4); Monocytes # 0.2 K/mcL (0.0-1.3); Monocytes % 4.8 %; Neutrophils # 3.4 K/mcL (1.6-8.9); Red Blood Count 2.61 M/mcL (4.19-5.50); Red Cell Distribution Width 18.4 % (11.5-14.5); Segmented Neutrophils % 77.6 %
[2016-12-11 04:32] LABS: Calcium 8.8 mg/dL (8.6-10.8); Potassium 3.8 mEq/L (3.5-4.5)
[2016-12-11 04:35] LABS: Albumin/Globulin Ratio 0.6 (1.1-2.2); Bilirubin,Direct 0.5 mg/dL (0.0-0.5); Bilirubin,Indirect 0.3 mg/dL (0.0-1.2); Bilirubin,Total 0.8 mg/dL (0.2-1.2); Calcium 8.8 mg/dL (8.6-10.8); Globulin 3.5 g/dL (2.4-3.5); Magnesium 1.8 mg/dL (1.6-2.6); Phosphorous 2.8 mg/dL (2.3-4.7); Potassium 3.8 mEq/L (3.5-4.5); Total Protein 5.5 g/dL (6.0-8.3)
[2016-12-11] MEDS: PrismaSATE BGK 4/2.5 5,000 ML CRRT SCH ×9 (04:41→21:00)
[2016-12-11 04:58] LABS: Platelet Count 72 K/mcL (140-400)
[2016-12-11] MEDS ORDERED: Vancomycin 1,000 MG in D5% in Water 250 ML IVPB ONE (05:00)
[2016-12-11 05:02] LABS: Anisocytosis 2+ (Not Present); Platelet Estimate Decreased (Normal)
--- NOTE | 2016-12-11 06:56 | Pulmonology Progress Note ---
<Deep Gutierrez W - Last Filed: 12/11/16 10:24> Date of Encounter: 12/11/16 Objective PUL Vital signs: Last Vital Signs Temp 91.2 F L 12/11/16 08:15 Pulse 43 12/11/16 10:06 Resp 18 12/11/16 10:06 BP 117/108 12/11/16 10:06 Pulse Ox 98 12/11/16 10:06 Ventilator Settings Ventilator Settings: Ventilator Settings, Last 8 Hours Ventilator Mode VC+ Ventilator Mode VC+ Ventilator Mode VC+ Ventilator Mode VC+ Ventilator Mode VC+ Ventilator Mode VC+ Ventilator Mode VC+ Ventilator Mode VC+ Ventilator Mode VC+ Ventilator Mode VC+ Ventilator Mode VC+ Ventilator Mode VC+ Ventilator Mode VC+ Ventilator Tidal Volume 480 Setting Ventilator Tidal Volume 480 Setting Ventilator Tidal Volume 480 Setting Ventilator Tidal Volume 480 Setting Ventilator Tidal Volume 480 Setting Ventilator Tidal Volume 480 Setting Ventilator Tidal Volume 480 Setting Ventilator Tidal Volume 480 Setting Ventilator Tidal Volume 480 Setting Ventilator Tidal Volume 480 Setting Ventilator Tidal Volume 480 Setting Ventilator Tidal Volume 480 Setting Ventilator Tidal Volume 480 Setting Ventilator Respiratory Rate 18 Setting Ventilator Respiratory Rate 18 Setting Ventilator Respiratory Rate 18 Setting Ventilator Respiratory Rate 18 Setting Ventilator Respiratory Rate 18 Setting Ventilator Respiratory Rate 18 Setting Ventilator Respiratory Rate 18 Setting Ventilator Respiratory Rate 18 Setting Ventilator Respiratory Rate 18 Setting Ventilator Respiratory Rate 18 Setting Ventilator Respiratory Rate 18 Setting Ventilator Respiratory Rate 18 Setting Ventilator Respiratory Rate 18 Setting Actual Respiratory Rate 18 Actual Respiratory Rate 18 Actual Respiratory Rate 18 Actual Respiratory Rate 18 Actual Respiratory Rate 19 Actual Respiratory Rate 18 Actual Respiratory Rate 18 Actual Respiratory Rate 18 Actual Respiratory Rate 18 Actual Respiratory Rate 18 Actual Respiratory Rate 18 Actual Respiratory Rate 18 Positive End Expiratory 8 Pressure Positive End Expiratory 8 Pressure Positive End Expiratory 8 Pressure Positive End Expiratory 8 Pressure Positive End Expiratory 8 Pressure Positive End Expiratory 8 Pressure Positive End Expiratory 8 Pressure Positive End Expiratory 8 Pressure Positive End Expiratory 8 Pressure Positive End Expiratory 8 Pressure Positive End Expiratory 8 Pressure Positive End Expiratory 8 Pressure Positive End Expiratory 8 Pressure Peak Inspiratory Airway 29 Pressure Peak Inspiratory Airway 36 Pressure Peak Inspiratory Airway 28 Pressure Peak Inspiratory Airway 30 Pressure Peak Inspiratory Airway 28 Pressure Peak Inspiratory Airway 28 Pressure Peak Inspiratory Airway 30 Pressure Peak Inspiratory Airway 37 Pressure Peak Inspiratory Airway 38 Pressure Peak Inspiratory Airway 47 Pressure Peak Inspiratory Airway 36 Pressure Peak Inspiratory Airway 31 Pressure Results - Laboratory Findings CBC and BMP: 12/11/16 04:10 12/11/16 04:10 ABG ABG pH 7.42 pH Units (7.32-7.45) 12/11/16 08:00 ABG pCO2 43 mmHg (35-45) 12/11/16 08:00 ABG pO2 225 mmHg (85-104) H 12/11/16 08:00 ABG O2 Saturation 100 % (95-98) H 12/11/16 08:00 PT/INR, D-dimer PT 15.5 Seconds (9.4-12.1) H 12/10/16 16:10 Abnormal lab findings: Abnormal lab results RBC 2.61 M/mcL (4.19-5.50) L 12/11/16 04:10 Hgb 7.9 g/dL (12.9-16.9) L 12/11/16 04:10 Hct 24.9 % (37.5-50.1) L 12/11/16 04:10 RDW 18.4 % (11.5-14.5) H 12/11/16 04:10 Plt Count 72 K/mcL (140-400) L 12/11/16 04:10 Nucleated RBCs/100 WBC 0.4 /100 WBC (0) H 12/06/16 05:14 Platelet Estimate Decreased (Normal) L 12/11/16 04:10 Polychromasia 1+ (Not Present) A 12/05/16 04:15 Basophilic Stippling 1+ (Not Present) A 12/05/16 04:15 Anisocytosis 2+ (Not Present) A 12/11/16 04:10 Macrocytosis Present (Not Present) A 12/05/16 04:15 PT 15.5 Seconds (9.4-12.1) H 12/10/16 16:10 ABG pO2 225 mmHg (85-104) H 12/11/16 08:00 ABG HCO3 28 mEq/L (21-27) H 12/11/16 08:00 ABG Total CO2 29 mEq/L (20-26) H 12/11/16 08:00 ABG O2 Saturation 100 % (95-98) H 12/11/16 08:00 ABG Base Excess 3.1 mEq/L (-2.0 to 3.0) H 12/11/16 08:00 BUN 45 mg/dL (8-26) H 12/11/16 04:10 Creatinine 2.83 mg/dL (0.72-1.25) H 12/11/16 04:10 Est GFR ( Amer) 27 (> 60) L 12/11/16 04:10 Est GFR (Non-Af Amer) 22 (> 60) L 12/11/16 04:10 Glucose 173 mg/dL (70-99) H 12/11/16 04:10 POC Glucose 166 (58-89) H 12/11/16 05:06 Serum Osmolality 332 mOsm/kg (280-300) H 12/08/16 07:59 Calculated Osmolality 306 (280-300) H 12/11/16 04:10 Uric Acid 8.8 mg/dL (3.5-7.2) H 12/06/16 05:14 Ionized Calcium 1.01 mmol/L (1.15-1.35) L 12/11/16 08:20 Iron 28 mcg/dL (65-175) L 12/06/16 05:14 % Saturation 14 % (20-55) L 12/06/16 05:14 Transferrin 144 mg/dL (174-364) L 12/06/16 05:14 Ferritin 417 ng/ml (22-275) H 12/06/16 05:14 AST 4 Units/L (5-34) L 12/11/16 04:10 Alkaline Phosphatase 155 Units/L (38-126) H 12/11/16 04:10 Troponin I 0.04 ng/mL (0-0.03) H* 12/09/16 23:45 B-Natriuretic Peptide 162 pg/mL (0-100) H 12/04/16 08:08 Serum Total Protein 5.5 g/dL (6.0-8.3) L 12/11/16 04:10 Albumin 2.0 g/dL (3.5-5.0) L 12/11/16 04:10 Albumin (PEP) 2.75 g/dL (3.75-5.01) L 12/06/16 05:14 Albumin/Globulin Ratio 0.6 (1.1-2.2) L 12/11/16 04:10 Gamma Globulins 1.56 g/dL (0.62-1.51) H 12/06/16 05:14 Vitamin B12 1517 pg/mL (213-816) H 12/06/16 05:14 TSH 6.855 mcIU/mL (0.350-4.840) H 12/11/16 08:10 PTH Intact 148.0 pg/ml (8.5-72.5) H 12/06/16 05:14 Ur Specimen Adequacy See below A 12/04/16 18:05 Urine Clarity Turbid (Clear) A 12/06/16 04:52 Urine Protein >=300 mg/dL (Neg-Trace) H 12/06/16 04:52 Urine Blood Large (Negative) H 12/06/16 04:52 Ur Leukocyte Esterase Large (Negative) H 12/06/16 04:52 Urine Microscopic RBC TNTC per hpf (0-3) H 12/06/16 04:52 Urine Microscopic WBC TNTC per hpf (0-3) H 12/06/16 04:52 Ur Squamous Epith Cells Many per lpf (None-Few) H 12/06/16 04:52 Urine Bacteria Moderate per hpf (None-Few) H 12/06/16 04:52 Ur Culture Indicated? YES (NO) A 12/06/16 04:52 Protein/Creatinin Ratio 3.84 mg/mg (0-0.20) H 12/06/16 06:15 Urine Total Protein 238 mg/dL (1-14) H 12/06/16 06:15 ALINA Screen DETECTED (None Detected) A 12/06/16 05:14 ALINA Titer 1:40 (<1:40) H 12/06/16 05:14 - Microbiology Findings Microbiology Findings: Microbiology, Last 48 Hours 12/09/16 10:05 Blood Culture - Preliminary Peripheral Venipuncture No growth. 12/09/16 10:00 Blood Culture - Preliminary Peripheral Venipuncture No growth. 12/09/16 14:00 Sputum Culture - Preliminary Sputum - Clinical Findings Intake & Output: Intake & Output 12/10/16 12/11/16 12/11/16 23:59 07:59 15:59 Intake Total 955 / 955 1367 / 1367 642.5 / 642.5 Output Total 286 / 286 1587 / 1587 647 / 647 Balance 669 / 669 -220 / -220 -4.5 / -4.5 Weight 85.91 kg Consult Discharge Plan - Plan [facility]: [facility]Primary Care Provider[facility] - - Attending Attestation I examined this patient and my medical decision-making was reviewed with the Resident Physician. I agree with the documented findings, disposition and treatment plan as described except to the extent set forth below. We independently had [id number] contact with the patient Patient seen and examined at bedside Labs, radiology, chart personally reviewed. Management was reviewed during multidisciplinary critical care rounds. Neuropsych: Acute encephalopathy which is improving he is awake and alert today off sedation do not see any further episodes of involuntary jerking this may be related to metabolic derangements. Pulm: Acute on chronic hypoxic hypercarbic respiratory failure improving with antimicrobial therapy for pneumonia as well as volume removal via dialysis spontaneous breathing trial today. Cards: Hypotension has improved his chronic underlying heart failure which is stable. Sinus bradycardia which is likely related to his temperature but has not impacted blood pressure. We will continue to monitor this on telemetry FEN-GI: Continue enteral nutrition to goal. Continue PPI prophylaxis Renal: CKD with progression to need for [employer]. He is currently receiving continuous renal replacement therapy which can likely be transitioned to conventional dialysis. We are monitoring his electrolytes we will replace per protocol ID: Continued leukocytosis which is likely related to aspiration pneumonia we are going to cover with appropriate antimicrobials for healthcare associated organisms along with aspiration organisms and known Proteus UTI repeat cultures are thus far pending including sputum. Plan to de-escalate tomorrow if microbiological data remains negative Heme/Onc: Chronic thrombocytopenia stable hemoglobin Continue SCDs for DVT prophylaxis given his heparin allergy. Platelet count stable Endo: Glucose Monitored and acceptable control. He is hypothermic this may be in part due to hypothyroidism I am restarting his levothyroxine. Of also check cortisol which is low for critically ill patient I will perform cosyntropin test today to evaluate for adrenal insufficiency may need stress dose steroids. Continue active rewarming with warming blanket. Integ/MSK: Skin Care per routine ICU Nursing Protocol to prevent ulcers. Lines: All lines examined without evidence of infection Dispo: Remain in ICU for critical care needs CODE: [id number]. <Karlie Noel - Last Filed: 12/11/16 10:37> Date of Encounter: 12/11/16 Time of Encounter: 08:00 Assessment and Plan (1) Acute respiratory failure with hypoxia and hypercapnia Current Visit: Yes Status: Acute Patient became acutely acidotic and hypercapnic while on the floor. Decision was made to intubate the patient. Patient currently on vent. Most recent ABG shows pH of 7.42, PCO2 of 43 and PaO2 of 225. Respiratory failure secondary most likely due to pulmonary edema and aspiration pneumonia. We are treating with antibiotics at this time and performed syeda yesterday to remove some of the excess fluid. (2) Sepsis Current Visit: Yes Status: Acute Most likely due to aspiration pneumonia. Currently being treated with Flagyl, vanc, aztreonam. Patient's white blood cell count significantly increased from 6.7 to 14.8. Now 4.4 Sputum and blood cultures are currently pending. Urine culture completed is sensitive to aztreonam. Lactic level 1.1. We will continue antibiotic treatment until cultures come back and sensitivities are resulted. Qualifiers: Sepsis type: sepsis due to unspecified organism Qualified Code(s): A41.9 - Sepsis, unspecified organism (3) Metabolic encephalopathy Current Visit: Yes Status: Acute Patient has been acutely altered since admission. Now sedated and intubated. When sedation was lifted to complete neurological exam patient showed some seizure-like activity. An EEG was completed which showed an abnormal study. Generalized slowing noted throughout the study which is a nonspecific pattern mostly seen in patient with metabolic toxic encephalopathy consistent with diffuse cerebral dysfunction , no clear paroxysmal activities or epileptiform discharges were seen. Once sedation was lifted today patient was able to follow basic commands. Baseline neurological exam seems to be improving at this time. (4) Aspiration pneumonia Current Visit: Yes Status: Acute Patient with a history of dysphagia. Started soft diet on the floor. After diet was started patient had a significant change in baseline including an increased in White blood cell count to 14.8 from 6.7. Chest x-ray completed showed diffuse pulmonary edema. Repeat chest x-ray today showed possible left lower lobe pneumonia. Still diffuse pulmonary edema. Started Flagyl and vancomycin. Change cefepime to aztreonam. We will continue to trend white blood cell count. Qualifiers: Aspiration pneumonia type: unspecified Laterality: unspecified laterality Lung location: unspecified part of lung Qualified Code(s): J69.0 - Pneumonitis due to inhalation of food and vomit (5) Thrombocytopenia Current Visit: Yes Status: Acute Platelets 72 today. Increased since original admission. [facility], patient has been thrombocytopenic her at least one week. No other history can be obtained at this time. We will continue to trend and treat symptomatically at this time. (6) Anemia Current Visit: Yes Status: Acute Chronic condition. Hemoglobin of 7.9 today. Iron was given per nephrology. Consult to nephrology. Hemoglobin dropped to 6.7 yesterday there for 2 units of packed red blood cells were transfused. We will continue to closely trend Qualifiers: Anemia type: due to chronic kidney disease Chronic kidney disease stage: stage 4 (severe) Qualified Code(s): N18.4 - Chronic kidney disease, stage 4 ( severe); D63.1 - Anemia in chronic kidney disease (7) DVT prophylaxis Current Visit: Yes Status: Acute Patient has a documented allergy to heparin therefore SCDs are placed on the patient Subjective Principal diagnosis: BEBETO/CKD Interval history: Patient became bradycardic with a heart rate in the 30s overnight. A dose of atropine was given. Patient has also been very hypothermic. Blood pressure has not changed throughout these episodes. EKG completed showed no significant changes from previous EKG on admission. Patient otherwise doing well. Remains intubated and sedated. Once sedation was lifted this morning he was able to follow basic commands. We will continue to CPAP trials. Syeda was completed yesterday and 1500 mL were taken off. Cultures and sensitivities still pending at this time. We will continue aztreonam, Flagyl, vancomycin. Objective PUL Vital signs: Last Vital Signs Temp 93 F L 12/11/16 03:57 Pulse 49 12/11/16 06:00 Resp 18 12/11/16 06:00 BP 122/68 12/11/16 06:00 Pulse Ox 96 12/11/16 06:00 General appearance: comatose Eyes: nonicteric ENT: oropharynx moist Neck: supple, no JVD Effort: normal Auscultation: bilateral: clear Cardiovascular: other (Sinus bradycardia) Gastrointestinal: hypoactive bowel sounds, non-distended Integumentary: normal Extremities: no cyanosis, edema Musculoskeletal: no deformities unable to assess due to mental status Ventilator Settings Ventilator Settings: Ventilator Settings, Last 8 Hours Ventilator Mode VC+ Ventilator Mode VC+ Ventilator Mode VC+ Ventilator Mode VC+ Ventilator Mode VC+ Ventilator Mode VC+ Ventilator Mode VC+ Ventilator Mode VC+ Ventilator Mode VC+ Ventilator Mode VC+ Ventilator Mode VC+ Ventilator Mode VC+ Ventilator Tidal Volume 480 Setting Ventilator Tidal Volume 480 Setting Ventilator Tidal Volume 480 Setting Ventilator Tidal Volume 480 Setting Ventilator Tidal Volume 480 Setting Ventilator Tidal Volume 480 Setting Ventilator Tidal Volume 480 Setting Ventilator Tidal Volume 480 Setting Ventilator Tidal Volume 480 Setting Ventilator Tidal Volume 480 Setting Ventilator Tidal Volume 480 Setting Ventilator Tidal Volume 480 Setting Ventilator Respiratory Rate 18 Setting Ventilator Respiratory Rate 18 Setting Ventilator Respiratory Rate 18 Setting Ventilator Respiratory Rate 18 Setting Ventilator Respiratory Rate 18 Setting Ventilator Respiratory Rate 18 Setting Ventilator Respiratory Rate 18 Setting Ventilator Respiratory Rate 18 Setting Ventilator Respiratory Rate 18 Setting Ventilator Respiratory Rate 18 Setting Ventilator Respiratory Rate 18 Setting Ventilator Respiratory Rate 18 Setting Actual Respiratory Rate 18 Actual Respiratory Rate 18 Actual Respiratory Rate 18 Actual Respiratory Rate 18 Actual Respiratory Rate 18 Actual Respiratory Rate 18 Actual Respiratory Rate 18 Actual Respiratory Rate 18 Actual Respiratory Rate 18 Actual Respiratory Rate 18 Actual Respiratory Rate 18 Actual Respiratory Rate 18 Positive End Expiratory 8 Pressure Positive End Expiratory 8 Pressure Positive End Expiratory 8 Pressure Positive End Expiratory 8 Pressure Positive End Expiratory 8 Pressure Positive End Expiratory 8 Pressure Positive End Expiratory 8 Pressure Positive End Expiratory 8 Pressure Positive End Expiratory 8 Pressure Positive End Expiratory 8 Pressure Positive End Expiratory 8 Pressure Positive End Expiratory 8 Pressure Peak Inspiratory Airway 30 Pressure Peak Inspiratory Airway 37 Pressure Peak Inspiratory Airway 38 Pressure Peak Inspiratory Airway 47 Pressure Peak Inspiratory Airway 36 Pressure Peak Inspiratory Airway 31 Pressure Peak Inspiratory Airway 29 Pressure Peak Inspiratory Airway 29 Pressure Peak Inspiratory Airway 29 Pressure Peak Inspiratory Airway 32 Pressure Peak Inspiratory Airway 32 Pressure Peak Inspiratory Airway 32 Pressure Results - Laboratory Findings CBC and BMP: 12/11/16 04:10 12/11/16 04:10 ABG ABG pH 7.33 pH Units (7.32-7.45) 12/10/16 03:40 ABG pCO2 45 mmHg (35-45) 12/10/16 03:40 ABG pO2 133 mmHg (85-104) H 12/10/16 03:40 ABG O2 Saturation 99 % (95-98) H 12/10/16 03:40 PT/INR, D-dimer PT 15.5 Seconds (9.4-12.1) H 12/10/16 16:10 Abnormal lab findings: Abnormal lab results RBC 2.61 M/mcL (4.19-5.50) L 12/11/16 04:10 Hgb 7.9 g/dL (12.9-16.9) L 12/11/16 04:10 Hct 24.9 % (37.5-50.1) L 12/11/16 04:10 RDW 18.4 % (11.5-14.5) H 12/11/16 04:10 Plt Count 72 K/mcL (140-400) L 12/11/16 04:10 Nucleated RBCs/100 WBC 0.4 /100 WBC (0) H 12/06/16 05:14 Platelet Estimate Decreased (Normal) L 12/11/16 04:10 Polychromasia 1+ (Not Present) A 12/05/16 04:15 Basophilic Stippling 1+ (Not Present) A 12/05/16 04:15 Anisocytosis 2+ (Not Present) A 12/11/16 04:10 Macrocytosis Present (Not Present) A 12/05/16 04:15 PT 15.5 Seconds (9.4-12.1) H 12/10/16 16:10 ABG pO2 133 mmHg (85-104) H 12/10/16 03:40 ABG O2 Saturation 99 % (95-98) H 12/10/16 03:40 ABG Base Excess -2.2 mEq/L (-2.0 to 3.0) L 12/10/16 03:40 BUN 45 mg/dL (8-26) H 12/11/16 04:10 Creatinine 2.83 mg/dL (0.72-1.25) H 12/11/16 04:10 Est GFR ( Amer) 27 (> 60) L 12/11/16 04:10 Est GFR (Non-Af Amer) 22 (> 60) L 12/11/16 04:10 Glucose 173 mg/dL (70-99) H 12/11/16 04:10 POC Glucose 166 (58-89) H 12/11/16 05:06 Serum Osmolality 332 mOsm/kg (280-300) H 12/08/16 07:59 Calculated Osmolality 306 (280-300) H 12/11/16 04:10 Uric Acid 8.8 mg/dL (3.5-7.2) H 12/06/16 05:14 Ionized Calcium 1.03 mmol/L (1.15-1.35) L 12/11/16 05:30 Iron 28 mcg/dL (65-175) L 12/06/16 05:14 % Saturation 14 % (20-55) L 12/06/16 05:14 Transferrin 144 mg/dL (174-364) L 12/06/16 05:14 Ferritin 417 ng/ml (22-275) H 12/06/16 05:14 AST 4 Units/L (5-34) L 12/11/16 04:10 Alkaline Phosphatase 155 Units/L (38-126) H 12/11/16 04:10 Troponin I 0.04 ng/mL (0-0.03) H* 12/09/16 23:45 B-Natriuretic Peptide 162 pg/mL (0-100) H 12/04/16 08:08 Serum Total Protein 5.5 g/dL (6.0-8.3) L 12/11/16 04:10 Albumin 2.0 g/dL (3.5-5.0) L 12/11/16 04:10 Albumin (PEP) 2.75 g/dL (3.75-5.01) L 12/06/16 05:14 Albumin/Globulin Ratio 0.6 (1.1-2.2) L 12/11/16 04:10 Gamma Globulins 1.56 g/dL (0.62-1.51) H 12/06/16 05:14 Vitamin B12 1517 pg/mL (213-816) H 12/06/16 05:14 TSH 10.384 mcIU/mL (0.350-4.840) H 12/04/16 18:30 PTH Intact 148.0 pg/ml (8.5-72.5) H 12/06/16 05:14 Ur Specimen Adequacy See below A 12/04/16 18:05 Urine Clarity Turbid (Clear) A 12/06/16 04:52 Urine Protein >=300 mg/dL (Neg-Trace) H 12/06/16 04:52 Urine Blood Large (Negative) H 12/06/16 04:52 Ur Leukocyte Esterase Large (Negative) H 12/06/16 04:52 Urine Microscopic RBC TNTC per hpf (0-3) H 12/06/16 04:52 Urine Microscopic WBC TNTC per hpf (0-3) H 12/06/16 04:52 Ur Squamous Epith Cells Many per lpf (None-Few) H 12/06/16 04:52 Urine Bacteria Moderate per hpf (None-Few) H 12/06/16 04:52 Ur Culture Indicated? YES (NO) A 12/06/16 04:52 Protein/Creatinin Ratio 3.84 mg/mg (0-0.20) H 12/06/16 06:15 Urine Total Protein 238 mg/dL (1-14) H 12/06/16 06:15 ALINA Screen DETECTED (None Detected) A 12/06/16 05:14 ALINA Titer 1:40 (<1:40) H 12/06/16 05:14 - Microbiology Findings Microbiology Findings: Microbiology, Last 48 Hours 12/09/16 14:00 Sputum Culture - Preliminary Sputum - Diagnostic Findings Chest x-ray: report reviewed, image reviewed - Clinical Findings Intake & Output: Intake & Output 12/10/16 12/10/16 12/11/16 15:59 23:59 07:59 Intake Total 513 / 513 955 / 955 1367 / 1367 Output Total 125 / 125 286 / 286 1409 / 1409 Balance 388 / 388 669 / 669 -42 / -42 Weight 85.91 kg - VTE Documentation of Mechanical Device: Intermittent pneumatic compression device
[2016-12-11] MEDS: 0.9 % Sodium Chloride 1,000 ML PRIME SCH ×3 (07:37→07:39)
[2016-12-11] MEDS: Chlorhexidine Rinse 15 ML MOUTHWASH MM SCH ×2 (08:07→21:06)
[2016-12-11] MEDS: Sennosides 8.6 MG TABLET PO SCH (08:07)
[2016-12-11] MEDS: Calcium Acetate 667 MG CAPSULE PO SCH ×3 (08:07→16:28)
[2016-12-11] MEDS: Pantoprazole 40 MG VIAL IVP SCH (08:07)
[2016-12-11 08:10] LABS: ABG Base Excess 3.1 mEq/L (-2.0 to 3.0); ABG HCO3 28 mEq/L (21-27); ABG Oxygen Saturation 100 % (95-98); ABG PCO2 43 mmHg (35-45); ABG PH 7.42 pH Units (7.32-7.45); ABG PO2 225 mmHg (85-104); ABG TCO2 29 mEq/L (20-26); Blood Gas FiO2 50 %; Blood Gas Modality VENT
[2016-12-11 08:59] LABS: Thyroid Stimulating Hormone 6.855 mcIU/mL (0.350-4.840)
[2016-12-11] MEDS ORDERED: Cosyntropin 250 MCG/2 ML VIAL IVP ONE (09:09)
[2016-12-11] MEDS: Levothyroxine 25 MCG TABLET PO SCH (09:36)
[2016-12-11 11:25] LABS: Ionized Calcium 1.06 mmol/L (1.15-1.35)
[2016-12-11] MEDS: FentaNYL (PF) 1,000 MCG in 0.9 % Sodium Chloride 80 ML IVC SCH (11:53)
--- NOTE | 2016-12-11 12:46 | Nephrology Progress Note ---
Date of Encounter: 12/11/16 Time of Encounter: 10:30 - Assessment and Plan (1) Acute on chronic kidney failure Current Visit: Yes Status: Acute Will continue CVVHDF for at least 24hrs for clearnace of toxins including infectious milieu and some UF with his volume overload. will transition to intermittent if hemodynamics stabilizes UOP actually diminished in the past 24hrs at 345cc Avoid nephrotoxins if possible Critical care time spent approx. 35mins in the coordination of care Qualifiers: Acute renal failure type: with acute tubular necrosis Chronic kidney disease stage: stage 4 (severe) Qualified Code(s): N17.0 - Acute kidney failure with tubular necrosis; N18.4 - Chronic kidney disease, stage 4 (severe) (2) Acute respiratory failure with hypoxia and hypercapnia Current Visit: Yes Status: Acute vent settings and taper per primary team (3) Anemia Current Visit: Yes Status: Acute Hgb noted slightly better at 7.9, will monitor transfusion parameters per primary team Qualifiers: Anemia type: due to chronic kidney disease Chronic kidney disease stage: stage 4 (severe) Qualified Code(s): N18.4 - Chronic kidney disease, stage 4 ( severe); D63.1 - Anemia in chronic kidney disease (4) Sepsis Current Visit: Yes Status: Acute Abx per primary team Vanco by level if needed Qualifiers: Sepsis type: sepsis due to unspecified organism Qualified Code(s): A41.9 - Sepsis, unspecified organism Subjective Principal diagnosis: BEBETO/CKD Interval history: Pt seen and examined tolerating CVVHDF very well and now with some UF currently at 100cc/hr. BP readings still concerningly low, noted down to 80s systolic at the time of this exam. Pt still inbubated and minimally sedated, awakening and somewhat restless. Nurse at bedside. Objective - Vital Signs Vital signs: Vital Signs Temp Pulse Resp BP Pulse Ox 12/11/16 12:00 49 18 102/56 98 12/11/16 11:15 91.1 F L 50 18 140/86 97 12/11/16 11:01 18 98 12/11/16 10:06 43 18 117/108 98 12/11/16 09:22 18 97 12/11/16 09:00 48 18 106/59 97 12/11/16 08:15 91.2 F L 47 18 126/63 96 12/11/16 07:42 18 96 09/23/17 07:29 43 12/11/16 07:00 46 18 132/68 97 12/11/16 06:00 49 18 122/68 96 12/11/16 05:43 18 134/72 96 12/11/16 05:00 52 18 134/72 99 12/11/16 04:00 49 18 128/71 100 12/11/16 03:57 93 F L 18 123/67 100 12/11/16 03:54 18 123/67 100 12/11/16 03:00 93 F L 51 18 121/68 100 12/11/16 02:00 93 F L 42 18 114/56 100 12/11/16 01:47 93 F L 18 90/59 12/11/16 01:36 93.3 F L 18 98/49 12/11/16 01:22 18 93/51 100 12/11/16 01:00 46 18 98/49 100 12/11/16 00:00 93.3 F L 54 18 100/63 100 12/10/16 23:45 18 102/55 98 12/10/16 23:35 93.3 F L 18 102/55 12/10/16 23:30 53 12/10/16 23:23 93.3 F L 18 111/61 12/10/16 23:00 54 18 111/61 99 12/10/16 22:00 64 18 109/60 100 12/10/16 21:45 18 109/80 100 12/10/16 21:00 64 18 100/60 100 12/10/16 20:00 60 18 108/87 100 12/10/16 19:52 18 103/85 99 12/10/16 19:00 80 18 93/57 100 12/10/16 18:00 97 18 110/72 95 12/10/16 17:22 18 108/56 98 12/10/16 17:00 98.6 F 80 18 108/56 97 12/10/16 16:00 91 18 108/59 98 12/10/16 15:53 18 114/54 97 12/10/16 15:00 101 18 117/5 96 12/10/16 14:00 101 18 109/51 95 12/10/16 13:09 99.9 F H 12/10/16 13:00 94 18 101/50 91 Intake and Output 12/10/16 12/11/16 12/11/16 23:59 07:59 15:59 Intake Total 955 / 955 1367 / 1367 994.6 / 994.6 Output Total 286 / 286 1587 / 1587 1177 / 1177 Balance 669 / 669 -220 / -220 -182.4 / -182.4 Intake: IV Fluids 783 / 783 609 / 609 889.6 / 889.6 Calcium Chloride 4,000 MG In 0. 83 / 83 263 / 263 328.3 / 328.3 9 % Sodium Chloride 1,000 ML @ 40 mls/hr CRRT [facility] Rx#: [id number] PrismaSATE BGK 4/2.5 5,000 ML @ 0 / 0 1500 mls/hr CRRT [facility] Rx#: [id number] ALBURX 5% 12.5 gm In 250 ml @ 250 / 250 60 mls/hr IVC .Q4H10M [facility] Rx#: [id number] FentaNYL (PF) 1,000 MCG In 0.9 15 / 15 26 / 26 18 / 18 % Sodium Chloride 80 ML @ 50 MCG/HR 5 mls/hr IVC [facility] Rx #:[id number] Versed 50 MG In 0.9 % Sodium 35 / 35 9.0 / 9.0 Chloride 90 ML @ 2 MG/HR 4 mls/ hr IVC [facility] Rx#:[id number] Azactam 500 MG In Dextrose 5% 200 / 200 100 / 100 100 / 100 100 ML @ 200 mls/hr IVPB Q6H [facility] Rx#:[id number] Calcium Gluconate 1,000 MG In 220 / 220 10 / 10 Dextrose 5% 100 ML @ 220 mls/hr IVPB ONCE PRN Rx#:[id number] Flagyl Premix 500 MG/100 ML 500 200 / 200 174.3 / 174.3 mg In 100 ml @ 100 mls/hr IVPB Q6H [facility] Rx#:[id number] Vancocin 1,000 MG In Dextrose 5 250 / 250 % 250 ML @ 166.667 mls/hr IVPB ONCE ONE Rx#:[id number] Oral 0 / 0 0 / 0 Tube Feeding 172 / 172 108 / 108 55 / 55 Blood Product 0 / 0 650 / 650 Rbcs Leuko Poor As-3 2nd Unit 0 / 0 325 / 325 [id number] Rbcs Leuko Poor As-3 Ph Unit 325 / 325 [id number] Free Water 50 / 50 Output: Urine 0 / 0 44 / 44 Gwen 141 / 141 1507 / 1507 1133 / 1133 Catheter 145 / 145 55 / 55 Gastric Drainage 25 / 25 Other: Weight 85.91 kg Blood Glucose* 123 166 74 Patient Weight 12/11/16 23:59 Weight 85.91 kg - General Appearance General appearance: Present: sedated on ventilator, intubated EENT: Present: ATNC, mucous membranes moist Neck: Present: no JVD, supple Additional Comments: improved areation ant bilat Cardiology: Present: edema (diffuse), normal S1, normal S2 Dialysis Vascular Access: Venous Catheter Gastrointestinal: Present: no tenderness, no guarding Integumentary: Present: warm and dry Additional Comments: awake, moving extremities Psychiatric: Present: agitated (somewhat) - Lab 12/11/16 04:10 12/11/16 04:10 Most recent lab results ABG pH 7.42 pH Units (7.32-7.45) 12/11/16 08:00 ABG pCO2 43 mmHg (35-45) 12/11/16 08:00 ABG pO2 225 mmHg (85-104) H 12/11/16 08:00 ABG HCO3 28 mEq/L (21-27) H 12/11/16 08:00 ABG O2 Saturation 100 % (95-98) H 12/11/16 08:00 Calcium 8.8 mg/dL (8.6-10.8) 12/11/16 04:10 Phosphorus 2.8 mg/dL (2.3-4.7) 12/11/16 04:10 Magnesium 1.8 mg/dL (1.6-2.6) 12/11/16 04:10 Urine Creatinine 62 mg/dL 12/06/16 06:15 Urine Sodium 37.0 mEq/L 12/06/16 06:15 Urine Total Protein 238 mg/dL (1-14) H 12/06/16 06:15 - VTE Documentation of Mechanical Device: Intermittent pneumatic compression device Consult Discharge Plan - Plan [facility]errals: [facility] [Primary Care Provider[facility] -
[2016-12-11] MEDS: Calcium Chloride 4,000 MG in 0.9 % Sodium Chloride 1,000 ML CRRT SCH (14:53)
[2016-12-11] MEDS: Hydrocortisone Sodium Succ 100 MG/2 ML VIAL IVP SCH ×2 (16:27→22:57)
[2016-12-12] MEDS: PrismaSATE BGK 4/2.5 5,000 ML CRRT SCH ×10 (00:10→22:57)
[2016-12-12] MEDS: FentaNYL (PF) 1,000 MCG in 0.9 % Sodium Chloride 80 ML IVC SCH (00:57)
[2016-12-12] MEDS: Calcium Chloride 4,000 MG in 0.9 % Sodium Chloride 1,000 ML CRRT SCH ×3 (01:56→22:10)
[2016-12-12] MEDS: Ipratropium/Albuterol Neb 3 ML IH SCH ×4 (03:32→21:45)
[2016-12-12 03:37] LABS: Eosinophils % 0.2 %; Red Cell Distribution Width 18.8 % (11.5-14.5)
[2016-12-12 03:39] LABS: Hematocrit 26.9 % (37.5-50.1); Hemoglobin 8.6 g/dL (12.9-16.9); Immature Granulocytes % 0.8 % (0-4); Immature Platelets 8.3 % (1.1-6.1); Lymphocytes # 0.2 K/mcL (0.6-4.6); Lymphocytes % 3.7 %; Mean Corpuscular Hemoglobin 30.2 pg (28.0-33.3); Mean Corpuscular Volume 94.4 fL (83.0-100.0); Mean Platelet Volume 12.3 fL (9.4-12.4); Monocytes # 0.1 K/mcL (0.0-1.3); Monocytes % 1.4 %; Neutrophils # 4.5 K/mcL (1.6-8.9); Red Blood Count 2.85 M/mcL (4.19-5.50); Segmented Neutrophils % 93.9 %
[2016-12-12] MEDS: Lacri-Lube 3.5 GM TUBE BOTH EYES SCH ×6 (03:40→23:29)
[2016-12-12 03:42] LABS: Platelet Count 98 K/mcL (140-400)
[2016-12-12 03:50] LABS: BUN/Creatinine Ratio 16 (6-26); Calcium 9.6 mg/dL (8.6-10.8); Carbon Dioxide 28 mEq/L (19-29); Chloride 104 mEq/L (98-109); Glucose 191 mg/dL (70-99); Magnesium 1.6 mg/dL (1.6-2.6); Osmolality,Calculated 298 (280-300); Potassium 4.3 mEq/L (3.5-4.5); Sodium 140 mEq/L (136-145); eGFR For African Americans > 60 (> 60); eGFR For Non-African Americans 54 (> 60)
[2016-12-12 03:51] LABS: Blood Urea Nitrogen 21 mg/dL (8-26)
[2016-12-12] MEDS: Aztreonam 500 MG in D5% in Water 100 ML IVPB SCH ×4 (04:03→20:35)
[2016-12-12] MEDS: MetroNIDAZOLE 500 MG/100 ML 500 MG/100 ML BAG IVPB SCH ×4 (04:38→23:17)
[2016-12-12] MEDS: Levothyroxine 25 MCG TABLET PO SCH (05:39)
[2016-12-12] MEDS: Insulin LISPRO 300 UNITS/3 ML VIAL SQ SCH ×4 (05:41→23:29)
[2016-12-12] MEDS ORDERED: Vancomycin 1,000 MG in D5% in Water 250 ML IVPB ONE (06:00)
--- NOTE | 2016-12-12 07:18 | Pulmonology Progress Note ---
<Karlie Noel - Last Filed: 12/12/16 09:19> Date of Encounter: 12/12/16 Time of Encounter: 08:00 Assessment and Plan (1) Acute respiratory failure with hypoxia and hypercapnia Current Visit: Yes Status: Acute Patient became acutely acidotic and hypercapnic while on the floor. Decision was made to intubate the patient. Patient currently on vent. Most recent ABG shows pH of 7.42, PCO2 of 43 and P O2 of 225. Respiratory failure secondary most likely due to pulmonary edema and aspiration pneumonia. We are treating with antibiotics at this time and performed syeda yesterday to remove some of the excess fluid. CPAP trial to be completed today with possible extubation (2) Sepsis Current Visit: Yes Status: Acute Most likely due to aspiration pneumonia. Currently being treated with Flagyl, vanc, aztreonam. Patient's white blood cell count significantly increased from 6.7 to 14.8. Now 4.8 Sputum and blood cultures preliminary negative. Urine culture completed is sensitive to aztreonam. Lactic level 1.1. We will continue antibiotic treatment until cultures come back and sensitivities are resulted. Qualifiers: Sepsis type: sepsis due to unspecified organism Qualified Code(s): A41.9 - Sepsis, unspecified organism (3) Metabolic encephalopathy Current Visit: Yes Status: Acute Patient has been acutely altered since admission. Now sedated and intubated. When sedation was lifted to complete neurological exam patient able to follow basic commands. Baseline neurological exam seems to be improving at this time. (4) Aspiration pneumonia Current Visit: Yes Status: Acute Patient with a history of dysphagia. Started soft diet on the floor. After diet was started patient had a significant change in baseline including an increased in White blood cell count to 14.8 from 6.7. Chest x-ray completed showed diffuse pulmonary edema. Repeat chest x-ray showed possible left lower lobe pneumonia. Still diffuse pulmonary edema. Started Flagyl and vancomycin. Change cefepime to aztreonam. We will continue to trend white blood cell count. Qualifiers: Aspiration pneumonia type: unspecified Laterality: unspecified laterality Lung location: unspecified part of lung Qualified Code(s): J69.0 - Pneumonitis due to inhalation of food and vomit (5) Thrombocytopenia Current Visit: Yes Status: Acute Platelets 98 today. Increased since original admission. Per [facility] records, patient has been thrombocytopenic her at least one week. No other history can be obtained at this time. We will continue to trend and treat symptomatically at this time. (6) Anemia Current Visit: Yes Status: Acute Chronic condition. Hemoglobin of 8.6 today. Iron was given per nephrology. Consult to nephrology. 2 units of packed red blood cells were transfused 2 days ago. We will continue to closely trend Qualifiers: Anemia type: due to chronic kidney disease Chronic kidney disease stage: stage 4 (severe) Qualified Code(s): N18.4 - Chronic kidney disease, stage 4 ( severe); D63.1 - Anemia in chronic kidney disease (7) DVT prophylaxis Current Visit: Yes Status: Acute Patient has a documented allergy to heparin therefore SCDs are placed on the patient Subjective Principal diagnosis: BEBETO/CKD Interval history: No acute events overnight. Patient remained bradycardic. We will attempt CPAP trial today. If successful and patient is stable we will attempt to extubate. Patient currently receiving Syeda. Creatinine significantly improved at 1.33 with BUN at 21. Objective PUL Vital signs: Last Vital Signs Temp 96.6 F L 12/12/16 04:00 Pulse 55 12/12/16 06:00 Resp 18 12/12/16 06:27 BP 103/55 12/12/16 06:27 Pulse Ox 96 12/12/16 06:27 General appearance: no acute distress (When sedation is lifted patient is able to follow commands) Eyes: nonicteric ENT: oropharynx moist Neck: supple Effort: normal Auscultation: bilateral: diminished breath sounds Cardiovascular: other (Sinus bradycardia) Gastrointestinal: hypoactive bowel sounds, non-distended Integumentary: normal Extremities: no cyanosis, edema Musculoskeletal: no deformities unable to assess due to mental status Ventilator Settings Ventilator Settings: Ventilator Settings, Last 8 Hours Ventilator Mode VC+ Ventilator Mode VC+ Ventilator Mode VC+ Ventilator Mode VC+ Ventilator Mode VC+ Ventilator Mode VC+ Ventilator Mode VC+ Ventilator Mode VC+ Ventilator Mode VC+ Ventilator Mode VC+ Ventilator Mode VC+ Ventilator Tidal Volume 480 Setting Ventilator Tidal Volume 480 Setting Ventilator Tidal Volume 480 Setting Ventilator Tidal Volume 480 Setting Ventilator Tidal Volume 480 Setting Ventilator Tidal Volume 480 Setting Ventilator Tidal Volume 480 Setting Ventilator Tidal Volume 480 Setting Ventilator Tidal Volume 480 Setting Ventilator Tidal Volume 480 Setting Ventilator Tidal Volume 480 Setting Ventilator Respiratory Rate 18 Setting Ventilator Respiratory Rate 18 Setting Ventilator Respiratory Rate 18 Setting Ventilator Respiratory Rate 18 Setting Ventilator Respiratory Rate 18 Setting Ventilator Respiratory Rate 18 Setting Ventilator Respiratory Rate 18 Setting Ventilator Respiratory Rate 18 Setting Ventilator Respiratory Rate 18 Setting Ventilator Respiratory Rate 18 Setting Ventilator Respiratory Rate 18 Setting Actual Respiratory Rate 18 Actual Respiratory Rate 18 Actual Respiratory Rate 18 Actual Respiratory Rate 18 Actual Respiratory Rate 18 Actual Respiratory Rate 18 Actual Respiratory Rate 18 Actual Respiratory Rate 18 Actual Respiratory Rate 18 Actual Respiratory Rate 18 Actual Respiratory Rate 18 Positive End Expiratory 8 Pressure Positive End Expiratory 8 Pressure Positive End Expiratory 8 Pressure Positive End Expiratory 8 Pressure Positive End Expiratory 8 Pressure Positive End Expiratory 8 Pressure Positive End Expiratory 8 Pressure Positive End Expiratory 8 Pressure Positive End Expiratory 8 Pressure Positive End Expiratory 8 Pressure Positive End Expiratory 8 Pressure Peak Inspiratory Airway 28 Pressure Peak Inspiratory Airway 28 Pressure Peak Inspiratory Airway 28 Pressure Peak Inspiratory Airway 29 Pressure Peak Inspiratory Airway 27 Pressure Peak Inspiratory Airway 34 Pressure Peak Inspiratory Airway 29 Pressure Peak Inspiratory Airway 28 Pressure Peak Inspiratory Airway 30 Pressure Peak Inspiratory Airway 27 Pressure Peak Inspiratory Airway 34 Pressure Results - Laboratory Findings CBC and BMP: 12/12/16 03:30 12/12/16 03:30 ABG ABG pH 7.42 pH Units (7.32-7.45) 12/11/16 08:00 ABG pCO2 43 mmHg (35-45) 12/11/16 08:00 ABG pO2 225 mmHg (85-104) H 12/11/16 08:00 ABG O2 Saturation 100 % (95-98) H 12/11/16 08:00 PT/INR, D-dimer PT 15.5 Seconds (9.4-12.1) H 12/10/16 16:10 Abnormal lab findings: Abnormal lab results RBC 2.85 M/mcL (4.19-5.50) L 12/12/16 03:30 Hgb 8.6 g/dL (12.9-16.9) L 12/12/16 03:30 Hct 26.9 % (37.5-50.1) L 12/12/16 03:30 RDW 18.8 % (11.5-14.5) H 12/12/16 03:30 Plt Count 98 K/mcL (140-400) L 12/12/16 03:30 Lymphocytes # 0.2 K/mcL (0.6-4.6) L 12/12/16 03:30 Nucleated RBCs/100 WBC 0.4 /100 WBC (0) H 12/06/16 05:14 Platelet Estimate Decreased (Normal) L 12/11/16 04:10 Immature Plt Fraction 8.3 % (1.1-6.1) H 12/12/16 03:30 Polychromasia 1+ (Not Present) A 12/05/16 04:15 Basophilic Stippling 1+ (Not Present) A 12/05/16 04:15 Anisocytosis 2+ (Not Present) A 12/11/16 04:10 Macrocytosis Present (Not Present) A 12/05/16 04:15 PT 15.5 Seconds (9.4-12.1) H 12/10/16 16:10 ABG pO2 225 mmHg (85-104) H 12/11/16 08:00 ABG HCO3 28 mEq/L (21-27) H 12/11/16 08:00 ABG Total CO2 29 mEq/L (20-26) H 12/11/16 08:00 ABG O2 Saturation 100 % (95-98) H 12/11/16 08:00 ABG Base Excess 3.1 mEq/L (-2.0 to 3.0) H 12/11/16 08:00 Creatinine 1.33 mg/dL (0.72-1.25) H D 12/12/16 03:30 Est GFR (Non-Af Amer) 54 (> 60) L 12/12/16 03:30 Glucose 191 mg/dL (70-99) H 12/12/16 03:30 POC Glucose 250 (58-89) H 12/12/16 05:41 Serum Osmolality 332 mOsm/kg (280-300) H 12/08/16 07:59 Uric Acid 8.8 mg/dL (3.5-7.2) H 12/06/16 05:14 Ionized Calcium 1.13 mmol/L (1.15-1.35) L 12/12/16 06:50 Iron 28 mcg/dL (65-175) L 12/06/16 05:14 % Saturation 14 % (20-55) L 12/06/16 05:14 Transferrin 144 mg/dL (174-364) L 12/06/16 05:14 Ferritin 417 ng/ml (22-275) H 12/06/16 05:14 AST 4 Units/L (5-34) L 12/11/16 04:10 Alkaline Phosphatase 155 Units/L (38-126) H 12/11/16 04:10 Troponin I 0.04 ng/mL (0-0.03) H* 12/09/16 23:45 B-Natriuretic Peptide 162 pg/mL (0-100) H 12/04/16 08:08 Serum Total Protein 5.5 g/dL (6.0-8.3) L 12/11/16 04:10 Albumin 2.0 g/dL (3.5-5.0) L 12/11/16 04:10 Albumin (PEP) 2.75 g/dL (3.75-5.01) L 12/06/16 05:14 Albumin/Globulin Ratio 0.6 (1.1-2.2) L 12/11/16 04:10 Gamma Globulins 1.56 g/dL (0.62-1.51) H 12/06/16 05:14 Vitamin B12 1517 pg/mL (213-816) H 12/06/16 05:14 TSH 6.855 mcIU/mL (0.350-4.840) H 12/11/16 08:10 PTH Intact 148.0 pg/ml (8.5-72.5) H 12/06/16 05:14 Ur Specimen Adequacy See below A 12/04/16 18:05 Urine Clarity Turbid (Clear) A 12/06/16 04:52 Urine Protein >=300 mg/dL (Neg-Trace) H 12/06/16 04:52 Urine Blood Large (Negative) H 12/06/16 04:52 Ur Leukocyte Esterase Large (Negative) H 12/06/16 04:52 Urine Microscopic RBC TNTC per hpf (0-3) H 12/06/16 04:52 Urine Microscopic WBC TNTC per hpf (0-3) H 12/06/16 04:52 Ur Squamous Epith Cells Many per lpf (None-Few) H 12/06/16 04:52 Urine Bacteria Moderate per hpf (None-Few) H 12/06/16 04:52 Ur Culture Indicated? YES (NO) A 12/06/16 04:52 Protein/Creatinin Ratio 3.84 mg/mg (0-0.20) H 12/06/16 06:15 Urine Total Protein 238 mg/dL (1-14) H 12/06/16 06:15 ALINA Screen DETECTED (None Detected) A 12/06/16 05:14 ALINA Titer 1:40 (<1:40) H 12/06/16 05:14 - Microbiology Findings Microbiology Findings: Microbiology, Last 48 Hours 12/09/16 14:00 Sputum Culture - Final Sputum 12/09/16 10:05 Blood Culture - Preliminary Peripheral Venipuncture No growth. 12/09/16 10:00 Blood Culture - Preliminary Peripheral Venipuncture No growth. - Clinical Findings Intake & Output: Intake & Output 12/11/16 12/11/16 12/12/16 15:59 23:59 07:59 Intake Total 1309.0 / 1309.0 1071.3 / 1071.3 1290 / 1290 Output Total 1893 / 1893 1836 / 1836 1676 / 1676 Balance -584.0 / -584.0 -764.7 / -764.7 -386 / -386 Weight 86.4 kg - VTE Documentation of Mechanical Device: Intermittent pneumatic compression device Consult Discharge Plan - Plan [facility]errals: [facility] [Primary Care Provider] - <Deep Gutierrez - Last Filed: 12/12/16 09:45> Date of Encounter: 12/12/16 Objective PUL Vital signs: Last Vital Signs Temp 96 F L 12/12/16 08:00 Pulse 65 12/12/16 09:00 Resp 8 12/12/16 09:00 BP 113/61 12/12/16 09:00 Pulse Ox 93 12/12/16 09:00 Ventilator Settings Ventilator Settings: Ventilator Settings, Last 8 Hours Ventilator Mode CPAP Ventilator Mode CPAP Ventilator Mode CPAP Ventilator Mode VC+ Ventilator Mode VC+ Ventilator Mode VC+ Ventilator Mode VC+ Ventilator Mode VC+ Ventilator Mode VC+ Ventilator Mode VC+ Ventilator Mode VC+ Ventilator Tidal Volume 480 Setting Ventilator Tidal Volume 480 Setting Ventilator Tidal Volume 480 Setting Ventilator Tidal Volume 480 Setting Ventilator Tidal Volume 480 Setting Ventilator Tidal Volume 480 Setting Ventilator Tidal Volume 480 Setting Ventilator Tidal Volume 480 Setting Ventilator Respiratory Rate 18 Setting Ventilator Respiratory Rate 18 Setting Ventilator Respiratory Rate 18 Setting Ventilator Respiratory Rate 18 Setting Ventilator Respiratory Rate 18 Setting Ventilator Respiratory Rate 18 Setting Ventilator Respiratory Rate 18 Setting Ventilator Respiratory Rate 18 Setting Actual Respiratory Rate 8 Actual Respiratory Rate 8 Actual Respiratory Rate 9 Actual Respiratory Rate 18 Actual Respiratory Rate 18 Actual Respiratory Rate 18 Actual Respiratory Rate 18 Actual Respiratory Rate 18 Actual Respiratory Rate 18 Actual Respiratory Rate 18 Actual Respiratory Rate 18 Positive End Expiratory 5 Pressure Positive End Expiratory 5 Pressure Positive End Expiratory 5 Pressure Positive End Expiratory 8 Pressure Positive End Expiratory 8 Pressure Positive End Expiratory 8 Pressure Positive End Expiratory 8 Pressure Positive End Expiratory 8 Pressure Positive End Expiratory 8 Pressure Positive End Expiratory 8 Pressure Positive End Expiratory 8 Pressure Peak Inspiratory Airway 18 Pressure Peak Inspiratory Airway 18 Pressure Peak Inspiratory Airway 18 Pressure Peak Inspiratory Airway 32 Pressure Peak Inspiratory Airway 28 Pressure Peak Inspiratory Airway 28 Pressure Peak Inspiratory Airway 28 Pressure Peak Inspiratory Airway 29 Pressure Peak Inspiratory Airway 27 Pressure Peak Inspiratory Airway 34 Pressure Peak Inspiratory Airway 29 Pressure Results - Laboratory Findings CBC and BMP: 12/12/16 03:30 12/12/16 03:30 ABG ABG pH 7.42 pH Units (7.32-7.45) 12/11/16 08:00 ABG pCO2 43 mmHg (35-45) 12/11/16 08:00 ABG pO2 225 mmHg (85-104) H 12/11/16 08:00 ABG O2 Saturation 100 % (95-98) H 12/11/16 08:00 PT/INR, D-dimer PT 15.5 Seconds (9.4-12.1) H 12/10/16 16:10 Abnormal lab findings: Abnormal lab results RBC 2.85 M/mcL (4.19-5.50) L 12/12/16 03:30 Hgb 8.6 g/dL (12.9-16.9) L 12/12/16 03:30 Hct 26.9 % (37.5-50.1) L 12/12/16 03:30 RDW 18.8 % (11.5-14.5) H 12/12/16 03:30 Plt Count 98 K/mcL (140-400) L 12/12/16 03:30 Lymphocytes # 0.2 K/mcL (0.6-4.6) L 12/12/16 03:30 Nucleated RBCs/100 WBC 0.4 /100 WBC (0) H 12/06/16 05:14 Platelet Estimate Decreased (Normal) L 12/11/16 04:10 Immature Plt Fraction 8.3 % (1.1-6.1) H 12/12/16 03:30 Polychromasia 1+ (Not Present) A 12/05/16 04:15 Basophilic Stippling 1+ (Not Present) A 12/05/16 04:15 Anisocytosis 2+ (Not Present) A 12/11/16 04:10 Macrocytosis Present (Not Present) A 12/05/16 04:15 PT 15.5 Seconds (9.4-12.1) H 12/10/16 16:10 ABG pO2 225 mmHg (85-104) H 12/11/16 08:00 ABG HCO3 28 mEq/L (21-27) H 12/11/16 08:00 ABG Total CO2 29 mEq/L (20-26) H 12/11/16 08:00 ABG O2 Saturation 100 % (95-98) H 12/11/16 08:00 ABG Base Excess 3.1 mEq/L (-2.0 to 3.0) H 12/11/16 08:00 Creatinine 1.33 mg/dL (0.72-1.25) H D 12/12/16 03:30 Est GFR (Non-Af Amer) 54 (> 60) L 12/12/16 03:30 Glucose 191 mg/dL (70-99) H 12/12/16 03:30 POC Glucose 250 (58-89) H 12/12/16 05:41 Serum Osmolality 332 mOsm/kg (280-300) H 12/08/16 07:59 Uric Acid 8.8 mg/dL (3.5-7.2) H 12/06/16 05:14 Ionized Calcium 1.13 mmol/L (1.15-1.35) L 12/12/16 06:50 Iron 28 mcg/dL (65-175) L 12/06/16 05:14 % Saturation 14 % (20-55) L 12/06/16 05:14 Transferrin 144 mg/dL (174-364) L 12/06/16 05:14 Ferritin 417 ng/ml (22-275) H 12/06/16 05:14 AST 4 Units/L (5-34) L 12/11/16 04:10 Alkaline Phosphatase 155 Units/L (38-126) H 12/11/16 04:10 Troponin I 0.04 ng/mL (0-0.03) H* 12/09/16 23:45 B-Natriuretic Peptide 162 pg/mL (0-100) H 12/04/16 08:08 Serum Total Protein 5.5 g/dL (6.0-8.3) L 12/11/16 04:10 Albumin 2.0 g/dL (3.5-5.0) L 12/11/16 04:10 Albumin (PEP) 2.75 g/dL (3.75-5.01) L 12/06/16 05:14 Albumin/Globulin Ratio 0.6 (1.1-2.2) L 12/11/16 04:10 Gamma Globulins 1.56 g/dL (0.62-1.51) H 12/06/16 05:14 Vitamin B12 1517 pg/mL (213-816) H 12/06/16 05:14 TSH 6.855 mcIU/mL (0.350-4.840) H 12/11/16 08:10 PTH Intact 148.0 pg/ml (8.5-72.5) H 12/06/16 05:14 Ur Specimen Adequacy See below A 12/04/16 18:05 Urine Clarity Turbid (Clear) A 12/06/16 04:52 Urine Protein >=300 mg/dL (Neg-Trace) H 12/06/16 04:52 Urine Blood Large (Negative) H 12/06/16 04:52 Ur Leukocyte Esterase Large (Negative) H 12/06/16 04:52 Urine Microscopic RBC TNTC per hpf (0-3) H 12/06/16 04:52 Urine Microscopic WBC TNTC per hpf (0-3) H 12/06/16 04:52 Ur Squamous Epith Cells Many per lpf (None-Few) H 12/06/16 04:52 Urine Bacteria Moderate per hpf (None-Few) H 12/06/16 04:52 Ur Culture Indicated? YES (NO) A 12/06/16 04:52 Protein/Creatinin Ratio 3.84 mg/mg (0-0.20) H 12/06/16 06:15 Urine Total Protein 238 mg/dL (1-14) H 12/06/16 06:15 ALINA Screen DETECTED (None Detected) A 12/06/16 05:14 ALINA Titer 1:40 (<1:40) H 12/06/16 05:14 - Microbiology Findings Microbiology Findings: Microbiology, Last 48 Hours 12/09/16 14:00 Sputum Culture - Final Sputum 12/09/16 10:05 Blood Culture - Preliminary Peripheral Venipuncture No growth. 12/09/16 10:00 Blood Culture - Preliminary Peripheral Venipuncture No growth. - Clinical Findings Intake & Output: Intake & Output 12/11/16 12/12/16 12/12/16 23:59 07:59 15:59 Intake Total 1071.3 / 1071.3 1339 / 1339 Output Total 1836 / 1836 2002 638 / 638 Balance -764.7 / -764.7 -664 / -664 -615 / -615 Weight 86.4 kg - Attending Attestation I examined this patient and my medical decision-making was reviewed with the Resident Physician. I agree with the documented findings, disposition and treatment plan as described except to the extent set forth below. We independently had [id number] contact with the patient Patient seen and examined at bedside Labs, radiology, chart personally reviewed. Management was reviewed during multidisciplinary critical care rounds. Neuropsych: Acute encephalopathy which is improving he is following commands today. Stop narcotic infusion in preparation for extubation Pulm: Acute on chronic hypoxic hypercarbic respiratory failure this is a combination of aspiration pneumonia and pulmonary edema. Acceptable oxygenation and ventilation spontaneous breathing trial today if passes okay to extubate to BiPAP. Cards: Hypotension has resolved. He remains bradycardic but able to increase heart rate to meet demand. This appears sinus per 8 ECG done yesterday possibly related to endocrine dysfunction or medication effect. Continue to monitor FEN-GI: Advance enteral nutrition per dietary's appreciated recommendations and continue PPI prophylaxis along with scheduled bowel regimen while on narcotic infusion Renal: Chronic kidney failure has progressed need for dialysis plan to perform dialysis today with volume removal replace electrolytes per protocol nephrology following plan for CVVH today and his electrolytes will be replaced per protocol ID: Continued leukocytosis which is likely related to aspiration pneumonia we are going to cover with appropriate antimicrobials continue aztreonam and Flagyl stop vancomycin. Heme/Onc: Chronic thrombocytopenia and stable chronic anemia. Continue SCDs for DVT prophylaxis given his heparin allergy Endo: Glucose Monitored and acceptable control. Continue levothyroxine for hypothyroidism and hydrocortisone for mild adrenal insufficiency I have titrated down dose of steroid. Integ/MSK: Skin Care per routine ICU Nursing Protocol to prevent ulcers. Lines: All lines examined without evidence of infection Dispo: Remain in ICU for ongoing ventilator requirement CODE: DNAR
[2016-12-12] MEDS: Magnesium Sulfate 2 GM in D5% in Water 100 ML IVPB PRN (07:44)
[2016-12-12] MEDS: Chlorhexidine Rinse 15 ML MOUTHWASH MM SCH ×2 (08:15→20:35)
[2016-12-12] MEDS: Sennosides 8.6 MG TABLET PO SCH (08:15)
[2016-12-12] MEDS: Calcium Acetate 667 MG CAPSULE PO SCH ×3 (08:15→15:25)
[2016-12-12] MEDS: Pantoprazole 40 MG VIAL IVP SCH (08:15)
[2016-12-12] MEDS: Hydrocortisone Sodium Succ 100 MG/2 ML VIAL IVP SCH ×3 (08:15→23:16)
--- NOTE | 2016-12-12 12:40 | Nephrology Progress Note ---
Date of Encounter: 12/12/16 Time of Encounter: 10:45 - Assessment and Plan (1) Acute on chronic kidney failure Current Visit: Yes Status: Acute Will continue CVVHDF and discontinue whne the set clots off. will transition to intermittent if hemodynamics remains stable in the am UOP remains diminished in the past 24hrs at 75cc Avoid nephrotoxins if possible Critical care time spent approx. 35mins in the coordination of care Qualifiers: Acute renal failure type: with acute tubular necrosis Chronic kidney disease stage: stage 4 (severe) Qualified Code(s): N17.0 - Acute kidney failure with tubular necrosis; N18.4 - Chronic kidney disease, stage 4 (severe) (2) Acute respiratory failure with hypoxia and hypercapnia Current Visit: Yes Status: Acute vent settings and taper per primary team (3) Anemia Current Visit: Yes Status: Acute Hgb improved at 8.6, will monitor transfusion parameters per primary team Qualifiers: Anemia type: due to chronic kidney disease Chronic kidney disease stage: stage 4 (severe) Qualified Code(s): N18.4 - Chronic kidney disease, stage 4 ( severe); D63.1 - Anemia in chronic kidney disease (4) Sepsis Current Visit: Yes Status: Acute Abx per primary team Vanco by level if needed Qualifiers: Sepsis type: sepsis due to unspecified organism Qualified Code(s): A41.9 - Sepsis, unspecified organism Subjective Principal diagnosis: BEBETO/CKD Interval history: Pt seen and examined tolerating CVVHDF very well and UF stil at 100cc/hr. Per nurse, currently on cPAP trial and has had bradycardia. BP readings improved at 100s systolic. Pt remains inbubated and minimally sedated. Objective - Vital Signs Vital signs: Vital Signs Temp Pulse Resp BP Pulse Ox 12/12/16 11:07 10 95 12/12/16 11:00 50 9 100/54 95 12/12/16 10:00 60 8 93/51 93 12/12/16 09:02 11 96 12/12/16 09:00 65 8 113/61 93 12/12/16 08:00 96 F L 61 8 109/55 95 12/12/16 07:54 61 12/12/16 07:44 9 112/64 94 12/12/16 07:00 96 F L 44 9 112/64 94 09/24/17 06:27 18 103/55 96 09/24/17 06:00 55 18 103/55 96 12/12/16 05:00 62 18 99/47 99 12/12/16 04:00 96.6 F L 77 18 101/55 98 12/12/16 03:32 18 97/54 94 12/12/16 03:00 74 18 123/80 97 12/12/16 02:00 56 18 98/53 99 12/12/16 01:35 18 114/58 95 12/12/16 01:00 57 18 114/58 95 12/12/16 00:00 62 18 97/58 94 12/11/16 23:40 18 110/49 95 12/11/16 23:00 96.9 F L 64 18 110/49 95 12/11/16 22:00 51 18 111/78 96 12/11/16 21:39 18 110/56 97 12/11/16 21:00 52 18 110/56 96 12/11/16 20:00 96.2 F L 49 20 122/87 95 12/11/16 19:54 18 83/67 97 12/11/16 19:04 66 18 112/62 100 12/11/16 18:26 18 97 12/11/16 18:18 57 18 132/78 98 12/11/16 17:13 55 18 130/73 97 12/11/16 16:41 18 95 12/11/16 16:07 43 18 96/48 97 12/11/16 15:10 96.0 F L 47 18 98/66 97 12/11/16 14:07 18 98 12/11/16 14:04 45 18 107/63 98 12/11/16 13:05 44 18 90/60 98 Intake and Output 12/11/16 12/12/16 12/12/16 23:59 07:59 15:59 Intake Total 1071.3 / 1071.3 1339 / 1339 5327 / 2257 Output Total 1836 / 1836 2002 / 2002 1312 / 1312 Balance -764.7 / -764.7 -664 / -664 4015 / 4015 Intake: IV Fluids 951.3 / 951.3 1106 / 1106 5304 / 5304 Calcium Chloride 4,000 MG In 0. 521.3 / 521.3 779 / 779 9 % Sodium Chloride 1,000 ML @ 40 mls/hr CRRT CONT RACNHA Rx#: [id number] PrismaSATE BGK 4/2.5 5,000 ML @ 0 / 0 1 / 1 5000 / 5000 1500 mls/hr CRRT CONT RACHNA Rx#: [id number] FentaNYL (PF) 1,000 MCG In 0.9 / 30 126 / 126 % Sodium Chloride 80 ML @ 50 MCG/HR 5 mls/hr IVC CONT RACHNA Rx #:[id number] Azactam 500 MG In Dextrose 5% 200 / 200 100 / 100 100 / 100 100 ML @ 200 mls/hr IVPB Q6H [facility] Rx#:[id number] Magnesium Sulfate 2 GM In 104 / 104 Dextrose 5% 100 ML @ 50 mls/hr IVPB Q6H PRN Rx#:[id number] Flagyl Premix 500 MG/100 ML 500 200 / 200 100 / 100 100 / 100 mg In 100 ml @ 100 mls/hr IVPB Q6H [facility] Rx#:[id number] Tube Feeding 120 / 120 233 / 233 Output: Urine 2 / 2 Gwen 1808 / 1808 1977 / 1977 1310 / 1310 Catheter 20 / 25 / 0 / 0 Other: Weight 86.4 kg Blood Glucose* 185 - General Appearance General appearance: Present: sedated on ventilator, intubated EENT: Present: ATNC, PERRL Neck: Present: no JVD, supple Additional Comments: good areation ant bilat Cardiology: Present: edema (diffuse), normal S1, normal S2 Dialysis Vascular Access: Venous Catheter Gastrointestinal: Present: no tenderness, no guarding Integumentary: Present: warm and dry Additional Comments: sedated Musculoskeletal: Present: no deformities Additional Comments: sedated - Lab 12/12/16 03:30 12/12/16 03:30 Most recent lab results ABG pH 7.42 pH Units (7.32-7.45) 12/11/16 08:00 ABG pCO2 43 mmHg (35-45) 12/11/16 08:00 ABG pO2 225 mmHg (85-104) H 12/11/16 08:00 ABG HCO3 28 mEq/L (21-27) H 12/11/16 08:00 ABG O2 Saturation 100 % (95-98) H 12/11/16 08:00 Calcium 9.6 mg/dL (8.6-10.8) 12/12/16 03:30 Phosphorus 2.8 mg/dL (2.3-4.7) 12/11/16 04:10 Magnesium 1.6 mg/dL (1.6-2.6) 12/12/16 03:30 Urine Creatinine 62 mg/dL 12/06/16 06:15 Urine Sodium 37.0 mEq/L 12/06/16 06:15 Urine Total Protein 238 mg/dL (1-14) H 12/06/16 06:15 - VTE Documentation of Mechanical Device: Intermittent pneumatic compression device Consult Discharge Plan - Plan [facility]errals: [facility] [Primary Care Provider] -
[2016-12-12] MEDS ORDERED: Aminoglycoside Consult 1 EACH MC ONE (13:04)
[2016-12-12 13:06] LABS: Ionized Calcium 1.17 mmol/L (1.15-1.35)
[2016-12-12 13:13] LABS: Magnesium 2.1 mg/dL (1.6-2.6); Phosphorous 2.4 mg/dL (2.3-4.7)
[2016-12-12] MEDS ORDERED: *HR* Atropine Sulfate 1 MG/10 ML SYRINGE ONE (18:07)
[2016-12-12] MEDS ORDERED: *HR* Atropine Sulfate 1 MG/10 ML SYRINGE IVP STA (18:10)
[2016-12-12 18:37] LABS: Albumin 2.1 g/dL (3.5-5.0); BUN/Creatinine Ratio 15 (6-26); Blood Urea Nitrogen 16 mg/dL (8-26); Calcium 10.8 mg/dL (8.6-10.8); Carbon Dioxide 30 mEq/L (19-29); Chloride 104 mEq/L (98-109); Glucose 192 mg/dL (70-99); Osmolality,Calculated 298 (280-300); Phosphorous 1.9 mg/dL (2.3-4.7); Potassium 4.4 mEq/L (3.5-4.5); Sodium 141 mEq/L (136-145); eGFR For African Americans > 60 (> 60); eGFR For Non-African Americans > 60 (> 60)
[2016-12-13] MEDS: PrismaSATE BGK 4/2.5 5,000 ML CRRT SCH ×3 (01:32→09:34)
[2016-12-13] MEDS: Ipratropium/Albuterol Neb 3 ML IH SCH ×4 (03:49→21:32)
[2016-12-13] MEDS: Aztreonam 500 MG in D5% in Water 100 ML IVPB SCH ×4 (03:51→21:49)
[2016-12-13 04:09] LABS: Eosinophils % 0.2 %; Immature Granulocytes % 0.8 % (0-4); Lymphocytes % 7.6 %
[2016-12-13 04:11] LABS: Hematocrit 26.8 % (37.5-50.1); Hemoglobin 8.4 g/dL (12.9-16.9); Immature Platelets 9.5 % (1.1-6.1); Lymphocytes # 0.4 K/mcL (0.6-4.6); Mean Corpuscular HGB Conc 31.3 g/dL (31.6-35.5); Mean Corpuscular Hemoglobin 29.7 pg (28.0-33.3); Mean Corpuscular Volume 94.7 fL (83.0-100.0); Mean Platelet Volume 11.5 fL (9.4-12.4); Monocytes # 0.1 K/mcL (0.0-1.3); Monocytes % 2.3 %; Neutrophils # 4.2 K/mcL (1.6-8.9); Red Blood Count 2.83 M/mcL (4.19-5.50); Red Cell Distribution Width 18.5 % (11.5-14.5); Segmented Neutrophils % 89.1 %
[2016-12-13 04:13] LABS: Platelet Count 97 K/mcL (140-400)
[2016-12-13 04:14] LABS: BUN/Creatinine Ratio 14 (6-26); Blood Urea Nitrogen 13 mg/dL (8-26); Calcium 10.9 mg/dL (8.6-10.8); Carbon Dioxide 28 mEq/L (19-29); Chloride 105 mEq/L (98-109); Glucose 241 mg/dL (70-99); Magnesium 1.8 mg/dL (1.6-2.6); Osmolality,Calculated 298 (280-300); Potassium 3.7 mEq/L (3.5-4.5); Sodium 140 mEq/L (136-145); eGFR For African Americans > 60 (> 60); eGFR For Non-African Americans > 60 (> 60)
[2016-12-13] MEDS: Lacri-Lube 3.5 GM TUBE BOTH EYES SCH ×6 (04:26→23:53)
[2016-12-13] MEDS: MetroNIDAZOLE 500 MG/100 ML 500 MG/100 ML BAG IVPB SCH ×4 (04:26→22:28)
[2016-12-13] MEDS: Insulin LISPRO 300 UNITS/3 ML VIAL SQ SCH ×4 (05:13→23:54)
[2016-12-13] MEDS: Levothyroxine 25 MCG TABLET PO SCH (05:24)
[2016-12-13] MEDS: FentaNYL (PF) 1,000 MCG in 0.9 % Sodium Chloride 80 ML IVC SCH ×2 (06:14→22:41)
[2016-12-13] MEDS: Hydrocortisone Sodium Succ 100 MG/2 ML VIAL IVP SCH ×2 (07:51→17:31)
[2016-12-13] MEDS: Sennosides 8.6 MG TABLET PO SCH (07:51)
[2016-12-13] MEDS: Pantoprazole 40 MG VIAL IVP SCH (07:51)
[2016-12-13] MEDS: Chlorhexidine Rinse 15 ML MOUTHWASH MM SCH ×2 (07:51→20:13)
[2016-12-13] MEDS: Calcium Acetate 667 MG CAPSULE PO SCH ×3 (07:52→16:20)
[2016-12-13] MEDS: Magnesium Sulfate 2 GM in D5% in Water 100 ML IVPB PRN (07:53)
[2016-12-13] MEDS: Calcium Chloride 4,000 MG in 0.9 % Sodium Chloride 1,000 ML CRRT SCH (08:15)
--- NOTE | 2016-12-13 08:35 | Electrocardiograph Report ---
[place] [id number] Test Date: 2016-12-09 Pat Name: Hipolito Dillard Department: 109 Room: [facility] Gender: M Director Of Global Marketing: DANIELA : 1950 Requested By: Karlie Noel Order Number: [id number] Reading MD: Patrick Huggins DO Measurements Intervals [place] Rate: 83 P: 64 UT: 204 QRS: -64 QRSD: 151 T: 18 QT: 378 QTc: 417 Interpretive Statements SINUS RHYTHM RIGHT BUNDLE BRANCH BLOCK LEFT ANTERIOR FASCICULAR BLOCK Electronically Signed On 12-12-2016 9:35:27 EDT by Patrick Huggins DO
--- NOTE | 2016-12-13 08:49 | Electrocardiograph Report ---
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
--- NOTE | 2016-12-13 09:49 | Electrocardiograph Report ---
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
--- NOTE | 2016-12-13 10:53 | Pulmonology Progress Note ---
<Tal Atkinson - Last Filed: 12/13/16 16:40> Date of Encounter: 12/13/16 Time of Encounter: 10:50 Assessment and Plan (1) Acute respiratory failure with hypoxia and hypercapnia Current Visit: Yes Status: Acute Secondary to pulmonary edema and aspiration pneumonia On Vent, rate 14 Trial of CPAP (2) Sepsis Current Visit: Yes Status: Acute Secondary to aspiration pneumonia On dopamine Cultures have not shown growth thus far On day 5 of aztreoam, flagyl Vanco discontinued WBC 4.7 Weaning hydrocortisone, 50 q8h to 50 q12h, for adrenal insufficiency Qualifiers: Sepsis type: sepsis due to unspecified organism Qualified Code(s): A41.9 - Sepsis, unspecified organism (3) Metabolic encephalopathy Current Visit: Yes Status: Acute Started seroquel 50 mg BID for acute agitation (4) Aspiration pneumonia Current Visit: Yes Status: Acute Day 5 of aztreonam and flagyl Vanco discontinued Sputum specimen showed bacteria but no growth on culture Qualifiers: Aspiration pneumonia type: unspecified Laterality: unspecified laterality Lung location: unspecified part of lung Qualified Code(s): J69.0 - Pneumonitis due to inhalation of food and vomit (5) Acute on chronic kidney failure Current Visit: Yes Status: Acute Likely end stage disease Patient expressed wish to not have terminal 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 dialysis POA allowed short term dialysis for acute issue We will have to revisit if GFR does not improve with clinical condition Qualifiers: Acute renal failure type: with acute tubular necrosis Chronic kidney disease stage: stage 4 (severe) Qualified Code(s): N17.0 - Acute kidney failure with tubular necrosis; N18.4 - Chronic kidney disease, stage 4 (severe) (6) Anemia Current Visit: Yes Status: Chronic Chronic Hgb 8.4 today, stable Continue iron Monitor Qualifiers: Anemia type: due to chronic kidney disease Chronic kidney disease stage: stage 4 (severe) Qualified Code(s): N18.4 - Chronic kidney disease, stage 4 ( severe); D63.1 - Anemia in chronic kidney disease (7) Thrombocytopenia Current Visit: Yes Status: Chronic Chronic problem Plts 97 today stable trend and treat symptomatically (8) Schizophrenia Current Visit: Yes Status: Chronic Chronic condition, acutely agitated Starting seroquel 50 ml BID Qualifiers: Schizophrenia type: unspecified Qualified Code(s): F20.9 - Schizophrenia, unspecified (9) DVT prophylaxis Current Visit: Yes Status: Acute Allergy to heparin continue SCDs Subjective Principal diagnosis: BEBETO/CKD Interval history: Patient continues to be agitated and attempts to pull out tube. Objective PUL Vital signs: Last Vital Signs Temp 95.9 F L 12/13/16 08:18 Pulse 50 12/13/16 10:07 Resp 15 12/13/16 10:32 BP 69/40 12/13/16 10:07 Pulse Ox 98 12/13/16 10:32 General appearance: no acute distress, lethargic Eyes: nonicteric Effort: normal Auscultation: bilateral: diminished breath sounds Cardiovascular: other (sinus bradycardia) Gastrointestinal: hypoactive bowel sounds, non-tender, non-distended Integumentary: normal Extremities: no cyanosis, edema Musculoskeletal: no deformities unable to assess due to mental status Ventilator Settings Ventilator Settings: Ventilator Settings, Last 8 Hours Ventilator Mode VC+ Ventilator Mode VC+ Ventilator Mode VC+ Ventilator Mode VC+ Ventilator Mode VC+ Ventilator Mode VC+ Ventilator Mode VC+ Ventilator Mode VC+ Ventilator Mode VC+ Ventilator Mode VC+ Ventilator Mode VC+ Ventilator Mode VC+ Ventilator Tidal Volume 480 Setting Ventilator Tidal Volume 480 Setting Ventilator Tidal Volume 480 Setting Ventilator Tidal Volume 480 Setting Ventilator Tidal Volume 480 Setting Ventilator Tidal Volume 480 Setting Ventilator Tidal Volume 480 Setting Ventilator Tidal Volume 480 Setting Ventilator Tidal Volume 480 Setting Ventilator Tidal Volume 480 Setting Ventilator Tidal Volume 480 Setting Ventilator Tidal Volume 480 Setting Ventilator Respiratory Rate 18 Setting Ventilator Respiratory Rate 18 Setting Ventilator Respiratory Rate 18 Setting Ventilator Respiratory Rate 18 Setting Ventilator Respiratory Rate 18 Setting Ventilator Respiratory Rate 18 Setting Ventilator Respiratory Rate 18 Setting Ventilator Respiratory Rate 18 Setting Ventilator Respiratory Rate 18 Setting Ventilator Respiratory Rate 18 Setting Ventilator Respiratory Rate 18 Setting Ventilator Respiratory Rate 18 Setting Actual Respiratory Rate 18 Actual Respiratory Rate 18 Actual Respiratory Rate 18 Actual Respiratory Rate 18 Actual Respiratory Rate 18 Actual Respiratory Rate 18 Actual Respiratory Rate 18 Actual Respiratory Rate 18 Actual Respiratory Rate 18 Actual Respiratory Rate 18 Actual Respiratory Rate 18 Actual Respiratory Rate 18 Positive End Expiratory 5 Pressure Positive End Expiratory 5 Pressure Positive End Expiratory 5 Pressure Positive End Expiratory 5 Pressure Positive End Expiratory 5 Pressure Positive End Expiratory 5 Pressure Positive End Expiratory 5 Pressure Positive End Expiratory 5 Pressure Positive End Expiratory 5 Pressure Positive End Expiratory 5 Pressure Positive End Expiratory 5 Pressure Positive End Expiratory 5 Pressure Peak Inspiratory Airway 30 Pressure Peak Inspiratory Airway 28 Pressure Peak Inspiratory Airway 31 Pressure Peak Inspiratory Airway 26 Pressure Peak Inspiratory Airway 26 Pressure Peak Inspiratory Airway 27 Pressure Peak Inspiratory Airway 27 Pressure Peak Inspiratory Airway 26 Pressure Peak Inspiratory Airway 36 Pressure Peak Inspiratory Airway 39 Pressure Peak Inspiratory Airway 32 Pressure Peak Inspiratory Airway 30 Pressure Results - Laboratory Findings CBC and BMP: 12/13/16 03:33 12/13/16 03:33 ABG ABG pH 7.42 pH Units (7.32-7.45) 12/11/16 08:00 ABG pCO2 43 mmHg (35-45) 12/11/16 08:00 ABG pO2 225 mmHg (85-104) H 12/11/16 08:00 ABG O2 Saturation 100 % (95-98) H 12/11/16 08:00 PT/INR, D-dimer PT 15.5 Seconds (9.4-12.1) H 12/10/16 16:10 Abnormal lab findings: Abnormal lab results RBC 2.83 M/mcL (4.19-5.50) L 12/13/16 03:33 Hgb 8.4 g/dL (12.9-16.9) L 12/13/16 03:33 Hct 26.8 % (37.5-50.1) L 12/13/16 03:33 MCHC 31.3 g/dL (31.6-35.5) L 12/13/16 03:33 RDW 18.5 % (11.5-14.5) H 12/13/16 03:33 Plt Count 97 K/mcL (140-400) L 12/13/16 03:33 Lymphocytes # 0.4 K/mcL (0.6-4.6) L 12/13/16 03:33 Nucleated RBCs/100 WBC 0.4 /100 WBC (0) H 12/06/16 05:14 Platelet Estimate Decreased (Normal) L 12/11/16 04:10 Immature Plt Fraction 9.5 % (1.1-6.1) H 12/13/16 03:33 Polychromasia 1+ (Not Present) A 12/05/16 04:15 Basophilic Stippling 1+ (Not Present) A 12/05/16 04:15 Anisocytosis 2+ (Not Present) A 12/11/16 04:10 Macrocytosis Present (Not Present) A 12/05/16 04:15 PT 15.5 Seconds (9.4-12.1) H 12/10/16 16:10 ABG pO2 225 mmHg (85-104) H 12/11/16 08:00 ABG HCO3 28 mEq/L (21-27) H 12/11/16 08:00 ABG Total CO2 29 mEq/L (20-26) H 12/11/16 08:00 ABG O2 Saturation 100 % (95-98) H 12/11/16 08:00 ABG Base Excess 3.1 mEq/L (-2.0 to 3.0) H 12/11/16 08:00 Glucose 241 mg/dL (70-99) H 12/13/16 03:33 POC Glucose 168 (58-89) H 12/12/16 23:28 Serum Osmolality 332 mOsm/kg (280-300) H 12/08/16 07:59 Uric Acid 8.8 mg/dL (3.5-7.2) H 12/06/16 05:14 Calcium 10.9 mg/dL (8.6-10.8) H 12/13/16 03:33 Phosphorus 1.9 mg/dL (2.3-4.7) L 12/12/16 18:11 Iron 28 mcg/dL (65-175) L 12/06/16 05:14 % Saturation 14 % (20-55) L 12/06/16 05:14 Transferrin 144 mg/dL (174-364) L 12/06/16 05:14 Ferritin 417 ng/ml (22-275) H 12/06/16 05:14 AST 4 Units/L (5-34) L 12/11/16 04:10 Alkaline Phosphatase 155 Units/L (38-126) H 12/11/16 04:10 Troponin I 0.04 ng/mL (0-0.03) H* 12/09/16 23:45 B-Natriuretic Peptide 162 pg/mL (0-100) H 12/04/16 08:08 Serum Total Protein 5.5 g/dL (6.0-8.3) L 12/11/16 04:10 Albumin 2.1 g/dL (3.5-5.0) L 12/12/16 18:11 Albumin (PEP) 2.75 g/dL (3.75-5.01) L 12/06/16 05:14 Albumin/Globulin Ratio 0.6 (1.1-2.2) L 12/11/16 04:10 Gamma Globulins 1.56 g/dL (0.62-1.51) H 12/06/16 05:14 Vitamin B12 1517 pg/mL (213-816) H 12/06/16 05:14 TSH 6.855 mcIU/mL (0.350-4.840) H 12/11/16 08:10 PTH Intact 148.0 pg/ml (8.5-72.5) H 12/06/16 05:14 Ur Specimen Adequacy See below A 12/04/16 18:05 Urine Clarity Turbid (Clear) A 12/06/16 04:52 Urine Protein >=300 mg/dL (Neg-Trace) H 12/06/16 04:52 Urine Blood Large (Negative) H 12/06/16 04:52 Ur Leukocyte Esterase Large (Negative) H 12/06/16 04:52 Urine Microscopic RBC TNTC per hpf (0-3) H 12/06/16 04:52 Urine Microscopic WBC TNTC per hpf (0-3) H 12/06/16 04:52 Ur Squamous Epith Cells Many per lpf (None-Few) H 12/06/16 04:52 Urine Bacteria Moderate per hpf (None-Few) H 12/06/16 04:52 Ur Culture Indicated? YES (NO) A 12/06/16 04:52 Protein/Creatinin Ratio 3.84 mg/mg (0-0.20) H 12/06/16 06:15 Urine Total Protein 238 mg/dL (1-14) H 12/06/16 06:15 ALINA Screen DETECTED (None Detected) A 12/06/16 05:14 ALINA Titer 1:40 (<1:40) H 12/06/16 05:14 - Microbiology Findings Microbiology Findings: Microbiology, Last 48 Hours 12/09/16 14:00 Sputum Culture - Final Sputum 12/09/16 10:05 Blood Culture - Preliminary Peripheral Venipuncture No growth. 12/09/16 10:00 Blood Culture - Preliminary Peripheral Venipuncture No growth. - Clinical Findings Intake & Output: Intake & Output 12/12/16 12/13/16 12/13/16 23:59 07:59 15:59 Intake Total 1659 / 1659 1492 / 1492 449.5 / 449.5 Output Total 1997 1665 / 1665 737 / 737 Balance -339 / -339 -173 / -173 -287.5 / -287.5 - VTE Documentation of Mechanical Device: Intermittent pneumatic compression device Consult Discharge Plan - Plan [facility]: [facility]Primary Care Provider[facility] - <Carrie García - Last Filed: 12/13/16 18:18> Date of Encounter: 12/13/16 Objective PUL Vital signs: Last Vital Signs Temp 96.4 F L 12/13/16 15:40 Pulse 84 12/13/16 17:24 Resp 13 12/13/16 17:24 BP 114/59 12/13/16 17:24 Pulse Ox 94 12/13/16 17:24 Ventilator Settings Ventilator Settings: Ventilator Settings, Last 8 Hours Ventilator Mode CPAP Ventilator Mode CPAP Ventilator Mode CPAP Ventilator Mode VC+ Ventilator Mode VC+ Ventilator Mode VC+ Ventilator Mode VC+ Ventilator Tidal Volume 480 Setting Ventilator Tidal Volume 480 Setting Ventilator Tidal Volume 480 Setting Ventilator Tidal Volume 480 Setting Ventilator Tidal Volume 480 Setting Ventilator Respiratory Rate 14 Setting Ventilator Respiratory Rate 14 Setting Ventilator Respiratory Rate 18 Setting Actual Respiratory Rate 17 Actual Respiratory Rate 9 Actual Respiratory Rate 12 Actual Respiratory Rate 14 Actual Respiratory Rate 14 Actual Respiratory Rate 14 Actual Respiratory Rate 18 Positive End Expiratory 5 Pressure Positive End Expiratory 5 Pressure Positive End Expiratory 5 Pressure Positive End Expiratory 5 Pressure Positive End Expiratory 5 Pressure Positive End Expiratory 5 Pressure Positive End Expiratory 5 Pressure Peak Inspiratory Airway 14 Pressure Peak Inspiratory Airway 14 Pressure Peak Inspiratory Airway 14 Pressure Peak Inspiratory Airway 14 Pressure Peak Inspiratory Airway 35 Pressure Peak Inspiratory Airway 33 Pressure Peak Inspiratory Airway 30 Pressure Results - Laboratory Findings CBC and BMP: 12/13/16 03:33 12/13/16 03:33 ABG ABG pH 7.42 pH Units (7.32-7.45) 12/11/16 08:00 ABG pCO2 43 mmHg (35-45) 12/11/16 08:00 ABG pO2 225 mmHg (85-104) H 12/11/16 08:00 ABG O2 Saturation 100 % (95-98) H 12/11/16 08:00 PT/INR, D-dimer PT 15.5 Seconds (9.4-12.1) H 12/10/16 16:10 Abnormal lab findings: Abnormal lab results RBC 2.83 M/mcL (4.19-5.50) L 12/13/16 03:33 Hgb 8.4 g/dL (12.9-16.9) L 12/13/16 03:33 Hct 26.8 % (37.5-50.1) L 12/13/16 03:33 MCHC 31.3 g/dL (31.6-35.5) L 12/13/16 03:33 RDW 18.5 % (11.5-14.5) H 12/13/16 03:33 Plt Count 97 K/mcL (140-400) L 12/13/16 03:33 Lymphocytes # 0.4 K/mcL (0.6-4.6) L 12/13/16 03:33 Nucleated RBCs/100 WBC 0.4 /100 WBC (0) H 12/06/16 05:14 Platelet Estimate Decreased (Normal) L 12/11/16 04:10 Immature Plt Fraction 9.5 % (1.1-6.1) H 12/13/16 03:33 Polychromasia 1+ (Not Present) A 12/05/16 04:15 Basophilic Stippling 1+ (Not Present) A 12/05/16 04:15 Anisocytosis 2+ (Not Present) A 12/11/16 04:10 Macrocytosis Present (Not Present) A 12/05/16 04:15 PT 15.5 Seconds (9.4-12.1) H 12/10/16 16:10 ABG pO2 225 mmHg (85-104) H 12/11/16 08:00 ABG HCO3 28 mEq/L (21-27) H 12/11/16 08:00 ABG Total CO2 29 mEq/L (20-26) H 12/11/16 08:00 ABG O2 Saturation 100 % (95-98) H 12/11/16 08:00 ABG Base Excess 3.1 mEq/L (-2.0 to 3.0) H 12/11/16 08:00 Glucose 241 mg/dL (70-99) H 12/13/16 03:33 POC Glucose 140 (58-89) H 12/13/16 17:14 Serum Osmolality 332 mOsm/kg (280-300) H 12/08/16 07:59 Uric Acid 8.8 mg/dL (3.5-7.2) H 12/06/16 05:14 Calcium 10.9 mg/dL (8.6-10.8) H 12/13/16 03:33 Phosphorus 1.9 mg/dL (2.3-4.7) L 12/12/16 18:11 Iron 28 mcg/dL (65-175) L 12/06/16 05:14 % Saturation 14 % (20-55) L 12/06/16 05:14 Transferrin 144 mg/dL (174-364) L 12/06/16 05:14 Ferritin 417 ng/ml (22-275) H 12/06/16 05:14 AST 4 Units/L (5-34) L 12/11/16 04:10 Alkaline Phosphatase 155 Units/L (38-126) H 12/11/16 04:10 Troponin I 0.04 ng/mL (0-0.03) H* 12/09/16 23:45 B-Natriuretic Peptide 162 pg/mL (0-100) H 12/04/16 08:08 Serum Total Protein 5.5 g/dL (6.0-8.3) L 12/11/16 04:10 Albumin 2.1 g/dL (3.5-5.0) L 12/12/16 18:11 Albumin (PEP) 2.75 g/dL (3.75-5.01) L 12/06/16 05:14 Albumin/Globulin Ratio 0.6 (1.1-2.2) L 12/11/16 04:10 Gamma Globulins 1.56 g/dL (0.62-1.51) H 12/06/16 05:14 Vitamin B12 1517 pg/mL (213-816) H 12/06/16 05:14 TSH 6.855 mcIU/mL (0.350-4.840) H 12/11/16 08:10 PTH Intact 148.0 pg/ml (8.5-72.5) H 12/06/16 05:14 Ur Specimen Adequacy See below A 12/04/16 18:05 Urine Clarity Turbid (Clear) A 12/06/16 04:52 Urine Protein >=300 mg/dL (Neg-Trace) H 12/06/16 04:52 Urine Blood Large (Negative) H 12/06/16 04:52 Ur Leukocyte Esterase Large (Negative) H 12/06/16 04:52 Urine Microscopic RBC TNTC per hpf (0-3) H 12/06/16 04:52 Urine Microscopic WBC TNTC per hpf (0-3) H 12/06/16 04:52 Ur Squamous Epith Cells Many per lpf (None-Few) H 12/06/16 04:52 Urine Bacteria Moderate per hpf (None-Few) H 12/06/16 04:52 Ur Culture Indicated? YES (NO) A 12/06/16 04:52 Protein/Creatinin Ratio 3.84 mg/mg (0-0.20) H 12/06/16 06:15 Urine Total Protein 238 mg/dL (1-14) H 12/06/16 06:15 ALINA Screen DETECTED (None Detected) A 12/06/16 05:14 ALINA Titer 1:40 (<1:40) H 12/06/16 05:14 - Clinical Findings Intake & Output: Intake & Output 12/13/16 12/13/16 12/13/16 07:59 15:59 23:59 Intake Total 1492 / 1492 893.6 / 893.6 Output Total 1665 / 1665 1089 / 1089 Balance -173 / -173 -195.4 / -195.4 - Attending Attestation I saw the patient with the resident agree with History and Physical exam findings. Patient was waking up agitated not following commands . Labs and Radiology were reviewed Ventilator data were reviewed CLINICAL INFORMATICS SPECIALIST: Patient is sedated , turning off sedation makes him more agitated and confused metabolic encephalopathy , patient is a poor candidate for Precedex because of his sinus tachycardia . Patient has b/g Schizophrenia with his multiple anti-psychotics started back on Seroquel. NECK : No JVD appreciated Pulmonary : Patient is on Ventilator due to fluid overload vs Aspiration pneumonia to continue ventilatory support patient is not ready to extubated because of his agitation will do SBT with some pressure support .He did well on SBT because of his CLINICAL INFORMATICS SPECIALIST failure could not extubate him. Cardiac : On Dopamine will try to liberate from this if vasopressor during hemodialysis will try Levophed. 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 Fluid removal will help yana extubating the patient. Heme onc : No acute issues ID : To continue the current regimen of antibiotics Disposition : Critical Code status: DNRCCA I spent critical care 32 minutes on this patient
--- NOTE | 2016-12-13 11:39 | Nephrology Progress Note ---
Date of Encounter: 12/14/16 Time of Encounter: 11:36 - Assessment and Plan (1) Acute on chronic kidney failure Current Visit: Yes Status: Acute Mr. Dillard was transferred from the [facility] with a creatinine according to their documentation of 4.28 and GFR of 14.8 with a sodium of 147 and that BUN of 149. According to their records the patient was admitted with a creatinine of 2.0 and a GFR of 35.6 and according to lab results from 11/07/2016 he had a creatinine 2.43 and a GFR of 27. - Despite hemodialysis patient continues to have poor renal output with a total of 8 ML's in 24 hours - Renal function not improving. - Continue monitoring volume status and avoid extra fluid if possible to reduce volume load. - At this time Mr. Dillard's renal function is not improving and longer term outlook with his multiple medical issues he does not appear to be a good candidate for HD. - After discussion with ICU team about his current medical condition and prognosis there is agreement that Mr. Dillard would benefit from a Palliative care consult. Plan: - Continue Gomez catheter in place - Avoid nephrotoxic medications and renally dose antibiotics - Hold CVVHD today and dialysis tomorrow. - Repeat CMP in a.m. Qualifiers: Acute renal failure type: with acute tubular necrosis Chronic kidney disease stage: stage 4 (severe) Qualified Code(s): N17.0 - Acute kidney failure with tubular necrosis; N18.4 - Chronic kidney disease, stage 4 (severe) (2) Acute respiratory failure with hypoxia and hypercapnia Current Visit: Yes Status: Acute Patient continues to be intubated and sedated. May attempt CPAP trial today. - Likely secondary to aspiration pneumonia and pulmonary edema. - Management per primary team (3) Hyperkalemia Current Visit: Yes Status: Acute Patient presented with hyperkalemia with a potassium 5.0 in the setting of acute on chronic kidney disease. Likely secondary to poor renal output and dehydration. Since starting hemodialysis patient potassium level has been appropriate. - Hyperkalemia likely secondary to severe renal disease Plan: - Continue CVVHD as needed. - Monitor electrolytes daily (4) Anemia Current Visit: Yes Status: Chronic Patient has a history of chronic anemia with a hemoglobin of 10.4 in March of this year. When he was admitted to the [facility] he had a hemoglobin of 6.6 and received 2 units of PRBCs and has maintained a hemoglobin of around 9 since admission. His hemoglobin has continued to drop to 6.6 requiring 2 more units of PRBC transfusion on 12/10/2016. His hemoglobin trending down slowly. - Likely multifactorial with end-stage renal disease, poor nutritional intake, positive fluid balance. Recommend looking for possible GI source of loss. Plan: - Monitor with daily CBC - Transfuse PRBC if hemoglobin below 7.0 Qualifiers: Anemia type: due to chronic kidney disease Chronic kidney disease stage: stage 4 (severe) Qualified Code(s): N18.4 - Chronic kidney disease, stage 4 ( severe); D63.1 - Anemia in chronic kidney disease (5) Type 2 diabetes mellitus Current Visit: Yes Status: Acute Known type II diabetic with chronic kidney disease. Insulin-dependent, glucose upon admission was 102 Plan: -Continue management by primary team. Qualifiers: Diabetes mellitus complication status: without complication Diabetes mellitus sergeant of corrections insulin use: with sergeant of corrections use Qualified Code(s): E11.9 - Type 2 diabetes mellitus without complications; Z79.4 - intermediate (current) use of insulin Subjective Principal diagnosis: BEBETO/CKD Interval history: Mr. Dillard 66-year-old male's been seen and evaluated patient bedside. He is intubated and sedated at this time. There is potential for CPAP trial today for possible extubation. Objective - Vital Signs Vital signs: Vital Signs Temp Pulse Resp BP Pulse Ox 12/13/16 11:07 67 14 112/69 99 12/13/16 10:32 15 98 12/13/16 10:07 50 20 69/40 98 12/13/16 09:08 56 20 77/46 98 12/13/16 08:18 95.9 F L 49 18 102/56 98 12/13/16 08:11 18 91/53 96 12/13/16 07:31 43 12/13/16 06:57 40 18 91/53 96 12/13/16 06:00 47 18 91/51 96 12/13/16 05:58 18 128/89 97 12/13/16 05:00 54 18 93/53 96 12/13/16 04:00 92 F L 63 18 103/56 96 12/13/16 03:49 18 107/61 96 12/13/16 03:00 64 18 107/58 91 12/13/16 02:00 53 18 105/90 98 12/13/16 01:46 18 103/54 95 12/13/16 01:00 42 18 105/63 95 12/13/16 00:00 93 F L 56 18 121/63 91 12/12/16 23:50 18 112/61 95 12/12/16 23:09 45 12/12/16 23:00 46 18 111/64 97 12/12/16 22:00 45 18 99/57 97 12/12/16 21:45 18 117/62 99 12/12/16 21:00 58 18 120/64 91 12/12/16 20:00 92.3 F L 53 18 136/66 94 12/12/16 19:55 18 127/88 94 12/12/16 19:43 48 12/12/16 19:00 61 18 125/66 93 12/12/16 18:00 39 18 103/63 100 12/12/16 17:00 48 18 96/52 96 12/12/16 16:47 18 97 12/12/16 16:00 96.6 F L 48 18 95/60 94 12/12/16 15:45 40 12/12/16 15:00 42 18 98/54 94 12/12/16 14:10 21 94 12/12/16 14:00 56 9 115/60 95 12/12/16 13:00 59 10 101/53 91 12/12/16 12:00 96.4 F L 59 10 106/59 94 Intake and Output 12/12/16 12/13/16 12/13/16 23:59 07:59 15:59 Intake Total 1659 / 1659 1492 / 1492 449.5 / 449.5 Output Total 1997 1665 / 1665 906 / 906 Balance -339 / -339 -173 / -173 -456.5 / -456.5 Intake: IV Fluids 1276 / 1276 1340 / 1340 349.5 / 349.5 Calcium Chloride 4,000 MG In 0. 1040 / 1040 1040 / 1040 218 / 218 9 % Sodium Chloride 1,000 ML @ 40 mls/hr CRRT CONT [facility] Rx#: [id number] PrismaSATE BGK 4/2.5 5,000 ML @ 0 / 0 0 / 0 0 / 0 1000 mls/hr CRRT [facility] Rx#: [id number] FentaNYL (PF) 1,000 MCG In 0.9 36 / 36 40.6 / 40.6 % Sodium Chloride 80 ML @ 50 MCG/HR 5 mls/hr IVC CONT [facility] Rx #:[id number] Azactam 500 MG In Dextrose 5% 100 / 100 100 / 100 100 ML @ 200 mls/hr IVPB Q6H [facility] Rx#:[id number] Magnesium Sulfate 2 GM In 90.9 / 90.9 Dextrose 5% 100 ML @ 50 mls/hr IVPB Q6H [facility] Rx#:[id number] Flagyl Premix 500 MG/100 ML 500 100 / 100 200 / 200 mg In 100 ml @ 100 mls/hr IVPB Q6H [facility] Rx#:[id number] Tube Feeding 383 / 383 152 / 152 50 / 50 Free Water 50 / 50 Output: Urine Gwen 1990 1630 / 1630 898 / 898 Catheter 35 / 35 Other: Blood Glucose* 193 168 - General Appearance General appearance: Present: well-developed, well-nourished, sedated on ventilator, intubated EENT: Present: mucous membranes moist Neck: Present: no JVD, no thyromegaly Respiratory: Present: rhonchi (Diffuse rhonchi appreciated upon auscultation) Cardiology: Present: no murmurs, no rub, no gallops, edema (Trace edema bilateral lower extremities), regular rate, regular rhythm Gastrointestinal: Present: normoactive bowel sounds, no tenderness, no guarding , no organomegaly, no masses Integumentary: Present: no rash, warm and dry Additional Comments: Patient is intubated and unable to do full neuro examination. Patient is moving all 4 extremities spontaneously Musculoskeletal: Present: no deformities, no erythema, no cyanosis, no clubbing - Lab 12/14/16 03:58 12/14/16 03:58 Most recent lab results ABG pH 7.42 pH Units (7.32-7.45) 12/11/16 08:00 ABG pCO2 43 mmHg (35-45) 12/11/16 08:00 ABG pO2 225 mmHg (85-104) H 12/11/16 08:00 ABG HCO3 28 mEq/L (21-27) H 12/11/16 08:00 ABG O2 Saturation 100 % (95-98) H 12/11/16 08:00 Calcium 10.9 mg/dL (8.6-10.8) H 12/13/16 03:33 Phosphorus 1.9 mg/dL (2.3-4.7) L 12/12/16 18:11 Magnesium 1.8 mg/dL (1.6-2.6) 12/13/16 03:33 Urine Creatinine 62 mg/dL 12/06/16 06:15 Urine Sodium 37.0 mEq/L 12/06/16 06:15 Urine Total Protein 238 mg/dL (1-14) H 12/06/16 06:15 - VTE Documentation of Mechanical Device: Intermittent pneumatic compression device Consult Discharge Plan - Plan [facility]: [facility] [Primary Care Provider[facility] -
--- NOTE | 2016-12-13 12:04 | Electrocardiograph Report ---
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
[2016-12-13] MEDS: Ferrous Sulfate Oral Soln 300 MG/5 ML UDC PO SCH ×2 (13:15→16:20)
[2016-12-14] MEDS: Ipratropium/Albuterol Neb 3 ML IH SCH ×4 (03:25→21:20)
[2016-12-14] MEDS: Aztreonam 500 MG in D5% in Water 100 ML IVPB SCH ×5 (03:32→22:54)
[2016-12-14] MEDS: MetroNIDAZOLE 500 MG/100 ML 500 MG/100 ML BAG IVPB SCH ×4 (04:08→21:53)
[2016-12-14 04:20] LABS: Calcium 10.3 mg/dL (8.6-10.8); Potassium 4.4 mEq/L (3.5-4.5)
[2016-12-14 04:30] LABS: Eosinophils % 0.2 %; Hematocrit 24.1 % (37.5-50.1); Hemoglobin 7.6 g/dL (12.9-16.9); Immature Granulocytes % 0.6 % (0-4); Lymphocytes # 0.5 K/mcL (0.6-4.6); Lymphocytes % 8.6 %; Mean Corpuscular HGB Conc 31.5 g/dL (31.6-35.5); Mean Corpuscular Volume 95.3 fL (83.0-100.0); Mean Platelet Volume 11.2 fL (9.4-12.4); Monocytes # 0.2 K/mcL (0.0-1.3); Monocytes % 3.5 %; Neutrophils # 4.7 K/mcL (1.6-8.9); Platelet Count 110 K/mcL (140-400); Red Blood Count 2.53 M/mcL (4.19-5.50); Red Cell Distribution Width 18.5 % (11.5-14.5); Segmented Neutrophils % 87.1 %
[2016-12-14] MEDS: Lacri-Lube 3.5 GM TUBE BOTH EYES SCH ×5 (04:58→21:44)
[2016-12-14] MEDS: Insulin LISPRO 300 UNITS/3 ML VIAL SQ SCH ×3 (05:00→20:27)
[2016-12-14] MEDS: Levothyroxine 25 MCG TABLET PO SCH ×2 (05:01→08:34)
[2016-12-14] MEDS: Hydrocortisone Sodium Succ 100 MG/2 ML VIAL IVP SCH (05:03)
[2016-12-14] MEDS: Chlorhexidine Rinse 15 ML MOUTHWASH MM SCH ×2 (08:33→21:43)
[2016-12-14] MEDS: Sennosides 8.6 MG TABLET PO SCH (08:34)
[2016-12-14] MEDS: Ferrous Sulfate Oral Soln 300 MG/5 ML UDC PO SCH ×3 (08:35→18:06)
[2016-12-14] MEDS: Calcium Acetate 667 MG CAPSULE PO SCH ×3 (08:35→18:07)
[2016-12-14] MEDS: Pantoprazole 40 MG VIAL IVP SCH (08:35)
[2016-12-14] MEDS: FentaNYL (PF) 1,000 MCG in 0.9 % Sodium Chloride 80 ML IVC SCH ×2 (10:26→21:56)
[2016-12-14] MEDS ORDERED: Sennosides 8.6 MG TABLET PO PRN (10:34)
[2016-12-14] MEDS ORDERED: Bisacodyl 10 MG RECTAL SUPPOSITORY RC PRN (10:55)
[2016-12-14] MEDS ORDERED: Dexmedetomidine HCl 400 MCG/100 ML MLS IVC ONE (11:27)
[2016-12-14] MEDS: Dexmedetomidine HCl 400 MCG/100 ML MLS IVC SCH (11:57)
[2016-12-14 12:42] LABS: Albumin/Globulin Ratio 0.6 (1.1-2.2); Bilirubin,Direct 0.2 mg/dL (0.0-0.5); Bilirubin,Indirect 0.2 mg/dL (0.0-1.2); Bilirubin,Total 0.4 mg/dL (0.2-1.2); Globulin 3.6 g/dL (2.4-3.5); Total Protein 5.6 g/dL (6.0-8.3)
--- NOTE | 2016-12-14 14:16 | Pulmonology Progress Note ---
<DemetrioTal - Last Filed: 12/14/16 14:41> Date of Encounter: 12/14/16 Time of Encounter: 07:00 Assessment and Plan (1) Acute respiratory failure with hypoxia and hypercapnia Current Visit: Yes Status: Acute Secondary to pulmonary edema and aspiration pneumonia On Vent, rate 14 (2) Sepsis Current Visit: Yes Status: Acute Secondary to aspiration pneumonia On dopamine Cultures have not shown growth thus far On day 6 of aztreoam, flagyl Vanco discontinued WBC 5.4 Stopped steroids Qualifiers: Sepsis type: sepsis due to unspecified organism Qualified Code(s): A41.9 - Sepsis, unspecified organism (3) Metabolic encephalopathy Current Visit: Yes Status: Acute Continue seroquel 50 mg BID for acute agitation (4) Aspiration pneumonia Current Visit: Yes Status: Acute Day 6 of aztreonam and flagyl Qualifiers: Aspiration pneumonia type: unspecified Laterality: unspecified laterality Lung location: unspecified part of lung Qualified Code(s): J69.0 - Pneumonitis due to inhalation of food and vomit (5) Acute on chronic kidney failure Current Visit: Yes Status: Acute Likely end stage disease Patient expressed wish to not have assistant nurse manager dialysis in the past, however, this looks like the necessary direction for treatment We will have to discuss with POA to determine ultimate plans of care Qualifiers: Acute renal failure type: with acute tubular necrosis Chronic kidney disease stage: stage 4 (severe) Qualified Code(s): N17.0 - Acute kidney failure with tubular necrosis; N18.4 - Chronic kidney disease, stage 4 (severe) (6) Anemia Current Visit: Yes Status: Chronic Chronic Hgb 7.6 today, down from 8.4 Continue iron Monitor closely Ordered hemolysis labs Ordered stool guaiac Qualifiers: Anemia type: due to chronic kidney disease Chronic kidney disease stage: stage 4 (severe) Qualified Code(s): N18.4 - Chronic kidney disease, stage 4 ( severe); D63.1 - Anemia in chronic kidney disease (7) Thrombocytopenia Current Visit: Yes Status: Chronic Chronic problem Plts 110 today stable trend and treat symptomatically (8) Schizophrenia Current Visit: Yes Status: Chronic Chronic condition, acutely agitated Started seroquel 50 ml BID yesterday No change as of yet Qualifiers: Schizophrenia type: unspecified Qualified Code(s): F20.9 - Schizophrenia, unspecified (9) DVT prophylaxis Current Visit: Yes Status: Acute Allergy to heparin continue SCDs (10) Infrequent bowel movements Current Visit: Yes Status: Acute No bowel movements since ICU admission Increased senna to BID Added dulcolax suppository daily Subjective Principal diagnosis: BEBETO/CKD Interval history: Patient continues to be agitated and attempts to pull out tube. Objective PUL Vital signs: Last Vital Signs Temp 97.8 F 12/14/16 11:53 Pulse 70 12/14/16 13:00 Resp 10 12/14/16 13:00 BP 117/65 12/14/16 13:00 Pulse Ox 98 12/14/16 13:00 General appearance: no acute distress, lethargic Eyes: nonicteric Effort: other (ventilated) Auscultation: bilateral: diminished breath sounds Cardiovascular: regular rate and rhythm Gastrointestinal: hypoactive bowel sounds, non-tender, non-distended Integumentary: normal Extremities: no cyanosis Musculoskeletal: no deformities unable to assess due to mental status, other (does not follow commands) other (avoids eye contact) Ventilator Settings Ventilator Settings: Ventilator Settings, Last 8 Hours Ventilator Mode CPAP Ventilator Mode CPAP Ventilator Mode CPAP Ventilator Mode CPAP Ventilator Mode CPAP Ventilator Mode CPAP Ventilator Mode CPAP Ventilator Mode CPAP Ventilator Mode CPAP Ventilator Mode VC+ Ventilator Tidal Volume 480 Setting Ventilator Tidal Volume 480 Setting Ventilator Tidal Volume 480 Setting Ventilator Tidal Volume 480 Setting Ventilator Tidal Volume 480 Setting Ventilator Respiratory Rate 14 Setting Actual Respiratory Rate 10 Actual Respiratory Rate 10 Actual Respiratory Rate 10 Actual Respiratory Rate 10 Actual Respiratory Rate 12 Actual Respiratory Rate 10 Actual Respiratory Rate 12 Actual Respiratory Rate 12 Actual Respiratory Rate 20 Actual Respiratory Rate 28 Positive End Expiratory 5 Pressure Positive End Expiratory 5 Pressure Positive End Expiratory 5 Pressure Positive End Expiratory 5 Pressure Positive End Expiratory 5 Pressure Positive End Expiratory 5 Pressure Positive End Expiratory 5 Pressure Positive End Expiratory 5 Pressure Positive End Expiratory 5 Pressure Positive End Expiratory 5 Pressure Peak Inspiratory Airway 11 Pressure Peak Inspiratory Airway 11 Pressure Peak Inspiratory Airway 11 Pressure Peak Inspiratory Airway 11 Pressure Peak Inspiratory Airway 11 Pressure Peak Inspiratory Airway 11 Pressure Peak Inspiratory Airway 11 Pressure Peak Inspiratory Airway 11 Pressure Peak Inspiratory Airway 11 Pressure Peak Inspiratory Airway 11 Pressure Results - Laboratory Findings CBC and BMP: 12/14/16 03:58 12/14/16 03:58 ABG ABG pH 7.42 pH Units (7.32-7.45) 12/11/16 08:00 ABG pCO2 43 mmHg (35-45) 12/11/16 08:00 ABG pO2 225 mmHg (85-104) H 12/11/16 08:00 ABG O2 Saturation 100 % (95-98) H 12/11/16 08:00 PT/INR, D-dimer PT 15.5 Seconds (9.4-12.1) H 12/10/16 16:10 Abnormal lab findings: Abnormal lab results RBC 2.53 M/mcL (4.19-5.50) L 12/14/16 03:58 Hgb 7.6 g/dL (12.9-16.9) L 12/14/16 03:58 Hct 24.1 % (37.5-50.1) L 12/14/16 03:58 MCHC 31.5 g/dL (31.6-35.5) L 12/14/16 03:58 RDW 18.5 % (11.5-14.5) H 12/14/16 03:58 Plt Count 110 K/mcL (140-400) L 12/14/16 03:58 Lymphocytes # 0.5 K/mcL (0.6-4.6) L 12/14/16 03:58 Nucleated RBCs/100 WBC 0.4 /100 WBC (0) H 12/06/16 05:14 Platelet Estimate Decreased (Normal) L 12/11/16 04:10 Immature Plt Fraction 9.5 % (1.1-6.1) H 12/13/16 03:33 Polychromasia 1+ (Not Present) A 12/05/16 04:15 Basophilic Stippling 1+ (Not Present) A 12/05/16 04:15 Anisocytosis 2+ (Not Present) A 12/11/16 04:10 Macrocytosis Present (Not Present) A 12/05/16 04:15 PT 15.5 Seconds (9.4-12.1) H 12/10/16 16:10 ABG pO2 225 mmHg (85-104) H 12/11/16 08:00 ABG HCO3 28 mEq/L (21-27) H 12/11/16 08:00 ABG Total CO2 29 mEq/L (20-26) H 12/11/16 08:00 ABG O2 Saturation 100 % (95-98) H 12/11/16 08:00 ABG Base Excess 3.1 mEq/L (-2.0 to 3.0) H 12/11/16 08:00 Creatinine 1.58 mg/dL (0.72-1.25) H D 12/14/16 03:58 Est GFR ( Amer) 53 (> 60) L 12/14/16 03:58 Est GFR (Non-Af Amer) 44 (> 60) L 12/14/16 03:58 Glucose 137 mg/dL (70-99) H 12/14/16 03:58 POC Glucose 158 (58-89) H 12/14/16 11:14 Serum Osmolality 332 mOsm/kg (280-300) H 12/08/16 07:59 Uric Acid 8.8 mg/dL (3.5-7.2) H 12/06/16 05:14 Phosphorus 1.9 mg/dL (2.3-4.7) L 12/12/16 18:11 Iron 28 mcg/dL (65-175) L 12/06/16 05:14 % Saturation 14 % (20-55) L 12/06/16 05:14 Transferrin 144 mg/dL (174-364) L 12/06/16 05:14 Ferritin 417 ng/ml (22-275) H 12/06/16 05:14 Alkaline Phosphatase 138 Units/L (38-126) H 12/14/16 12:15 Troponin I 0.04 ng/mL (0-0.03) H* 12/09/16 23:45 B-Natriuretic Peptide 162 pg/mL (0-100) H 12/04/16 08:08 Serum Total Protein 5.6 g/dL (6.0-8.3) L 12/14/16 12:15 Albumin 2.0 g/dL (3.5-5.0) L 12/14/16 12:15 Albumin (PEP) 2.75 g/dL (3.75-5.01) L 12/06/16 05:14 Globulin 3.6 g/dL (2.4-3.5) H 12/14/16 12:15 Albumin/Globulin Ratio 0.6 (1.1-2.2) L 12/14/16 12:15 Gamma Globulins 1.56 g/dL (0.62-1.51) H 12/06/16 05:14 Vitamin B12 1517 pg/mL (213-816) H 12/06/16 05:14 TSH 6.855 mcIU/mL (0.350-4.840) H 12/11/16 08:10 PTH Intact 148.0 pg/ml (8.5-72.5) H 12/06/16 05:14 Ur Specimen Adequacy See below A 12/04/16 18:05 Urine Clarity Turbid (Clear) A 12/06/16 04:52 Urine Protein >=300 mg/dL (Neg-Trace) H 12/06/16 04:52 Urine Blood Large (Negative) H 12/06/16 04:52 Ur Leukocyte Esterase Large (Negative) H 12/06/16 04:52 Urine Microscopic RBC TNTC per hpf (0-3) H 12/06/16 04:52 Urine Microscopic WBC TNTC per hpf (0-3) H 12/06/16 04:52 Ur Squamous Epith Cells Many per lpf (None-Few) H 12/06/16 04:52 Urine Bacteria Moderate per hpf (None-Few) H 12/06/16 04:52 Ur Culture Indicated? YES (NO) A 12/06/16 04:52 Protein/Creatinin Ratio 3.84 mg/mg (0-0.20) H 12/06/16 06:15 Urine Total Protein 238 mg/dL (1-14) H 12/06/16 06:15 ALINA Screen DETECTED (None Detected) A 12/06/16 05:14 ALINA Titer 1:40 (<1:40) H 12/06/16 05:14 - Clinical Findings Intake & Output: Intake & Output 12/13/16 12/14/16 12/14/16 23:59 07:59 15:59 Intake Total 864.4 / 864.4 318 / 318 128 / 128 Output Total 50 / 50 0 / 0 35 / 35 Balance 814.4 / 814.4 318 / 318 93 / 93 Weight 85 kg - VTE Documentation of Mechanical Device: Intermittent pneumatic compression device Consult Discharge Plan - Plan [facility]errals: [facility] [Primary Care Provider[facility] - <Carrie García - Last Filed: 12/14/16 20:16> Date of Encounter: 12/14/16 Objective PUL Vital signs: Last Vital Signs Temp 96.0 F L 12/14/16 18:01 Pulse 60 12/14/16 18:00 Resp 14 12/14/16 20:00 BP 132/65 12/14/16 18:00 Pulse Ox 98 12/14/16 20:00 Ventilator Settings Ventilator Settings: Ventilator Settings, Last 8 Hours Ventilator Mode VC+ Ventilator Mode VC+ Ventilator Mode VC+ Ventilator Mode VC+ Ventilator Mode VC+ Ventilator Mode CPAP Ventilator Mode CPAP Ventilator Mode CPAP Ventilator Tidal Volume 480 Setting Ventilator Tidal Volume 480 Setting Ventilator Tidal Volume 480 Setting Ventilator Tidal Volume 480 Setting Ventilator Tidal Volume 480 Setting Ventilator Respiratory Rate 14 Setting Ventilator Respiratory Rate 14 Setting Ventilator Respiratory Rate 14 Setting Ventilator Respiratory Rate 14 Setting Ventilator Respiratory Rate 14 Setting Actual Respiratory Rate 14 Actual Respiratory Rate 14 Actual Respiratory Rate 14 Actual Respiratory Rate 14 Actual Respiratory Rate 14 Actual Respiratory Rate 10 Actual Respiratory Rate 10 Actual Respiratory Rate 10 Positive End Expiratory 5 Pressure Positive End Expiratory 5 Pressure Positive End Expiratory 5 Pressure Positive End Expiratory 5 Pressure Positive End Expiratory 5 Pressure Positive End Expiratory 5 Pressure Positive End Expiratory 5 Pressure Positive End Expiratory 5 Pressure Peak Inspiratory Airway 28 Pressure Peak Inspiratory Airway 11 Pressure Peak Inspiratory Airway 30 Pressure Peak Inspiratory Airway 30 Pressure Peak Inspiratory Airway 11 Pressure Peak Inspiratory Airway 11 Pressure Peak Inspiratory Airway 11 Pressure Peak Inspiratory Airway 11 Pressure Results - Laboratory Findings CBC and BMP: 12/14/16 03:58 12/14/16 03:58 ABG ABG pH 7.42 pH Units (7.32-7.45) 12/11/16 08:00 ABG pCO2 43 mmHg (35-45) 12/11/16 08:00 ABG pO2 225 mmHg (85-104) H 12/11/16 08:00 ABG O2 Saturation 100 % (95-98) H 12/11/16 08:00 PT/INR, D-dimer PT 15.5 Seconds (9.4-12.1) H 12/10/16 16:10 Abnormal lab findings: Abnormal lab results RBC 2.53 M/mcL (4.19-5.50) L 12/14/16 03:58 Hgb 7.6 g/dL (12.9-16.9) L 12/14/16 03:58 Hct 24.1 % (37.5-50.1) L 12/14/16 03:58 MCHC 31.5 g/dL (31.6-35.5) L 12/14/16 03:58 RDW 18.5 % (11.5-14.5) H 12/14/16 03:58 Plt Count 110 K/mcL (140-400) L 12/14/16 03:58 Lymphocytes # 0.5 K/mcL (0.6-4.6) L 12/14/16 03:58 Nucleated RBCs/100 WBC 0.4 /100 WBC (0) H 12/06/16 05:14 Platelet Estimate Decreased (Normal) L 12/11/16 04:10 Immature Plt Fraction 9.5 % (1.1-6.1) H 12/13/16 03:33 Polychromasia 1+ (Not Present) A 12/05/16 04:15 Basophilic Stippling 1+ (Not Present) A 12/05/16 04:15 Anisocytosis 2+ (Not Present) A 12/11/16 04:10 Macrocytosis Present (Not Present) A 12/05/16 04:15 PT 15.5 Seconds (9.4-12.1) H 12/10/16 16:10 ABG pO2 225 mmHg (85-104) H 12/11/16 08:00 ABG HCO3 28 mEq/L (21-27) H 12/11/16 08:00 ABG Total CO2 29 mEq/L (20-26) H 12/11/16 08:00 ABG O2 Saturation 100 % (95-98) H 12/11/16 08:00 ABG Base Excess 3.1 mEq/L (-2.0 to 3.0) H 12/11/16 08:00 Creatinine 1.58 mg/dL (0.72-1.25) H D 12/14/16 03:58 Est GFR ( Amer) 53 (> 60) L 12/14/16 03:58 Est GFR (Non-Af Amer) 44 (> 60) L 12/14/16 03:58 Glucose 137 mg/dL (70-99) H 12/14/16 03:58 POC Glucose 165 (58-89) H 12/14/16 17:34 Serum Osmolality 332 mOsm/kg (280-300) H 12/08/16 07:59 Uric Acid 8.8 mg/dL (3.5-7.2) H 12/06/16 05:14 Phosphorus 1.9 mg/dL (2.3-4.7) L 12/12/16 18:11 Iron 28 mcg/dL (65-175) L 12/06/16 05:14 % Saturation 14 % (20-55) L 12/06/16 05:14 Transferrin 144 mg/dL (174-364) L 12/06/16 05:14 Ferritin 417 ng/ml (22-275) H 12/06/16 05:14 Alkaline Phosphatase 138 Units/L (38-126) H 12/14/16 12:15 Troponin I 0.04 ng/mL (0-0.03) H* 12/09/16 23:45 B-Natriuretic Peptide 162 pg/mL (0-100) H 12/04/16 08:08 Serum Total Protein 5.6 g/dL (6.0-8.3) L 12/14/16 12:15 Albumin 2.0 g/dL (3.5-5.0) L 12/14/16 12:15 Albumin (PEP) 2.75 g/dL (3.75-5.01) L 12/06/16 05:14 Globulin 3.6 g/dL (2.4-3.5) H 12/14/16 12:15 Albumin/Globulin Ratio 0.6 (1.1-2.2) L 12/14/16 12:15 Gamma Globulins 1.56 g/dL (0.62-1.51) H 12/06/16 05:14 Vitamin B12 1517 pg/mL (213-816) H 12/06/16 05:14 TSH 6.855 mcIU/mL (0.350-4.840) H 12/11/16 08:10 PTH Intact 148.0 pg/ml (8.5-72.5) H 12/06/16 05:14 Ur Specimen Adequacy See below A 12/04/16 18:05 Urine Clarity Turbid (Clear) A 12/06/16 04:52 Urine Protein >=300 mg/dL (Neg-Trace) H 12/06/16 04:52 Urine Blood Large (Negative) H 12/06/16 04:52 Ur Leukocyte Esterase Large (Negative) H 12/06/16 04:52 Urine Microscopic RBC TNTC per hpf (0-3) H 12/06/16 04:52 Urine Microscopic WBC TNTC per hpf (0-3) H 12/06/16 04:52 Ur Squamous Epith Cells Many per lpf (None-Few) H 12/06/16 04:52 Urine Bacteria Moderate per hpf (None-Few) H 12/06/16 04:52 Ur Culture Indicated? YES (NO) A 12/06/16 04:52 Protein/Creatinin Ratio 3.84 mg/mg (0-0.20) H 12/06/16 06:15 Urine Total Protein 238 mg/dL (1-14) H 12/06/16 06:15 ALINA Screen DETECTED (None Detected) A 12/06/16 05:14 ALINA Titer 1:40 (<1:40) H 12/06/16 05:14 - Clinical Findings Intake & Output: Intake & Output 12/14/16 12/14/16 12/14/16 07:59 15:59 23:59 Intake Total 318 / 318 431 / 431 0 / 0 Output Total 0 / 0 35 / 35 50 / 50 Balance 318 / 318 396 / 396 -50 / -50 Weight 85 kg - Attending Attestation I saw the patient with the resident agree with History and Physical exam findings. Patient was waking up agitated not following commands . 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 NECK : No JVD appreciated Pulmonary : Patient is on Ventilator due to fluid overload vs Aspiration pneumonia to continue ventilatory support patient is not ready to extubated because of his agitation will do SBT with some pressure support .He did well on SBT because of his LIVING SUPERVISOR failure could not extubate him. Cardiac : Hemodynamically stable Nutrition/GI: Patient is on tube feeds, PPI prophylaxis Renal : Acute on Chronic kidney injury Nephrology following . Renal function not improving will need dialysis in the near future . Fluid removal will help in extubating the patient. Heme onc : No acute issues ID : To continue the current regimen of antibiotics Disposition : Critical Code status: DNRCCA
[2016-12-14] MEDS: PrismaSATE BGK 4/2.5 5,000 ML CRRT SCH (15:23)
[2016-12-15] MEDS: Lacri-Lube 3.5 GM TUBE BOTH EYES SCH ×7 (00:03→23:44)
[2016-12-15] MEDS: Insulin LISPRO 300 UNITS/3 ML VIAL SQ SCH ×5 (00:03→23:42)
[2016-12-15] MEDS: Dexmedetomidine HCl 400 MCG/100 ML MLS IVC SCH (02:11)
[2016-12-15] MEDS: Ipratropium/Albuterol Neb 3 ML IH SCH ×4 (03:45→21:42)
[2016-12-15] MEDS: Aztreonam 500 MG in D5% in Water 100 ML IVPB SCH ×4 (04:00→22:09)
[2016-12-15 04:14] LABS: Eosinophils # 0.1 K/mcL (0.0-0.6); Eosinophils % 1.4 %; Hematocrit 25.4 % (37.5-50.1); Hemoglobin 8.2 g/dL (12.9-16.9); Immature Granulocytes % 0.2 % (0-4); Lymphocytes % 21.7 %; Mean Corpuscular HGB Conc 32.3 g/dL (31.6-35.5); Mean Corpuscular Hemoglobin 31.1 pg (28.0-33.3); Mean Corpuscular Volume 96.2 fL (83.0-100.0); Mean Platelet Volume 11.2 fL (9.4-12.4); Monocytes # 0.2 K/mcL (0.0-1.3); Monocytes % 4.6 %; Neutrophils # 3.2 K/mcL (1.6-8.9); Platelet Count 106 K/mcL (140-400); Red Blood Count 2.64 M/mcL (4.19-5.50); Red Cell Distribution Width 18.1 % (11.5-14.5); Segmented Neutrophils % 72.1 %
[2016-12-15 04:31] LABS: Calcium 9.6 mg/dL (8.6-10.8)
[2016-12-15] MEDS: Levothyroxine 25 MCG TABLET PO SCH (05:25)
[2016-12-15] MEDS: MetroNIDAZOLE 500 MG/100 ML 500 MG/100 ML BAG IVPB SCH ×4 (05:25→23:42)
[2016-12-15] MEDS ORDERED: 0.9 % Sodium Chloride 250 ML IVC PRN (07:52)
[2016-12-15] MEDS ORDERED: *HR* Heparin 10,000 UNIT/10 ML VIAL IV PRN (07:52)
[2016-12-15] MEDS ORDERED: 0.9 % Sodium Chloride 1,000 ML PRIME SCH (08:00)
--- NOTE | 2016-12-15 08:35 | Pulmonology Progress Note ---
<Tal Atkinson - Last Filed: 12/15/16 11:46> Date of Encounter: 12/15/16 Time of Encounter: 08:33 Assessment and Plan (1) Acute respiratory failure with hypoxia and hypercapnia Current Visit: Yes Status: Acute Secondary to pulmonary edema and aspiration pneumonia On Vent, rate 14 CPAP trial went poorly, immediately apneic Continuing to remove fluid, HD today, may improve lung function Plan to wean fentanyl, which also may improve respiratory drive Will have to discuss with POA about possibility of reintubation for if we extubate (2) Sepsis Current Visit: Yes Status: Acute Secondary to aspiration pneumonia Pressures improved, off dopamine Negative sputum culture Blood cultures negative thus far On day 7 of aztreoam, flagyl WBC 4.4 Qualifiers: Sepsis type: sepsis due to unspecified organism Qualified Code(s): A41.9 - Sepsis, unspecified organism (3) Metabolic encephalopathy Current Visit: Yes Status: Acute Continue seroquel 50 mg BID for acute agitation Reducing sedation or stimulating the patient causes the patient to be agitated and to try to pull out his vent tube (4) Aspiration pneumonia Current Visit: Yes Status: Acute Day 7 of aztreonam and flagyl Qualifiers: Aspiration pneumonia type: unspecified Laterality: unspecified laterality Lung location: unspecified part of lung Qualified Code(s): J69.0 - Pneumonitis due to inhalation of food and vomit (5) Acute on chronic kidney failure Current Visit: Yes Status: Acute Likely end stage disease, continues to have minimal urine output Nephrology following, plan for HD today Patient expressed wish to not have alf dialysis in the past, however, this looks like the necessary direction for treatment We will have to discuss with POA to determine ultimate plans of care Qualifiers: Acute renal failure type: with acute tubular necrosis Chronic kidney disease stage: stage 4 (severe) Qualified Code(s): N17.0 - Acute kidney failure with tubular necrosis; N18.4 - Chronic kidney disease, stage 4 (severe) (6) Anemia Current Visit: Yes Status: Chronic Chronic Hgb 8.2 today, up from 7.6 Continue iron Monitor closely Hemolysis labs WNL Ordered stool guaiac, awaiting BM Qualifiers: Anemia type: due to chronic kidney disease Chronic kidney disease stage: stage 4 (severe) Qualified Code(s): N18.4 - Chronic kidney disease, stage 4 ( severe); D63.1 - Anemia in chronic kidney disease (7) Thrombocytopenia Current Visit: Yes Status: Chronic Chronic problem Plts 106 today stable trend and treat symptomatically (8) Schizophrenia Current Visit: Yes Status: Chronic Chronic condition, acutely agitated Started seroquel 50 ml BID 12/13/16 No change as of yet Qualifiers: Schizophrenia type: unspecified Qualified Code(s): F20.9 - Schizophrenia, unspecified (9) DVT prophylaxis Current Visit: Yes Status: Acute Allergy to heparin continue SCDs (10) Infrequent bowel movements Current Visit: Yes Status: Acute No bowel movements since ICU admission On BID senna and dulcolax suppository Subjective Principal diagnosis: BEBETO/CKD Interval history: Patient continues to be agitated when stimulated, otherwise asleep. Objective PUL Vital signs: Last Vital Signs Temp 97.9 F 12/15/16 07:29 Pulse 63 12/15/16 08:27 Resp 14 12/15/16 08:00 BP 106/57 12/15/16 08:00 Pulse Ox 98 12/15/16 08:00 General appearance: no acute distress, asleep, agitated (pulls at restraints when stimulated, but does not open eyes) Effort: other (ventilated) Cardiovascular: regular rate and rhythm Gastrointestinal: hypoactive bowel sounds, non-tender, non-distended Integumentary: normal Extremities: no cyanosis Musculoskeletal: no deformities motor strength normal and symmetric, other (does not follow commands) Ventilator Settings Ventilator Settings: Ventilator Settings, Last 8 Hours Ventilator Mode VC+ Ventilator Mode VC+ Ventilator Mode VC+ Ventilator Mode VC+ Ventilator Mode VC+ Ventilator Mode VC+ Ventilator Mode VC+ Ventilator Mode VC+ Ventilator Mode VC+ Ventilator Mode VC+ Ventilator Tidal Volume 480 Setting Ventilator Tidal Volume 480 Setting Ventilator Tidal Volume 480 Setting Ventilator Tidal Volume 480 Setting Ventilator Tidal Volume 480 Setting Ventilator Tidal Volume 480 Setting Ventilator Tidal Volume 480 Setting Ventilator Tidal Volume 480 Setting Ventilator Tidal Volume 480 Setting Ventilator Tidal Volume 480 Setting Ventilator Respiratory Rate 14 Setting Ventilator Respiratory Rate 14 Setting Ventilator Respiratory Rate 14 Setting Ventilator Respiratory Rate 14 Setting Ventilator Respiratory Rate 14 Setting Ventilator Respiratory Rate 14 Setting Ventilator Respiratory Rate 14 Setting Ventilator Respiratory Rate 14 Setting Ventilator Respiratory Rate 14 Setting Ventilator Respiratory Rate 14 Setting Actual Respiratory Rate 14 Actual Respiratory Rate 14 Actual Respiratory Rate 14 Actual Respiratory Rate 14 Actual Respiratory Rate 14 Actual Respiratory Rate 14 Actual Respiratory Rate 14 Actual Respiratory Rate 14 Actual Respiratory Rate 14 Actual Respiratory Rate 14 Positive End Expiratory 5 Pressure Positive End Expiratory 5 Pressure Positive End Expiratory 5 Pressure Positive End Expiratory 5 Pressure Positive End Expiratory 5 Pressure Positive End Expiratory 5 Pressure Positive End Expiratory 5 Pressure Positive End Expiratory 5 Pressure Positive End Expiratory 5 Pressure Positive End Expiratory 5 Pressure Peak Inspiratory Airway 31 Pressure Peak Inspiratory Airway 32 Pressure Peak Inspiratory Airway 30 Pressure Peak Inspiratory Airway 29 Pressure Peak Inspiratory Airway 36 Pressure Peak Inspiratory Airway 31 Pressure Peak Inspiratory Airway 30 Pressure Peak Inspiratory Airway 28 Pressure Peak Inspiratory Airway 28 Pressure Results - Laboratory Findings CBC and BMP: 12/15/16 04:05 12/15/16 04:05 ABG ABG pH 7.42 pH Units (7.32-7.45) 12/11/16 08:00 ABG pCO2 43 mmHg (35-45) 12/11/16 08:00 ABG pO2 225 mmHg (85-104) H 12/11/16 08:00 ABG O2 Saturation 100 % (95-98) H 12/11/16 08:00 PT/INR, D-dimer PT 15.5 Seconds (9.4-12.1) H 12/10/16 16:10 Abnormal lab findings: Abnormal lab results RBC 2.64 M/mcL (4.19-5.50) L 12/15/16 04:05 Hgb 8.2 g/dL (12.9-16.9) L 12/15/16 04:05 Hct 25.4 % (37.5-50.1) L 12/15/16 04:05 RDW 18.1 % (11.5-14.5) H 12/15/16 04:05 Plt Count 106 K/mcL (140-400) L 12/15/16 04:05 Nucleated RBCs/100 WBC 0.4 /100 WBC (0) H 12/06/16 05:14 Platelet Estimate Decreased (Normal) L 12/11/16 04:10 Immature Plt Fraction 9.5 % (1.1-6.1) H 12/13/16 03:33 Polychromasia 1+ (Not Present) A 12/05/16 04:15 Basophilic Stippling 1+ (Not Present) A 12/05/16 04:15 Anisocytosis 2+ (Not Present) A 12/11/16 04:10 Macrocytosis Present (Not Present) A 12/05/16 04:15 PT 15.5 Seconds (9.4-12.1) H 12/10/16 16:10 ABG pO2 225 mmHg (85-104) H 12/11/16 08:00 ABG HCO3 28 mEq/L (21-27) H 12/11/16 08:00 ABG Total CO2 29 mEq/L (20-26) H 12/11/16 08:00 ABG O2 Saturation 100 % (95-98) H 12/11/16 08:00 ABG Base Excess 3.1 mEq/L (-2.0 to 3.0) H 12/11/16 08:00 BUN 42 mg/dL (8-26) H D 12/15/16 04:05 Creatinine 2.61 mg/dL (0.72-1.25) H D 12/15/16 04:05 Est GFR ( Amer) 30 (> 60) L 12/15/16 04:05 Est GFR (Non-Af Amer) 25 (> 60) L 12/15/16 04:05 Glucose 184 mg/dL (70-99) H 12/15/16 04:05 POC Glucose 170 (58-89) H 12/15/16 05:26 Serum Osmolality 332 mOsm/kg (280-300) H 12/08/16 07:59 Calculated Osmolality 303 (280-300) H 12/15/16 04:05 Uric Acid 8.8 mg/dL (3.5-7.2) H 12/06/16 05:14 Phosphorus 1.9 mg/dL (2.3-4.7) L 12/12/16 18:11 Iron 28 mcg/dL (65-175) L 12/06/16 05:14 % Saturation 14 % (20-55) L 12/06/16 05:14 Transferrin 144 mg/dL (174-364) L 12/06/16 05:14 Ferritin 417 ng/ml (22-275) H 12/06/16 05:14 Alkaline Phosphatase 138 Units/L (38-126) H 12/14/16 12:15 Troponin I 0.04 ng/mL (0-0.03) H* 12/09/16 23:45 B-Natriuretic Peptide 162 pg/mL (0-100) H 12/04/16 08:08 Serum Total Protein 5.6 g/dL (6.0-8.3) L 12/14/16 12:15 Albumin 2.0 g/dL (3.5-5.0) L 12/14/16 12:15 Albumin (PEP) 2.75 g/dL (3.75-5.01) L 12/06/16 05:14 Globulin 3.6 g/dL (2.4-3.5) H 12/14/16 12:15 Albumin/Globulin Ratio 0.6 (1.1-2.2) L 12/14/16 12:15 Gamma Globulins 1.56 g/dL (0.62-1.51) H 12/06/16 05:14 Vitamin B12 1517 pg/mL (213-816) H 12/06/16 05:14 TSH 6.855 mcIU/mL (0.350-4.840) H 12/11/16 08:10 PTH Intact 148.0 pg/ml (8.5-72.5) H 12/06/16 05:14 Ur Specimen Adequacy See below A 12/04/16 18:05 Urine Clarity Turbid (Clear) A 12/06/16 04:52 Urine Protein >=300 mg/dL (Neg-Trace) H 12/06/16 04:52 Urine Blood Large (Negative) H 12/06/16 04:52 Ur Leukocyte Esterase Large (Negative) H 12/06/16 04:52 Urine Microscopic RBC TNTC per hpf (0-3) H 12/06/16 04:52 Urine Microscopic WBC TNTC per hpf (0-3) H 12/06/16 04:52 Ur Squamous Epith Cells Many per lpf (None-Few) H 12/06/16 04:52 Urine Bacteria Moderate per hpf (None-Few) H 12/06/16 04:52 Ur Culture Indicated? YES (NO) A 12/06/16 04:52 Protein/Creatinin Ratio 3.84 mg/mg (0-0.20) H 12/06/16 06:15 Urine Total Protein 238 mg/dL (1-14) H 12/06/16 06:15 ALINA Screen DETECTED (None Detected) A 12/06/16 05:14 ALINA Titer 1:40 (<1:40) H 12/06/16 05:14 - Clinical Findings Intake & Output: Intake & Output 12/14/16 12/15/16 12/15/16 23:59 07:59 15:59 Intake Total 653 / 653 502 / 502 Output Total 50 / 50 85 / 85 Balance 603 / 603 417 / 417 Weight 86.4 kg - VTE Documentation of Mechanical Device: Intermittent pneumatic compression device Consult Discharge Plan - Plan [facility]errals: [facility] [Primary Care Provider[facility] - <Carrie García - Last Filed: 12/15/16 18:36> Date of Encounter: 12/15/16 Objective PUL Vital signs: Last Vital Signs Temp 98.4 F 12/15/16 16:00 Pulse 85 12/15/16 18:00 Resp 16 12/15/16 18:00 BP 133/71 12/15/16 18:00 Pulse Ox 98 12/15/16 18:04 Ventilator Settings Ventilator Settings: Ventilator Settings, Last 8 Hours Ventilator Mode CPAP Ventilator Mode CPAP Ventilator Mode CPAP Ventilator Mode VC+ Ventilator Tidal Volume 480 Setting Ventilator Tidal Volume 480 Setting Ventilator Respiratory Rate 14 Setting Ventilator Respiratory Rate 14 Setting Actual Respiratory Rate 14 Actual Respiratory Rate 19 Actual Respiratory Rate 23 Actual Respiratory Rate 19 Positive End Expiratory 5 Pressure Positive End Expiratory 5 Pressure Positive End Expiratory 5 Pressure Positive End Expiratory 5 Pressure Peak Inspiratory Airway 40 Pressure Peak Inspiratory Airway 16 Pressure Peak Inspiratory Airway 16 Pressure Peak Inspiratory Airway 22 Pressure Results - Laboratory Findings CBC and BMP: 12/15/16 04:05 12/15/16 04:05 ABG ABG pH 7.42 pH Units (7.32-7.45) 12/11/16 08:00 ABG pCO2 43 mmHg (35-45) 12/11/16 08:00 ABG pO2 225 mmHg (85-104) H 12/11/16 08:00 ABG O2 Saturation 100 % (95-98) H 12/11/16 08:00 PT/INR, D-dimer PT 15.5 Seconds (9.4-12.1) H 12/10/16 16:10 Abnormal lab findings: Abnormal lab results RBC 2.64 M/mcL (4.19-5.50) L 12/15/16 04:05 Hgb 8.2 g/dL (12.9-16.9) L 12/15/16 04:05 Hct 25.4 % (37.5-50.1) L 12/15/16 04:05 RDW 18.1 % (11.5-14.5) H 12/15/16 04:05 Plt Count 106 K/mcL (140-400) L 12/15/16 04:05 Nucleated RBCs/100 WBC 0.4 /100 WBC (0) H 12/06/16 05:14 Platelet Estimate Decreased (Normal) L 12/11/16 04:10 Immature Plt Fraction 9.5 % (1.1-6.1) H 12/13/16 03:33 Polychromasia 1+ (Not Present) A 12/05/16 04:15 Basophilic Stippling 1+ (Not Present) A 12/05/16 04:15 Anisocytosis 2+ (Not Present) A 12/11/16 04:10 Macrocytosis Present (Not Present) A 12/05/16 04:15 PT 15.5 Seconds (9.4-12.1) H 12/10/16 16:10 ABG pO2 225 mmHg (85-104) H 12/11/16 08:00 ABG HCO3 28 mEq/L (21-27) H 12/11/16 08:00 ABG Total CO2 29 mEq/L (20-26) H 12/11/16 08:00 ABG O2 Saturation 100 % (95-98) H 12/11/16 08:00 ABG Base Excess 3.1 mEq/L (-2.0 to 3.0) H 12/11/16 08:00 BUN 42 mg/dL (8-26) H D 12/15/16 04:05 Creatinine 2.61 mg/dL (0.72-1.25) H D 12/15/16 04:05 Est GFR ( Amer) 30 (> 60) L 12/15/16 04:05 Est GFR (Non-Af Amer) 25 (> 60) L 12/15/16 04:05 Glucose 184 mg/dL (70-99) H 12/15/16 04:05 Serum Osmolality 332 mOsm/kg (280-300) H 12/08/16 07:59 Calculated Osmolality 303 (280-300) H 12/15/16 04:05 Uric Acid 8.8 mg/dL (3.5-7.2) H 12/06/16 05:14 Phosphorus 1.9 mg/dL (2.3-4.7) L 12/12/16 18:11 Iron 28 mcg/dL (65-175) L 12/06/16 05:14 % Saturation 14 % (20-55) L 12/06/16 05:14 Transferrin 144 mg/dL (174-364) L 12/06/16 05:14 Ferritin 417 ng/ml (22-275) H 12/06/16 05:14 Alkaline Phosphatase 138 Units/L (38-126) H 12/14/16 12:15 Troponin I 0.04 ng/mL (0-0.03) H* 12/09/16 23:45 B-Natriuretic Peptide 162 pg/mL (0-100) H 12/04/16 08:08 Serum Total Protein 5.6 g/dL (6.0-8.3) L 12/14/16 12:15 Albumin 2.0 g/dL (3.5-5.0) L 12/14/16 12:15 Albumin (PEP) 2.75 g/dL (3.75-5.01) L 12/06/16 05:14 Globulin 3.6 g/dL (2.4-3.5) H 12/14/16 12:15 Albumin/Globulin Ratio 0.6 (1.1-2.2) L 12/14/16 12:15 Gamma Globulins 1.56 g/dL (0.62-1.51) H 12/06/16 05:14 Vitamin B12 1517 pg/mL (213-816) H 12/06/16 05:14 TSH 6.855 mcIU/mL (0.350-4.840) H 12/11/16 08:10 PTH Intact 148.0 pg/ml (8.5-72.5) H 12/06/16 05:14 Ur Specimen Adequacy See below A 12/04/16 18:05 Urine Clarity Turbid (Clear) A 12/06/16 04:52 Urine Protein >=300 mg/dL (Neg-Trace) H 12/06/16 04:52 Urine Blood Large (Negative) H 12/06/16 04:52 Ur Leukocyte Esterase Large (Negative) H 12/06/16 04:52 Urine Microscopic RBC TNTC per hpf (0-3) H 12/06/16 04:52 Urine Microscopic WBC TNTC per hpf (0-3) H 12/06/16 04:52 Ur Squamous Epith Cells Many per lpf (None-Few) H 12/06/16 04:52 Urine Bacteria Moderate per hpf (None-Few) H 12/06/16 04:52 Ur Culture Indicated? YES (NO) A 12/06/16 04:52 Protein/Creatinin Ratio 3.84 mg/mg (0-0.20) H 12/06/16 06:15 Urine Total Protein 238 mg/dL (1-14) H 12/06/16 06:15 ALINA Screen DETECTED (None Detected) A 12/06/16 05:14 ALINA Titer 1:40 (<1:40) H 12/06/16 05:14 - Microbiology Findings Microbiology Findings: Microbiology, Last 48 Hours 12/09/16 10:05 Blood Culture - Final Peripheral Venipuncture No growth. 12/09/16 10:00 Blood Culture - Final Peripheral Venipuncture No growth. - Clinical Findings Intake & Output: Intake & Output 12/15/16 12/15/16 12/15/16 07:59 15:59 23:59 Intake Total 602 / 602 800 / 800 200 / 200 Output Total 85 / 85 2675 / 2675 Balance 517 / 517 -1875 / -1875 200 / 200 Weight 86.4 kg 86.4 kg - Attending Attestation I saw the patient with the resident agree with History and Physical exam findings. 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 NECK : No JVD appreciated Pulmonary : Patient is on Ventilator due to fluid overload vs Aspiration pneumonia to continue ventilatory support patient is getting HD with 2.5 litres fluid removed patient did well on SBT, spoke with Court appointed guardian will come on tuesday will extubate him , guardian wants to discuss about goals of care with the patient if says he doesnt want any dialysis or re intubation then will make him comfort care . Cardiac : Hemodynamically stable will do fluid removal Nutrition/GI: Patient is on tube feeds, PPI prophylaxis Renal : Acute on Chronic kidney injury Nephrology following . Renal function not improving will need dialysis in the near future . Fluid removal will help in extubating the patient. Heme onc : No acute issues ID : To continue the current regimen of antibiotics will stop aztreonam and flagyl after todays dose. Disposition : Critical Code status: DNRCCA Spoke with Court Guardian will address code status on Tuesday .
[2016-12-15] MEDS: Pantoprazole 40 MG VIAL IVP SCH (08:44)
[2016-12-15] MEDS: Chlorhexidine Rinse 15 ML MOUTHWASH MM SCH ×2 (08:44→21:12)
[2016-12-15] MEDS: Ferrous Sulfate Oral Soln 300 MG/5 ML UDC PO SCH ×3 (08:44→16:34)
[2016-12-15] MEDS: Calcium Acetate 667 MG CAPSULE PO SCH ×3 (08:46→16:30)
--- NOTE | 2016-12-15 10:37 | Nephrology Progress Note ---
Date of Encounter: 12/15/16 Time of Encounter: 10:34 - Assessment and Plan (1) Acute on chronic kidney failure Current Visit: Yes Status: Acute Mr. Dillard was transferred from the [facility] with a creatinine according to their documentation of 4.28 and GFR of 14.8 with a sodium of 147 and that BUN of 149. According to their records the patient was admitted with a creatinine of 2.0 and a GFR of 35.6 and according to lab results from 11/07/2016 he had a creatinine 2.43 and a GFR of 27. - Despite hemodialysis patient continues to have poor renal output with a total of 8 ML's in 24 hours - Renal function not improving. - Continue monitoring volume status and avoid extra fluid if possible to reduce volume load. - At this time Mr. Dillard's renal function is not improving and longer term outlook with his multiple medical issues he does not appear to be a good candidate for HD. - After discussion with ICU team about his current medical condition and prognosis there is agreement that Mr. Dillard would benefit from a Palliative care consult. 12/15: Patient remains intubadated and sedated after failure to tolerate CPAP. Will undergo HD today. Renal output over the past 24hrs is zero. No improvement in kidney function. Plan: - Continue Gomez catheter in place - Avoid nephrotoxic medications and renally dose antibiotics - HD today. - Repeat CMP in a.m. Qualifiers: Acute renal failure type: with acute tubular necrosis Chronic kidney disease stage: stage 4 (severe) Qualified Code(s): N17.0 - Acute kidney failure with tubular necrosis; N18.4 - Chronic kidney disease, stage 4 (severe) (2) Acute respiratory failure with hypoxia and hypercapnia Current Visit: Yes Status: Acute Patient continues to be intubated and sedated. May attempt CPAP trial today. - Likely secondary to aspiration pneumonia and pulmonary edema. - Management per primary team (3) Hyperkalemia Current Visit: Yes Status: Acute Patient presented with hyperkalemia with a potassium 5.0 in the setting of acute on chronic kidney disease. Likely secondary to poor renal output and dehydration. Since starting hemodialysis patient potassium level has been appropriate. - Hyperkalemia likely secondary to severe renal disease 12/15: Potassium level stable. Plan: - Monitor electrolytes daily (4) Anemia Current Visit: Yes Status: Chronic Patient has a history of chronic anemia with a hemoglobin of 10.4 in March of this year. When he was admitted to the [facility] he had a hemoglobin of 6.6 and received 2 units of PRBCs and has maintained a hemoglobin of around 9 since admission. His hemoglobin has continued to drop to 6.6 requiring 2 more units of PRBC transfusion on 12/10/2016. His hemoglobin trending down slowly. - Likely multifactorial with end-stage renal disease, poor nutritional intake, positive fluid balance. Recommend looking for possible GI source of loss. 12/15: stable from yesterday. stool occult still pending. Plan: - Monitor with daily CBC - Transfuse PRBC if hemoglobin below 7.0 Qualifiers: Anemia type: due to chronic kidney disease Chronic kidney disease stage: stage 4 (severe) Qualified Code(s): N18.4 - Chronic kidney disease, stage 4 ( severe); D63.1 - Anemia in chronic kidney disease (5) Type 2 diabetes mellitus Current Visit: Yes Status: Acute Known type II diabetic with chronic kidney disease. Insulin-dependent, glucose upon admission was 102 Plan: -Continue management by primary team. Qualifiers: Diabetes mellitus complication status: without complication Diabetes mellitus predatory animal exterminator insulin use: with predatory animal exterminator use Qualified Code(s): E11.9 - Type 2 diabetes mellitus without complications; Z79.4 - terminal gauger (current) use of insulin Subjective Principal diagnosis: BEBETO/CKD Interval history: Mr. Dillard 66-year-old male's been seen and evaluated patient bedside. He is intubated and sedated at this time and failed CPAP trial initially. No changes since yesterday. Objective - Vital Signs Vital signs: Vital Signs Temp Pulse Resp BP Pulse Ox 12/15/16 10:00 84 16 116/64 97 12/15/16 09:55 17 111/57 98 12/15/16 09:35 97.9 F 18 106/56 12/15/16 09:00 86 16 119/72 98 12/15/16 08:27 63 12/15/16 08:00 63 14 106/57 98 12/15/16 07:36 14 110/61 99 12/15/16 07:29 97.9 F 12/15/16 07:00 65 16 104/58 98 12/15/16 06:00 63 14 112/60 99 12/15/16 05:37 14 99 12/15/16 05:00 63 14 118/64 98 12/15/16 04:35 63 12/15/16 04:00 97.5 F L 61 14 115/63 99 12/15/16 03:45 14 98 12/15/16 03:00 57 14 115/64 98 12/15/16 02:00 55 14 120/63 98 12/15/16 01:00 50 14 128/67 97 12/15/16 00:40 49 12/15/16 00:00 95.9 F L 49 14 126/71 98 12/14/16 23:29 14 98 12/14/16 23:00 53 14 105/56 98 12/14/16 22:00 55 14 148/73 96 12/14/16 21:21 14 97 12/14/16 21:00 52 14 143/76 97 12/14/16 20:30 52 12/14/16 20:00 95.7 F L 52 14 137/71 99 12/14/16 19:00 54 14 134/70 98 12/14/16 18:01 96.0 F L 12/14/16 18:00 60 14 132/65 98 12/14/16 17:12 14 131/74 97 12/14/16 15:56 96.0 F L 12/14/16 15:05 14 122/67 97 12/14/16 15:00 61 27 137/76 97 12/14/16 14:00 61 10 122/67 98 12/14/16 13:15 10 117/65 97 12/14/16 13:00 70 10 117/65 98 12/14/16 12:00 77 10 110/61 96 12/14/16 11:53 97.8 F 12/14/16 11:10 10 112/62 96 12/14/16 11:00 84 10 123/70 96 Intake and Output 12/14/16 12/15/16 12/15/16 23:59 07:59 15:59 Intake Total 653 / 653 602 / 602 600 / 600 Output Total 50 / 50 85 / 85 Balance 603 / 603 517 / 517 600 / 600 Intake: IV Fluids 400 / 400 300 / 300 PRECEDEX Premix 400 mcg In 100 0 / 0 100 / 100 ml @ 0.2 MCG/KG/HR 4.25 mls/hr IVC .[id number] RACHNA Rx#:[id number] FentaNYL (PF) 1,000 MCG In 0.9 100 / 100 % Sodium Chloride 80 ML @ 50 MCG/HR 5 mls/hr IVC CONT RACHNA Rx #:[id number] Azactam 500 MG In Dextrose 5% 100 / 100 100 / 100 100 ML @ 200 mls/hr IVPB Q6H RACHNA Rx#:[id number] Flagyl Premix 500 MG/100 ML 500 200 / 200 100 / 100 mg In 100 ml @ 100 mls/hr IVPB Q6H RACHNA Rx#:[id number] Oral 0 / 0 Tube Feeding 253 / 253 302 / 302 Intake, Rinseback and Flushes 600 / 600 Output: Catheter 50 / 50 85 / 85 Other: Weight 86.4 kg 86.4 kg Blood Glucose* 165 195 Hemodialysis Net Fluid Removed 0 (mL) Patient Weight 12/15/16 23:59 Weight 86.4 kg - General Appearance General appearance: Present: well-developed, well-nourished, appears started age Neck: Present: no JVD, no thyromegaly, no carotid bruit, supple Respiratory: Present: rhonchi Cardiology: Present: no murmurs, edema (trace in bilateral LE), regular rate, regular rhythm Gastrointestinal: Present: normoactive bowel sounds, no tenderness, no guarding , no masses Integumentary: Present: no rash, warm and dry Neurologic: Present: no focal deficit Musculoskeletal: Present: no erythema, no cyanosis, no clubbing Psychiatric: Present: agitated - Lab 12/15/16 04:05 12/15/16 04:05 Most recent lab results ABG pH 7.42 pH Units (7.32-7.45) 12/11/16 08:00 ABG pCO2 43 mmHg (35-45) 12/11/16 08:00 ABG pO2 225 mmHg (85-104) H 12/11/16 08:00 ABG HCO3 28 mEq/L (21-27) H 12/11/16 08:00 ABG O2 Saturation 100 % (95-98) H 12/11/16 08:00 Calcium 9.6 mg/dL (8.6-10.8) 12/15/16 04:05 Phosphorus 1.9 mg/dL (2.3-4.7) L 12/12/16 18:11 Magnesium 1.8 mg/dL (1.6-2.6) 12/13/16 03:33 Urine Creatinine 62 mg/dL 12/06/16 06:15 Urine Sodium 37.0 mEq/L 12/06/16 06:15 Urine Total Protein 238 mg/dL (1-14) H 12/06/16 06:15 - VTE Documentation of Mechanical Device: Intermittent pneumatic compression device Consult Discharge Plan - Plan [facility]errals: [facility] [Primary Care Provider] -
[2016-12-15] MEDS: PrismaSATE BGK 4/2.5 5,000 ML CRRT SCH ×2 (12:46)
[2016-12-15] MEDS: Bisacodyl 10 MG RECTAL SUPPOSITORY RC SCH (13:39)
[2016-12-15] MEDS: Sennosides 8.6 MG TABLET PO SCH (21:13)
[2016-12-16] MEDS: Dexmedetomidine HCl 400 MCG/100 ML MLS IVC SCH ×3 (01:57→23:02)
[2016-12-16] MEDS: Ipratropium/Albuterol Neb 3 ML IH SCH ×4 (03:42→22:32)
[2016-12-16 04:06] LABS: Eosinophils # 0.1 K/mcL (0.0-0.6); Eosinophils % 2.7 %; Hematocrit 24.4 % (37.5-50.1); Hemoglobin 7.6 g/dL (12.9-16.9); Immature Granulocytes % 0.4 % (0-4); Lymphocytes # 1.1 K/mcL (0.6-4.6); Lymphocytes % 20.5 %; Mean Corpuscular HGB Conc 31.1 g/dL (31.6-35.5); Mean Corpuscular Hemoglobin 29.8 pg (28.0-33.3); Mean Corpuscular Volume 95.7 fL (83.0-100.0); Mean Platelet Volume 11.2 fL (9.4-12.4); Monocytes # 0.2 K/mcL (0.0-1.3); Monocytes % 3.6 %; Neutrophils # 3.8 K/mcL (1.6-8.9); Platelet Count 116 K/mcL (140-400); Red Blood Count 2.55 M/mcL (4.19-5.50); Red Cell Distribution Width 17.6 % (11.5-14.5); Segmented Neutrophils % 72.8 %
[2016-12-16 04:16] LABS: Potassium 3.9 mEq/L (3.5-4.5)
[2016-12-16] MEDS: Aztreonam 500 MG in D5% in Water 100 ML IVPB SCH ×4 (04:20→21:03)
[2016-12-16] MEDS: Lacri-Lube 3.5 GM TUBE BOTH EYES SCH ×6 (05:10→23:05)
[2016-12-16] MEDS: Levothyroxine 25 MCG TABLET PO SCH (05:30)
[2016-12-16] MEDS: MetroNIDAZOLE 500 MG/100 ML 500 MG/100 ML BAG IVPB SCH ×4 (05:30→22:00)
[2016-12-16] MEDS: Insulin LISPRO 300 UNITS/3 ML VIAL SQ SCH ×4 (05:31→23:04)
[2016-12-16] MEDS: Albuterol 2.5 MG/3 ML NEBULIZER IH PRN (07:19)
--- NOTE | 2016-12-16 08:14 | Pulmonology Progress Note ---
<EmCorwin - Last Filed: 12/16/16 11:11> Date of Encounter: 12/16/16 Time of Encounter: 08:13 Assessment and Plan (1) Acute respiratory failure with hypoxia and hypercapnia Current Visit: Yes Status: Acute Secondary to pleural effusion and aspiration pneumonia Will re-check CXR and ABG in morning to see if there are any significant changes Continue current ventilator management and prepare for CPAP trial and possible extubation tomorrow when his claims attorney Suraj Taveras arrives Palliative consulted, appreciate recommendations (2) Acute on chronic kidney failure Current Visit: Yes Status: Acute Cr improving today at 2.19 from 2.61 yesterday after receiving HD yesterday Nephrology consulted; appreciate management of hemodialysis Continue to closely monitor electrolytes, I/O's, and avoid nephrotoxic agents Qualifiers: Acute renal failure type: with acute tubular necrosis Chronic kidney disease stage: stage 4 (severe) Qualified Code(s): N17.0 - Acute kidney failure with tubular necrosis; N18.4 - Chronic kidney disease, stage 4 (severe) (3) Aspiration pneumonia Current Visit: Yes Status: Acute Currently on day 8 of Aztreonam and Flagyl Blood and sputum cultures remain negative He still has moderate secretions from ET tube Qualifiers: Aspiration pneumonia type: unspecified Laterality: unspecified laterality Lung location: unspecified part of lung Qualified Code(s): J69.0 - Pneumonitis due to inhalation of food and vomit (4) Infrequent bowel movements Current Visit: Yes Status: Acute He did have a loose, mucus-covered bowel movement yesterday; stool cultures pending Continue with tube feeds and scheduled senna (5) Thrombocytopenia Current Visit: Yes Status: Chronic Platelets are steadily increasing; likely getting over infection No signs of bleeding at this time (6) Schizophrenia Current Visit: Yes Status: Chronic He was evaluated by psychiatry and deemed not able to make his own medical decisions and he currently has court appointed claims attorney Continue with Seroquel 50 BID Qualifiers: Schizophrenia type: unspecified Qualified Code(s): F20.9 - Schizophrenia, unspecified (7) DVT prophylaxis Current Visit: Yes Status: Acute EPCDs in setting of anemia/thrombocytopenia Subjective Principal diagnosis: BEBETO/CKD Interval history: Patient seen and examined. He is awake but remains intubated and sedated. He does blink his eye when talking to and does move his toes when asked. RN did not report any significant overnight events. Objective PUL Vital signs: Last Vital Signs Temp 98.7 F 12/16/16 07:36 Pulse 81 12/16/16 06:00 Resp 14 12/16/16 06:00 BP 106/54 12/16/16 06:00 Pulse Ox 96 12/16/16 06:00 General appearance: no acute distress, alert Eyes: nonicteric ENT: oropharynx moist Neck: supple Effort: normal Auscultation: bilateral: rhonchi Percussion: bilateral: not dull Tactile fremitus: bilateral: normal Cardiovascular: regular rate and rhythm Gastrointestinal: normoactive bowel sounds, non-distended Integumentary: normal Extremities: no cyanosis, no clubbing, edema Musculoskeletal: no deformities, ROM normal unable to assess due to mental status mood appropriate, affect normal Ventilator Settings Ventilator Settings: Ventilator Settings, Last 8 Hours Ventilator Mode VC+ Ventilator Mode VC+ Ventilator Mode VC+ Ventilator Mode VC+ Ventilator Mode VC+ Ventilator Mode VC+ Ventilator Mode VC+ Ventilator Mode VC+ Ventilator Tidal Volume 480 Setting Ventilator Tidal Volume 480 Setting Ventilator Tidal Volume 480 Setting Ventilator Tidal Volume 480 Setting Ventilator Tidal Volume 480 Setting Ventilator Tidal Volume 480 Setting Ventilator Tidal Volume 480 Setting Ventilator Respiratory Rate 14 Setting Ventilator Respiratory Rate 518 Setting Ventilator Respiratory Rate 14 Setting Ventilator Respiratory Rate 14 Setting Ventilator Respiratory Rate 14 Setting Ventilator Respiratory Rate 14 Setting Ventilator Respiratory Rate 14 Setting Ventilator Respiratory Rate 14 Setting Actual Respiratory Rate 14 Actual Respiratory Rate 14 Actual Respiratory Rate 14 Actual Respiratory Rate 14 Actual Respiratory Rate 14 Actual Respiratory Rate 14 Actual Respiratory Rate 14 Actual Respiratory Rate 14 Positive End Expiratory 5 Pressure Positive End Expiratory 14 Pressure Positive End Expiratory 5 Pressure Positive End Expiratory 5 Pressure Positive End Expiratory 5 Pressure Positive End Expiratory 5 Pressure Positive End Expiratory 5 Pressure Positive End Expiratory 5 Pressure Peak Inspiratory Airway 29 Pressure Peak Inspiratory Airway 28 Pressure Peak Inspiratory Airway 28 Pressure Peak Inspiratory Airway 26 Pressure Peak Inspiratory Airway 21 Pressure Peak Inspiratory Airway 30 Pressure Peak Inspiratory Airway 25 Pressure Peak Inspiratory Airway 28 Pressure Results - Laboratory Findings CBC and BMP: 12/16/16 03:48 12/16/16 03:48 ABG ABG pH 7.42 pH Units (7.32-7.45) 12/11/16 08:00 ABG pCO2 43 mmHg (35-45) 12/11/16 08:00 ABG pO2 225 mmHg (85-104) H 12/11/16 08:00 ABG O2 Saturation 100 % (95-98) H 12/11/16 08:00 PT/INR, D-dimer PT 15.5 Seconds (9.4-12.1) H 12/10/16 16:10 Abnormal lab findings: Abnormal lab results RBC 2.55 M/mcL (4.19-5.50) L 12/16/16 03:48 Hgb 7.6 g/dL (12.9-16.9) L 12/16/16 03:48 Hct 24.4 % (37.5-50.1) L 12/16/16 03:48 MCHC 31.1 g/dL (31.6-35.5) L 12/16/16 03:48 RDW 17.6 % (11.5-14.5) H 12/16/16 03:48 Plt Count 116 K/mcL (140-400) L 12/16/16 03:48 Nucleated RBCs/100 WBC 0.4 /100 WBC (0) H 12/06/16 05:14 Platelet Estimate Decreased (Normal) L 12/11/16 04:10 Immature Plt Fraction 9.5 % (1.1-6.1) H 12/13/16 03:33 Polychromasia 1+ (Not Present) A 12/05/16 04:15 Basophilic Stippling 1+ (Not Present) A 12/05/16 04:15 Anisocytosis 2+ (Not Present) A 12/11/16 04:10 Macrocytosis Present (Not Present) A 12/05/16 04:15 PT 15.5 Seconds (9.4-12.1) H 12/10/16 16:10 ABG pO2 225 mmHg (85-104) H 12/11/16 08:00 ABG HCO3 28 mEq/L (21-27) H 12/11/16 08:00 ABG Total CO2 29 mEq/L (20-26) H 12/11/16 08:00 ABG O2 Saturation 100 % (95-98) H 12/11/16 08:00 ABG Base Excess 3.1 mEq/L (-2.0 to 3.0) H 12/11/16 08:00 Carbon Dioxide 30 mEq/L (19-29) H 12/16/16 03:48 BUN 32 mg/dL (8-26) H D 12/16/16 03:48 Creatinine 2.19 mg/dL (0.72-1.25) H 12/16/16 03:48 Est GFR ( Amer) 37 (> 60) L 12/16/16 03:48 Est GFR (Non-Af Amer) 30 (> 60) L 12/16/16 03:48 Glucose 159 mg/dL (70-99) H 12/16/16 03:48 POC Glucose 136 (58-89) H 12/16/16 07:17 Serum Osmolality 332 mOsm/kg (280-300) H 12/08/16 07:59 Uric Acid 8.8 mg/dL (3.5-7.2) H 12/06/16 05:14 Calcium 8.0 mg/dL (8.6-10.8) L D 12/16/16 03:48 Phosphorus 1.9 mg/dL (2.3-4.7) L 12/12/16 18:11 Iron 28 mcg/dL (65-175) L 12/06/16 05:14 % Saturation 14 % (20-55) L 12/06/16 05:14 Transferrin 144 mg/dL (174-364) L 12/06/16 05:14 Ferritin 417 ng/ml (22-275) H 12/06/16 05:14 Alkaline Phosphatase 138 Units/L (38-126) H 12/14/16 12:15 Troponin I 0.04 ng/mL (0-0.03) H* 12/09/16 23:45 B-Natriuretic Peptide 162 pg/mL (0-100) H 12/04/16 08:08 Serum Total Protein 5.6 g/dL (6.0-8.3) L 12/14/16 12:15 Albumin 2.0 g/dL (3.5-5.0) L 12/14/16 12:15 Albumin (PEP) 2.75 g/dL (3.75-5.01) L 12/06/16 05:14 Globulin 3.6 g/dL (2.4-3.5) H 12/14/16 12:15 Albumin/Globulin Ratio 0.6 (1.1-2.2) L 12/14/16 12:15 Gamma Globulins 1.56 g/dL (0.62-1.51) H 12/06/16 05:14 Vitamin B12 1517 pg/mL (213-816) H 12/06/16 05:14 TSH 6.855 mcIU/mL (0.350-4.840) H 12/11/16 08:10 PTH Intact 148.0 pg/ml (8.5-72.5) H 12/06/16 05:14 Ur Specimen Adequacy See below A 12/04/16 18:05 Urine Clarity Turbid (Clear) A 12/06/16 04:52 Urine Protein >=300 mg/dL (Neg-Trace) H 12/06/16 04:52 Urine Blood Large (Negative) H 12/06/16 04:52 Ur Leukocyte Esterase Large (Negative) H 12/06/16 04:52 Urine Microscopic RBC TNTC per hpf (0-3) H 12/06/16 04:52 Urine Microscopic WBC TNTC per hpf (0-3) H 12/06/16 04:52 Ur Squamous Epith Cells Many per lpf (None-Few) H 12/06/16 04:52 Urine Bacteria Moderate per hpf (None-Few) H 12/06/16 04:52 Ur Culture Indicated? YES (NO) A 12/06/16 04:52 Protein/Creatinin Ratio 3.84 mg/mg (0-0.20) H 12/06/16 06:15 Urine Total Protein 238 mg/dL (1-14) H 12/06/16 06:15 ALINA Screen DETECTED (None Detected) A 12/06/16 05:14 ALINA Titer 1:40 (<1:40) H 12/06/16 05:14 - Microbiology Findings Microbiology Findings: Microbiology, Last 48 Hours 12/09/16 10:05 Blood Culture - Final Peripheral Venipuncture No growth. 12/09/16 10:00 Blood Culture - Final Peripheral Venipuncture No growth. - Clinical Findings Intake & Output: Intake & Output 12/15/16 12/16/16 12/16/16 23:59 07:59 15:59 Intake Total 560 / 560 842 / 842 Output Total 75 / 75 55 / 55 Balance 485 / 485 787 / 787 Weight 87.32 kg - VTE Documentation of Mechanical Device: Intermittent pneumatic compression device Consult Discharge Plan - Plan [facility]errals: [facility] [Primary Care Provider[facility] - <Carrie García - Last Filed: 12/16/16 19:06> Date of Encounter: 12/16/16 Objective PUL Vital signs: Last Vital Signs Temp 98.9 F 12/16/16 16:06 Pulse 84 12/16/16 18:00 Resp 14 12/16/16 18:09 BP 141/70 12/16/16 18:00 Pulse Ox 100 12/16/16 18:09 Ventilator Settings Ventilator Settings: Ventilator Settings, Last 8 Hours Ventilator Mode VC+ Ventilator Mode VC+ Ventilator Mode VC+ Ventilator Mode VC+ Ventilator Mode A/C Ventilator Mode VC+ Ventilator Mode VC+ Ventilator Mode CPAP Ventilator Mode CPAP Ventilator Mode CPAP Ventilator Mode CPAP Ventilator Mode CPAP Ventilator Tidal Volume 480 Setting Ventilator Tidal Volume 480 Setting Ventilator Tidal Volume 480 Setting Ventilator Tidal Volume 480 Setting Ventilator Tidal Volume 480 Setting Ventilator Tidal Volume 480 Setting Ventilator Tidal Volume 480 Setting Ventilator Respiratory Rate 14 Setting Ventilator Respiratory Rate 14 Setting Ventilator Respiratory Rate 14 Setting Ventilator Respiratory Rate 14 Setting Ventilator Respiratory Rate 14 Setting Ventilator Respiratory Rate 14 Setting Actual Respiratory Rate 14 Actual Respiratory Rate 14 Actual Respiratory Rate 14 Actual Respiratory Rate 14 Actual Respiratory Rate 25 Actual Respiratory Rate 28 Actual Respiratory Rate 26 Actual Respiratory Rate 26 Actual Respiratory Rate 27 Actual Respiratory Rate 26 Actual Respiratory Rate 15 Positive End Expiratory 5 Pressure Positive End Expiratory 5 Pressure Positive End Expiratory 5 Pressure Positive End Expiratory 5 Pressure Positive End Expiratory 5 Pressure Positive End Expiratory 5 Pressure Positive End Expiratory 5 Pressure Positive End Expiratory 5 Pressure Positive End Expiratory 5 Pressure Positive End Expiratory 5 Pressure Positive End Expiratory 5 Pressure Positive End Expiratory 5 Pressure Peak Inspiratory Airway 29 Pressure Peak Inspiratory Airway 31 Pressure Peak Inspiratory Airway 29 Pressure Peak Inspiratory Airway 34 Pressure Peak Inspiratory Airway 24 Pressure Peak Inspiratory Airway 11 Pressure Peak Inspiratory Airway 11 Pressure Peak Inspiratory Airway 11 Pressure Peak Inspiratory Airway 11 Pressure Peak Inspiratory Airway 10 Pressure Results - Laboratory Findings CBC and BMP: 12/16/16 03:48 12/16/16 03:48 ABG ABG pH 7.43 pH Units (7.32-7.45) 12/16/16 15:59 ABG pCO2 47 mmHg (35-45) H 12/16/16 15:59 ABG pO2 155 mmHg (85-104) H 12/16/16 15:59 ABG O2 Saturation 99 % (95-98) H 12/16/16 15:59 PT/INR, D-dimer PT 15.5 Seconds (9.4-12.1) H 12/10/16 16:10 Abnormal lab findings: Abnormal lab results RBC 2.55 M/mcL (4.19-5.50) L 12/16/16 03:48 Hgb 7.6 g/dL (12.9-16.9) L 12/16/16 03:48 Hct 24.4 % (37.5-50.1) L 12/16/16 03:48 MCHC 31.1 g/dL (31.6-35.5) L 12/16/16 03:48 RDW 17.6 % (11.5-14.5) H 12/16/16 03:48 Plt Count 116 K/mcL (140-400) L 12/16/16 03:48 Nucleated RBCs/100 WBC 0.4 /100 WBC (0) H 12/06/16 05:14 Platelet Estimate Decreased (Normal) L 12/11/16 04:10 Immature Plt Fraction 9.5 % (1.1-6.1) H 12/13/16 03:33 Polychromasia 1+ (Not Present) A 12/05/16 04:15 Basophilic Stippling 1+ (Not Present) A 12/05/16 04:15 Anisocytosis 2+ (Not Present) A 12/11/16 04:10 Macrocytosis Present (Not Present) A 12/05/16 04:15 Haptoglobin 210 mg/dL (30-200) H 12/14/16 12:15 PT 15.5 Seconds (9.4-12.1) H 12/10/16 16:10 ABG pCO2 47 mmHg (35-45) H 12/16/16 15:59 ABG pO2 155 mmHg (85-104) H 12/16/16 15:59 ABG HCO3 31 mEq/L (21-27) H 12/16/16 15:59 ABG Total CO2 33 mEq/L (20-26) H 12/16/16 15:59 ABG O2 Saturation 99 % (95-98) H 12/16/16 15:59 ABG Base Excess 6.2 mEq/L (-2.0 to 3.0) H 12/16/16 15:59 Carbon Dioxide 30 mEq/L (19-29) H 12/16/16 03:48 BUN 32 mg/dL (8-26) H D 12/16/16 03:48 Creatinine 2.19 mg/dL (0.72-1.25) H 12/16/16 03:48 Est GFR ( Amer) 37 (> 60) L 12/16/16 03:48 Est GFR (Non-Af Amer) 30 (> 60) L 12/16/16 03:48 Glucose 159 mg/dL (70-99) H 12/16/16 03:48 POC Glucose 172 (58-89) H 12/16/16 17:54 Serum Osmolality 332 mOsm/kg (280-300) H 12/08/16 07:59 Uric Acid 8.8 mg/dL (3.5-7.2) H 12/06/16 05:14 Calcium 8.0 mg/dL (8.6-10.8) L D 12/16/16 03:48 Phosphorus 1.9 mg/dL (2.3-4.7) L 12/12/16 18:11 Iron 28 mcg/dL (65-175) L 12/06/16 05:14 % Saturation 14 % (20-55) L 12/06/16 05:14 Transferrin 144 mg/dL (174-364) L 12/06/16 05:14 Ferritin 417 ng/ml (22-275) H 12/06/16 05:14 Alkaline Phosphatase 138 Units/L (38-126) H 12/14/16 12:15 Troponin I 0.04 ng/mL (0-0.03) H* 12/09/16 23:45 B-Natriuretic Peptide 162 pg/mL (0-100) H 12/04/16 08:08 Serum Total Protein 5.6 g/dL (6.0-8.3) L 12/14/16 12:15 Albumin 2.0 g/dL (3.5-5.0) L 12/14/16 12:15 Albumin (PEP) 2.75 g/dL (3.75-5.01) L 12/06/16 05:14 Globulin 3.6 g/dL (2.4-3.5) H 12/14/16 12:15 Albumin/Globulin Ratio 0.6 (1.1-2.2) L 12/14/16 12:15 Gamma Globulins 1.56 g/dL (0.62-1.51) H 12/06/16 05:14 Vitamin B12 1517 pg/mL (213-816) H 12/06/16 05:14 TSH 6.855 mcIU/mL (0.350-4.840) H 12/11/16 08:10 PTH Intact 148.0 pg/ml (8.5-72.5) H 12/06/16 05:14 Ur Specimen Adequacy See below A 12/04/16 18:05 Urine Clarity Turbid (Clear) A 12/06/16 04:52 Urine Protein >=300 mg/dL (Neg-Trace) H 12/06/16 04:52 Urine Blood Large (Negative) H 12/06/16 04:52 Ur Leukocyte Esterase Large (Negative) H 12/06/16 04:52 Urine Microscopic RBC TNTC per hpf (0-3) H 12/06/16 04:52 Urine Microscopic WBC TNTC per hpf (0-3) H 12/06/16 04:52 Ur Squamous Epith Cells Many per lpf (None-Few) H 12/06/16 04:52 Urine Bacteria Moderate per hpf (None-Few) H 12/06/16 04:52 Ur Culture Indicated? YES (NO) A 12/06/16 04:52 Protein/Creatinin Ratio 3.84 mg/mg (0-0.20) H 12/06/16 06:15 Urine Total Protein 238 mg/dL (1-14) H 12/06/16 06:15 ALINA Screen DETECTED (None Detected) A 12/06/16 05:14 ALINA Titer 1:40 (<1:40) H 12/06/16 05:14 - Microbiology Findings Microbiology Findings: Microbiology, Last 48 Hours 12/09/16 10:05 Blood Culture - Final Peripheral Venipuncture No growth. 12/09/16 10:00 Blood Culture - Final Peripheral Venipuncture No growth. - Clinical Findings Intake & Output: Intake & Output 12/16/16 12/16/16 12/16/16 07:59 15:59 23:59 Intake Total 942 / 942 610 / 610 228 / 228 Output Total 55 / 55 60 / 60 100 / 100 Balance 887 / 887 550 / 550 128 / 128 Weight 87.32 kg - Attending Attestation I saw the patient with the resident agree with History and Physical exam findings. Labs and Radiology were reviewed Ventilator data were reviewed CUTLET [employer] PORK: Patient is on Precedex and Fentanyl, seroquel BID, cogentin added today patient is waking up following commands NECK : No JVD appreciated Pulmonary : Patient is on Ventilator due to fluid overload vs Aspiration pneumonia to continue ventilatory support , still patient quite bit of secretions will continue the current antibiotics of Aztreonam and Flagyl will try to extubate tomorrow after session of HD with Fluid removal .Patient did well on CPAP with RSBI of 58 Cardiac : Hemodynamically stable will do fluid removal tomorrow morning spoke with Nephrology Nutrition/GI: Patient is on tube feeds, PPI prophylaxis Renal : Acute on Chronic kidney injury Nephrology following . Renal function slowly improving will need dialysis in the near future . Fluid removal will help in extubating the patient. Heme onc : No acute issues ID : To continue the current regimen of antibiotics as she has increased secretions Disposition : Critical Code status: DNRCCA Spoke with Court Guardian will address code status on Tuesday .
[2016-12-16] MEDS: Chlorhexidine Rinse 15 ML MOUTHWASH MM SCH ×2 (08:23→20:06)
[2016-12-16] MEDS: Ferrous Sulfate Oral Soln 300 MG/5 ML UDC PO SCH ×3 (08:23→18:00)
[2016-12-16] MEDS: Calcium Acetate 667 MG CAPSULE PO SCH ×3 (08:24→18:02)
[2016-12-16] MEDS: Sennosides 8.6 MG TABLET PO SCH ×2 (08:24→19:33)
[2016-12-16] MEDS: Pantoprazole 40 MG VIAL IVP SCH (08:26)
--- NOTE | 2016-12-16 10:08 | Nephrology Progress Note ---
Date of Encounter: 12/16/16 Time of Encounter: 10:05 - Assessment and Plan (1) Acute on chronic kidney failure Current Visit: Yes Status: Acute Mr. Dillard was transferred from the [facility] with a creatinine according to their documentation of 4.28 and GFR of 14.8 with a sodium of 147 and that BUN of 149. According to their records the patient was admitted with a creatinine of 2.0 and a GFR of 35.6 and according to lab results from 11/07/2016 he had a creatinine 2.43 and a GFR of 27. - Despite hemodialysis patient continues to have poor renal output with a total of 8 ML's in 24 hours - Renal function not improving. - Continue monitoring volume status and avoid extra fluid if possible to reduce volume load. - At this time Mr. Dillard's renal function is not improving and longer term outlook with his multiple medical issues he does not appear to be a good candidate for HD. - After discussion with ICU team about his current medical condition and prognosis there is agreement that Mr. Dillard would benefit from a Palliative care consult. 12/15: Patient remains intubadated and sedated after failure to tolerate CPAP. Will undergo HD today. Renal output over the past 24hrs is zero. No improvement in kidney function. Plan: - Continue Gomez catheter in place - Avoid nephrotoxic medications and renally dose antibiotics - HD today. - Repeat CMP in a.m. Qualifiers: Acute renal failure type: with acute tubular necrosis Chronic kidney disease stage: stage 4 (severe) Qualified Code(s): N17.0 - Acute kidney failure with tubular necrosis; N18.4 - Chronic kidney disease, stage 4 (severe) (2) Acute respiratory failure with hypoxia and hypercapnia Current Visit: Yes Status: Acute Patient continues to be intubated and sedated. May attempt CPAP trial today. - Likely secondary to aspiration pneumonia and pulmonary edema. - Management per primary team (3) Hyperkalemia Current Visit: Yes Status: Acute Patient presented with hyperkalemia with a potassium 5.0 in the setting of acute on chronic kidney disease. Likely secondary to poor renal output and dehydration. Since starting hemodialysis patient potassium level has been appropriate. - Hyperkalemia likely secondary to severe renal disease 12/15: Potassium level stable. Plan: - Monitor electrolytes daily (4) Anemia Current Visit: Yes Status: Chronic Patient has a history of chronic anemia with a hemoglobin of 10.4 in March of this year. When he was admitted to the [facility] he had a hemoglobin of 6.6 and received 2 units of PRBCs and has maintained a hemoglobin of around 9 since admission. His hemoglobin has continued to drop to 6.6 requiring 2 more units of PRBC transfusion on 12/10/2016. His hemoglobin trending down slowly. - Likely multifactorial with end-stage renal disease, poor nutritional intake, positive fluid balance. Recommend looking for possible GI source of loss. 12/15: stable from yesterday. stool occult still pending. Plan: - Monitor with daily CBC - Transfuse PRBC if hemoglobin below 7.0 Qualifiers: Anemia type: due to chronic kidney disease Chronic kidney disease stage: stage 4 (severe) Qualified Code(s): N18.4 - Chronic kidney disease, stage 4 ( severe); D63.1 - Anemia in chronic kidney disease (5) Type 2 diabetes mellitus Current Visit: Yes Status: Acute Known type II diabetic with chronic kidney disease. Insulin-dependent, glucose upon admission was 102 Plan: -Continue management by primary team. Qualifiers: Diabetes mellitus complication status: without complication Diabetes mellitus termite control technician insulin use: with termite control technician use Qualified Code(s): E11.9 - Type 2 diabetes mellitus without complications; Z79.4 - ferry terminal agent (current) use of insulin Subjective Principal diagnosis: BEBETO/CKD Interval history: Mr. Dillard 66-year-old male's been seen and evaluated patient bedside. He is intubated and sedated at this time and failed CPAP trial initially. No changes since yesterday. Objective - Vital Signs Vital signs: Vital Signs Temp Pulse Resp BP Pulse Ox 12/16/16 09:00 80 14 108/57 97 12/16/16 08:00 98 14 101/56 97 12/16/16 07:36 98.7 F 12/16/16 07:30 93 14 102/50 96 12/16/16 06:00 81 14 106/54 96 12/16/16 05:00 82 14 104/54 95 12/16/16 04:39 81 12/16/16 04:00 83 14 96/50 94 12/16/16 03:42 14 95 12/16/16 03:37 98.4 F 12/16/16 03:00 136 15 128/99 97 12/16/16 02:00 64 14 96/52 99 12/16/16 01:42 14 96 12/16/16 01:00 63 14 93/48 99 12/16/16 00:31 65 12/16/16 00:00 64 14 84/44 98 12/15/16 23:47 14 98 12/15/16 23:30 97.6 F 12/15/16 23:00 69 14 94/54 99 12/15/16 22:00 79 14 110/60 99 12/15/16 21:43 14 98 12/15/16 21:00 73 14 124/65 99 12/15/16 20:30 77 12/15/16 20:04 14 96 12/15/16 20:00 73 14 94/52 98 12/15/16 19:30 97.8 F 12/15/16 19:00 91 18 130/70 98 12/15/16 18:04 98 12/15/16 18:00 85 16 133/71 98 12/15/16 17:18 98 12/15/16 17:00 71 14 112/57 97 12/15/16 16:00 98.4 F 80 14 125/64 97 12/15/16 15:57 98.4 F 12/15/16 15:44 84 12/15/16 15:26 18 98 12/15/16 15:00 84 24 127/67 96 12/15/16 14:04 98.6 F 18 112/66 12/15/16 14:00 94 17 134/71 98 12/15/16 13:30 23 99 12/15/16 13:05 98.6 F 18 112/66 12/15/16 13:02 98/56 12/15/16 13:00 79 16 112/66 95 12/15/16 12:50 96/57 12/15/16 12:35 93/58 12/15/16 12:20 103/66 12/15/16 12:05 101/59 12/15/16 12:01 81 12/15/16 12:00 87 16 104/63 96 12/15/16 11:50 114/76 12/15/16 11:35 118/69 12/15/16 11:34 98.5 F 12/15/16 11:20 114/65 12/15/16 11:05 19 104/60 96 12/15/16 11:00 81 16 104/60 96 12/15/16 10:50 110/65 12/15/16 10:35 107/58 12/15/16 10:20 91/73 Intake and Output 12/15/16 12/16/16 12/16/16 23:59 07:59 15:59 Intake Total 560 / 560 842 / 842 Output Total 75 / 75 55 / 55 Balance 485 / 485 787 / 787 Intake: IV Fluids 350 / 350 300 / 300 PRECEDEX Premix 400 mcg In 100 100 / 100 ml @ 0.2 MCG/KG/HR 4.25 mls/hr IVC .[id number] RACHNA Rx#:[id number] FentaNYL (PF) 1,000 MCG In 0.9 50 / 50 % Sodium Chloride 80 ML @ 50 MCG/HR 5 mls/hr IVC CONT RACHNA Rx #:[id number] Azactam 500 MG In Dextrose 5% 200 / 200 100 / 100 100 ML @ 200 mls/hr IVPB Q6H RACHNA Rx#:[id number] Flagyl Premix 500 MG/100 ML 500 100 / 100 100 / 100 mg In 100 ml @ 100 mls/hr IVPB Q6H RACHNA Rx#:[id number] Tube Feeding 210 / 210 542 / 542 Output: Catheter 75 / 75 55 / 55 Other: Weight 87.32 kg Blood Glucose* 115 136 Patient Weight 12/16/16 23:59 Weight 87.32 kg - Lab 12/17/16 03:00 12/17/16 03:00 Most recent lab results ABG pH 7.42 pH Units (7.32-7.45) 12/11/16 08:00 ABG pCO2 43 mmHg (35-45) 12/11/16 08:00 ABG pO2 225 mmHg (85-104) H 12/11/16 08:00 ABG HCO3 28 mEq/L (21-27) H 12/11/16 08:00 ABG O2 Saturation 100 % (95-98) H 12/11/16 08:00 Calcium 8.0 mg/dL (8.6-10.8) L D 12/16/16 03:48 Phosphorus 1.9 mg/dL (2.3-4.7) L 12/12/16 18:11 Magnesium 1.8 mg/dL (1.6-2.6) 12/13/16 03:33 Urine Creatinine 62 mg/dL 12/06/16 06:15 Urine Sodium 37.0 mEq/L 12/06/16 06:15 Urine Total Protein 238 mg/dL (1-14) H 12/06/16 06:15 - VTE Documentation of Mechanical Device: Intermittent pneumatic compression device Consult Discharge Plan - Plan Additional Instructions: Palliative care only, scopolamine, Roxicodone and Ativan as needed [facility]errals: [facility] [Primary Care Provider] - Prescriptions: LORazepam Oral Conc [Ativan Oral Conc] 2 mg PO Q6HR 7 Days #7 mls Morphine Oral CONC [Roxanol] 1 ml PO Q4H PRN 7 Days #7 ml PRN Reason: SOB and pain Scopolamine Patch [Transderm-Scop] 1.5 mg TD Q72H #5 [id number]
[2016-12-16] MEDS: Bisacodyl 10 MG RECTAL SUPPOSITORY RC SCH (12:17)
[2016-12-16] MEDS: FentaNYL (PF) 1,000 MCG in 0.9 % Sodium Chloride 80 ML IVC SCH (14:08)
[2016-12-16] MEDS: PrismaSATE BGK 4/2.5 5,000 ML CRRT SCH ×3 (14:09)
[2016-12-16] MEDS: Calcium Chloride 4,000 MG in 0.9 % Sodium Chloride 1,000 ML CRRT SCH (14:09)
[2016-12-16 16:06] LABS: ABG Base Excess 6.2 mEq/L (-2.0 to 3.0); ABG HCO3 31 mEq/L (21-27); ABG Oxygen Saturation 99 % (95-98); ABG PCO2 47 mmHg (35-45); ABG PH 7.43 pH Units (7.32-7.45); ABG PO2 155 mmHg (85-104); ABG TCO2 33 mEq/L (20-26)
[2016-12-16 16:07] LABS: Blood Gas Modality VENT
[2016-12-16 19:06] LABS: Adenovirus F 40/41 PCR Not detected (Not detect); Astrovirus PCR Not detected (Not detect); Campylobacter by PCR Not detected (Not detect); Cryptosporidium by PCR Not detected (Not detect); Cyclospora cayetanensis PCR Not detected (Not detect); E. coli O157 by PCR Not detected (Not detect); Entamoeba histolytica PCR Not detected (Not detect); Enteroaggregative E.coli(EAEC) Not detected (Not detect); Enteropathogenic E.coli(EPEC) Not detected (Not detect); Enterotoxigenic E.coli (ETEC) Not detected (Not detect); Giardia lamblia PCR Not detected (Not detect); Norovirus GI/GII PCR Not detected (Not detect); Plesiomonas shigelloides PCR Not detected (Not detect); Rotavirus A PCR Not detected (Not detect); Salmonella PCR Not detected (Not detect); Sapovirus PCR Not detected (Not detect); Shig/EnteroinvasiveE coli EIEC Not detected (Not detect); Shigalike tox-prod E coli STEC Not detected (Not detect); Vibrio PCR Not detected (Not detect); Vibrio cholerae PCR Not detected (Not detect); Yersinia enterocolitica PCR Not detected (Not detect)
[2016-12-16 19:59] LABS: C.difficile Toxin A/B by PCR See reflex test (Not detect)
[2016-12-16] MEDS ORDERED: metroNIDAZOLE 500 MG TABLET PO SCH (23:30)
--- NOTE | 2016-12-16 23:31 | Event Note ---
Date of Encounter: 12/16/16 Time of Encounter: 23:28 Patient has positive C. Diff toxin in stool. Patient currently on day 8 of Flagyl IV for Aspiration PNA coverage. Will switch from Flagyl 500mg IV QID to oral Flagyl 500mg via NG tube TID. Duration of treatment 10 to 14 days. Initiate contact precautions.
[2016-12-17] MEDS: FentaNYL (PF) 1,000 MCG in 0.9 % Sodium Chloride 80 ML IVC SCH (03:00)
[2016-12-17] MEDS: Aztreonam 500 MG in D5% in Water 100 ML IVPB SCH (03:10)
[2016-12-17] MEDS: Lacri-Lube 3.5 GM TUBE BOTH EYES SCH ×4 (03:11→16:18)
[2016-12-17 03:15] LABS: Calcium 8.2 mg/dL (8.6-10.8); Potassium 4.4 mEq/L (3.5-4.5)
[2016-12-17 03:39] LABS: Eosinophils # 0.2 K/mcL (0.0-0.6); Eosinophils % 3.5 %; Hematocrit 25.5 % (37.5-50.1); Immature Granulocytes % 0.4 % (0-4); Lymphocytes # 0.8 K/mcL (0.6-4.6); Mean Corpuscular HGB Conc 31.4 g/dL (31.6-35.5); Mean Corpuscular Hemoglobin 30.1 pg (28.0-33.3); Mean Corpuscular Volume 95.9 fL (83.0-100.0); Mean Platelet Volume 11.5 fL (9.4-12.4); Monocytes # 0.2 K/mcL (0.0-1.3); Monocytes % 4.2 %; Neutrophils # 3.3 K/mcL (1.6-8.9); Platelet Count 113 K/mcL (140-400); Red Blood Count 2.66 M/mcL (4.19-5.50); Red Cell Distribution Width 17.5 % (11.5-14.5); Segmented Neutrophils % 73.9 %
[2016-12-17] MEDS: Ipratropium/Albuterol Neb 3 ML IH SCH ×3 (03:51→15:51)
[2016-12-17] MEDS: Insulin LISPRO 300 UNITS/3 ML VIAL SQ SCH ×2 (05:05→12:01)
[2016-12-17] MEDS: Levothyroxine 25 MCG TABLET PO SCH (05:06)
--- NOTE | 2016-12-17 07:00 | Pulmonology Progress Note ---
<Tal Atkinson - Last Filed: 12/17/16 10:51> Date of Encounter: 12/17/16 Time of Encounter: 06:56 Assessment and Plan (1) Acute respiratory failure with hypoxia and hypercapnia Current Visit: Yes Status: Acute Secondary to pulmonary edema, aspiration pneumonia, pulmonary effusion CXR showing improvement of edema, while effusion has enlarged On Vent, rate 14 at 30% O2 Plan to extubate after HD today, when his POA arrives (2) Pleural effusion Current Visit: Yes Status: Acute Enlarged since 12/08/16 despite HD Possible thoracentesis this afternoon (3) Sepsis Current Visit: Yes Status: Resolved WBC 4.5 Resolved Blood and Sputum cultures negative for growth, final report Day 9 of aztreonam and flagyl Discontinuing aztreonam Qualifiers: Sepsis type: sepsis due to unspecified organism Qualified Code(s): A41.9 - Sepsis, unspecified organism (4) Metabolic encephalopathy Current Visit: Yes Status: Acute Mental status greatly improved Now following commands and responding to questions (5) Aspiration pneumonia Current Visit: Yes Status: Acute Day 9 of aztreonam and flagyl Discontinuing aztreonam PNA not excluded on CXR due to overlying effusion Qualifiers: Aspiration pneumonia type: unspecified Laterality: unspecified laterality Lung location: unspecified part of lung Qualified Code(s): J69.0 - Pneumonitis due to inhalation of food and vomit (6) Acute on chronic kidney failure Current Visit: Yes Status: Acute Likely end stage disease, urine output improved over the last few days, but still poor Nephrology following, plan for HD today, possibly HF tomorrow Pressure is slightly low, so we have added levophed back on to allow for more fluid removal Will discuss ultimate plan of care with POA today Qualifiers: Acute renal failure type: with acute tubular necrosis Chronic kidney disease stage: stage 4 (severe) Qualified Code(s): N17.0 - Acute kidney failure with tubular necrosis; N18.4 - Chronic kidney disease, stage 4 (severe) (7) C. difficile diarrhea Current Visit: Yes Status: Acute 1st bowel movement since ICU admission was diarrhea with mucus + C. diff A [facility] C. diff toxin on , making this either a first or second recurrence Stopped aztreonam Continue IV flagyl Started PO vancomycin 125 mg QID (8) Thrombocytopenia Current Visit: Yes Status: Chronic Chronic, stable Plts 113 today trend and treat symptomatically (9) Anemia Current Visit: Yes Status: Chronic Chronic, stable Hgb 8.0 today Qualifiers: Anemia type: due to chronic kidney disease Chronic kidney disease stage: stage 4 (severe) Qualified Code(s): N18.4 - Chronic kidney disease, stage 4 ( severe); D63.1 - Anemia in chronic kidney disease (10) Schizophrenia Current Visit: Yes Status: Chronic Chronic condition, mental status apparently improved Now following commands Started seroquel 50 ml BID 12/13/16 Qualifiers: Schizophrenia type: unspecified Qualified Code(s): F20.9 - Schizophrenia, unspecified (11) DVT prophylaxis Current Visit: Yes Status: Acute Allergy to heparin continue SCDs Subjective Principal diagnosis: BEBETO/CKD Interval history: Patient now making eye contact and following commands. Objective PUL Vital signs: Last Vital Signs Temp 98.3 F 12/17/16 04:00 Pulse 98 12/17/16 06:01 Resp 19 12/17/16 06:01 BP 109/53 12/17/16 06:01 Pulse Ox 95 12/17/16 06:01 General appearance: no acute distress Eyes: nonicteric Effort: other (Ventilated) Auscultation: bilateral: rhonchi (improving) Cardiovascular: regular rate and rhythm Gastrointestinal: normoactive bowel sounds, soft, non-tender, non-distended Integumentary: normal Extremities: no cyanosis, edema Musculoskeletal: no deformities unable to assess due to mental status other (now making eye contact and following commands) Ventilator Settings Ventilator Settings: Ventilator Settings, Last 8 Hours Ventilator Mode A/C Ventilator Mode VC+ Ventilator Mode A/C Ventilator Mode A/C Ventilator Mode A/C Ventilator Mode A/C Ventilator Mode A/C Ventilator Mode A/C Ventilator Mode A/C Ventilator Mode A/C Ventilator Mode A/C Ventilator Mode A/C Ventilator Tidal Volume 480 Setting Ventilator Tidal Volume 480 Setting Ventilator Tidal Volume 480 Setting Ventilator Tidal Volume 480 Setting Ventilator Tidal Volume 480 Setting Ventilator Tidal Volume 480 Setting Ventilator Tidal Volume 480 Setting Ventilator Tidal Volume 480 Setting Ventilator Tidal Volume 480 Setting Ventilator Tidal Volume 480 Setting Ventilator Tidal Volume 480 Setting Ventilator Tidal Volume 480 Setting Ventilator Respiratory Rate 14 Setting Ventilator Respiratory Rate 14 Setting Ventilator Respiratory Rate 14 Setting Ventilator Respiratory Rate 14 Setting Ventilator Respiratory Rate 14 Setting Ventilator Respiratory Rate 14 Setting Ventilator Respiratory Rate 14 Setting Ventilator Respiratory Rate 14 Setting Ventilator Respiratory Rate 14 Setting Ventilator Respiratory Rate 14 Setting Ventilator Respiratory Rate 14 Setting Ventilator Respiratory Rate 14 Setting Actual Respiratory Rate 19 Actual Respiratory Rate 19 Actual Respiratory Rate 14 Actual Respiratory Rate 14 Actual Respiratory Rate 14 Actual Respiratory Rate 14 Actual Respiratory Rate 14 Actual Respiratory Rate 14 Actual Respiratory Rate 14 Actual Respiratory Rate 14 Actual Respiratory Rate 14 Actual Respiratory Rate 14 Positive End Expiratory 5 Pressure Positive End Expiratory 5 Pressure Positive End Expiratory 5 Pressure Positive End Expiratory 5 Pressure Positive End Expiratory 5 Pressure Positive End Expiratory 5 Pressure Positive End Expiratory 5 Pressure Positive End Expiratory 5 Pressure Positive End Expiratory 5 Pressure Positive End Expiratory 5 Pressure Positive End Expiratory 5 Pressure Positive End Expiratory 5 Pressure Peak Inspiratory Airway 18 Pressure Peak Inspiratory Airway 30 Pressure Peak Inspiratory Airway 22 Pressure Peak Inspiratory Airway 38 Pressure Peak Inspiratory Airway 38 Pressure Peak Inspiratory Airway 37 Pressure Peak Inspiratory Airway 38 Pressure Peak Inspiratory Airway 36 Pressure Peak Inspiratory Airway 37 Pressure Peak Inspiratory Airway 32 Pressure Peak Inspiratory Airway 33 Pressure Peak Inspiratory Airway 36 Pressure Results - Laboratory Findings CBC and BMP: 12/17/16 03:00 12/17/16 03:00 ABG ABG pH 7.43 pH Units (7.32-7.45) 12/16/16 15:59 ABG pCO2 47 mmHg (35-45) H 12/16/16 15:59 ABG pO2 155 mmHg (85-104) H 12/16/16 15:59 ABG O2 Saturation 99 % (95-98) H 12/16/16 15:59 PT/INR, D-dimer PT 15.5 Seconds (9.4-12.1) H 12/10/16 16:10 Abnormal lab findings: Abnormal lab results RBC 2.66 M/mcL (4.19-5.50) L 12/17/16 03:00 Hgb 8.0 g/dL (12.9-16.9) L 12/17/16 03:00 Hct 25.5 % (37.5-50.1) L 12/17/16 03:00 MCHC 31.4 g/dL (31.6-35.5) L 12/17/16 03:00 RDW 17.5 % (11.5-14.5) H 12/17/16 03:00 Plt Count 113 K/mcL (140-400) L 12/17/16 03:00 Nucleated RBCs/100 WBC 0.4 /100 WBC (0) H 12/06/16 05:14 Platelet Estimate Decreased (Normal) L 12/11/16 04:10 Immature Plt Fraction 9.5 % (1.1-6.1) H 12/13/16 03:33 Polychromasia 1+ (Not Present) A 12/05/16 04:15 Basophilic Stippling 1+ (Not Present) A 12/05/16 04:15 Anisocytosis 2+ (Not Present) A 12/11/16 04:10 Macrocytosis Present (Not Present) A 12/05/16 04:15 Haptoglobin 210 mg/dL (30-200) H 12/14/16 12:15 PT 15.5 Seconds (9.4-12.1) H 12/10/16 16:10 ABG pCO2 47 mmHg (35-45) H 12/16/16 15:59 ABG pO2 155 mmHg (85-104) H 12/16/16 15:59 ABG HCO3 31 mEq/L (21-27) H 12/16/16 15:59 ABG Total CO2 33 mEq/L (20-26) H 12/16/16 15:59 ABG O2 Saturation 99 % (95-98) H 12/16/16 15:59 ABG Base Excess 6.2 mEq/L (-2.0 to 3.0) H 12/16/16 15:59 Sodium 135 mEq/L (136-145) L 12/17/16 03:00 BUN 45 mg/dL (8-26) H D 12/17/16 03:00 Creatinine 3.19 mg/dL (0.72-1.25) H 12/17/16 03:00 Est GFR ( Amer) 24 (> 60) L 12/17/16 03:00 Est GFR (Non-Af Amer) 20 (> 60) L 12/17/16 03:00 Glucose 145 mg/dL (70-99) H 12/17/16 03:00 POC Glucose 270 (58-89) H 12/17/16 05:04 Serum Osmolality 332 mOsm/kg (280-300) H 12/08/16 07:59 Uric Acid 8.8 mg/dL (3.5-7.2) H 12/06/16 05:14 Calcium 8.2 mg/dL (8.6-10.8) L 12/17/16 03:00 Phosphorus 1.9 mg/dL (2.3-4.7) L 12/12/16 18:11 Iron 28 mcg/dL (65-175) L 12/06/16 05:14 % Saturation 14 % (20-55) L 12/06/16 05:14 Transferrin 144 mg/dL (174-364) L 12/06/16 05:14 Ferritin 417 ng/ml (22-275) H 12/06/16 05:14 Alkaline Phosphatase 138 Units/L (38-126) H 12/14/16 12:15 Troponin I 0.04 ng/mL (0-0.03) H* 12/09/16 23:45 B-Natriuretic Peptide 162 pg/mL (0-100) H 12/04/16 08:08 Serum Total Protein 5.6 g/dL (6.0-8.3) L 12/14/16 12:15 Albumin 2.0 g/dL (3.5-5.0) L 12/14/16 12:15 Albumin (PEP) 2.75 g/dL (3.75-5.01) L 12/06/16 05:14 Globulin 3.6 g/dL (2.4-3.5) H 12/14/16 12:15 Albumin/Globulin Ratio 0.6 (1.1-2.2) L 12/14/16 12:15 Gamma Globulins 1.56 g/dL (0.62-1.51) H 12/06/16 05:14 Vitamin B12 1517 pg/mL (213-816) H 12/06/16 05:14 TSH 6.855 mcIU/mL (0.350-4.840) H 12/11/16 08:10 PTH Intact 148.0 pg/ml (8.5-72.5) H 12/06/16 05:14 Ur Specimen Adequacy See below A 12/04/16 18:05 Urine Clarity Turbid (Clear) A 12/06/16 04:52 Urine Protein >=300 mg/dL (Neg-Trace) H 12/06/16 04:52 Urine Blood Large (Negative) H 12/06/16 04:52 Ur Leukocyte Esterase Large (Negative) H 12/06/16 04:52 Urine Microscopic RBC TNTC per hpf (0-3) H 12/06/16 04:52 Urine Microscopic WBC TNTC per hpf (0-3) H 12/06/16 04:52 Ur Squamous Epith Cells Many per lpf (None-Few) H 12/06/16 04:52 Urine Bacteria Moderate per hpf (None-Few) H 12/06/16 04:52 Ur Culture Indicated? YES (NO) A 12/06/16 04:52 Protein/Creatinin Ratio 3.84 mg/mg (0-0.20) H 12/06/16 06:15 Urine Total Protein 238 mg/dL (1-14) H 12/06/16 06:15 Stl C. diff Tox A/B PCR See reflex test (Not detect) A 12/16/16 15:30 ALINA Screen DETECTED (None Detected) A 12/06/16 05:14 ALINA Titer 1:40 (<1:40) H 12/06/16 05:14 - Microbiology Findings Microbiology Findings: Microbiology, Last 48 Hours 12/09/16 10:05 Blood Culture - Final Peripheral Venipuncture No growth. 12/09/16 10:00 Blood Culture - Final Peripheral Venipuncture No growth. - Diagnostic Findings Chest x-ray: report reviewed, image reviewed - Clinical Findings Intake & Output: Intake & Output 12/16/16 12/16/16 12/17/16 15:59 23:59 07:59 Intake Total 610 / 610 1128 / 1128 423 / 423 Output Total 60 / 60 225 / 225 100 / 100 Balance 550 / 550 903 / 903 323 / 323 Weight 85.4 kg - VTE Documentation of Mechanical Device: Intermittent pneumatic compression device Consult Discharge Plan - Plan [facility] Provider[facility] - <Carrie García - Last Filed: 12/17/16 19:03> Date of Encounter: 12/17/16 Objective PUL Vital signs: Last Vital Signs Temp 97.6 F 12/17/16 15:34 Pulse 96 12/17/16 14:00 Resp 102 12/17/16 16:37 BP 120/61 12/17/16 16:37 Pulse Ox 94 12/17/16 16:37 Ventilator Settings Ventilator Settings: Ventilator Settings, Last 8 Hours Ventilator Mode CPAP Ventilator Mode A/C Ventilator Mode CPAP Ventilator Mode CPAP Ventilator Mode CPAP Ventilator Mode CPAP Actual Respiratory Rate 22 Actual Respiratory Rate 21 Actual Respiratory Rate 15 Actual Respiratory Rate 15 Actual Respiratory Rate 23 Actual Respiratory Rate 15 Positive End Expiratory 5 Pressure Positive End Expiratory 5 Pressure Positive End Expiratory 5 Pressure Positive End Expiratory 5 Pressure Positive End Expiratory 5 Pressure Positive End Expiratory 5 Pressure Peak Inspiratory Airway 11 Pressure Peak Inspiratory Airway 11 Pressure Results - Laboratory Findings CBC and BMP: 12/17/16 03:00 12/17/16 03:00 ABG ABG pH 7.45 pH Units (7.32-7.45) 12/17/16 09:57 ABG pCO2 49 mmHg (35-45) H 12/17/16 09:57 ABG pO2 57 mmHg (85-104) L 12/17/16 09:57 ABG O2 Saturation 91 % (95-98) L 12/17/16 09:57 PT/INR, D-dimer PT 15.5 Seconds (9.4-12.1) H 12/10/16 16:10 Abnormal lab findings: Abnormal lab results RBC 2.66 M/mcL (4.19-5.50) L 12/17/16 03:00 Hgb 8.0 g/dL (12.9-16.9) L 12/17/16 03:00 Hct 25.5 % (37.5-50.1) L 12/17/16 03:00 MCHC 31.4 g/dL (31.6-35.5) L 12/17/16 03:00 RDW 17.5 % (11.5-14.5) H 12/17/16 03:00 Plt Count 113 K/mcL (140-400) L 12/17/16 03:00 Nucleated RBCs/100 WBC 0.4 /100 WBC (0) H 12/06/16 05:14 Platelet Estimate Decreased (Normal) L 12/11/16 04:10 Immature Plt Fraction 9.5 % (1.1-6.1) H 12/13/16 03:33 Polychromasia 1+ (Not Present) A 12/05/16 04:15 Basophilic Stippling 1+ (Not Present) A 12/05/16 04:15 Anisocytosis 2+ (Not Present) A 12/11/16 04:10 Macrocytosis Present (Not Present) A 12/05/16 04:15 Haptoglobin 210 mg/dL (30-200) H 12/14/16 12:15 PT 15.5 Seconds (9.4-12.1) H 12/10/16 16:10 ABG pCO2 49 mmHg (35-45) H 12/17/16 09:57 ABG pO2 57 mmHg (85-104) L 12/17/16 09:57 ABG HCO3 34 mEq/L (21-27) H 12/17/16 09:57 ABG Total CO2 36 mEq/L (20-26) H 12/17/16 09:57 ABG O2 Saturation 91 % (95-98) L 12/17/16 09:57 ABG Base Excess 9.1 mEq/L (-2.0 to 3.0) H 12/17/16 09:57 Sodium 135 mEq/L (136-145) L 12/17/16 03:00 BUN 45 mg/dL (8-26) H D 12/17/16 03:00 Creatinine 3.19 mg/dL (0.72-1.25) H 12/17/16 03:00 Est GFR ( Amer) 24 (> 60) L 12/17/16 03:00 Est GFR (Non-Af Amer) 20 (> 60) L 12/17/16 03:00 Glucose 145 mg/dL (70-99) H 12/17/16 03:00 POC Glucose 124 (58-89) H 12/17/16 11:47 Serum Osmolality 332 mOsm/kg (280-300) H 12/08/16 07:59 Uric Acid 8.8 mg/dL (3.5-7.2) H 12/06/16 05:14 Calcium 8.2 mg/dL (8.6-10.8) L 12/17/16 03:00 Phosphorus 1.9 mg/dL (2.3-4.7) L 12/12/16 18:11 Iron 28 mcg/dL (65-175) L 12/06/16 05:14 % Saturation 14 % (20-55) L 12/06/16 05:14 Transferrin 144 mg/dL (174-364) L 12/06/16 05:14 Ferritin 417 ng/ml (22-275) H 12/06/16 05:14 Alkaline Phosphatase 138 Units/L (38-126) H 12/14/16 12:15 Troponin I 0.04 ng/mL (0-0.03) H* 12/09/16 23:45 B-Natriuretic Peptide 162 pg/mL (0-100) H 12/04/16 08:08 Serum Total Protein 5.6 g/dL (6.0-8.3) L 12/14/16 12:15 Albumin 2.0 g/dL (3.5-5.0) L 12/14/16 12:15 Albumin (PEP) 2.75 g/dL (3.75-5.01) L 12/06/16 05:14 Globulin 3.6 g/dL (2.4-3.5) H 12/14/16 12:15 Albumin/Globulin Ratio 0.6 (1.1-2.2) L 12/14/16 12:15 Gamma Globulins 1.56 g/dL (0.62-1.51) H 12/06/16 05:14 Vitamin B12 1517 pg/mL (213-816) H 12/06/16 05:14 TSH 6.855 mcIU/mL (0.350-4.840) H 12/11/16 08:10 PTH Intact 148.0 pg/ml (8.5-72.5) H 12/06/16 05:14 Ur Specimen Adequacy See below A 12/04/16 18:05 Urine Clarity Turbid (Clear) A 12/06/16 04:52 Urine Protein >=300 mg/dL (Neg-Trace) H 12/06/16 04:52 Urine Blood Large (Negative) H 12/06/16 04:52 Ur Leukocyte Esterase Large (Negative) H 12/06/16 04:52 Urine Microscopic RBC TNTC per hpf (0-3) H 12/06/16 04:52 Urine Microscopic WBC TNTC per hpf (0-3) H 12/06/16 04:52 Ur Squamous Epith Cells Many per lpf (None-Few) H 12/06/16 04:52 Urine Bacteria Moderate per hpf (None-Few) H 12/06/16 04:52 Ur Culture Indicated? YES (NO) A 12/06/16 04:52 Protein/Creatinin Ratio 3.84 mg/mg (0-0.20) H 12/06/16 06:15 Urine Total Protein 238 mg/dL (1-14) H 12/06/16 06:15 Stl C. diff Tox A/B PCR See reflex test (Not detect) A 12/16/16 15:30 ALINA Screen DETECTED (None Detected) A 12/06/16 05:14 ALINA Titer 1:40 (<1:40) H 12/06/16 05:14 - Clinical Findings Intake & Output: Intake & Output 12/17/16 12/17/16 12/17/16 07:59 15:59 23:59 Intake Total 463 / 463 1222 / 1222 Output Total 250 / 250 2850 / 2850 Balance 213 / 213 -1628 / -1628 Weight 85.4 kg 85.4 kg - Attending Attestation I saw the patient with the resident agree with History and Physical exam findings. 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 will extubate after his court appointed guardian comes. Cardiac : Hemodynamically stable will do fluid removal before extubation Nutrition/GI: Will stop tube feeds before extubation. PPI prophylaxis Renal : Acute on Chronic kidney injury Nephrology following .Patient never wanted to be in [facility] dialysis will do dialysis with fluid removal before extubation. Heme onc : No acute issues ID : Patient developed c diff will stop Aztreonam and to continue IV flagyl and PO Vancomycin Disposition : Patient POA Court appointed guardian came met with him discussed with him about patients wishes it is clear patient never wanted to be on dialysis never wanted re intubation if he gets extubated . Mr thacker spoke with the patient after i extubated him , patient said no for any more dialysis didnt want re intubation so court appointed guardian decided on patients' behalf in line with patients wishes he was made DNR [facility] palliative was consulted he was transferred to symptom controlled bed . Patient was transferred to bed . If patients condition declines please call his POA [phone]
[2016-12-17] MEDS ORDERED: 0.9 % Sodium Chloride 250 ML IVC PRN (07:11)
[2016-12-17] MEDS ORDERED: 0.9 % Sodium Chloride 1,000 ML PRIME SCH (07:15)
[2016-12-17] MEDS ORDERED: Sennosides 8.6 MG TABLET PO PRN (08:25)
[2016-12-17] MEDS: Dexmedetomidine HCl 400 MCG/100 ML MLS IVC SCH (08:28)
[2016-12-17] MEDS: Calcium Acetate 667 MG CAPSULE PO SCH ×3 (08:28→16:18)
[2016-12-17] MEDS: Chlorhexidine Rinse 15 ML MOUTHWASH MM SCH (08:28)
[2016-12-17] MEDS: Pantoprazole 40 MG VIAL IVP SCH (08:28)
[2016-12-17] MEDS: Ferrous Sulfate Oral Soln 300 MG/5 ML UDC PO SCH ×3 (08:28→16:18)
[2016-12-17] MEDS: Vancomycin Oral Soln 250 MG/5 ML UDC PO SCH ×3 (08:46→16:18)
[2016-12-17 10:07] LABS: ABG Base Excess 9.1 mEq/L (-2.0 to 3.0); ABG HCO3 34 mEq/L (21-27); ABG Oxygen Saturation 91 % (95-98); ABG PCO2 49 mmHg (35-45); ABG PH 7.45 pH Units (7.32-7.45); ABG PO2 57 mmHg (85-104); ABG TCO2 36 mEq/L (20-26)
[2016-12-17 10:13] LABS: Blood Gas CPAP 5 cm H2O; Blood Gas Modality CPAP; Blood Gas Pressure Support 5 cm H2O
[2016-12-17] MEDS ORDERED: Norepinephrine 4 MG in D5% in Water 250 ML IVC SCH (10:30)
[2016-12-17] MEDS: Calcium Chloride 4,000 MG in 0.9 % Sodium Chloride 1,000 ML CRRT SCH (11:42)
[2016-12-17] MEDS: PrismaSATE BGK 4/2.5 5,000 ML CRRT SCH ×3 (11:43)
--- NOTE | 2016-12-17 11:50 | Nephrology Progress Note ---
Date of Encounter: 12/17/16 Time of Encounter: 10:15 - Assessment and Plan (1) Acute on chronic kidney failure Current Visit: Yes Status: Acute Mr. Dillard was transferred from the [facility] with a creatinine according to their documentation of 4.28 and GFR of 14.8 with a sodium of 147 and that BUN of 149. According to their records the patient was admitted with a creatinine of 2.0 and a GFR of 35.6 and according to lab results from 11/07/2016 he had a creatinine 2.43 and a GFR of 27. - Despite hemodialysis patient continues to have poor renal output with a total of 8 ML's in 24 hours - Renal function not improving. - Continue monitoring volume status and avoid extra fluid if possible to reduce volume load. - At this time Mr. Dillard's renal function is not improving and longer term outlook with his multiple medical issues he does not appear to be a good candidate for HD. - After discussion with ICU team about his current medical condition and prognosis there is agreement that Mr. Dillard would benefit from a Palliative care consult. 12/15: Patient remains intubadated and sedated after failure to tolerate CPAP. Will undergo HD today. Renal output over the past 24hrs is zero. No improvement in kidney function. 12/17: 1050 ML's urinary output over the last 24 hours. Mr. Dillard is undergoing HD this morning and adjustments were made regarding drop in blood pressure. He was started on levo fed for blood pressure support, provided albumin to increase intravascular volume and diasylate cooled to 36degrees daily and increased vascular tone. Depending on volume status he may require UF tomorrow. Discussed with primary team who will speak with legal power of commercial attorney regarding long-term dialysis if needed. Plan: - Continue Gomez catheter in place - Avoid nephrotoxic medications and renally dose antibiotics - HD today. - Repeat CMP in a.m. Qualifiers: Acute renal failure type: with acute tubular necrosis Chronic kidney disease stage: stage 4 (severe) Qualified Code(s): N17.0 - Acute kidney failure with tubular necrosis; N18.4 - Chronic kidney disease, stage 4 (severe) (2) Acute respiratory failure with hypoxia and hypercapnia Current Visit: Yes Status: Acute Patient continues to be intubated and sedated. May attempt CPAP trial today. - Likely secondary to aspiration pneumonia and pulmonary edema. - Management per primary team (3) Hyperkalemia Current Visit: Yes Status: Acute Patient presented with hyperkalemia with a potassium 5.0 in the setting of acute on chronic kidney disease. Likely secondary to poor renal output and dehydration. Since starting hemodialysis patient potassium level has been appropriate. - Hyperkalemia likely secondary to severe renal disease 12/15: Potassium level stable. 12/17: stable with dialysis. Plan: - Monitor electrolytes daily (4) Anemia Current Visit: Yes Status: Chronic Patient has a history of chronic anemia with a hemoglobin of 10.4 in March of this year. When he was admitted to the [facility] he had a hemoglobin of 6.6 and received 2 units of PRBCs and has maintained a hemoglobin of around 9 since admission. His hemoglobin has continued to drop to 6.6 requiring 2 more units of PRBC transfusion on 12/10/2016. His hemoglobin trending down slowly. - Likely multifactorial with end-stage renal disease, poor nutritional intake, positive fluid balance. Recommend looking for possible GI source of loss. 12/15: stable from yesterday. stool occult still pending. 12/17: stable. Plan: - Monitor with daily CBC - Transfuse PRBC if hemoglobin below 7.0 Qualifiers: Anemia type: due to chronic kidney disease Chronic kidney disease stage: stage 4 (severe) Qualified Code(s): N18.4 - Chronic kidney disease, stage 4 ( severe); D63.1 - Anemia in chronic kidney disease (5) Type 2 diabetes mellitus Current Visit: Yes Status: Acute Known type II diabetic with chronic kidney disease. Insulin-dependent, glucose upon admission was 102 Plan: -Continue management by primary team. 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 Dillard 66-year-old male's been seen and evaluated patient bedside. He is intubated and relaxed. He does not shake his head or follow consistantly with commands but when asked to squeeze fingers he complies. No acute changes over night. Currently receiving HD with adjustments for BP. Objective - Vital Signs Vital signs: Vital Signs Temp Pulse Resp BP Pulse Ox 12/17/16 11:30 111/56 12/17/16 11:15 173/80 12/17/16 11:03 119/59 12/17/16 11:00 100 16 116/62 94 12/17/16 10:30 103/54 12/17/16 10:15 89/57 12/17/16 10:00 101 14 107/52 90 12/17/16 09:45 98/52 12/17/16 09:30 125/67 12/17/16 09:15 97.7 F 16 135/68 12/17/16 09:08 19 117/56 91 12/17/16 09:00 89 18 117/56 96 12/17/16 08:00 92 22 117/56 96 12/17/16 07:32 97.7 F 12/17/16 07:05 22 109/53 97 12/17/16 07:00 98 24 127/64 95 12/17/16 06:01 98 19 109/53 95 12/17/16 05:54 16 113/53 95 12/17/16 05:02 91 16 108/90 95 12/17/16 04:00 98.3 F 68 14 113/57 99 12/17/16 03:51 14 113/57 96 12/17/16 03:00 75 14 123/66 96 12/17/16 02:30 14 123/66 94 12/17/16 02:00 89 14 124/62 95 12/17/16 01:02 90 14 120/62 92 12/17/16 00:03 14 120/62 95 12/17/16 00:00 97.4 F L 74 14 124/64 95 12/16/16 23:01 72 14 119/63 95 12/16/16 22:33 14 120/63 96 12/16/16 22:00 73 14 124/64 95 12/16/16 21:03 99 20 105/64 98 12/16/16 20:00 95 15 137/67 98 12/16/16 19:50 19 137/67 96 12/16/16 19:05 98.5 F 12/16/16 19:00 92 14 125/62 98 12/16/16 18:09 14 100 12/16/16 18:00 84 14 141/70 100 12/16/16 17:00 74 14 137/66 99 12/16/16 16:06 98.9 F 12/16/16 16:00 110 14 127/76 99 12/16/16 15:36 25 93 12/16/16 15:00 110 28 130/63 100 12/16/16 14:00 102 25 114/72 99 12/16/16 13:00 118 26 140/65 96 12/16/16 12:08 28 96 12/16/16 12:00 108 26 133/63 96 Intake and Output 12/16/16 12/17/16 12/17/16 23:59 07:59 15:59 Intake Total 1128 / 1128 423 / 423 700 / 700 Output Total 225 / 225 250 / 250 Balance 903 / 903 173 / 173 700 / 700 Intake: IV Fluids 510 / 510 90 / 90 100 / 100 PRECEDEX Premix 400 mcg In 100 100 / 100 100 / 100 ml @ 0.2 MCG/KG/HR 4.25 mls/hr IVC .[id number] RACHNA Rx#:[id number] FentaNYL (PF) 1,000 MCG In 0.9 10 / 10 90 / 90 % Sodium Chloride 80 ML @ 50 MCG/HR 5 mls/hr IVC CONT RACHNA Rx #:[id number] Azactam 500 MG In Dextrose 5% 200 / 200 100 ML @ 200 mls/hr IVPB Q6H RACHNA Rx#:[id number] Flagyl Premix 500 MG/100 ML 500 200 / 200 mg In 100 ml @ 100 mls/hr IVPB Q6H RACHNA Rx#:[id number] Oral 0 / 0 Tube Feeding 608 / 608 333 / 333 Free Water 10 / 10 Intake, Rinseback and Flushes 600 / 600 Output: Catheter 225 / 225 250 / 250 Other: Stool Size Large Stool Consistency loose Stool Color Brown # Bowel Movements 1 Weight 85.4 kg 85.4 kg Blood Glucose* 172 Hemodialysis Net Fluid Removed 1480 (mL) Patient Weight 12/17/16 23:59 Weight 85.4 kg - General Appearance General appearance: Present: well-developed, appears started age Neck: Present: no JVD, no thyromegaly, no carotid bruit, supple Respiratory: Present: no kyphosis, no scoliosis Cardiology: Present: no murmurs, no rub, no gallops, edema (Trace edema in bilateral lower extremities.), regular rate, regular rhythm, normal S1, normal S2 Gastrointestinal: Present: normoactive bowel sounds, no tenderness Integumentary: Present: no rash, warm and dry Neurologic: Present: no focal deficit, no asterixis, alert and oriented x3, reflexes 2+ and symmetric, gait normal, strength 5/5 Musculoskeletal: Present: no deformities, no erythema, no cyanosis, no clubbing Psychiatric: Present: mood/affect appropriate, cooperative - Lab 12/17/16 03:00 12/17/16 03:00 Most recent lab results ABG pH 7.45 pH Units (7.32-7.45) 12/17/16 09:57 ABG pCO2 49 mmHg (35-45) H 12/17/16 09:57 ABG pO2 57 mmHg (85-104) L 12/17/16 09:57 ABG HCO3 34 mEq/L (21-27) H 12/17/16 09:57 ABG O2 Saturation 91 % (95-98) L 12/17/16 09:57 Calcium 8.2 mg/dL (8.6-10.8) L 12/17/16 03:00 Phosphorus 1.9 mg/dL (2.3-4.7) L 12/12/16 18:11 Magnesium 1.8 mg/dL (1.6-2.6) 12/13/16 03:33 Urine Creatinine 62 mg/dL 12/06/16 06:15 Urine Sodium 37.0 mEq/L 12/06/16 06:15 Urine Total Protein 238 mg/dL (1-14) H 12/06/16 06:15 - VTE Documentation of Mechanical Device: Intermittent pneumatic compression device Consult Discharge Plan - Plan [facility]errals: [facility] [Primary Care Provider] -
[2016-12-17] MEDS ORDERED: MetroNIDAZOLE 500 MG/100 ML 500 MG/100 ML BAG IVPB SCH (12:00)
--- NOTE | 2016-12-17 16:12 | Palliative - Consult Note ---
Date of Encounter: 12/17/16 Time of Encounter: 16:10 - Assessment and Plan (1) Anxiety Current Visit: Yes Status: Acute Assessment and plan: Has Seroquel BID - now extubated, unsure if he will be able to tolerate po. Will monitor. (2) Dyspnea Current Visit: Yes Status: Acute Assessment and plan: Extubated - on nasal cannula/nebs. Has Morphine PRN ordered - would recommend changing to low dose Fentanyl pushes in light of his renal status. Qualifiers: Dyspnea type: unspecified Qualified Code(s): R06.00 - Dyspnea, unspecified (3) Goals of care, counseling/discussion Current Visit: Yes Status: Acute Assessment and plan: ICU had meeting with pt guardian/Suraj Taveras and code status was changed. Hemodialysis discontinued. I was not present for this meeting. Will continue to follow closely. He is mcc at [facility] - if discharge disposition is needed, he could likely go back to [facility] possibly under hospice care. Will follow closely over weekend. (4) Acute on chronic kidney failure Current Visit: Yes Status: Acute Qualifiers: Acute renal failure type: with acute tubular necrosis Chronic kidney disease stage: stage 4 (severe) Qualified Code(s): N17.0 - Acute kidney failure with tubular necrosis; N18.4 - Chronic kidney disease, stage 4 (severe) (5) COPD (chronic obstructive pulmonary disease) Current Visit: Yes Status: Acute Qualifiers: COPD type: chronic bronchitis Chronic bronchitis type: simple Qualified Code(s): J41.0 - Simple chronic bronchitis (6) Aspiration pneumonia Current Visit: Yes Status: Acute Qualifiers: Aspiration pneumonia type: unspecified Laterality: unspecified laterality Lung location: unspecified part of lung Qualified Code(s): J69.0 - Pneumonitis due to inhalation of food and vomit Palliative-CN HPI - Data of Consult Requesting Physician: Shin Mendez MD Primary Care Provider: PCP [place] - Consult Narrative History of present illness: Mr. Dillard is a 66 year old male with past medical history of diabetes, chronic kidney disease, COPD, anemia originally admitted as a transfer from the [facility] for worsening acute kidney injury, hyperkalemia and nitroglycerin evaluation. He decompensated on the floor with respiratory failure and possible aspiration and was intubated and transferred to ICU. Patient has a history of dysphagia with an NG tube that he has pulled out himself 2 times. Patient has also received fluid resuscitation due to the acute kidney injury and worsening creatinine and BUN. Nephrology has been following closely. He has been hypotensive, and plan this am was to initiate pressors prior to hemodialysis. He has not done well with CPAP trials and has went apneic on several attempts with these. His decision make is senior attorney Peryr Taveras. He visited ICU today to see and speak with patient and met with ICU team. He changed his code status, and from what I understand, did not desire further dialysis. I was not present for this meeting and communication given to me by ICU resident. Upon my visit, pt is now extubated and currently receiving breathing treatment. He is alert, shakes head "yes/no" to some questions, but does not verbalize. Follows simple commands. Denies pain. Appears to be in no acute distress. Guardian has left and no visitors are present. Most history taken from review of medical record. CC: Shin Mendez MD Past Med Surg Social Fam HX - Past Medical History Medical history: cancer, CHF, COPD, diabetes, hypertension, renal disease Psychiatric history: schizophrenia - Social History Smoking Status: Unknown if ever smoked Smokeless Tobacco Status: No Alcohol use: unknown Drug use: unknown Medications and Allergies Acetaminophen [Tylenol] 650 mg PO Q6HR PRN 12/05/16 [History] Aripiprazole [Abilify Maintena] 400 mg IM QMONTH 12/05/16 [History] Benztropine [Cogentin] 0.5 mg PO HS 12/05/16 [History] Chlorhexidine Gluconate [Hibiclens] 15 ml PO DAILY 12/05/16 [History] Clotrimazole [Itch Relief] 1 appl TP BID PRN 12/05/16 [History] Epoetin Dandy [Procrit] 5,000 unit SQ MOWEFR 12/05/16 [History] Haloperidol 2 mg PO HS 12/05/16 [History] Insulin Regular Human [HumuLIN R] 3 - 8 unit SQ ACHS 12/05/16 [History] Ipratropium/Albuterol Neb [Duoneb] 3 ml IH Q6HR PRN 12/05/16 [History] Levothyroxine [Synthroid] 25 mcg PO DAILY 12/05/16 [History] Lidocaine 4% CRM (LMX) [Lmx 4] 1 appl TP TID PRN 12/05/16 [History] Magnesium Oxide [Magnesium] 400 mg PO BID 12/05/16 [History] Melatonin/Pyridoxine HCl (B6) [Melatonin 3 mg Tablet] 6 mg PO HS PRN 12/05/16 [ History] Nitroglycerin [Nitrostat] 0.4 mg SL AD PRN 12/05/16 [History] Ondansetron [Zofran] 4 mg PO TID PRN 12/05/16 [History] Xenaderm 1 appl TP Q4H PRN 12/05/16 [History] traZODone [TraZODone] 50 mg PO HS 12/05/16 [History] 3 Allergy/AdvReac Type Severity Reaction Status Date / Time heparin Allergy Unknown Rash Verified 12/04/16 21:55 Penicillins Allergy See Verified 03/21/16 08:24 Comments Sulfa (Sulfonamide Allergy See Verified 03/21/16 08:24 Antibiotics) Comments TB test Allergy See Uncoded 12/04/16 21:55 Comments ROS unobtainable: due to mental status Palliative Care-Exam - Constitutional Vitals: Temp Pulse Resp BP Pulse Ox 97.6 F 96 21 120/61 95 12/17/16 15:34 12/17/16 14:00 12/17/16 14:00 12/17/16 14:00 12/17/16 14:00 General appearance: Present: no acute distress - Head Head Exam: Present: normal inspection, normocephalic - Eye Pupils: Present: PERRL - Expanded Respiratory Exam Location: rhonchi: Left, Right, Upper, Lower - Cardiovascular Cardiovascular exam: Present: +S1, +S2 - GI/Abdominal Exam GI/Abdominal exam: Present: distended, normal bowel sounds, soft - Catheter Type: Urethral (Gomez) - Extremities Exam Additional comments: generalized edema to upper and lower extremities - Neurological Exam Neurological exam: Present: alert Additional comments: nonverbal at present, does shake head "yes/no" to some questions - Skin Skin exam: Present: dry, warm Internal Medicine - CN: Reslt - Labs CBC & Chem 7: 12/17/16 03:00 12/17/16 03:00 Labs: Short CBC 12/17/16 Range/Units 03:00 WBC 4.5 (4.3-11.1) K/mcL Hgb 8.0 L (12.9-16.9) g/dL Hct 25.5 L (37.5-50.1) % Plt Count 113 L (140-400) K/mcL Neutrophils # 3.3 (1.6-8.9) K/mcL BMP 12/17/16 03:00 Sodium 135 L Potassium 4.4 Chloride 99 Carbon Dioxide 28 BUN 45 H D Creatinine 3.19 H Glucose 145 H Calcium 8.2 L - ABG Interpretation ABG results: ABG ABG pH 7.45 pH Units (7.32-7.45) 12/17/16 09:57 ABG pCO2 49 mmHg (35-45) H 12/17/16 09:57 ABG pO2 57 mmHg (85-104) L 12/17/16 09:57 ABG O2 Saturation 91 % (95-98) L 12/17/16 09:57 PT/INR, D-dimer PT 15.5 Seconds (9.4-12.1) H 12/10/16 16:10 - Impressions Impressions Chest X-Ray 12/17/16 05:00 IMPRESSION: 1. Findings of pulmonary edema, improved compared to the prior exam 12/10/2016. 2. Enlarging right pleural effusion. Superimposed pneumonia or atelectasis of the right lung base is not excluded. D/ / Jaime De La Garza MD / Jaime De La Garza MD Interpreting Provider: Jaime De La Garza MD Consult Discharge Plan - Plan [facility]errals: [facility] [Primary Care Provider] - Palliative Quality Palliative Quality: Screen for Code Status: Yes, Screen for Goals of Care: Yes, Screen for Pain: Yes, If Pain Regimen Started, Initiate Bowel Regimen: NA, Screen for Nausea/Vomitting: Yes Code Status: 12/04/16 18:00 Resuscitation Status: Active [RES] Routine Comment: Resuscitation Status: DNR-Comfort Care-Arrest Resuscitation Status: Active [RES] Routine Comment: Guardian states DNR/DNI/CCA Resuscitation Status: [id number]
[2016-12-17] MEDS ORDERED: *HR* Morphine 2 MG/ML SYRINGE IVP PRN (17:46)
[2016-12-17] MEDS ORDERED: *HR* Heparin 5,000 UNIT/ML VIAL IV PRN (17:46)
[2016-12-17] MEDS ORDERED: *HR* Alteplase (Cathflo) 2 MG VIAL IVP PRN (17:46)
[2016-12-17] MEDS ORDERED: Albuterol 2.5 MG/3 ML NEBULIZER IH PRN (17:46)
[2016-12-17] MEDS ORDERED: Ondansetron 4 MG/2 ML VIAL IVP PRN (17:46)
[2016-12-17] MEDS ORDERED: *HR* Heparin 10,000 UNIT/10 ML VIAL IV PRN ×2 (17:46)
[2016-12-17] MEDS ORDERED: *HR* HYDROmorphone (PF) 1 MG/ML SYRINGE ONE (17:54)
[2016-12-17] MEDS: *HR* HYDROmorphone (PF) 1 MG/ML SYRINGE IVP PRN ×4 (17:57→22:28)
[2016-12-18] MEDS ORDERED: Lacri-Lube 3.5 GM TUBE OP PRN (01:59)
[2016-12-18] MEDS ORDERED: Calcium Acetate 667 MG CAPSULE PO SCH (08:00)
[2016-12-18] MEDS ORDERED: Pantoprazole 40 MG VIAL IVP SCH (09:00)
[2016-12-18] MEDS ORDERED: Scopolamine Patch 1.5 MG PATCH.TD72 TD SCH (09:45)
--- NOTE | 2016-12-18 09:52 | Palliative Progress Note ---
Date of Encounter: 12/18/16 Time of Encounter: 09:50 - Assessment and plan (1) Congestion of upper airway Current Visit: Yes Status: Acute Assessment and plan: Add scopolamine patch and Atropine drops. Attempt to limit suctioning. (2) Anxiety Current Visit: Yes Status: Acute Assessment and plan: Unable to take po medications at this time. Will add low dose Lorazepam IV and monitor (3) Dyspnea Current Visit: Yes Status: Acute Assessment and plan: Appears in some distress this am. Will schedule Hydromorphone and allow PRN for air hunger. He has not been medicated since 2199 last night. Continue supportive oxygen. Qualifiers: Dyspnea type: unspecified Qualified Code(s): R06.00 - Dyspnea, unspecified (4) Goals of care, counseling/discussion Current Visit: Yes Status: Acute Assessment and plan: Patient looks poor this am, I am unsure he will survive the weekend. Updated pt guardian Suraj Taveras on his condition. Discussed that I do not think any artificial feeding at this point would help him be more comfortable. He verbalized understanding. If he does stabilize, [facility] and involving their inpt hospice team. D/ W Dr. Cheatham. (5) Acute on chronic kidney failure Current Visit: Yes Status: Acute Qualifiers: Acute renal failure type: with acute tubular necrosis Chronic kidney disease stage: stage 4 (severe) Qualified Code(s): N17.0 - Acute kidney failure with tubular necrosis; N18.4 - Chronic kidney disease, stage 4 (severe) (6) COPD (chronic obstructive pulmonary disease) Current Visit: Yes Status: Acute Qualifiers: COPD type: chronic bronchitis Chronic bronchitis type: simple Qualified Code(s): J41.0 - Simple chronic bronchitis (7) Aspiration pneumonia Current Visit: Yes Status: Acute Qualifiers: Aspiration pneumonia type: unspecified Laterality: unspecified laterality Lung location: unspecified part of lung Qualified Code(s): J69.0 - Pneumonitis due to inhalation of food and vomit - Time Spent With Patient Total time spent is greater than 50% in coordination of care (as documented) at patient's floor/unit and/or counseling patient: - Subjective Interval history: Patient with moderate resp distress, shallow respirations. + upper airway secretions. Required suctioning during the night. Does not verbalize - does shake head "yes" when asked if he is in any pain. Lower extremities appear to have some underlying mottling. Nurse at bedside preparing to medicate for pain. - Constitutional Vitals: Abnormal lab results RBC 2.66 M/mcL (4.19-5.50) L 12/17/16 03:00 Hgb 8.0 g/dL (12.9-16.9) L 12/17/16 03:00 Hct 25.5 % (37.5-50.1) L 12/17/16 03:00 MCHC 31.4 g/dL (31.6-35.5) L 12/17/16 03:00 RDW 17.5 % (11.5-14.5) H 12/17/16 03:00 Plt Count 113 K/mcL (140-400) L 12/17/16 03:00 Nucleated RBCs/100 WBC 0.4 /100 WBC (0) H 12/06/16 05:14 Platelet Estimate Decreased (Normal) L 12/11/16 04:10 Immature Plt Fraction 9.5 % (1.1-6.1) H 12/13/16 03:33 Polychromasia 1+ (Not Present) A 12/05/16 04:15 Basophilic Stippling 1+ (Not Present) A 12/05/16 04:15 Anisocytosis 2+ (Not Present) A 12/11/16 04:10 Macrocytosis Present (Not Present) A 12/05/16 04:15 Haptoglobin 210 mg/dL (30-200) H 12/14/16 12:15 PT 15.5 Seconds (9.4-12.1) H 12/10/16 16:10 ABG pCO2 49 mmHg (35-45) H 12/17/16 09:57 ABG pO2 57 mmHg (85-104) L 12/17/16 09:57 ABG HCO3 34 mEq/L (21-27) H 12/17/16 09:57 ABG Total CO2 36 mEq/L (20-26) H 12/17/16 09:57 ABG O2 Saturation 91 % (95-98) L 12/17/16 09:57 ABG Base Excess 9.1 mEq/L (-2.0 to 3.0) H 12/17/16 09:57 Sodium 135 mEq/L (136-145) L 12/17/16 03:00 BUN 45 mg/dL (8-26) H D 12/17/16 03:00 Creatinine 3.19 mg/dL (0.72-1.25) H 12/17/16 03:00 Est GFR ( Amer) 24 (> 60) L 12/17/16 03:00 Est GFR (Non-Af Amer) 20 (> 60) L 12/17/16 03:00 Glucose 145 mg/dL (70-99) H 12/17/16 03:00 POC Glucose 96 (58-89) H 12/18/16 00:20 Serum Osmolality 332 mOsm/kg (280-300) H 12/08/16 07:59 Uric Acid 8.8 mg/dL (3.5-7.2) H 12/06/16 05:14 Calcium 8.2 mg/dL (8.6-10.8) L 12/17/16 03:00 Phosphorus 1.9 mg/dL (2.3-4.7) L 12/12/16 18:11 Iron 28 mcg/dL (65-175) L 12/06/16 05:14 % Saturation 14 % (20-55) L 12/06/16 05:14 Transferrin 144 mg/dL (174-364) L 12/06/16 05:14 Ferritin 417 ng/ml (22-275) H 12/06/16 05:14 Alkaline Phosphatase 138 Units/L (38-126) H 12/14/16 12:15 Troponin I 0.04 ng/mL (0-0.03) H* 12/09/16 23:45 B-Natriuretic Peptide 162 pg/mL (0-100) H 12/04/16 08:08 Serum Total Protein 5.6 g/dL (6.0-8.3) L 12/14/16 12:15 Albumin 2.0 g/dL (3.5-5.0) L 12/14/16 12:15 Albumin (PEP) 2.75 g/dL (3.75-5.01) L 12/06/16 05:14 Globulin 3.6 g/dL (2.4-3.5) H 12/14/16 12:15 Albumin/Globulin Ratio 0.6 (1.1-2.2) L 12/14/16 12:15 Gamma Globulins 1.56 g/dL (0.62-1.51) H 12/06/16 05:14 Vitamin B12 1517 pg/mL (213-816) H 12/06/16 05:14 TSH 6.855 mcIU/mL (0.350-4.840) H 12/11/16 08:10 PTH Intact 148.0 pg/ml (8.5-72.5) H 12/06/16 05:14 Ur Specimen Adequacy See below A 12/04/16 18:05 Urine Clarity Turbid (Clear) A 12/06/16 04:52 Urine Protein >=300 mg/dL (Neg-Trace) H 12/06/16 04:52 Urine Blood Large (Negative) H 12/06/16 04:52 Ur Leukocyte Esterase Large (Negative) H 12/06/16 04:52 Urine Microscopic RBC TNTC per hpf (0-3) H 12/06/16 04:52 Urine Microscopic WBC TNTC per hpf (0-3) H 12/06/16 04:52 Ur Squamous Epith Cells Many per lpf (None-Few) H 12/06/16 04:52 Urine Bacteria Moderate per hpf (None-Few) H 12/06/16 04:52 Ur Culture Indicated? YES (NO) A 12/06/16 04:52 Protein/Creatinin Ratio 3.84 mg/mg (0-0.20) H 12/06/16 06:15 Urine Total Protein 238 mg/dL (1-14) H 12/06/16 06:15 Stool Occult Blood Positive (Negative) A 12/16/16 15:30 Stl C. diff Tox A/B PCR See reflex test (Not detect) A 12/16/16 15:30 ALINA Screen DETECTED (None Detected) A 12/06/16 05:14 ALINA Titer 1:40 (<1:40) H 12/06/16 05:14 Exam: moderate distress - Expanded Respiratory Exam Location: rhonchi: Left, Right, Upper, Lower - Cardiovascular Cardiovascular exam: Present: +S1, +S2, tachycardia - GI/Abdominal GI/Abdominal exam: Present: normal bowel sounds, soft - Additional comments: Urine lt morales in color - Extremities Exam Additional comments: generalized edema - Neurological Exam Neurological exam: Present: alert Additional comments: Does not follow commands. will shake head yes/no - Skin Skin exam: Present: dry, pallor, warm Palliative Quality Palliative Quality: Screen for Code Status: Yes, Screen for Goals of Care: Yes, Screen for Pain: Yes, If Pain Regimen Started, Initiate Bowel Regimen: NA, Screen for Nausea/Vomitting: Yes Code Status: 12/04/16 18:00 Resuscitation Status: Active [RES] Routine Comment: Resuscitation Status: DNR-Comfort Care-Arrest Resuscitation Status: Active [RES] Routine Comment: Guardian states DNR/DNI/CCA Resuscitation Status: [id number] 12/17/16 18:34 DNR [Resuscitation Status: Active] [RES] Routine Comment: Resuscitation Status: DNR-Comfort Care - Labs CBC & Chem 7: 12/17/16 03:00 12/17/16 03:00 Labs: Laboratory Results - last 24 hr 12/16/16 12/17/16 12/17/16 15:30 09:57 11:47 ABG pH 7.45 ABG pCO2 49 H ABG pO2 57 L ABG HCO3 34 H ABG Total CO2 36 H ABG O2 Saturation 91 L ABG Base Excess 9.1 H Blood Gas Modality CPAP Inspired O2 30.0 Pressure Support 5 CPAP 5 POC Glucose 124 H Stool Occult Blood Positive A 12/18/16 00:20 ABG pH ABG pCO2 ABG pO2 ABG HCO3 ABG Total CO2 ABG O2 Saturation ABG Base Excess Blood Gas Modality Inspired O2 Pressure Support CPAP POC Glucose 96 H Stool Occult Blood - ABG Interpretation ABG results: ABG ABG pH 7.45 pH Units (7.32-7.45) 12/17/16 09:57 ABG pCO2 49 mmHg (35-45) H 12/17/16 09:57 ABG pO2 57 mmHg (85-104) L 12/17/16 09:57 ABG O2 Saturation 91 % (95-98) L 12/17/16 09:57 PT/INR, D-dimer PT 15.5 Seconds (9.4-12.1) H 12/10/16 16:10 Consult Discharge Plan - Plan [facility]errals: [facility] [Primary Care Provider] -
--- NOTE | 2016-12-18 09:57 | Internal Med Progress Note ---
Date of Encounter: 12/18/16 Time of Encounter: 09:54 - Time Spent With Patient (1) Acute respiratory failure with hypoxia and hypercapnia Current Visit: Yes Status: Acute Secondary to pulmonary edema, aspiration pneumonia, pulmonary effusion CXR showing improvement of edema, while effusion has enlarged On Vent, rate 14 at 30% O2 extubated, POA requested comfort measures only Palliative care serivice. May add roiunal, scopolamine patch , morphine and ativan (2) Pleural effusion Current Visit: Yes Status: Acute Enlarged since 12/08/16 despite HD (3) Sepsis Current Visit: Yes Status: Resolved WBC 4.5 Resolved Blood and Sputum cultures negative for growth, final report Ddiscontinued flagyl Discontinued aztreonam at day 9 Qualifiers: Sepsis type: sepsis due to unspecified organism Qualified Code(s): A41.9 - Sepsis, unspecified organism (4) Metabolic encephalopathy Current Visit: Yes Status: Acute Mental status greatly improved Now following commands and responding to questions (5) Aspiration pneumonia Current Visit: Yes Status: Acute Day 9 of aztreonam and flagyl Discontinuing aztreonam PNA not excluded on CXR due to overlying effusion Qualifiers: Aspiration pneumonia type: unspecified Laterality: unspecified laterality Lung location: unspecified part of lung Qualified Code(s): J69.0 - Pneumonitis due to inhalation of food and vomit (6) Acute on chronic kidney failure Current Visit: Yes Status: Acute Likely end stage disease, urine output improved over the last few days, but still poor Nephrology following, plan for HD today, possibly HF tomorrow Pressure is slightly low, so we have added levophed back on to allow for more fluid removal Will discuss ultimate plan of care with POA today Qualifiers: Acute renal failure type: with acute tubular necrosis Chronic kidney disease stage: stage 4 (severe) Qualified Code(s): N17.0 - Acute kidney failure with tubular necrosis; N18.4 - Chronic kidney disease, stage 4 (severe) (7) C. difficile diarrhea Current Visit: Yes Status: Acute 1st bowel movement since ICU admission was diarrhea with mucus + C. diff [facility]. [facility] on , making this either a first or second recurrence Stopped aztreonam Discontinue IV flagyl Discontinue PO vancomycin 125 mg QID (8) Thrombocytopenia Current Visit: Yes Status: Chronic (9) Anemia Current Visit: Yes Status: Chronic Chronic, stable Hgb 8.0 today Qualifiers: Anemia type: due to chronic kidney disease Chronic kidney disease stage: stage 4 (severe) Qualified Code(s): N18.4 - Chronic kidney disease, stage 4 ( severe); D63.1 - Anemia in chronic kidney disease (10) Schizophrenia Current Visit: Yes Status: Chronic Chronic condition, mental status apparently improved Now following commands seroquel 50 ml BID 12/13/16 Qualifiers: Schizophrenia type: unspecified Qualified Code(s): F20.9 - Schizophrenia, unspecified - Subjective Interval history: Appears to be in respiratory distress, unable to provide any history, unable to complete review of systems due to metabolic encephalopathy - Constitutional Vitals: Temp Pulse Resp BP Pulse Ox 97.7 F 118 24 164/92 97 12/18/16 08:43 12/18/16 08:43 12/18/16 08:43 12/18/16 08:43 12/18/16 08:43 General appearance: Present: A&O X 0, no acute distress Exam: Very pale - Head Head exam: Present: atraumatic, normocephalic - Eye Eye exam: Present: PERRL, conjuntiva pink, sclera anicteric Pupils: Present: PERRL - Neck Neck exam general surgery: Present: supple, trachea midline. Absent: lymphadenopathy - Respiratory Respiratory exam: Present: CTAB, rales (Diffuse crackles and rhonchi). Absent: accessory muscle use, rhonchi, wheezes - Cardiovascular Cardiovascular exam: Present: RRR, +S1, +S2. Absent: diastolic murmur, gallop, rubs, systolic murmur - GI/Abdominal GI/Abdominal exam: Present: normal bowel sounds, soft, no peritoneal signs. Absent: distended, tenderness - Extremities Exam Extremities exam: Present: warm, radial pulses palpable and symmetrical. Absent : calf tenderness, cyanotic, pedal edema - Neurological Exam Neurological exam: Present: CN II-XII intact. Absent: oriented X3, no focal deficits, pronater drift, facial droop, speech deficit Additional comments: generalized weakness not following commands - Skin Skin exam: Present: dry. Absent: intact Internal Medicine: Result - Labs CBC & Chem 7: 12/17/16 03:00 12/17/16 03:00 - ABG Interpretation ABG results: ABG ABG pH 7.45 pH Units (7.32-7.45) 12/17/16 09:57 ABG pCO2 49 mmHg (35-45) H 12/17/16 09:57 ABG pO2 57 mmHg (85-104) L 12/17/16 09:57 ABG O2 Saturation 91 % (95-98) L 12/17/16 09:57 PT/INR, D-dimer PT 15.5 Seconds (9.4-12.1) H 12/10/16 16:10 - VTE Documentation of Mechanical Device: Intermittent pneumatic compression device Consult Discharge Plan - Plan [facility]errals: [facility] [Primary Care Provider[facility] -
[2016-12-18] MEDS: *HR* HYDROmorphone (PF) 1 MG/ML SYRINGE IVP SCH ×2 (10:01→16:33)
[2016-12-18] MEDS: *HR* LORazepam 2 MG/ML VIAL IVP PRN (10:01)
[2016-12-18] MEDS: *HR* HYDROmorphone (PF) 1 MG/ML SYRINGE IVP PRN (13:25)
[2016-12-18] MEDS: Atropine Sulfate 1% 40 DROP/2 ML BOTTLE SL PRN (14:59)
[2016-12-19] MEDS: *HR* HYDROmorphone (PF) 1 MG/ML SYRINGE IVP SCH ×4 (07:53→16:15)
--- NOTE | 2016-12-19 09:17 | Internal Med Progress Note ---
Date of Encounter: 12/19/16 Time of Encounter: 09:15 - Time Spent With Patient (1) Acute respiratory failure with hypoxia and hypercapnia Current Visit: Yes Status: Acute Secondary to pulmonary edema, aspiration pneumonia, pulmonary effusion CXR showing improvement of edema, while effusion has enlarged extubated, POA requested comfort measures only Palliative care serivice. May add robinul, scopolamine patch , morphine and ativan (2) Pleural effusion Current Visit: Yes Status: Acute Enlarged since 12/08/16 despite HD (3) Sepsis Current Visit: Yes Status: Resolved WBC 4.5 Resolved Blood and Sputum cultures negative for growth, final report Ddiscontinued flagyl Discontinued aztreonam at day 9 Qualifiers: Sepsis type: sepsis due to unspecified organism Qualified Code(s): A41.9 - Sepsis, unspecified organism (4) Metabolic encephalopathy Current Visit: Yes Status: Acute Mental status greatly improved Now following commands and responding to questions (5) Aspiration pneumonia Current Visit: Yes Status: Acute Day 9 of aztreonam and flagyl Discontinuing aztreonam PNA not excluded on CXR due to overlying effusion Qualifiers: Aspiration pneumonia type: unspecified Laterality: unspecified laterality Lung location: unspecified part of lung Qualified Code(s): J69.0 - Pneumonitis due to inhalation of food and vomit (6) Acute on chronic kidney failure Current Visit: Yes Status: Acute Likely end stage disease, urine output improved over the last few days, but still poor Nephrology following, plan for HD today, possibly HF tomorrow Pressure is slightly low, so we have added levophed back on to allow for more fluid removal Will discuss ultimate plan of care with POA today Qualifiers: Acute renal failure type: with acute tubular necrosis Chronic kidney disease stage: stage 4 (severe) Qualified Code(s): N17.0 - Acute kidney failure with tubular necrosis; N18.4 - Chronic kidney disease, stage 4 (severe) (7) C. difficile diarrhea Current Visit: Yes Status: Acute 1st bowel movement since ICU admission was diarrhea with mucus + C. diff A [facility] for C. diff toxin on , making this either a first or second recurrence Stopped aztreonam Discontinue IV flagyl Discontinue PO vancomycin 125 mg QID (8) Thrombocytopenia Current Visit: Yes Status: Chronic (9) Anemia Current Visit: Yes Status: Chronic Chronic, stable Hgb 8.0 today Qualifiers: Anemia type: due to chronic kidney disease Chronic kidney disease stage: stage 4 (severe) Qualified Code(s): N18.4 - Chronic kidney disease, stage 4 ( severe); D63.1 - Anemia in chronic kidney disease (10) Schizophrenia Current Visit: Yes Status: Chronic Chronic condition, mental status apparently improved Now following commands seroquel 50 ml BID 12/13/16 Qualifiers: Schizophrenia type: unspecified Qualified Code(s): F20.9 - Schizophrenia, unspecified - Subjective Interval history: Appears to be in less respiratory distress, still unable to provide any history , unable to complete review of systems due to metabolic encephalopathy - Constitutional Vitals: Temp Pulse Resp BP Pulse Ox 97.9 F 102 20 121/87 95 12/19/16 07:00 12/19/16 07:00 12/19/16 07:00 12/19/16 07:00 12/19/16 07:00 General appearance: Present: A&O X 0, no acute distress Exam: pale - Head Head exam: Present: atraumatic, normocephalic - Eye Eye exam: Present: PERRL, conjuntiva pink, sclera anicteric Pupils: Present: PERRL - Neck Neck exam general surgery: Present: supple, trachea midline. Absent: lymphadenopathy - Respiratory Respiratory exam: Present: CTAB, rales (Diffuse crackles and rhonchi). Absent: accessory muscle use, rhonchi, wheezes - Cardiovascular Cardiovascular exam: Present: RRR, +S1, +S2. Absent: diastolic murmur, gallop, rubs, systolic murmur - GI/Abdominal GI/Abdominal exam: Present: normal bowel sounds, soft, no peritoneal signs. Absent: distended, tenderness - Extremities Exam Extremities exam: Present: warm, radial pulses palpable and symmetrical. Absent : calf tenderness, cyanotic, pedal edema - Neurological Exam Neurological exam: Present: CN II-XII intact. Absent: oriented X3, no focal deficits, pronater drift, facial droop, speech deficit Additional comments: generalized weakness not following commands Internal Medicine: Result - Labs CBC & Chem 7: 12/17/16 03:00 12/17/16 03:00 - ABG Interpretation ABG results: ABG ABG pH 7.45 pH Units (7.32-7.45) 12/17/16 09:57 ABG pCO2 49 mmHg (35-45) H 12/17/16 09:57 ABG pO2 57 mmHg (85-104) L 12/17/16 09:57 ABG O2 Saturation 91 % (95-98) L 12/17/16 09:57 PT/INR, D-dimer PT 15.5 Seconds (9.4-12.1) H 12/10/16 16:10 - Impressions Impressions KUB X-Ray 12/04/16 18:11 IMPRESSION: 1. Enteric tube tip and sidehole project over the gastric body. 2. Small to moderate right pleural effusion. Right basilar airspace opacity, compatible with pneumonia versus atelectasis. 3. Left basilar airspace opacity, favored to represent atelectasis. 4. Pulmonary vascular congestion. 5. Follow-up short-term chest radiography is recommended to evaluate thoracic findings. D/ / 12/04/2016 18:44:11 Tahir Roberson MD / laura Interpreting Provider: Tahir Roberson MD - VTE Documentation of Mechanical Device: Intermittent pneumatic compression device Consult Discharge Plan - Plan [facility]errals: [facility] [Primary Care Provider[facility] -
--- NOTE | 2016-12-19 09:30 | Palliative Progress Note ---
Date of Encounter: 12/19/16 Time of Encounter: 09:25 - Assessment and plan (1) Congestion of upper airway Current Visit: Yes Status: Acute Assessment and plan: Scopolamine and Atropine ordered, however has not received any Atropine drops since yesterday. Robinul has been added as well. (2) Agitation Current Visit: Yes Status: Acute Assessment and plan: Begin scheduled Haloperidol and monitor (3) Anxiety Current Visit: Yes Status: Acute Assessment and plan: Continue Lorazepam PRN. Has received x2 last 24 hours (4) Dyspnea Current Visit: Yes Status: Acute Qualifiers: Dyspnea type: unspecified Qualified Code(s): R06.00 - Dyspnea, unspecified (5) Goals of care, counseling/discussion Current Visit: Yes Status: Acute Assessment and plan: Will D/W social media strategist tomorrow re: potential for transferring to [place] hospice are. (6) Acute on chronic kidney failure Current Visit: Yes Status: Acute Qualifiers: Acute renal failure type: with acute tubular necrosis Chronic kidney disease stage: stage 4 (severe) Qualified Code(s): N17.0 - Acute kidney failure with tubular necrosis; N18.4 - Chronic kidney disease, stage 4 (severe) (7) COPD (chronic obstructive pulmonary disease) Current Visit: Yes Status: Acute Qualifiers: COPD type: chronic bronchitis Chronic bronchitis type: simple Qualified Code(s): J41.0 - Simple chronic bronchitis (8) Aspiration pneumonia Current Visit: Yes Status: Acute Qualifiers: Aspiration pneumonia type: unspecified Laterality: unspecified laterality Lung location: unspecified part of lung Qualified Code(s): J69.0 - Pneumonitis due to inhalation of food and vomit - Time Spent With Patient Total time spent is greater than 50% in coordination of care (as documented) at patient's floor/unit and/or counseling patient: 25 - 35 minutes - Subjective Interval history: Patient with moderate resp distress, shallow respirations. + upper airway secretions. Appears unable to swallow his own saliva. Required suctioning during the night. More alert today but agitated- pushing me away with exam. Refuses to leave oxygen on. - Constitutional Vitals: Abnormal lab results RBC 2.66 M/mcL (4.19-5.50) L 12/17/16 03:00 Hgb 8.0 g/dL (12.9-16.9) L 12/17/16 03:00 Hct 25.5 % (37.5-50.1) L 12/17/16 03:00 MCHC 31.4 g/dL (31.6-35.5) L 12/17/16 03:00 RDW 17.5 % (11.5-14.5) H 12/17/16 03:00 Plt Count 113 K/mcL (140-400) L 12/17/16 03:00 Nucleated RBCs/100 WBC 0.4 /100 WBC (0) H 12/06/16 05:14 Platelet Estimate Decreased (Normal) L 12/11/16 04:10 Immature Plt Fraction 9.5 % (1.1-6.1) H 12/13/16 03:33 Polychromasia 1+ (Not Present) A 12/05/16 04:15 Basophilic Stippling 1+ (Not Present) A 12/05/16 04:15 Anisocytosis 2+ (Not Present) A 12/11/16 04:10 Macrocytosis Present (Not Present) A 12/05/16 04:15 Haptoglobin 210 mg/dL (30-200) H 12/14/16 12:15 PT 15.5 Seconds (9.4-12.1) H 12/10/16 16:10 ABG pCO2 49 mmHg (35-45) H 12/17/16 09:57 ABG pO2 57 mmHg (85-104) L 12/17/16 09:57 ABG HCO3 34 mEq/L (21-27) H 12/17/16 09:57 ABG Total CO2 36 mEq/L (20-26) H 12/17/16 09:57 ABG O2 Saturation 91 % (95-98) L 12/17/16 09:57 ABG Base Excess 9.1 mEq/L (-2.0 to 3.0) H 12/17/16 09:57 Sodium 135 mEq/L (136-145) L 12/17/16 03:00 BUN 45 mg/dL (8-26) H D 12/17/16 03:00 Creatinine 3.19 mg/dL (0.72-1.25) H 12/17/16 03:00 Est GFR ( Amer) 24 (> 60) L 12/17/16 03:00 Est GFR (Non-Af Amer) 20 (> 60) L 12/17/16 03:00 Glucose 145 mg/dL (70-99) H 12/17/16 03:00 Serum Osmolality 332 mOsm/kg (280-300) H 12/08/16 07:59 Uric Acid 8.8 mg/dL (3.5-7.2) H 12/06/16 05:14 Calcium 8.2 mg/dL (8.6-10.8) L 12/17/16 03:00 Phosphorus 1.9 mg/dL (2.3-4.7) L 12/12/16 18:11 Iron 28 mcg/dL (65-175) L 12/06/16 05:14 % Saturation 14 % (20-55) L 12/06/16 05:14 Transferrin 144 mg/dL (174-364) L 12/06/16 05:14 Ferritin 417 ng/ml (22-275) H 12/06/16 05:14 Alkaline Phosphatase 138 Units/L (38-126) H 12/14/16 12:15 Troponin I 0.04 ng/mL (0-0.03) H* 12/09/16 23:45 B-Natriuretic Peptide 162 pg/mL (0-100) H 12/04/16 08:08 Serum Total Protein 5.6 g/dL (6.0-8.3) L 12/14/16 12:15 Albumin 2.0 g/dL (3.5-5.0) L 12/14/16 12:15 Albumin (PEP) 2.75 g/dL (3.75-5.01) L 12/06/16 05:14 Globulin 3.6 g/dL (2.4-3.5) H 12/14/16 12:15 Albumin/Globulin Ratio 0.6 (1.1-2.2) L 12/14/16 12:15 Gamma Globulins 1.56 g/dL (0.62-1.51) H 12/06/16 05:14 Vitamin B12 1517 pg/mL (213-816) H 12/06/16 05:14 TSH 6.855 mcIU/mL (0.350-4.840) H 12/11/16 08:10 PTH Intact 148.0 pg/ml (8.5-72.5) H 12/06/16 05:14 Ur Specimen Adequacy See below A 12/04/16 18:05 Urine Clarity Turbid (Clear) A 12/06/16 04:52 Urine Protein >=300 mg/dL (Neg-Trace) H 12/06/16 04:52 Urine Blood Large (Negative) H 12/06/16 04:52 Ur Leukocyte Esterase Large (Negative) H 12/06/16 04:52 Urine Microscopic RBC TNTC per hpf (0-3) H 12/06/16 04:52 Urine Microscopic WBC TNTC per hpf (0-3) H 12/06/16 04:52 Ur Squamous Epith Cells Many per lpf (None-Few) H 12/06/16 04:52 Urine Bacteria Moderate per hpf (None-Few) H 12/06/16 04:52 Ur Culture Indicated? YES (NO) A 12/06/16 04:52 Protein/Creatinin Ratio 3.84 mg/mg (0-0.20) H 12/06/16 06:15 Urine Total Protein 238 mg/dL (1-14) H 12/06/16 06:15 Stool Occult Blood Positive (Negative) A 12/16/16 15:30 Stl C. diff Tox A/B PCR See reflex test (Not detect) A 12/16/16 15:30 ALINA Screen DETECTED (None Detected) A 12/06/16 05:14 ALINA Titer 1:40 (<1:40) H 12/06/16 05:14 General appearance: Present: mild distress - Respiratory Additional comments: Rhonchi throughout, resp labored. + secretions. - Cardiovascular Cardiovascular exam: Present: +S1, +S2, tachycardia - GI/Abdominal GI/Abdominal exam: Present: normal bowel sounds, soft - Additional comments: Urine lt morales in color - Extremities Exam Additional comments: Generalized edema but decreased - Neurological Exam Neurological exam: Present: alert Additional comments: Disoriented, restless. will not follow commands - Skin Skin exam: Present: dry, warm Palliative Quality Palliative Quality: Screen for Code Status: Yes, Screen for Goals of Care: Yes, Screen for Pain: Yes, If Pain Regimen Started, Initiate Bowel Regimen: NA, Screen for Nausea/Vomitting: Yes Code Status: 12/04/16 18:00 Resuscitation Status: Active [RES] Routine Comment: Resuscitation Status: DNR-Comfort Care-Arrest Resuscitation Status: Active [RES] Routine Comment: Guardian states DNR/DNI/CCA Resuscitation Status: [id number] 12/17/16 18:34 DNR [Resuscitation Status: Active] [RES] Routine Comment: Resuscitation Status: DNR-Comfort Care - Labs CBC & Chem 7: 12/17/16 03:00 12/17/16 03:00 Labs: Laboratory Results - last 24 hr 12/18/16 12/18/16 12/18/16 05:52 12:15 19:00 POC Glucose 97 H 79 62 - Impressions Impressions KUB X-Ray 12/04/16 18:11 IMPRESSION: 1. Enteric tube tip and sidehole project over the gastric body. 2. Small to moderate right pleural effusion. Right basilar airspace opacity, compatible with pneumonia versus atelectasis. 3. Left basilar airspace opacity, favored to represent atelectasis. 4. Pulmonary vascular congestion. 5. Follow-up short-term chest radiography is recommended to evaluate thoracic findings. D/ / 12/04/2016 18:44:11 Tahir Roberson MD / laura Interpreting Provider: Tahir Roberson MD - ABG Interpretation ABG results: ABG ABG pH 7.45 pH Units (7.32-7.45) 12/17/16 09:57 ABG pCO2 49 mmHg (35-45) H 12/17/16 09:57 ABG pO2 57 mmHg (85-104) L 12/17/16 09:57 ABG O2 Saturation 91 % (95-98) L 12/17/16 09:57 PT/INR, D-dimer PT 15.5 Seconds (9.4-12.1) H 12/10/16 16:10 Consult Discharge Plan - Plan [facility]errals: [facility] [Primary Care Provider[facility] -
[2016-12-19] MEDS: *HR* LORazepam 2 MG/ML VIAL IVP PRN ×2 (09:41→18:05)
[2016-12-19] MEDS: Haloperidol Lactate 5 MG/ML VIAL IVP SCH ×2 (11:49→17:31)
[2016-12-19] MEDS: Atropine Sulfate 1% 40 DROP/2 ML BOTTLE SL PRN ×2 (13:41→17:31)
[2016-12-19] MEDS: *HR* HYDROmorphone (PF) 1 MG/ML SYRINGE IVP PRN (13:42)
[2016-12-20] MEDS: *HR* HYDROmorphone (PF) 1 MG/ML SYRINGE IVP SCH ×5 (00:57→08:51)
[2016-12-20] MEDS: Haloperidol Lactate 5 MG/ML VIAL IVP SCH ×3 (00:58→12:58)
[2016-12-20 06:54] VITALS: BP 172/84
--- NOTE | 2016-12-20 07:21 | Urology - Consult Note ---
Date of Encounter: 12/20/16 Time of Encounter: 07:18 - Assessment and Plan (1) Paraphimosis Current Visit: Yes Status: Acute Assessment and plan: reduced the paraphimosis at the bedside. Based on patient's poor prognosis no urologic follow-up as needed. Urology CN:HPI Consult date: 12/20/16 History of present illness: Consult for foreskin swelling. Started last 24 hours. Patient on hospice. Indwelling catheter. Past Med Surg Social Fam HX - Past Medical History Medical history: cancer, CHF, COPD, diabetes, hypertension, renal disease Psychiatric history: schizophrenia - Social History Smoking Status: Unknown if ever smoked Smokeless Tobacco Status: No Alcohol use: unknown Drug use: unknown Medications and Allergies Acetaminophen [Tylenol] 650 mg PO Q6HR PRN 12/05/16 [History] Aripiprazole [Abilify Maintena] 400 mg IM QMONTH 12/05/16 [History] Benztropine [Cogentin] 0.5 mg PO HS 12/05/16 [History] Chlorhexidine Gluconate [Hibiclens] 15 ml PO DAILY 12/05/16 [History] Clotrimazole [Itch Relief] 1 appl TP BID PRN 12/05/16 [History] Epoetin Dandy [Procrit] 5,000 unit SQ MOWEFR 12/05/16 [History] Haloperidol 2 mg PO HS 12/05/16 [History] Insulin Regular Human [HumuLIN R] 3 - 8 unit SQ ACHS 12/05/16 [History] Ipratropium/Albuterol Neb [Duoneb] 3 ml IH Q6HR PRN 12/05/16 [History] Levothyroxine [Synthroid] 25 mcg PO DAILY 12/05/16 [History] Lidocaine 4% CRM (LMX) [Lmx 4] 1 appl TP TID PRN 12/05/16 [History] Magnesium Oxide [Magnesium] 400 mg PO BID 12/05/16 [History] Melatonin/Pyridoxine HCl (B6) [Melatonin 3 mg Tablet] 6 mg PO HS PRN 12/05/16 [ History] Nitroglycerin [Nitrostat] 0.4 mg SL AD PRN 12/05/16 [History] Ondansetron [Zofran] 4 mg PO TID PRN 12/05/16 [History] Xenaderm 1 appl TP Q4H PRN 12/05/16 [History] traZODone [TraZODone] 50 mg PO HS 12/05/16 [History] 3 Allergy/AdvReac Type Severity Reaction Status Date / Time heparin Allergy Unknown Rash Verified 12/04/16 21:55 Penicillins Allergy See Verified 03/21/16 08:24 Comments Sulfa (Sulfonamide Allergy See Verified 03/21/16 08:24 Antibiotics) Comments TB test Allergy See Uncoded 12/04/16 21:55 Comments Review of Systems ROS unobtainable: due to mental status Exam Initial Vital Signs Temp Pulse Resp BP Pulse Ox 98.3 F 85 20 119/61 92 12/04/16 17:06 12/04/16 17:06 12/04/16 17:06 12/04/16 17:06 12/04/16 17:06 - General physical appearance Present: no distress, chronically ill - Eyes Present: PERRL - ENT Present: normal nares - Neck Present: no masses - Respiratory Present: normal respiratory effort - Cardiovascular Cardiovascular exam IM: RRR - Abdomen Abdomen: Present: soft - Integumentary Present: no rash - Neurologic Present: disoriented, confused - Additional Findings Gomez catheter draining dusky but transparent urine Moderate foreskin swelling with glans exposed. Positive paraphimosis. Urology Results - Labs 12/17/16 03:00 12/17/16 03:00 Abnormal lab results RBC 2.66 M/mcL (4.19-5.50) L 12/17/16 03:00 Hgb 8.0 g/dL (12.9-16.9) L 12/17/16 03:00 Hct 25.5 % (37.5-50.1) L 12/17/16 03:00 MCHC 31.4 g/dL (31.6-35.5) L 12/17/16 03:00 RDW 17.5 % (11.5-14.5) H 12/17/16 03:00 Plt Count 113 K/mcL (140-400) L 12/17/16 03:00 Nucleated RBCs/100 WBC 0.4 /100 WBC (0) H 12/06/16 05:14 Platelet Estimate Decreased (Normal) L 12/11/16 04:10 Immature Plt Fraction 9.5 % (1.1-6.1) H 12/13/16 03:33 Polychromasia 1+ (Not Present) A 12/05/16 04:15 Basophilic Stippling 1+ (Not Present) A 12/05/16 04:15 Anisocytosis 2+ (Not Present) A 12/11/16 04:10 Macrocytosis Present (Not Present) A 12/05/16 04:15 Haptoglobin 210 mg/dL (30-200) H 12/14/16 12:15 PT 15.5 Seconds (9.4-12.1) H 12/10/16 16:10 ABG pCO2 49 mmHg (35-45) H 12/17/16 09:57 ABG pO2 57 mmHg (85-104) L 12/17/16 09:57 ABG HCO3 34 mEq/L (21-27) H 12/17/16 09:57 ABG Total CO2 36 mEq/L (20-26) H 12/17/16 09:57 ABG O2 Saturation 91 % (95-98) L 12/17/16 09:57 ABG Base Excess 9.1 mEq/L (-2.0 to 3.0) H 12/17/16 09:57 Sodium 135 mEq/L (136-145) L 12/17/16 03:00 BUN 45 mg/dL (8-26) H D 12/17/16 03:00 Creatinine 3.19 mg/dL (0.72-1.25) H 12/17/16 03:00 Est GFR ( Amer) 24 (> 60) L 12/17/16 03:00 Est GFR (Non-Af Amer) 20 (> 60) L 12/17/16 03:00 Glucose 145 mg/dL (70-99) H 12/17/16 03:00 Serum Osmolality 332 mOsm/kg (280-300) H 12/08/16 07:59 Uric Acid 8.8 mg/dL (3.5-7.2) H 12/06/16 05:14 Calcium 8.2 mg/dL (8.6-10.8) L 12/17/16 03:00 Phosphorus 1.9 mg/dL (2.3-4.7) L 12/12/16 18:11 Iron 28 mcg/dL (65-175) L 12/06/16 05:14 % Saturation 14 % (20-55) L 12/06/16 05:14 Transferrin 144 mg/dL (174-364) L 12/06/16 05:14 Ferritin 417 ng/ml (22-275) H 12/06/16 05:14 Alkaline Phosphatase 138 Units/L (38-126) H 12/14/16 12:15 Troponin I 0.04 ng/mL (0-0.03) H* 12/09/16 23:45 B-Natriuretic Peptide 162 pg/mL (0-100) H 12/04/16 08:08 Serum Total Protein 5.6 g/dL (6.0-8.3) L 12/14/16 12:15 Albumin 2.0 g/dL (3.5-5.0) L 12/14/16 12:15 Albumin (PEP) 2.75 g/dL (3.75-5.01) L 12/06/16 05:14 Globulin 3.6 g/dL (2.4-3.5) H 12/14/16 12:15 Albumin/Globulin Ratio 0.6 (1.1-2.2) L 12/14/16 12:15 Gamma Globulins 1.56 g/dL (0.62-1.51) H 12/06/16 05:14 Vitamin B12 1517 pg/mL (213-816) H 12/06/16 05:14 TSH 6.855 mcIU/mL (0.350-4.840) H 12/11/16 08:10 PTH Intact 148.0 pg/ml (8.5-72.5) H 12/06/16 05:14 Ur Specimen Adequacy See below A 12/04/16 18:05 Urine Clarity Turbid (Clear) A 12/06/16 04:52 Urine Protein >=300 mg/dL (Neg-Trace) H 12/06/16 04:52 Urine Blood Large (Negative) H 12/06/16 04:52 Ur Leukocyte Esterase Large (Negative) H 12/06/16 04:52 Urine Microscopic RBC TNTC per hpf (0-3) H 12/06/16 04:52 Urine Microscopic WBC TNTC per hpf (0-3) H 12/06/16 04:52 Ur Squamous Epith Cells Many per lpf (None-Few) H 12/06/16 04:52 Urine Bacteria Moderate per hpf (None-Few) H 12/06/16 04:52 Ur Culture Indicated? YES (NO) A 12/06/16 04:52 Protein/Creatinin Ratio 3.84 mg/mg (0-0.20) H 12/06/16 06:15 Urine Total Protein 238 mg/dL (1-14) H 12/06/16 06:15 Stool Occult Blood Positive (Negative) A 12/16/16 15:30 Stl C. diff Tox A/B PCR See reflex test (Not detect) A 12/16/16 15:30 ALINA Screen DETECTED (None Detected) A 12/06/16 05:14 ALINA Titer 1:40 (<1:40) H 12/06/16 05:14 All other labs normal. Procedures:Urology - Penile Procedure Consent obtained: verbal consent Indication: paraphimosis Reduction of paraphimosis: manual pressure Patient tolerated procedure: well Additional comments: Able to apply pressure to reduce edema and slide the foreskin over the glans. Mild bleeding from small skin tear. Patient tolerated well after the initial discomfort of the reduction. Consult Discharge Plan - Plan [facility]: [facility] [Primary Care Provider] -
--- NOTE | 2016-12-20 07:58 | Palliative Progress Note ---
Date of Encounter: 12/20/16 Time of Encounter: 07:20 - Assessment and plan (1) Dyspnea Current Visit: Yes Status: Acute Assessment and plan: At least somewhat better today. Patient is operative with oxygen for the moment , however oxygen was off when I entered the room. Qualifiers: Dyspnea type: unspecified Qualified Code(s): R06.00 - Dyspnea, unspecified (2) Goals of care, counseling/discussion Current Visit: Yes Status: Acute Assessment and plan: DNR comfort care, have discussed with social work about getting the patient over to the [facility] for hospice care the patient is long-term resident at the [facility]. (3) Anxiety Current Visit: Yes Status: Acute Assessment and plan: 2 doses yesterday in addition to the usual Haldol. His to be effective. (4) Agitation Current Visit: Yes Status: Acute Assessment and plan: Schedule Haldol appears to be effective. (5) Paraphimosis Current Visit: Yes Status: Acute Assessment and plan: Reduced by urology this morning, appreciate urology's help. - Time Spent With Patient Total time spent is greater than 50% in coordination of care (as documented) at patient's floor/unit and/or counseling patient: - Subjective Interval history: The patient had a paraphimosis this morning this was reduced by urology. The patient is currently awake and able to answer a few questions, he has no complaints of at this time states his breathing feels slightly better. - Constitutional Vitals: Abnormal lab results RBC 2.66 M/mcL (4.19-5.50) L 12/17/16 03:00 Hgb 8.0 g/dL (12.9-16.9) L 12/17/16 03:00 Hct 25.5 % (37.5-50.1) L 12/17/16 03:00 MCHC 31.4 g/dL (31.6-35.5) L 12/17/16 03:00 RDW 17.5 % (11.5-14.5) H 12/17/16 03:00 Plt Count 113 K/mcL (140-400) L 12/17/16 03:00 Nucleated RBCs/100 WBC 0.4 /100 WBC (0) H 12/06/16 05:14 Platelet Estimate Decreased (Normal) L 12/11/16 04:10 Immature Plt Fraction 9.5 % (1.1-6.1) H 12/13/16 03:33 Polychromasia 1+ (Not Present) A 12/05/16 04:15 Basophilic Stippling 1+ (Not Present) A 12/05/16 04:15 Anisocytosis 2+ (Not Present) A 12/11/16 04:10 Macrocytosis Present (Not Present) A 12/05/16 04:15 Haptoglobin 210 mg/dL (30-200) H 12/14/16 12:15 PT 15.5 Seconds (9.4-12.1) H 12/10/16 16:10 ABG pCO2 49 mmHg (35-45) H 12/17/16 09:57 ABG pO2 57 mmHg (85-104) L 12/17/16 09:57 ABG HCO3 34 mEq/L (21-27) H 12/17/16 09:57 ABG Total CO2 36 mEq/L (20-26) H 12/17/16 09:57 ABG O2 Saturation 91 % (95-98) L 12/17/16 09:57 ABG Base Excess 9.1 mEq/L (-2.0 to 3.0) H 12/17/16 09:57 Sodium 135 mEq/L (136-145) L 12/17/16 03:00 BUN 45 mg/dL (8-26) H D 12/17/16 03:00 Creatinine 3.19 mg/dL (0.72-1.25) H 12/17/16 03:00 Est GFR ( Amer) 24 (> 60) L 12/17/16 03:00 Est GFR (Non-Af Amer) 20 (> 60) L 12/17/16 03:00 Glucose 145 mg/dL (70-99) H 12/17/16 03:00 Serum Osmolality 332 mOsm/kg (280-300) H 12/08/16 07:59 Uric Acid 8.8 mg/dL (3.5-7.2) H 12/06/16 05:14 Calcium 8.2 mg/dL (8.6-10.8) L 12/17/16 03:00 Phosphorus 1.9 mg/dL (2.3-4.7) L 12/12/16 18:11 Iron 28 mcg/dL (65-175) L 12/06/16 05:14 % Saturation 14 % (20-55) L 12/06/16 05:14 Transferrin 144 mg/dL (174-364) L 12/06/16 05:14 Ferritin 417 ng/ml (22-275) H 12/06/16 05:14 Alkaline Phosphatase 138 Units/L (38-126) H 12/14/16 12:15 Troponin I 0.04 ng/mL (0-0.03) H* 12/09/16 23:45 B-Natriuretic Peptide 162 pg/mL (0-100) H 12/04/16 08:08 Serum Total Protein 5.6 g/dL (6.0-8.3) L 12/14/16 12:15 Albumin 2.0 g/dL (3.5-5.0) L 12/14/16 12:15 Albumin (PEP) 2.75 g/dL (3.75-5.01) L 12/06/16 05:14 Globulin 3.6 g/dL (2.4-3.5) H 12/14/16 12:15 Albumin/Globulin Ratio 0.6 (1.1-2.2) L 12/14/16 12:15 Gamma Globulins 1.56 g/dL (0.62-1.51) H 12/06/16 05:14 Vitamin B12 1517 pg/mL (213-816) H 12/06/16 05:14 TSH 6.855 mcIU/mL (0.350-4.840) H 12/11/16 08:10 PTH Intact 148.0 pg/ml (8.5-72.5) H 12/06/16 05:14 Ur Specimen Adequacy See below A 12/04/16 18:05 Urine Clarity Turbid (Clear) A 12/06/16 04:52 Urine Protein >=300 mg/dL (Neg-Trace) H 12/06/16 04:52 Urine Blood Large (Negative) H 12/06/16 04:52 Ur Leukocyte Esterase Large (Negative) H 12/06/16 04:52 Urine Microscopic RBC TNTC per hpf (0-3) H 12/06/16 04:52 Urine Microscopic WBC TNTC per hpf (0-3) H 12/06/16 04:52 Ur Squamous Epith Cells Many per lpf (None-Few) H 12/06/16 04:52 Urine Bacteria Moderate per hpf (None-Few) H 12/06/16 04:52 Ur Culture Indicated? YES (NO) A 12/06/16 04:52 Protein/Creatinin Ratio 3.84 mg/mg (0-0.20) H 12/06/16 06:15 Urine Total Protein 238 mg/dL (1-14) H 12/06/16 06:15 Stool Occult Blood Positive (Negative) A 12/16/16 15:30 Stl C. diff Tox A/B PCR See reflex test (Not detect) A 12/16/16 15:30 ALINA Screen DETECTED (None Detected) A 12/06/16 05:14 ALINA Titer 1:40 (<1:40) H 12/06/16 05:14 General appearance: Present: no acute distress - Head Head exam: Present: atraumatic, normal inspection - Eye Eye exam: Present: normal appearance - ENT ENT exam: Present: mucous membranes moist - Respiratory Respiratory exam: Present: decreased breath sounds, rhonchi - Cardiovascular Cardiovascular exam: Present: RRR, tachycardia - GI/Abdominal GI/Abdominal exam: Present: hypoactive bowel sounds, soft. Absent: tenderness - Extremities Exam Extremities exam: Absent: tenderness - Neurological Exam Neurological exam: Present: alert - Psychiatric Psychiatric exam: Absent: agitated, anxious (Does not appear anxious at this time. Although he has had periods of this.) - Skin Skin exam: Present: dry, warm Palliative Quality Palliative Quality: Screen for Code Status: Yes, Screen for Goals of Care: Yes, Screen for Pain: Yes, If Pain Regimen Started, Initiate Bowel Regimen: NA, Screen for Nausea/Vomitting: Yes Code Status: 12/04/16 18:00 Resuscitation Status: Active [RES] Routine Comment: Resuscitation Status: DNR-Comfort Care-Arrest Resuscitation Status: Active [RES] Routine Comment: Guardian states DNR/DNI/CCA Resuscitation Status: [id number] 12/17/16 18:34 DNR [Resuscitation Status: Active] [RES] Routine Comment: Resuscitation Status: DNR-Comfort Care - Labs CBC & Chem 7: 12/17/16 03:00 12/17/16 03:00 - Impressions Impressions Retroperitoneum Ultrasound 12/06/16 18:00 IMPRESSION: No evidence of hydronephrosis in either kidney. Mild left renal cortical atrophy. D/ / 12/12/2016 19:52:02 Tahir Roberson MD / eyal Interpreting Provider: Tahir Roberson MD - ABG Interpretation ABG results: ABG ABG pH 7.45 pH Units (7.32-7.45) 12/17/16 09:57 ABG pCO2 49 mmHg (35-45) H 12/17/16 09:57 ABG pO2 57 mmHg (85-104) L 12/17/16 09:57 ABG O2 Saturation 91 % (95-98) L 12/17/16 09:57 PT/INR, D-dimer PT 15.5 Seconds (9.4-12.1) H 12/10/16 16:10 Consult Discharge Plan - Plan [facility]errals: [facility] [Primary Care Provider] -
--- NOTE | 2016-12-20 08:49 | Discharge Summary ---
Date of Encounter: 12/20/16 Time of Encounter: 08:44 - Discharge Diagnosis (1) Sepsis Priority: Primary Status: Resolved Comments: (1) Acute respiratory failure with hypoxia and hypercapnia Current Visit: Yes Status: Acute Secondary to sepsis due to aspiration PNA, pulmonary edema, pulmonary effusion CXR showing improvement of edema, while effusion has enlarged extubated, POA requested comfort measures only Palliative care serivice. Continue robinul, scopolamine patch , morphine and ativan (2) Pleural effusion Current Visit: Yes Status: Acute Enlarged since 12/08/16 despite HD (3) Sepsis Current Visit: Yes Status: Resolved WBC 4.5 Resolved Blood and Sputum cultures negative for growth, final report Ddiscontinued flagyl Discontinued aztreonam at day 9 Qualifiers: Sepsis type: sepsis due to unspecified organism Qualified Code(s): A41.9 - Sepsis, unspecified organism (4) Metabolic encephalopathy Current Visit: Yes Status: Acute Not following commands and responding to questions (5) Aspiration pneumonia Current Visit: Yes Status: Acute Day 9 of aztreonam and flagyl Discontinuing aztreonam PNA not excluded on CXR due to overlying effusion Qualifiers: Aspiration pneumonia type: unspecified Laterality: unspecified laterality Lung location: unspecified part of lung Qualified Code(s): J69.0 - Pneumonitis due to inhalation of food and vomit (6) Acute on chronic kidney failure Current Visit: Yes Status: Acute Likely end stage disease, urine output improved over the last few days, but still poor Qualifiers: Acute renal failure type: with acute tubular necrosis Chronic kidney disease stage: stage 4 (severe) Qualified Code(s): N17.0 - Acute kidney failure with tubular necrosis; N18.4 - Chronic kidney disease, stage 4 (severe) (7) C. difficile diarrhea Current Visit: Yes Status: Acute 1st bowel movement since ICU admission was diarrhea with mucus + C. diff A PCR [facility] that [facility] tested positive for C. diff toxin on , making this either a first or second recurrence Stopped aztreonam Discontinued IV flagyl Discontinued PO vancomycin 125 mg QID (8) Thrombocytopenia Current Visit: Yes Status: Chronic (9) Anemia Current Visit: Yes Status: Chronic Chronic, stable Hgb 8.0 today Qualifiers: Anemia type: due to chronic kidney disease Chronic kidney disease stage: stage 4 (severe) Qualified Code(s): N18.4 - Chronic kidney disease, stage 4 ( severe); D63.1 - Anemia in chronic kidney disease (10) Schizophrenia Current Visit: Yes Status: Chronic was on seroquel 50 ml BID 12/13/16 Qualifiers: Schizophrenia type: unspecified Qualified Code(s): F20.9 - Schizophrenia, unspecified Qualifiers: Sepsis type: sepsis due to unspecified organism Qualified Code(s): A41.9 - Sepsis, unspecified organism (2) Need for comfort care Priority: Secondary Status: Acute - Discharge Medications Prescriptions: LORazepam Oral Conc [Ativan Oral Conc] 2 mg PO Q6HR 7 Days #7 mls Morphine Oral CONC [Roxanol] 1 ml PO Q4H PRN 7 Days #7 ml PRN Reason: SOB and pain Scopolamine Patch [Transderm-Scop] 1.5 mg TD Q72H #5 patch.td72 Home Medications: Acetaminophen [Tylenol] 650 mg PO Q6HR PRN 12/05/16 [History] Aripiprazole [Abilify Maintena] 400 mg IM QMONTH 12/05/16 [History] Benztropine [Cogentin] 0.5 mg PO HS 12/05/16 [History] Chlorhexidine Gluconate [Hibiclens] 15 ml PO DAILY 12/05/16 [History] Clotrimazole [Itch Relief] 1 appl TP BID PRN 12/05/16 [History] Epoetin Dandy [Procrit] 5,000 unit SQ MOWEFR 12/05/16 [History] Haloperidol 2 mg PO HS 12/05/16 [History] Insulin Regular Human [HumuLIN R] 3 - 8 unit SQ ACHS 12/05/16 [History] Ipratropium/Albuterol Neb [Duoneb] 3 ml IH Q6HR PRN 12/05/16 [History] Levothyroxine [Synthroid] 25 mcg PO DAILY 12/05/16 [History] Lidocaine 4% CRM (LMX) [Lmx 4] 1 appl TP TID PRN 12/05/16 [History] Magnesium Oxide [Magnesium] 400 mg PO BID 12/05/16 [History] Melatonin/Pyridoxine HCl (B6) [Melatonin 3 mg Tablet] 6 mg PO HS PRN 12/05/16 [ History] Nitroglycerin [Nitrostat] 0.4 mg SL AD PRN 12/05/16 [History] Ondansetron [Zofran] 4 mg PO TID PRN 12/05/16 [History] Xenaderm 1 appl TP Q4H PRN 12/05/16 [History] traZODone [TraZODone] 50 mg PO HS 12/05/16 [History] LORazepam Oral Conc [Ativan Oral Conc] 2 mg PO Q6HR 7 Days #7 mls 12/20/16 [Rx] Morphine Oral CONC [Roxanol] 1 ml PO Q4H PRN 7 Days #7 ml 12/20/16 [Rx] Scopolamine Patch [Transderm-Scop] 1.5 mg TD Q72H #5 patch.td72 12/20/16 [Rx] Allergies/Adverse Reactions: 3 Allergy/AdvReac Type Severity Reaction Status Date / Time heparin Allergy Unknown Rash Verified 12/04/16 21:55 Penicillins Allergy See Verified 03/21/16 08:24 Comments Sulfa (Sulfonamide Allergy See Verified 03/21/16 08:24 Antibiotics) Comments TB test Allergy See Uncoded 12/04/16 21:55 Comments Date of admission: 12/04/16 16:33 [facility] care physician: [facility] Consults: 12/06/16 16:10 Consult to Psychiatry [CONS] Stat Consulting Provider: Psychiatry Jasmyne Reason for Consult: Schizophrenia, off meds, quesitonable AMS and decision making Call Completed: Yes 12/17/16 15:26 Consult to Palliative Care [CONS] Routine Comment: Consulting Provider: Palliative Care Jasmyne Reason for Consult: Goals of Care. Guardian switched status to DNR/DNI/CCA Call Completed: Yes 12/20/16 06:23 Consult to Urology [CONS] Routine Consulting Provider: [facility] [place] Reason for Consult: EDEMATOUS FORESKIN Time Notified: 06:28 Call Completed: Yes - Patient Status Disposition: Hospice - Medical Facility Condition: Serious - Discharge Instructions [facility] With: [facility] [Primary Care Provider[facility] - Additional Instructions: Palliative care only, scopolamine, Roxicodone and Ativan as needed - Diet and Activity Diet: regular diet Hospital course: Mr. Dillard is a 66 year old male with past medical history of diabetes, chronic kidney disease 4, COPD O 2 dep, anemia originally admitted as a transfer from the [facility] for worsening acute kidney injury, hyperkalemia and nitroglycerin evaluation. He decompensated on the floor with respiratory failure and possible aspiration and was intubated and transferred to ICU. Developed C. difficile colitis, was started on Flagyl. Patient has a history of dysphagia with an NG tube that he has pulled out himself 2 times. Patient also received fluid resuscitation due to the acute kidney injury and worsening creatinine and BUN. Nephrology has been following closely. He became hypotensive, and plan this was to initiate pressors prior to hemodialysis. He did not do well with CPAP trials and has went apneic on several attempts with these. 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 He visited ICU to see and speak with patient and met with ICU team. He changed his code status, and did not desire further dialysis. The patient was extubated, all medications such as antibiotics, pressors, etc, were discontinued and the patient was transferred to the regular floor to pursue only comfort measures. Scheduled to be transferred to the [facility] on hospice care. Has a very poor prognosis. - Time Spent with Patient Total time spent providing and/or coordinating discharge services: Greater than 30 minutes (40 min) - Constitutional Vitals: Temp Pulse Resp BP Pulse Ox 97.5 F L 100 18 172/84 90 12/20/16 06:52 12/20/16 06:52 12/20/16 06:52 12/20/16 06:52 12/20/16 06:52 General appearance: Present: A&O X 0, no acute distress - Head Head exam: Present: atraumatic, normocephalic - Eye Eye exam: Present: PERRL, conjuntiva pink, sclera anicteric Pupils: Present: PERRL - Neck Neck exam general surgery: Present: supple, trachea midline. Absent: lymphadenopathy - Respiratory Respiratory exam: Present: CTAB, rales, wheezes (Diffuse wheezing and crackles) . Absent: accessory muscle use, rhonchi - Cardiovascular Cardiovascular exam: Present: RRR, +S1, +S2. Absent: diastolic murmur, gallop, rubs, systolic murmur - GI/Abdominal GI/Abdominal exam: Present: normal bowel sounds, soft, no peritoneal signs. Absent: distended, tenderness - Extremities Exam Extremities exam: Present: warm, radial pulses palpable and symmetrical. Absent : calf tenderness, cyanotic, pedal edema - Neurological Exam Neurological exam: Present: CN II-XII intact, no focal deficits. Absent: oriented X3, pronater drift, facial droop, speech deficit - Skin Skin exam: Present: dry, intact Additional comments: Gomez catheter in place - VTE Documentation of Mechanical Device: Intermittent pneumatic compression device
--- NOTE | 2016-12-20 09:44 | Physician Discharge Referral ---
Home Health/Hosp Referral Info Transfer to: Hospice Provider in Charge Post Discharge: Rn Hospice - Diagnosis (1) Sepsis Status: Resolved (2) Need for comfort care Status: Acute - Respiratory Orders Smoking Cessation: Smoking cessation has been advised. For more information, call the [place] Tobacco Quit Line at 6-933-KCFR-NOW. - Diet/Nutrition Diet/Nutrition Orders: Regular - Services Needed Home Care Orders: Palliative care only, scopolamine, Roxicodone and Ativan as needed DNR CC - Transfer Medications Prescriptions: LORazepam Oral Conc [Ativan Oral Conc] 2 mg PO Q6HR 7 Days #7 mls Morphine Oral CONC [Roxanol] 1 ml PO Q4H PRN 7 Days #7 ml PRN Reason: SOB and pain Scopolamine Patch [Transderm-Scop] 1.5 mg TD Q72H #5 patch.td72 Home Medications: Acetaminophen [Tylenol] 650 mg PO Q6HR PRN 12/05/16 [History] Aripiprazole [Abilify Maintena] 400 mg IM QMONTH 12/05/16 [History] Benztropine [Cogentin] 0.5 mg PO HS 12/05/16 [History] Chlorhexidine Gluconate [Hibiclens] 15 ml PO DAILY 12/05/16 [History] Clotrimazole [Itch Relief] 1 appl TP BID PRN 12/05/16 [History] Epoetin Dandy [Procrit] 5,000 unit SQ MOWEFR 12/05/16 [History] Haloperidol 2 mg PO HS 12/05/16 [History] Insulin Regular Human [HumuLIN R] 3 - 8 unit SQ ACHS 12/05/16 [History] Ipratropium/Albuterol Neb [Duoneb] 3 ml IH Q6HR PRN 12/05/16 [History] Levothyroxine [Synthroid] 25 mcg PO DAILY 12/05/16 [History] Lidocaine 4% CRM (LMX) [Lmx 4] 1 appl TP TID PRN 12/05/16 [History] Magnesium Oxide [Magnesium] 400 mg PO BID 12/05/16 [History] Melatonin/Pyridoxine HCl (B6) [Melatonin 3 mg Tablet] 6 mg PO HS PRN 12/05/16 [ History] Nitroglycerin [Nitrostat] 0.4 mg SL AD PRN 12/05/16 [History] Ondansetron [Zofran] 4 mg PO TID PRN 12/05/16 [History] Xenaderm 1 appl TP Q4H PRN 12/05/16 [History] traZODone [TraZODone] 50 mg PO HS 12/05/16 [History] LORazepam Oral Conc [Ativan Oral Conc] 2 mg PO Q6HR 7 Days #7 mls 12/20/16 [Rx] Morphine Oral CONC [Roxanol] 1 ml PO Q4H PRN 7 Days #7 ml 12/20/16 [Rx] Scopolamine Patch [Transderm-Scop] 1.5 mg TD Q72H #5 patch.td72 12/20/16 [Rx] Allergies/Adverse Reactions: 3 Allergy/AdvReac Type Severity Reaction Status Date / Time heparin Allergy Unknown Rash Verified 12/04/16 21:55 Penicillins Allergy See Verified 03/21/16 08:24 Comments Sulfa (Sulfonamide Allergy See Verified 03/21/16 08:24 Antibiotics) Comments TB test Allergy See Uncoded 12/04/16 21:55 Comments Certification: Further, I certify that my clinical findings support that this patient is homebound (i.e. absences from home require considerable and taxing effort and are for medical reasons or restorationism services or infrequently or short duration when for other reasons) because: Homebound Reason: Altered mental status requiring supervision when leaving home Attestation: My signature below is to certify that this patient is under my care and that I, or nurse practitioner, or a physician's fleet administrative assistant working with me, has a face-to -face encounter with this patient.
--- NOTE | 2016-12-20 09:45 | Physician Discharge Referral ---
ExtendedCare Referral Info Provider in Charge after Transfer: [employer] Helper Institutional Level of Care: Skilled - Diagnosis (1) Sepsis Status: Resolved (2) Need for comfort care Status: Acute - Transfer Medications Prescriptions: LORazepam Oral Conc [Ativan Oral Conc] 2 mg PO Q6HR 7 Days #7 mls Morphine Oral CONC [Roxanol] 1 ml PO Q4H PRN 7 Days #7 ml PRN Reason: SOB and pain Scopolamine Patch [Transderm-Scop] 1.5 mg TD Q72H #5 patch.td72 Home Medications: Acetaminophen [Tylenol] 650 mg PO Q6HR PRN 12/05/16 [History] Aripiprazole [Abilify Maintena] 400 mg IM QMONTH 12/05/16 [History] Benztropine [Cogentin] 0.5 mg PO HS 12/05/16 [History] Chlorhexidine Gluconate [Hibiclens] 15 ml PO DAILY 12/05/16 [History] Clotrimazole [Itch Relief] 1 appl TP BID PRN 12/05/16 [History] Epoetin Dandy [Procrit] 5,000 unit SQ MOWEFR 12/05/16 [History] Haloperidol 2 mg PO HS 12/05/16 [History] Insulin Regular Human [HumuLIN R] 3 - 8 unit SQ ACHS 12/05/16 [History] Ipratropium/Albuterol Neb [Duoneb] 3 ml IH Q6HR PRN 12/05/16 [History] Levothyroxine [Synthroid] 25 mcg PO DAILY 12/05/16 [History] Lidocaine 4% CRM (LMX) [Lmx 4] 1 appl TP TID PRN 12/05/16 [History] Magnesium Oxide [Magnesium] 400 mg PO BID 12/05/16 [History] Melatonin/Pyridoxine HCl (B6) [Melatonin 3 mg Tablet] 6 mg PO HS PRN 12/05/16 [ History] Nitroglycerin [Nitrostat] 0.4 mg SL AD PRN 12/05/16 [History] Ondansetron [Zofran] 4 mg PO TID PRN 12/05/16 [History] Xenaderm 1 appl TP Q4H PRN 12/05/16 [History] traZODone [TraZODone] 50 mg PO HS 12/05/16 [History] LORazepam Oral Conc [Ativan Oral Conc] 2 mg PO Q6HR 7 Days #7 mls 12/20/16 [Rx] Morphine Oral CONC [Roxanol] 1 ml PO Q4H PRN 7 Days #7 ml 12/20/16 [Rx] Scopolamine Patch [Transderm-Scop] 1.5 mg TD Q72H #5 patch.td72 12/20/16 [Rx] Allergies/Adverse Reactions: 3 Allergy/AdvReac Type Severity Reaction Status Date / Time heparin Allergy Unknown Rash Verified 12/04/16 21:55 Penicillins Allergy See Verified 03/21/16 08:24 Comments Sulfa (Sulfonamide Allergy See Verified 03/21/16 08:24 Antibiotics) Comments TB test Allergy See Uncoded 12/04/16 21:55 Comments - Respiratory Orders Smoking Cessation: Smoking cessation has been advised. For more information, call the [place] Tobacco Quit Line at 5-717-VIBU-NOW. - Advance Directives Code Status: DNR-Comfort Care - Treatments List/Other: Palliative care only, scopolamine, Roxicodone and Ativan as needed - Diet Orders Regular CERTIFICATION: I certify that the transfer of the above named patient to an Extended Care Facility is necessary for the continuing treatment of the diagnosis listed. The above information is true and accurate reflection of patient's current condition. Confidential - Redisclosure prohibited without a patient's written consent.
== END 2016-12-20 13:24 | disposition hospice, inpatient (51) | DRG 682 ==
LOC: ICNU 16:33 → SUATTDRO 16:33 → 2ANU 12-07 20:22 → ICNU 12-09 00:40 → 2ANU 12-17 17:41
PROVIDERS: ADMIT Internal Medicine; ATTEND Internal Medicine